=== PATIENT | male | born 1965 | race Caucasian/White ===

== ENCOUNTER 2016-05-16 15:17 | Emergency (ER) | payer MEDICARE, OTHER ==
[2016-05-16 15:44] LABS: Glucose,Whole Blood 213 mg/dL (75-99)
[2016-05-16] MEDS ORDERED: SODIUM CHLORIDE 0.9% 1,000 ML IV ONE (15:54)
--- NOTE | 2016-05-16 16:11 | ED ---
General Adult HPI - General Chief complaint: Recheck/Abnormal Lab/Rx Stated complaint: Sugar Level up Time Seen by Provider: 05/16/16 15:29 Source: patient, RN notes reviewed, old records reviewed Mode of arrival: wheelchair Limitations: no limitations - History of Present Illness Initial comments: 50-year-old male with history of hypertension and diabetes presenting for hyperglycemia. Patient states that his sugars been in the 300s for the past few days. He states he is taking his long-acting insulin, 17 units every day. States is not helping his symptoms. He has been drinking diet pop instead of regular pop as he thinks this will help his sugar levels. He states that he has had some episodes where he felt jittery and sweaty. He denies any chest pain or shortness breath. He denies any abdominal pain. Denies any nausea or vomiting or diarrhea. He denies any fevers or chills. - Related Data Home Medications Medication Instructions Recorded Confirmed Aspirin EC [Ecotrin Low Dose] 81 mg PO DAILY 03/13/14 05/16/16 Cyanocobalamin [Vitamin B-12] 1,000 mcg PO DAILY 03/13/14 05/16/16 Levothyroxine Sodium [Synthroid] 100 mcg PO DAILY 03/13/14 05/16/16 Lisinopril [Prinivil] 10 mg PO DAILY 03/13/14 05/16/16 Metoprolol Tartrate [Lopressor] 50 mg PO HS 03/13/14 05/16/16 Lovastatin [Mevacor] 10 mg PO HS 10/16/15 05/16/16 Melatonin 6 mg PO HS 10/16/15 05/16/16 Sodium Bicarbonate Tab 650 mg PO BID 10/16/15 05/16/16 metFORMIN HCL [metFORMIN HCL ER] 500 mg PO BID 12/09/15 05/16/16 Glimepiride [Amaryl] 4 mg PO AC-BRKFST 02/27/16 05/16/16 Insulin Glargine [Lantus] 17 unit SQ W/SUPPER 02/27/16 05/16/16 risperiDONE 3 mg PO BID 02/27/16 05/16/16 Previous Rx's Medication Instructions Recorded Divalproex [Depakote] 250 mg PO HS #30 tablet. 12/12/15 Divalproex [Depakote] 500 mg PO BID #60 tablet. 12/12/15 Sertraline [Zoloft] 150 mg PO HS #45 tab 12/12/15 cloNIDine HCL [Catapres] 0.1 mg PO TID #90 tab 12/12/15 Allergies Allergy/AdvReac Type Severity Reaction Status Date / Time carbamazepine [From Tegretol] Allergy Unknown Verified 05/16/16 15:35 phenytoin sodium Allergy Unknown Verified 05/16/16 15:35 [From Dilantin] phenytoin sodium extended Allergy Unknown Verified 05/16/16 15:35 [From Dilantin] primidone Allergy Unknown Verified 05/16/16 15:35 sulfamethoxazole Allergy Unknown Verified 05/16/16 15:35 [From Bactrim] trimethoprim [From Bactrim] Allergy Unknown Verified 05/16/16 15:35 Review of Systems ROS Statement: Those systems with pertinent positive or pertinent negative responses have been documented in the HPI. ROS Other: All systems not noted in ROS Statement are negative. Past Medical History Past Medical History: Diabetes Mellitus, Hyperlipidemia, Hypertension, Seizure Disorder, Sleep Apnea/CPAP/BIPAP, Thyroid Disorder Additional Past Medical History / Comment(s): IDDM type II, bilateral retinal hemorrhage, retinopathy bilaterally, grand/petite mal seizure with last seizure greater than 12 yrs ago, gender dysporia, balance issues, AYDEE with CPAP, sinus problems, hypothyroid. History of Any Multi-Drug Resistant Organisms: None Reported Past Surgical History: Cholecystectomy, Tonsillectomy Additional Past Surgical History / Comment(s): eye surgery, "tumor removed behind my throat", cystoscopy Past Anesthesia/Blood Transfusion Reactions: No Reported Reaction Past Psychological History: Anxiety, Bipolar Additional Psychological History / Comment(s): Pt resides at [email or web address]. He does not drive-he gets to [place] by bus or uses [employer] services. The nursing home staff manage his medications. He has a legal guardian, Winston Zepeda. Smoking Status: Never smoker Past Alcohol Use History: None Reported Past Drug Use History: None Reported - Past Family History Mother Family Medical History: Myocardial Infarction ([place]) Additional Family Medical History / Comment(s): Mother of a [place] at the age of 82 yrs. Father History Unknown: Yes General Exam - General Exam Comments Initial Comments: General: Awake and Alert. No acute distress. Does not appear acutely ill. Obese. Eyes: ASHKAN, EOM intact. No nystagmus. No scleral icterus. Bruising noted around eyes. HENT: Atraumatic, normocephalic. Mucous membranes moist. Trachea midline. Neck: The neck is supple, there is no tenderness or JVD. Cardiovascular: Regular rate and rhythm. No murmur, rub, or gallop is appreciated. Distal pulses intact. Respiratory: Lungs are clear to auscultation bilaterally. No wheezes, rales, rhonchi. No respiratory distress. Gastrointestinal: Soft, Nontender. No rebound or guarding. Non-distended. No masses or organomegaly noted. No CVA tenderness. Musculoskeletal: No tenderness. Normal ROM. No gross deformity. No strength deficits. Neurological: A&Ox3. CN II-XII grossly intact, There are no obvious motor or sensory deficits. Coordination appears grossly intact. Speech is normal. Skin: Skin is warm and dry and no rashes or lesions are noted. Psychiatric: Cooperative, blunt affect. Appears mildly anxious. Limitations: no limitations Course Vital Signs 05/16/16 05/16/16 15:18 15:34 Temperature 97.4 F L Pulse Rate 62 Respiratory 22 Rate Blood Pressure 207/92 209/99 O2 Sat by Pulse 98 Oximetry Medical Decision Making - Medical Decision Making 50-year-old male with history of hypertension and diabetes presenting for hyperglycemia. Initial vitals appear stable with exception of HTN. Patient with unremarkable examination other than some bruising around his eyes, states he recently had eye surgery last . Initial glucose in the 200s. Patient was given IV fluids. Also noted to have significant hypertension. States he hasn't taken any of his medications today. Patient is otherwise stable in the ED. Repeat glucose was improved. There is no evidence of DKA or other serious etiology at this time. Discussed close follow-up with PCP. Discussed need to discuss short acting insulin therapy with his PCP early next week. Discussed going home and taking his normal medications as prescribed. Discussed diabetic diet recommendations. Discussed concerning signs and symptoms are immediate return to the ED. Patient is otherwise stable for discharge this time. Is agreeable with discharge and plan. - Lab Data Result diagrams: 05/16/16 16:44 05/16/16 16:44 Lab Results 05/16/16 05/16/16 05/16/16 Range/Units 15:38 16:44 16:44 WBC 5.6 (3.8-10.6) k/uL RBC 4.64 (4.30-5.90) m/uL Hgb 13.9 (13.0-17.5) gm/dL Hct 41.3 (39.0-53.0) % MCV 89.1 (80.0-100.0) fL MCH 30.0 (25.0-35.0) pg MCHC 33.7 (31.0-37.0) g/dL RDW 12.9 (11.5-15.5) % Plt Count 182 (150-450) k/uL Neutrophils % 56 % Lymphocytes % 32 % Monocytes % 8 % Eosinophils % 2 % Basophils % 1 % Neutrophils # 3.1 (1.3-7.7) k/uL Lymphocytes # 1.8 (1.0-4.8) k/uL Monocytes # 0.4 (0-1.0) k/uL Eosinophils # 0.1 (0-0.7) k/uL Basophils # 0.0 (0-0.2) k/uL Sodium 132 L (137-145) mmol/L Potassium 3.7 (3.5-5.1) mmol/L Chloride 94 L (98-107) mmol/L Carbon Dioxide 25 (22-30) mmol/L Anion Gap 13 mmol/L BUN 9 (9-20) mg/dL Creatinine 0.62 L (0.66-1.25) mg/dL Est GFR (MDRD) Af Amer >60 (>60 ml/min/1.73 sqM) Est GFR (MDRD) Non-Af >60 (>60 ml/min/1.73 sqM) Glucose 172 H (74-99) mg/dL POC Glucose (mg/dL) 213 H (75-99) mg/dL POC Glu Psychology Department Chair ID Dominik, Elvira Calcium 8.8 (8.4-10.2) mg/dL Magnesium 1.5 L (1.6-2.3) mg/dL Urine Color Urine Appearance (Clear) Urine pH (5.0-8.0) Ur Specific [place] (1.001-1.035) Urine Protein (Negative) Urine Glucose (UA) (Negative) Urine Ketones (Negative) Urine Blood (Negative) Urine Nitrate (Negative) Urine Bilirubin (Negative) Urine Urobilinogen (<2.0) mg/dL Ur Leukocyte Esterase (Negative) 05/16/16 Range/Units 17:03 WBC (3.8-10.6) k/uL RBC (4.30-5.90) m/uL Hgb (13.0-17.5) gm/dL Hct (39.0-53.0) % MCV (80.0-100.0) fL MCH (25.0-35.0) pg MCHC (31.0-37.0) g/dL RDW (11.5-15.5) % Plt Count (150-450) k/uL Neutrophils % % Lymphocytes % % Monocytes % % Eosinophils % % Basophils % % Neutrophils # (1.3-7.7) k/uL Lymphocytes # (1.0-4.8) k/uL Monocytes # (0-1.0) k/uL Eosinophils # (0-0.7) k/uL Basophils # (0-0.2) k/uL Sodium (137-145) mmol/L Potassium (3.5-5.1) mmol/L Chloride (98-107) mmol/L Carbon Dioxide (22-30) mmol/L Anion Gap mmol/L BUN (9-20) mg/dL Creatinine (0.66-1.25) mg/dL Est GFR (MDRD) Af Amer (>60 ml/min/1.73 sqM) Est GFR (MDRD) Non-Af (>60 ml/min/1.73 sqM) Glucose (74-99) mg/dL POC Glucose (mg/dL) (75-99) mg/dL POC Glu Psychology Department Chair ID Calcium (8.4-10.2) mg/dL Magnesium (1.6-2.3) mg/dL Urine Color Colorless Urine Appearance Clear (Clear) Urine pH 6.5 (5.0-8.0) Ur Specific [place] 1.002 (1.001-1.035) Urine Protein Negative (Negative) Urine Glucose (UA) 3+ H (Negative) Urine Ketones Negative (Negative) Urine Blood Negative (Negative) Urine Nitrate Negative (Negative) Urine Bilirubin Negative (Negative) Urine Urobilinogen <2.0 (<2.0) mg/dL Ur Leukocyte Esterase Negative (Negative) Disposition Clinical Impression: Hyperglycemia, Essential hypertension Disposition: HOME SELF-CARE Condition: Stable Instructions: Diabetic Hyperglycemia (ED) Additional Instructions: Please continue taking your normal dose of long-acting insulin daily. Please follow up with your primary doctor within the next several days and discuss possible initiation of short acting insulin for further diabetic management. Please avoid sugars and pop. Referrals: Jonathon Escobedo MD [Primary Care Provider] - 1-2 days Time of Disposition: 18:20
[2016-05-16 17:04] LABS: Basophils % (A) 1 %; CH 31.1; CHCM 35.1; Eosinophils # (A) 0.1 k/uL (0-0.7); Eosinophils % (A) 2 %; HCT 41.3 % (39.0-53.0); HDW 2.65; HGB 13.9 gm/dL (13.0-17.5); Luc # (Auto) 0.09; Luc % (Auto) 2; Lymphocytes # (A) 1.8 k/uL (1.0-4.8); Lymphocytes % (A) 32 %; MCHC 33.7 g/dL (31.0-37.0); MCV 89.1 fL (80.0-100.0); Mean Platelet Volume 8.4; Monocytes # (A) 0.4 k/uL (0-1.0); Monocytes % (A) 8 %; Neutrophils # (A) 3.1 k/uL (1.3-7.7); Neutrophils % (A) 56 %; RBC 4.64 m/uL (4.30-5.90); RDW 12.9 % (11.5-15.5); WBC 5.6 k/uL (3.8-10.6); WBC (Perox) 5.78
[2016-05-16 17:12] LABS: Anion Gap 13 mmol/L; Blood Urea Nitrogen 9 mg/dL (9-20); Calcium 8.8 mg/dL (8.4-10.2); Carbon Dioxide 25 mmol/L (22-30); Chloride 94 mmol/L (98-107); Glucose 172 mg/dL (74-99); Magnesium 1.5 mg/dL (1.6-2.3); Non-African American GFR(MDRD) >60 (>60 ml/min/1.73 sqM); Potassium 3.7 mmol/L (3.5-5.1); Sodium 132 mmol/L (137-145)
[2016-05-16 17:13] LABS: Appearance,Urine Clear (Clear); Bilirubin,Urine Negative (Negative); Glucose,Urine (UA) 3+ (Negative); Ketones,Urine Negative (Negative); Leukocyte Esterase,Urine Negative (Negative); Nitrite,Urine Negative (Negative); PH, Urine 6.5 (5.0-8.0); Protein,Urine Negative (Negative); UA Billing (MACRO vs. MICRO) CHEM; Urobilinogen,Urine <2.0 mg/dL (<2.0)
[2016-05-16 17:42] LABS: Specific Gravity,Urine 1.002 (1.001-1.035)
[2016-05-16] MEDS ORDERED: MAGNESIUM OXIDE 400 MG TAB PO STA (18:15)
[2016-05-16 19:06] VITALS: BP 182/92; PULSE 87; RESP 16; TEMP 97.6
== END 2016-05-16 19:00 | disposition home or self-care (01) ==
LOC: EC 15:17
DX: E11.65 Type 2 diabetes mellitus with hyperglycemia (principal); I10 Essential (primary) hypertension; E03.9 Hypothyroidism, unspecified; G40.909 Epilepsy, unspecified, not intractable, without status epilepticus; E78.5 Hyperlipidemia, unspecified; G47.33 Obstructive sleep apnea (adult) (pediatric); F31.9 Bipolar disorder, unspecified; F41.9 Anxiety disorder, unspecified; Z79.82 Long term (current) use of aspirin; Z79.4 Long term (current) use of insulin; Z79.84 Long term (current) use of oral hypoglycemic drugs; Z79.899 Other long term (current) drug therapy; Z99.89 Dependence on other enabling machines and devices; Z88.1 Allergy status to other antibiotic agents; Z88.2 Allergy status to sulfonamides; Z88.8 Allergy status to other drugs, medicaments and biological substances
CPT/HCPCS: 36415; 80048; 81003; 83735; 85025; 96360; 96361; 99285

== ENCOUNTER 2017-01-30 12:59 | Emergency (ER) | payer MEDICARE, OTHER ==
[2017-01-30 13:15] VITALS: TEMP 98.2
--- NOTE | 2017-01-30 13:30 | ED ---
Dizziness HPI - General Chief Complaint: Dizziness Stated Complaint: Fall Time Seen by Provider: 01/30/17 13:15 Source: patient Mode of arrival: ambulatory Limitations: no limitations - History of Present Illness Initial Comments: 51-year-old male presents to the ER complaining of dizziness that occurred earlier this morning. Patient states he was shopping at [employer] by himself when he noticed that he started feeling dizzy and almost like he was going to pass out. Patient states he was possibly moving side to side and a senior software manager from the [employer] grocery store told him he should get checked out. Patient states he for some did take a bus to the emergency room to get evaluated. Patient is feeling change of his medication is that he be up his Lantus last night 15 units. Patient states his blood sugar was good according to the patient. Patient states he ate breakfast this morning a bowl of rea like cereal. Patient denies any pain. He denies any chest pain or abdominal pain. He denies any shortness of breath. He denies any visual changes. He denies any cough or fevers. He denies any dysuria. Patient does admit to increased urinary frequency. MD Complaint: dizziness, lightheadedness, near syncope - Related Data Home Medications Medication Instructions Recorded Confirmed Aspirin EC [Ecotrin Low Dose] 81 mg PO DAILY 03/13/14 01/30/17 Cyanocobalamin [Vitamin B-12] 1,000 mcg PO DAILY 03/13/14 01/30/17 Levothyroxine Sodium [Synthroid] 100 mcg PO DAILY 03/13/14 01/30/17 Lovastatin [Mevacor] 10 mg PO HS 10/16/15 01/30/17 Melatonin 9 mg PO HS 10/16/15 01/30/17 Sodium Bicarbonate Tab 650 mg PO BID 10/16/15 01/30/17 metFORMIN HCL [metFORMIN HCL ER] 2,000 mg PO W/SUPPER 12/09/15 01/30/17 Glimepiride [Amaryl] 4 mg PO AC-BRKFST 02/27/16 01/30/17 Insulin Glargine [Lantus] 15 unit SQ HS 02/27/16 01/30/17 risperiDONE 3 mg PO BID 02/27/16 01/30/17 Cholecalciferol [Vitamin D3] 1,000 unit PO DAILY 01/30/17 01/30/17 Cinnamon Bark [Cinnamon] 1,000 mg PO DAILY 01/30/17 01/30/17 Divalproex Sodium [Depakote] 1,000 mg PO HS 01/30/17 01/30/17 Divalproex [Depakote] 500 mg PO QAM 01/30/17 01/30/17 Lisinopril [Zestril] 20 mg PO DAILY 01/30/17 01/30/17 Metoprolol Succinate [Toprol XL] 50 mg PO HS 01/30/17 01/30/17 amLODIPine [Norvasc] 5 mg PO DAILY 01/30/17 01/30/17 Previous Rx's Medication Instructions Recorded Sertraline [Zoloft] 150 mg PO HS #45 tab 12/12/15 cloNIDine HCL [Catapres] 0.1 mg PO TID #90 tab 12/12/15 Allergies Allergy/AdvReac Type Severity Reaction Status Date / Time carbamazepine [From Tegretol] Allergy Unknown Verified 01/30/17 13:12 phenytoin sodium Allergy Unknown Verified 01/30/17 13:12 [From Dilantin] phenytoin sodium extended Allergy Unknown Verified 01/30/17 13:12 [From Dilantin] primidone Allergy Unknown Verified 01/30/17 13:12 sulfamethoxazole Allergy Unknown Verified 01/30/17 13:12 [From Bactrim] trimethoprim [From Bactrim] Allergy Unknown Verified 01/30/17 13:12 Review of Systems ROS Statement: Those systems with pertinent positive or pertinent negative responses have been documented in the HPI. ROS Other: All systems not noted in ROS Statement are negative. Constitutional: Denies: fever, chills ENT: Denies: ear pain, throat pain Respiratory: Denies: cough, dyspnea Cardiovascular: Denies: chest pain, palpitations Gastrointestinal: Denies: abdominal pain, nausea, vomiting Neurological: Denies: headache, weakness Past Medical History Past Medical History: Diabetes Mellitus, Hyperlipidemia, Hypertension, Seizure Disorder, Sleep Apnea/CPAP/BIPAP, Thyroid Disorder Additional Past Medical History / Comment(s): IDDM type II, bilateral retinal hemorrhage, retinopathy bilaterally, grand/petite mal seizure with last seizure greater than 12 yrs ago, gender dysporia, balance issues, AYDEE with CPAP, sinus problems, hypothyroid. History of Any Multi-Drug Resistant Organisms: None Reported Past Surgical History: Cholecystectomy, Tonsillectomy Additional Past Surgical History / Comment(s): eye surgery, "tumor removed behind my throat", cystoscopy Past Anesthesia/Blood Transfusion Reactions: No Reported Reaction Past Psychological History: Anxiety, Bipolar Smoking Status: Never smoker Past Alcohol Use History: None Reported Past Drug Use History: None Reported - Past Family History Mother Family Medical History: Myocardial Infarction ([place]) Additional Family Medical History / Comment(s): Mother of a [place] at the age of 82 yrs. Father History Unknown: Yes General Exam Limitations: no limitations General appearance: alert, in no apparent distress Eye exam: Present: normal appearance, PERRL, EOMI. Absent: scleral icterus, conjunctival injection, periorbital swelling ENT exam: Present: normal exam, mucous membranes moist Neck exam: Present: normal inspection. Absent: tenderness, meningismus, lymphadenopathy Respiratory exam: Present: normal lung sounds bilaterally. Absent: respiratory distress, wheezes, rales, rhonchi, stridor Cardiovascular Exam: Present: regular rate, normal rhythm, normal heart sounds. Absent: systolic murmur, diastolic murmur, rubs, gallop, clicks GI/Abdominal exam: Present: soft, normal bowel sounds. Absent: distended, tenderness, guarding, rebound, rigid Extremities exam: Present: normal inspection, full ROM, normal capillary refill. Absent: tenderness, pedal edema, joint swelling, calf tenderness Back exam: Present: normal inspection Neurological exam: Present: alert, oriented X3, CN II-XII intact Psychiatric exam: Present: normal affect, normal mood Skin exam: Present: warm, dry, intact, normal color. Absent: rash Course Vital Signs 01/30/17 01/30/17 01/30/17 13:12 14:11 15:05 Temperature 98.2 F Pulse Rate 59 L 55 L Pulse Rate [ 55 L Sitting] Pulse Rate [ 57 L Standing] Pulse Rate [ 57 L Supine] Respiratory 16 18 Rate Blood Pressure 198/93 146/68 Blood Pressure 155/74 [Sitting] Blood Pressure 150/78 [Standing] Blood Pressure 155/72 [Supine] O2 Sat by Pulse 100 99 Oximetry Medical Decision Making - Medical Decision Making Reviewed EKG and with Dr. Michaud. Discussed with patient that his sodium is low we will give half liter normal saline and try orthostatics. Patient comfortable we will send him home with follow-up for with family doctor next week. Patient to continue monitoring his blood pressures and sugar levels. Patient did eat a low carbohydrate diet. Patient should have repeat labs with his family doctor next week. Patient return to ER if symptoms progress or worsen. - Lab Data Result diagrams: 01/30/17 14:00 01/30/17 14:00 Lab Results 01/30/17 01/30/17 01/30/17 Range/Units 14:00 14:00 14:00 WBC 6.4 (3.8-10.6) k/uL RBC 4.62 (4.30-5.90) m/uL Hgb 14.5 (13.0-17.5) gm/dL Hct 42.4 (39.0-53.0) % MCV 91.8 (80.0-100.0) fL MCH 31.4 (25.0-35.0) pg MCHC 34.2 (31.0-37.0) g/dL RDW 13.9 (11.5-15.5) % Plt Count 245 (150-450) k/uL Neutrophils % 56 % Lymphocytes % 31 % Monocytes % 10 % Eosinophils % 1 % Basophils % 0 % Neutrophils # 3.6 (1.3-7.7) k/uL Lymphocytes # 2.0 (1.0-4.8) k/uL Monocytes # 0.6 (0-1.0) k/uL Eosinophils # 0.1 (0-0.7) k/uL Basophils # 0.0 (0-0.2) k/uL Sodium 129 L (137-145) mmol/L Potassium 4.3 (3.5-5.1) mmol/L Chloride 93 L (98-107) mmol/L Carbon Dioxide 24 (22-30) mmol/L Anion Gap 12 mmol/L BUN 9 (9-20) mg/dL Creatinine 0.61 L (0.66-1.25) mg/dL Est GFR (MDRD) Af Amer >60 (>60 ml/min/1.73 sqM) Est GFR (MDRD) Non-Af >60 (>60 ml/min/1.73 sqM) Glucose 165 H (74-99) mg/dL Calcium 9.3 (8.4-10.2) mg/dL Total Bilirubin 0.3 (0.2-1.3) mg/dL AST 17 (17-59) U/L ALT 31 (21-72) U/L Alkaline Phosphatase 59 (38-126) U/L Total Protein 7.1 (6.3-8.2) g/dL Albumin 4.4 (3.5-5.0) g/dL Urine Color Yellow Urine Appearance Clear (Clear) Urine pH 6.5 (5.0-8.0) Ur Specific [place] 1.010 (1.001-1.035) Urine Protein Negative (Negative) Urine Glucose (UA) 4+ H (Negative) Urine Ketones Negative (Negative) Urine Blood Negative (Negative) Urine Nitrite Negative (Negative) Urine Bilirubin Negative (Negative) Urine Urobilinogen <2.0 (<2.0) mg/dL Ur Leukocyte Esterase Negative (Negative) Disposition Clinical Impression: Hyponatremia, Dizziness Disposition: HOME SELF-CARE Instructions: Hyponatremia (ED) Referrals: Nonstaff,Physician [Primary Care Provider] - 1-2 days Geoff Cisneros MD [STAFF PHYSICIAN] - 1-2 days Time of Disposition: 16:05
[2017-01-30 14:12] VITALS: RESP 18
[2017-01-30 14:20] LABS: Basophils % (A) 0 %; CH 32.5; CHCM 35.5; Eosinophils # (A) 0.1 k/uL (0-0.7); Eosinophils % (A) 1 %; HCT 42.4 % (39.0-53.0); HDW 2.28; HGB 14.5 gm/dL (13.0-17.5); Luc % (Auto) 2; Lymphocytes % (A) 31 %; MCH 31.4 pg (25.0-35.0); MCHC 34.2 g/dL (31.0-37.0); MCV 91.8 fL (80.0-100.0); Mean Platelet Volume 8.1; Monocytes # (A) 0.6 k/uL (0-1.0); Monocytes % (A) 10 %; Neutrophils # (A) 3.6 k/uL (1.3-7.7); Neutrophils % (A) 56 %; RBC 4.62 m/uL (4.30-5.90); RDW 13.9 % (11.5-15.5); WBC 6.4 k/uL (3.8-10.6); WBC (Perox) 6.53
[2017-01-30 14:21] LABS: Appearance,Urine Clear (Clear); Bilirubin,Urine Negative (Negative); Glucose,Urine (UA) 4+ (Negative); Ketones,Urine Negative (Negative); PH, Urine 6.5 (5.0-8.0); Protein,Urine Negative (Negative); Urobilinogen,Urine <2.0 mg/dL (<2.0)
[2017-01-30 14:22] LABS: Leukocyte Esterase,Urine Negative (Negative); Nitrite,Urine Negative (Negative); UA Billing (MACRO vs. MICRO) CHEM
[2017-01-30 14:29] LABS: ALT 31 U/L (21-72); AST 17 U/L (17-59); Alkaline Phosphatase 59 U/L (38-126); Anion Gap 12 mmol/L; Blood Urea Nitrogen 9 mg/dL (9-20); Calcium 9.3 mg/dL (8.4-10.2); Carbon Dioxide 24 mmol/L (22-30); Chloride 93 mmol/L (98-107); Glucose 165 mg/dL (74-99); Non-African American GFR(MDRD) >60 (>60 ml/min/1.73 sqM); Potassium 4.3 mmol/L (3.5-5.1); Sodium 129 mmol/L (137-145); Total Bilirubin 0.3 mg/dL (0.2-1.3); Total Protein 7.1 g/dL (6.3-8.2)
[2017-01-30] MEDS ORDERED: SODIUM CHLORIDE 0.9% 500 ML IV ONE (14:45)
[2017-01-30 16:25] VITALS: BP 146/68; PULSE 55
== END 2017-01-30 16:26 | disposition home or self-care (01) ==
LOC: EC 12:59
DX: E87.1 Hypo-osmolality and hyponatremia (principal); R42 Dizziness and giddiness; E11.9 Type 2 diabetes mellitus without complications; E78.5 Hyperlipidemia, unspecified; I10 Essential (primary) hypertension; G47.30 Sleep apnea, unspecified; Z99.89 Dependence on other enabling machines and devices; E03.9 Hypothyroidism, unspecified; G40.909 Epilepsy, unspecified, not intractable, without status epilepticus; F31.9 Bipolar disorder, unspecified; Z79.899 Other long term (current) drug therapy; Z79.4 Long term (current) use of insulin; Z79.82 Long term (current) use of aspirin; Z88.2 Allergy status to sulfonamides; Z88.8 Allergy status to other drugs, medicaments and biological substances
CPT/HCPCS: 36415; 80053; 81003; 85025; 93005; 96365; 99284

== ENCOUNTER 2017-06-03 18:40 | Emergency (ER) | payer MEDICARE, OTHER ==
[2017-06-03 18:56] VITALS: RESP 18
[2017-06-03] MEDS ORDERED: SODIUM CHLORIDE 0.9% 2,000 ML IV ONE (19:10)
--- NOTE | 2017-06-03 19:23 | ED ---
General Adult HPI - General Chief complaint: Recheck/Abnormal Lab/Rx Stated complaint: HYPERGLYCEMIA Time Seen by Provider: 06/03/17 19:08 Source: patient Mode of arrival: ambulatory Limitations: no limitations - History of Present Illness Initial comments: Patient is a 51-year-old male who identifies as a female who presents with a chief complaint of hyperglycemia. Patient states that they are type II however they were diagnosed at the age of 6 or 7. Patient currently takes insulin once a day. Did not try taking any insulin prior to coming to the emergency department. Patient is coming from her senior living and is accompanied by one of the senior living staff. Patient does not have any symptoms currently. Blood sugar was over 450 at the senior living. - Related Data Home Medications Medication Instructions Recorded Confirmed Aspirin EC [Ecotrin Low Dose] 81 mg PO DAILY 03/13/14 06/03/17 Cyanocobalamin [Vitamin B-12] 1,000 mcg PO DAILY@1600 03/13/14 06/03/17 Levothyroxine Sodium [Synthroid] 100 mcg PO QAM 03/13/14 06/03/17 Lovastatin [Mevacor] 10 mg PO HS 10/16/15 06/03/17 Melatonin 9 mg PO HS 10/16/15 06/03/17 metFORMIN HCL [metFORMIN HCL ER] 2,000 mg PO W/SUPPER 12/09/15 06/03/17 Glimepiride [Amaryl] 4 mg PO AC-BRKFST 02/27/16 06/03/17 risperiDONE 3 mg PO BID 02/27/16 06/03/17 Cholecalciferol [Vitamin D3] 2,000 unit PO DAILY 01/30/17 06/03/17 Divalproex Sodium [Depakote] 1,000 mg PO HS 01/30/17 06/03/17 Divalproex [Depakote] 500 mg PO QAM 01/30/17 06/03/17 Lisinopril [Zestril] 20 mg PO QAM 01/30/17 06/03/17 Metoprolol Succinate [Toprol XL] 50 mg PO HS 01/30/17 06/03/17 Ascorbic Acid [Vitamin C] 500 mg PO DAILY@1600 03/18/17 06/03/17 Insulin Glargine,Hum.rec.anlog 25 unit SQ HS 06/03/17 06/03/17 [Lantus Solostar] amLODIPine [Norvasc] 10 mg PO DAILY 06/03/17 06/03/17 Previous Rx's Medication Instructions Recorded Sertraline [Zoloft] 150 mg PO HS #45 tab 12/12/15 cloNIDine HCL [Catapres] 0.1 mg PO TID #90 tab 12/12/15 Allergies Allergy/AdvReac Type Severity Reaction Status Date / Time carbamazepine [From Tegretol] Allergy Unknown Verified 06/03/17 19:23 phenytoin sodium Allergy Unknown Verified 06/03/17 19:23 [From Dilantin] phenytoin sodium extended Allergy Unknown Verified 06/03/17 19:23 [From Dilantin] primidone Allergy Unknown Verified 06/03/17 19:23 sulfamethoxazole Allergy Unknown Verified 06/03/17 19:23 [From Bactrim] trimethoprim [From Bactrim] Allergy Unknown Verified 06/03/17 19:23 Review of Systems ROS Statement: Those systems with pertinent positive or pertinent negative responses have been documented in the HPI. ROS Other: All systems not noted in ROS Statement are negative. Past Medical History Past Medical History: Diabetes Mellitus, Hyperlipidemia, Hypertension, Seizure Disorder, Sleep Apnea/CPAP/BIPAP, Thyroid Disorder Additional Past Medical History / Comment(s): IDDM type II, bilateral retinal hemorrhage, retinopathy bilaterally, grand/petite mal seizure with last seizure greater than 12 yrs ago, gender dysporia, balance issues, AYDEE with CPAP, sinus problems, hypothyroid. History of Any Multi-Drug Resistant Organisms: None Reported Past Surgical History: Cholecystectomy, Tonsillectomy Additional Past Surgical History / Comment(s): eye surgery, "tumor removed behind my throat", cystoscopy Past Anesthesia/Blood Transfusion Reactions: No Reported Reaction Past Psychological History: Anxiety, Bipolar Smoking Status: Never smoker Past Alcohol Use History: None Reported Past Drug Use History: None Reported - Past Family History Mother Family Medical History: Myocardial Infarction ([place]) Additional Family Medical History / Comment(s): Mother of a [place] at the age of 82 yrs. Father History Unknown: Yes General Exam Limitations: no limitations General appearance: alert, in no apparent distress Head exam: Present: atraumatic, normocephalic Eye exam: Present: normal appearance ENT exam: Present: mucous membranes moist Neck exam: Present: normal inspection Respiratory exam: Present: normal lung sounds bilaterally, respiratory distress Cardiovascular Exam: Present: regular rate, normal rhythm GI/Abdominal exam: Present: soft. Absent: distended, tenderness Rectal exam: Present: deferred Extremities exam: Present: normal inspection Back exam: Present: normal inspection Neurological exam: Present: alert, oriented X3 Psychiatric exam: Present: normal affect, normal mood Skin exam: Present: warm, dry, intact Course Vital Signs 06/03/17 18:53 Temperature 97.7 F Pulse Rate 16 L Respiratory 18 Rate Blood Pressure 141/65 O2 Sat by Pulse 96 Oximetry Medical Decision Making - Medical Decision Making Patient is a 51-year-old male, identifies as a female, resident of the chief complaint of hyperglycemia. Patient is not symptomatically at this time. On initial evaluation, vital signs are stable, patient is in no acute distress. We 'll check basic labs, urinalysis and give patient 2 L of IV fluid. 8:32 PM Lab evaluation of this patient is unremarkable. Anion gap is 13. Patient remained comfortable in the emergency department. Patient received a total of 1 L of fluids, blood sugar improved to 360. Patient is due for his home dose of insulin, therefore we will not give him insulin in the emergency department. The patient can take his home dose when he gets there. Patient was instructed to follow-up with primary care in 1-2 days or return to the emergency department if symptoms worsen or change for reevaluation in 12-24 hours. - Lab Data Result diagrams: 06/03/17 19:36 06/03/17 19:36 Lab Results 06/03/17 06/03/17 06/03/17 Range/Units 19:34 19:36 19:36 WBC 7.5 (3.8-10.6) k/uL RBC 4.27 L (4.30-5.90) m/uL Hgb 12.9 L (13.0-17.5) gm/dL Hct 40.6 (39.0-53.0) % MCV 95.0 (80.0-100.0) fL MCH 30.3 (25.0-35.0) pg MCHC 31.9 (31.0-37.0) g/dL RDW 12.9 (11.5-15.5) % Plt Count 232 (150-450) k/uL Neutrophils % 58 % Lymphocytes % 30 % Monocytes % 9 % Eosinophils % 1 % Basophils % 0 % Neutrophils # 4.3 (1.3-7.7) k/uL Lymphocytes # 2.3 (1.0-4.8) k/uL Monocytes # 0.7 (0-1.0) k/uL Eosinophils # 0.1 (0-0.7) k/uL Basophils # 0.0 (0-0.2) k/uL Sodium 132 L (137-145) mmol/L Potassium 4.8 (3.5-5.1) mmol/L Chloride 92 L (98-107) mmol/L Carbon Dioxide 27 (22-30) mmol/L Anion Gap 13 mmol/L BUN 14 (9-20) mg/dL Creatinine 0.65 L (0.66-1.25) mg/dL Est GFR (MDRD) Af Amer >60 (>60 ml/min/1.73 sqM) Est GFR (MDRD) Non-Af >60 (>60 ml/min/1.73 sqM) Glucose 369 H (74-99) mg/dL POC Glucose (mg/dL) 360 H (75-99) mg/dL POC Glu Recreation Superintendent ID Reji Jovel Calcium 9.7 (8.4-10.2) mg/dL Urine Color Urine Appearance (Clear) Urine pH (5.0-8.0) Ur Specific [place] (1.001-1.035) Urine Protein (Negative) Urine Glucose (UA) (Negative) Urine Ketones (Negative) Urine Blood (Negative) Urine Nitrite (Negative) Urine Bilirubin (Negative) Urine Urobilinogen (<2.0) mg/dL Ur Leukocyte Esterase (Negative) 06/03/17 Range/Units 19:45 WBC (3.8-10.6) k/uL RBC (4.30-5.90) m/uL Hgb (13.0-17.5) gm/dL Hct (39.0-53.0) % MCV (80.0-100.0) fL MCH (25.0-35.0) pg MCHC (31.0-37.0) g/dL RDW (11.5-15.5) % Plt Count (150-450) k/uL Neutrophils % % Lymphocytes % % Monocytes % % Eosinophils % % Basophils % % Neutrophils # (1.3-7.7) k/uL Lymphocytes # (1.0-4.8) k/uL Monocytes # (0-1.0) k/uL Eosinophils # (0-0.7) k/uL Basophils # (0-0.2) k/uL Sodium (137-145) mmol/L Potassium (3.5-5.1) mmol/L Chloride (98-107) mmol/L Carbon Dioxide (22-30) mmol/L Anion Gap mmol/L BUN (9-20) mg/dL Creatinine (0.66-1.25) mg/dL Est GFR (MDRD) Af Amer (>60 ml/min/1.73 sqM) Est GFR (MDRD) Non-Af (>60 ml/min/1.73 sqM) Glucose (74-99) mg/dL POC Glucose (mg/dL) (75-99) mg/dL POC Glu Recreation Superintendent ID Calcium (8.4-10.2) mg/dL Urine Color Colorless Urine Appearance Clear (Clear) Urine pH 7.0 (5.0-8.0) Ur Specific [place] 1.014 (1.001-1.035) Urine Protein Negative (Negative) Urine Glucose (UA) 4+ H (Negative) Urine Ketones Negative (Negative) Urine Blood Negative (Negative) Urine Nitrite Negative (Negative) Urine Bilirubin Negative (Negative) Urine Urobilinogen <2.0 (<2.0) mg/dL Ur Leukocyte Esterase Negative (Negative) Disposition Clinical Impression: Hyperglycemia Disposition: HOME SELF-CARE Condition: Good Instructions: Diabetic Hyperglycemia (ED) Referrals: Jonathon Escobedo MD [Primary Care Provider] - 1-2 days
[2017-06-03 19:50] LABS: Glucose,Whole Blood 360 mg/dL (75-99)
[2017-06-03 19:55] LABS: Appearance,Urine Clear (Clear); Bilirubin,Urine Negative (Negative); Blood,Urine Negative (Negative); Color,Urine Colorless; Glucose,Urine (UA) 4+ (Negative); Ketones,Urine Negative (Negative); Leukocyte Esterase,Urine Negative (Negative); Nitrite,Urine Negative (Negative); Protein,Urine Negative (Negative); Specific Gravity,Urine 1.014 (1.001-1.035); Urobilinogen,Urine <2.0 mg/dL (<2.0)
[2017-06-03 20:00] LABS: Basophils % (A) 0 %; Eosinophils # (A) 0.1 k/uL (0-0.7); Eosinophils % (A) 1 %; HCT 40.6 % (39.0-53.0); HGB 12.9 gm/dL (13.0-17.5); Lymphocytes # (A) 2.3 k/uL (1.0-4.8); Lymphocytes % (A) 30 %; MCH 30.3 pg (25.0-35.0); MCHC 31.9 g/dL (31.0-37.0); Mean Platelet Volume 7.5; Monocytes # (A) 0.7 k/uL (0-1.0); Monocytes % (A) 9 %; Neutrophils # (A) 4.3 k/uL (1.3-7.7); Neutrophils % (A) 58 %; Platelet Count 232 k/uL (150-450); RBC 4.27 m/uL (4.30-5.90); RDW 12.9 % (11.5-15.5); WBC 7.5 k/uL (3.8-10.6)
[2017-06-03 20:18] LABS: Anion Gap 13 mmol/L; Blood Urea Nitrogen 14 mg/dL (9-20); Calcium 9.7 mg/dL (8.4-10.2); Carbon Dioxide 27 mmol/L (22-30); Chloride 92 mmol/L (98-107); Glucose 369 mg/dL (74-99); Potassium 4.8 mmol/L (3.5-5.1); Sodium 132 mmol/L (137-145)
[2017-06-03 20:52] VITALS: BP 163/72; PULSE 67; TEMP 98.1
== END 2017-06-03 21:20 | disposition home or self-care (01) ==
LOC: EC 18:40
DX: E11.65 Type 2 diabetes mellitus with hyperglycemia (principal); R06.03 Acute respiratory distress; E78.5 Hyperlipidemia, unspecified; I10 Essential (primary) hypertension; E11.319 Type 2 diabetes mellitus with unspecified diabetic retinopathy without macular edema; E03.9 Hypothyroidism, unspecified; F31.9 Bipolar disorder, unspecified; G40.909 Epilepsy, unspecified, not intractable, without status epilepticus; G47.33 Obstructive sleep apnea (adult) (pediatric); Z79.4 Long term (current) use of insulin; Z79.82 Long term (current) use of aspirin; Z79.899 Other long term (current) drug therapy; Z88.1 Allergy status to other antibiotic agents; Z88.8 Allergy status to other drugs, medicaments and biological substances; Z99.89 Dependence on other enabling machines and devices
CPT/HCPCS: 36415; 80048; 81003; 85025; 96360; 96361; 99283

== ENCOUNTER 2017-08-25 01:38 | Emergency (ER) | payer MEDICARE, OTHER ==
--- NOTE | 2017-08-25 02:08 | ED ---
Psych HPI <Nikolai Adkins - Last Filed: 08/25/17 04:56> - General Source: patient, EMS, RN notes reviewed Mode of arrival: EMS <Juanita Swan - Last Filed: 08/25/17 17:04> - General Chief Complaint: Psychiatric Symptoms Stated Complaint: Mental Health Time Seen by Provider: 08/25/17 01:48 - History of Present Illness Initial Comments: This is a 52-year-old male who presents to the emergency department for mental health evaluation. Patient states that he wants his mood medications adjusted. He states that he was told by his psychiatrist that he if he ever has an increase in anxiety or stress that he is to report to the emergency department. Patient states that recently he has been frustrated and angry with a girl at the care home who has been ruining all of his outings. He states he is now becoming frustrated with the local bus and his guardian. He denies any suicidal or homicidal ideation. Denies any auditory or visual hallucinations. Denies illicit drug or alcohol use. Denies any recent illnesses. Denies fever, chills, chest pain, shortness of breath, abdominal pain, nausea or vomiting, constipation or diarrhea, dysuria or hematuria, numbness or tingling, headache or vision changes. (Juanita Swan) - Related Data Home Medications Medication Instructions Recorded Confirmed Aspirin EC [Ecotrin Low Dose] 81 mg PO DAILY 03/13/14 06/03/17 Cyanocobalamin [Vitamin B-12] 1,000 mcg PO DAILY@1600 03/13/14 06/03/17 Levothyroxine Sodium [Synthroid] 100 mcg PO QAM 03/13/14 06/03/17 Lovastatin [Mevacor] 10 mg PO HS 10/16/15 06/03/17 Melatonin 9 mg PO HS 10/16/15 06/03/17 metFORMIN HCL [metFORMIN HCL ER] 2,000 mg PO W/SUPPER 12/09/15 06/03/17 Glimepiride [Amaryl] 4 mg PO AC-BRKFST 02/27/16 06/03/17 risperiDONE 3 mg PO BID 02/27/16 06/03/17 Cholecalciferol [Vitamin D3] 2,000 unit PO DAILY 01/30/17 06/03/17 Divalproex Sodium [Depakote] 1,000 mg PO HS 01/30/17 06/03/17 Divalproex [Depakote] 500 mg PO QAM 01/30/17 06/03/17 Lisinopril [Zestril] 20 mg PO QAM 01/30/17 06/03/17 Metoprolol Succinate [Toprol XL] 50 mg PO HS 01/30/17 06/03/17 Ascorbic Acid [Vitamin C] 500 mg PO DAILY@1600 03/18/17 06/03/17 Insulin Glargine,Hum.rec.anlog 25 unit SQ HS 06/03/17 06/03/17 [Lantus Solostar] amLODIPine [Norvasc] 10 mg PO DAILY 06/03/17 06/03/17 Previous Rx's Medication Instructions Recorded Sertraline [Zoloft] 150 mg PO HS #45 tab 12/12/15 cloNIDine HCL [Catapres] 0.1 mg PO TID #90 tab 12/12/15 Allergies Allergy/AdvReac Type Severity Reaction Status Date / Time carbamazepine [From Tegretol] Allergy Unknown Verified 06/03/17 19:23 phenytoin sodium Allergy Unknown Verified 06/03/17 19:23 [From Dilantin] phenytoin sodium extended Allergy Unknown Verified 06/03/17 19:23 [From Dilantin] primidone Allergy Unknown Verified 06/03/17 19:23 sulfamethoxazole Allergy Unknown Verified 06/03/17 19:23 [From Bactrim] trimethoprim [From Bactrim] Allergy Unknown Verified 06/03/17 19:23 Review of Systems ROS Other: All systems not noted in ROS Statement are negative. <Nikolai Adkins - Last Filed: 08/25/17 04:56> ROS Other: All systems not noted in ROS Statement are negative. <Juanita Swan - Last Filed: 08/25/17 17:04> ROS Statement: Those systems with pertinent positive or pertinent negative responses have been documented in the HPI. Past Medical History Past Medical History: Diabetes Mellitus, Hyperlipidemia, Hypertension, Seizure Disorder, Sleep Apnea/CPAP/BIPAP, Thyroid Disorder Additional Past Medical History / Comment(s): IDDM type II, bilateral retinal hemorrhage, retinopathy bilaterally, grand/petite mal seizure with last seizure greater than 12 yrs ago, gender dysporia, balance issues, AYDEE with CPAP, sinus problems, hypothyroid. History of Any Multi-Drug Resistant Organisms: None Reported Past Surgical History: Cholecystectomy, Tonsillectomy Additional Past Surgical History / Comment(s): eye surgery, "tumor removed behind my throat", cystoscopy Past Anesthesia/Blood Transfusion Reactions: No Reported Reaction Past Psychological History: Anxiety, Bipolar Smoking Status: Former smoker Past Alcohol Use History: None Reported Past Drug Use History: None Reported - Past Family History Mother Family Medical History: Myocardial Infarction ([place]) Additional Family Medical History / Comment(s): Mother of a [place] at the age of 82 yrs. Father History Unknown: Yes <Juanita Swan - Last Filed: 08/25/17 17:04> General Exam <Nikolai Adkins - Last Filed: 08/25/17 04:56> Limitations: altered mental status <Juanita Swan - Last Filed: 08/25/17 17:04> - General Exam Comments Initial Comments: General: Awake and alert, well-developed; in no apparent distress. HEENT: Head atraumatic, normocephalic. Pupils are equal, round and reactive to light. Extraocular movements intact. Oropharynx moist without erythema or exudate. Neck: Supple. Normal ROM. Cardiovascular: Regular rate and rhythm. No murmurs, rubs or gallops. Chest symmetrical. Respiratory: Lungs clear to auscultation bilaterally. No wheezes, rales or rhonchi. Normal respiratory effort with no use of accessory muscles. Musculoskeletal: Normal ROM, no tenderness bilateral upper and lower extremities. Ambulating normally. Skin: [place], warm and dry without rashes or lesions. Neurological: Alert and oriented x3. CN II-XII grossly intact. Speech is fluent and answers are appropriate. No focal neuro deficits. Psychiatric: Very animated. Flight of ideas. Good insight. (Juanita Swan) Vital Signs 08/25/17 08/25/17 01:39 05:17 Temperature 99 F 98.3 F Pulse Rate 100 82 Respiratory 18 20 Rate Blood Pressure 179/89 109/57 O2 Sat by Pulse 98 96 Oximetry Medical Decision Making <Nikolai Adkins - Last Filed: 08/25/17 04:56> <Juanita Swan - Last Filed: 08/25/17 17:04> - Medical Decision Making This is a 52-year-old male who presents to the emergency department for mental health evaluation. Patient requests to have his mood medications adjusted. He states that recently he has had an increase in stress, anger and frustration in his life. Denies any suicidal or homicidal ideation at this time. Denies any plans. (Juanita Swan) - Lab Data Lab Results 08/25/17 Range/Units 02:05 Urine Opiates Screen Not Detected (NotDetected) Ur Oxycodone Screen Not Detected (NotDetected) Urine Methadone Screen Not Detected (NotDetected) Ur Propoxyphene Screen Not Detected (NotDetected) Ur Barbiturates Screen Not Detected (NotDetected) U Tricyclic Antidepress Not Detected (NotDetected) Ur Phencyclidine Scrn Not Detected (NotDetected) Ur Amphetamines Screen Not Detected (NotDetected) U Methamphetamines Scrn Not Detected (NotDetected) U Benzodiazepines Scrn Not Detected (NotDetected) Urine Cocaine Screen Not Detected (NotDetected) U Marijuana (THC) Screen Not Detected (NotDetected) Disposition Is patient prescribed a controlled substance at d/c from ED?: No <Nikolai Adkins - Last Filed: 08/25/17 04:56> Is patient prescribed a controlled substance at d/c from ED?: No <Juanita Swan - Last Filed: 08/25/17 17:04> Clinical Impression: Adjustment reaction Disposition: HOME SELF-CARE Condition: Good Instructions: Mood Disorders (ED) Referrals: Jonathon Escobedo MD [Primary Care Provider] - 1-2 days
[2017-08-25 02:54] LABS: Amphetamine Screen,Urine Not Detected (NotDetected); Barbiturate Screen,Urine Not Detected (NotDetected); Benzodiazepines Screen,Urine Not Detected (NotDetected); Cocaine Screen,Urine Not Detected (NotDetected); Methadone Screen, Urine Not Detected (NotDetected); Opiate Screen,Urine Not Detected (NotDetected); Oxycodone Screen, Urine Not Detected (NotDetected); Phencyclidine Screen,Urine Not Detected (NotDetected); Tricyclic Antidepressant,Urine Not Detected (NotDetected); Urn Cannabinoid Scrn Not Detected (NotDetected)
[2017-08-25 05:18] VITALS: BP 109/57; PULSE 82; RESP 20; TEMP 98.3
== END 2017-08-25 05:29 | disposition home or self-care (01) ==
LOC: EC 01:38
DX: F43.20 Adjustment disorder, unspecified (principal); E11.9 Type 2 diabetes mellitus without complications; E78.5 Hyperlipidemia, unspecified; I10 Essential (primary) hypertension; G40.909 Epilepsy, unspecified, not intractable, without status epilepticus; G47.33 Obstructive sleep apnea (adult) (pediatric); Z99.89 Dependence on other enabling machines and devices; E03.9 Hypothyroidism, unspecified; F31.9 Bipolar disorder, unspecified; F41.9 Anxiety disorder, unspecified; Z87.891 Personal history of nicotine dependence; Z79.82 Long term (current) use of aspirin; Z79.4 Long term (current) use of insulin; Z79.899 Other long term (current) drug therapy; Z88.2 Allergy status to sulfonamides; Z88.8 Allergy status to other drugs, medicaments and biological substances
CPT/HCPCS: 80306; 82075; 99284

== ENCOUNTER 2017-09-20 03:54 | Emergency (ER) | payer MEDICARE, OTHER ==
[2017-09-20 04:02] VITALS: RESP 18
[2017-09-20] MEDS ORDERED: ONDANSETRON 4 MG/2 ML VIAL IVP STA (04:15)
[2017-09-20] MEDS ORDERED: SODIUM CHLORIDE 0.9% 500 ML IV STA (04:15)
[2017-09-20 04:28] LABS: Basophils % (A) 0 %; Eosinophils # (A) 0.2 k/uL (0-0.7); Eosinophils % (A) 3 %; HCT 37.4 % (39.0-53.0); HGB 13.1 gm/dL (13.0-17.5); Lymphocytes % (A) 25 %; MCHC 35.1 g/dL (31.0-37.0); MCV 85.5 fL (80.0-100.0); Mean Platelet Volume 7.1; Monocytes % (A) 12 %; Neutrophils # (A) 4.7 k/uL (1.3-7.7); Neutrophils % (A) 58 %; Platelet Count 292 k/uL (150-450); RBC 4.37 m/uL (4.30-5.90); RDW 12.9 % (11.5-15.5); WBC 8.1 k/uL (3.8-10.6)
[2017-09-20 04:33] LABS: ALT 33 U/L (21-72); AST 17 U/L (17-59); Acetaminophen <10.0 ug/mL; Albumin 3.9 g/dL (3.5-5.0); Alkaline Phosphatase 51 U/L (38-126); Anion Gap 12 mmol/L; Blood Urea Nitrogen 6 mg/dL (9-20); Calcium 9.1 mg/dL (8.4-10.2); Carbon Dioxide 26 mmol/L (22-30); Chloride 93 mmol/L (98-107); Glucose 135 mg/dL (74-99); Potassium 4.1 mmol/L (3.5-5.1); Salicylate 1.3 mg/dL; Sodium 131 mmol/L (137-145); Total Bilirubin <0.1 mg/dL (0.2-1.3); Total Protein 6.3 g/dL (6.3-8.2)
[2017-09-20 05:24] LABS: Appearance,Urine Clear (Clear); Bilirubin,Urine Negative (Negative); Blood,Urine Negative (Negative); Color,Urine Light Yellow; Glucose,Urine (UA) Trace (Negative); Ketones,Urine Negative (Negative); Leukocyte Esterase,Urine Negative (Negative); Nitrite,Urine Negative (Negative); Protein,Urine Negative (Negative); Specific Gravity,Urine 1.003 (1.001-1.035); Urobilinogen,Urine <2.0 mg/dL (<2.0)
[2017-09-20 05:34] LABS: Amphetamine Screen,Urine Not Detected (NotDetected); Barbiturate Screen,Urine Not Detected (NotDetected); Benzodiazepines Screen,Urine Not Detected (NotDetected); Cocaine Screen,Urine Not Detected (NotDetected); Methadone Screen, Urine Not Detected (NotDetected); Opiate Screen,Urine Not Detected (NotDetected); Oxycodone Screen, Urine Not Detected (NotDetected); Phencyclidine Screen,Urine Not Detected (NotDetected); Tricyclic Antidepressant,Urine Not Detected (NotDetected); Urn Cannabinoid Scrn Not Detected (NotDetected)
--- NOTE | 2017-09-20 06:17 | ED ---
General Adult HPI - General Chief complaint: Seizure Stated complaint: Seizure Time Seen by Provider: 09/20/17 04:09 Source: patient, RN notes reviewed, old records reviewed Mode of arrival: ambulatory Limitations: no limitations - History of Present Illness Initial comments: This is a 52-year-old male the ER for evaluation. Patient's brought in today for evaluation regarding recurrent seizure. Patient himself currently has no complaints, no longer postictal. Patient states is been taking all medications as prescribed, denies recent trauma no recent drugs or alcohol. - Related Data Home Medications Medication Instructions Recorded Confirmed Aspirin EC [Ecotrin Low Dose] 81 mg PO DAILY 03/13/14 09/24/17 Cyanocobalamin [Vitamin B-12] 1,000 mcg PO DAILY@1600 03/13/14 09/24/17 Levothyroxine Sodium [Synthroid] 100 mcg PO QAM 03/13/14 09/24/17 Lovastatin [Mevacor] 10 mg PO HS 10/16/15 09/24/17 Melatonin 9 mg PO HS 10/16/15 09/24/17 metFORMIN HCL [metFORMIN HCL ER] 1,000 mg PO BID 12/09/15 09/24/17 Glimepiride [Amaryl] 4 mg PO AC-BRKFST 02/27/16 09/24/17 risperiDONE 4 mg PO DAILY 02/27/16 09/24/17 Cholecalciferol [Vitamin D3] 2,000 unit PO DAILY 01/30/17 09/24/17 Divalproex Sodium [Depakote] 1,000 mg PO HS 01/30/17 09/24/17 Lisinopril [Zestril] 20 mg PO QAM 01/30/17 09/24/17 Ascorbic Acid [Vitamin C] 500 mg PO DAILY@1600 03/18/17 09/24/17 Insulin Glargine,Hum.rec.anlog 45 unit SQ HS 06/03/17 06/03/17 [Lantus Solostar] amLODIPine [Norvasc] 10 mg PO DAILY 06/03/17 09/24/17 Insulin Lispro [humaLOG Kwikpen] See Protocol SQ ACHS PRN 09/24/17 09/24/17 risperiDONE 3 mg PO HS 09/24/17 09/24/17 Previous Rx's Medication Instructions Recorded Sertraline [Zoloft] 150 mg PO HS #45 tab 12/12/15 cloNIDine HCL [Catapres] 0.1 mg PO TID #90 tab 12/12/15 Allergies Allergy/AdvReac Type Severity Reaction Status Date / Time carbamazepine [From Tegretol] Allergy Unknown Verified 09/24/17 15:22 phenytoin sodium Allergy Unknown Verified 09/24/17 15:22 [From Dilantin] phenytoin sodium extended Allergy Unknown Verified 09/24/17 15:22 [From Dilantin] primidone Allergy Unknown Verified 09/24/17 15:22 sulfamethoxazole Allergy Unknown Verified 09/24/17 15:22 [From Bactrim] trimethoprim [From Bactrim] Allergy Unknown Verified 09/24/17 15:22 Review of Systems ROS Statement: Those systems with pertinent positive or pertinent negative responses have been documented in the HPI. ROS Other: All systems not noted in ROS Statement are negative. Past Medical History Past Medical History: Diabetes Mellitus, Hyperlipidemia, Hypertension, Seizure Disorder, Sleep Apnea/CPAP/BIPAP, Thyroid Disorder Additional Past Medical History / Comment(s): IDDM type II, bilateral retinal hemorrhage, retinopathy bilaterally, grand/petite mal seizure with last seizure greater than 12 yrs ago, gender dysporia, balance issues, AYDEE with CPAP, sinus problems, hypothyroid. History of Any Multi-Drug Resistant Organisms: None Reported Past Surgical History: Cholecystectomy, Tonsillectomy Additional Past Surgical History / Comment(s): eye surgery, "tumor removed behind my throat", cystoscopy Past Anesthesia/Blood Transfusion Reactions: No Reported Reaction Past Psychological History: Anxiety, Bipolar Smoking Status: Former smoker Past Alcohol Use History: None Reported Past Drug Use History: None Reported - Past Family History Mother Family Medical History: Myocardial Infarction ([place]) Additional Family Medical History / Comment(s): Mother of a [place] at the age of 82 yrs. Father History Unknown: Yes General Exam Limitations: no limitations General appearance: alert, in no apparent distress Head exam: Present: atraumatic, normocephalic, normal inspection Eye exam: Present: normal appearance, PERRL, EOMI. Absent: scleral icterus, conjunctival injection, periorbital swelling ENT exam: Present: normal exam, mucous membranes moist Neck exam: Present: normal inspection. Absent: tenderness, meningismus, lymphadenopathy Respiratory exam: Present: normal lung sounds bilaterally. Absent: respiratory distress, wheezes, rales, rhonchi, stridor Cardiovascular Exam: Present: regular rate, normal rhythm, normal heart sounds. Absent: systolic murmur, diastolic murmur, rubs, gallop, clicks GI/Abdominal exam: Present: soft, normal bowel sounds. Absent: distended, tenderness, guarding, rebound, rigid Extremities exam: Present: normal inspection, full ROM, normal capillary refill. Absent: tenderness, pedal edema, joint swelling, calf tenderness Back exam: Present: normal inspection Neurological exam: Present: alert, oriented X3, CN II-XII intact Psychiatric exam: Present: normal affect, normal mood Skin exam: Present: warm, dry, intact, normal color. Absent: rash Course Vital Signs 09/20/17 09/20/17 09/20/17 03:58 05:02 06:32 Temperature 98.6 F 98.4 F Pulse Rate 70 77 63 Respiratory 18 18 18 Rate Blood Pressure 178/104 140/77 137/63 O2 Sat by Pulse 98 97 98 Oximetry 09/20/17 06:33 Temperature 98 F Pulse Rate 83 Respiratory 18 Rate Blood Pressure 146/71 O2 Sat by Pulse 97 Oximetry EKG Findings - EKG Comments: EKG Findings:: AG shows sinus bradycardia rate of 59, [place] 140, QRS 04, QTC 423 Medical Decision Making - Medical Decision Making 52 female the ER for evaluation. Patient has history of seizure, coming in with seizure today. Patient will be discharged home - Lab Data Result diagrams: 09/20/17 04:14 09/20/17 04:14 Lab Results 09/20/17 09/20/17 09/20/17 Range/Units 04:14 04:14 05:16 WBC 8.1 (3.8-10.6) k/uL RBC 4.37 (4.30-5.90) m/uL Hgb 13.1 (13.0-17.5) gm/dL Hct 37.4 L (39.0-53.0) % MCV 85.5 (80.0-100.0) fL MCH 30.0 (25.0-35.0) pg MCHC 35.1 (31.0-37.0) g/dL RDW 12.9 (11.5-15.5) % Plt Count 292 (150-450) k/uL Neutrophils % 58 % Lymphocytes % 25 % Monocytes % 12 % Eosinophils % 3 % Basophils % 0 % Neutrophils # 4.7 (1.3-7.7) k/uL Lymphocytes # 2.0 (1.0-4.8) k/uL Monocytes # 1.0 (0-1.0) k/uL Eosinophils # 0.2 (0-0.7) k/uL Basophils # 0.0 (0-0.2) k/uL Sodium 131 L (137-145) mmol/L Potassium 4.1 (3.5-5.1) mmol/L Chloride 93 L (98-107) mmol/L Carbon Dioxide 26 (22-30) mmol/L Anion Gap 12 mmol/L BUN 6 L (9-20) mg/dL Creatinine 0.60 L (0.66-1.25) mg/dL Est GFR (CKD-EPI)AfAm >90 (>60 ml/min/1.73 sqM) Est GFR (CKD-EPI)NonAf >90 (>60 ml/min/1.73 sqM) Glucose 135 H (74-99) mg/dL Calcium 9.1 (8.4-10.2) mg/dL Total Bilirubin <0.1 L (0.2-1.3) mg/dL AST 17 (17-59) U/L ALT 33 (21-72) U/L Alkaline Phosphatase 51 (38-126) U/L Total Protein 6.3 (6.3-8.2) g/dL Albumin 3.9 (3.5-5.0) g/dL Urine Color Light Yellow Urine Appearance Clear (Clear) Urine pH 7.0 (5.0-8.0) Ur Specific [place] 1.003 (1.001-1.035) Urine Protein Negative (Negative) Urine Glucose (UA) Trace H (Negative) Urine Ketones Negative (Negative) Urine Blood Negative (Negative) Urine Nitrite Negative (Negative) Urine Bilirubin Negative (Negative) Urine Urobilinogen <2.0 (<2.0) mg/dL Ur Leukocyte Esterase Negative (Negative) Salicylates 1.3 mg/dL Urine Opiates Screen Not Detected (NotDetected) Ur Oxycodone Screen Not Detected (NotDetected) Urine Methadone Screen Not Detected (NotDetected) Ur Propoxyphene Screen Not Detected (NotDetected) Acetaminophen <10.0 ug/mL Ur Barbiturates Screen Not Detected (NotDetected) Valproic Acid 87.0 ug/mL U Tricyclic Antidepress Not Detected (NotDetected) Ur Phencyclidine Scrn Not Detected (NotDetected) Ur Amphetamines Screen Not Detected (NotDetected) U Methamphetamines Scrn Not Detected (NotDetected) U Benzodiazepines Scrn Not Detected (NotDetected) Urine Cocaine Screen Not Detected (NotDetected) U Marijuana (THC) Screen Not Detected (NotDetected) Disposition Clinical Impression: Adjustment reaction, Epileptic seizure Disposition: HOME SELF-CARE Condition: Good Instructions: Recurrent Seizures in Adults (ED) Is patient prescribed a controlled substance at d/c from ED?: No Referrals: Chapincito Archer MD [Primary Care Provider] - 1-2 days
[2017-09-20 06:52] VITALS: BP 146/71; PULSE 83; TEMP 98
== END 2017-09-20 06:33 | disposition home or self-care (01) ==
LOC: EC 03:54
DX: G40.909 Epilepsy, unspecified, not intractable, without status epilepticus (principal); F43.20 Adjustment disorder, unspecified; E11.9 Type 2 diabetes mellitus without complications; E78.5 Hyperlipidemia, unspecified; I10 Essential (primary) hypertension; G47.33 Obstructive sleep apnea (adult) (pediatric); F41.9 Anxiety disorder, unspecified; F31.9 Bipolar disorder, unspecified; E03.9 Hypothyroidism, unspecified; Z87.891 Personal history of nicotine dependence; Z99.89 Dependence on other enabling machines and devices; Z79.4 Long term (current) use of insulin; Z79.82 Long term (current) use of aspirin; Z79.899 Other long term (current) drug therapy; Z88.1 Allergy status to other antibiotic agents; Z88.2 Allergy status to sulfonamides; Z88.8 Allergy status to other drugs, medicaments and biological substances
CPT/HCPCS: 36415; 93005; 80164; 80053; 85025; 81003; 80306; 83520 ×2; 99284; 96374; 96361 ×2; J2405

== ENCOUNTER 2017-12-22 00:11 | Emergency (ER) | payer MEDICARE, OTHER ==
--- NOTE | 2017-12-22 00:54 | ED ---
Psych HPI - General Chief Complaint: Psychiatric Symptoms Stated Complaint: Mental Health Time Seen by Provider: 12/22/17 00:17 Source: patient, police Mode of arrival: ambulatory - History of Present Illness Initial Comments: This patient is a 52-year-old man who is resident of an [facility] home and brought for psychiatric evaluation. The patient states that he is having an altercation with the appointed legal guardian about whether he must stay at this [facility] home. The patient is brought here by the Physical Plant Manager department, and they report that the patient had made some threatening statements, specifically that he would bring a weapon into the home or that he would attempt to burn the home down. When I interview the patient, he does state that he is angry with his guardian and with the [facility] home staff. He threatens that there will be a big fight, but he tells me that he means legal fight. The patient has no suicidal ideation. Complaint: other -: hour(s) Improves With: none Worsens With: none Context: significant life stressor - Related Data Home Medications Medication Instructions Recorded Confirmed Aspirin EC [Ecotrin Low Dose] 81 mg PO DAILY 03/13/14 09/24/17 Cyanocobalamin [Vitamin B-12] 1,000 mcg PO DAILY@1600 03/13/14 09/24/17 Levothyroxine Sodium [Synthroid] 100 mcg PO QAM 03/13/14 09/24/17 Lovastatin [Mevacor] 10 mg PO HS 10/16/15 09/24/17 Melatonin 9 mg PO 10/16/15 09/24/17 metFORMIN HCL [metFORMIN HCL ER] 1,000 mg PO BID 12/09/15 09/24/17 Glimepiride [Amaryl] 4 mg PO [id number] 02/27/16 09/24/17 risperiDONE 4 mg PO DAILY 02/27/16 09/24/17 Cholecalciferol [Vitamin D3] 2,000 unit PO DAILY 01/30/17 09/24/17 Divalproex Sodium [Depakote] 1,000 mg PO HS 01/30/17 09/24/17 Lisinopril [Zestril] 20 mg PO QAM 01/30/17 09/24/17 Ascorbic Acid [Vitamin C] 500 mg PO DAILY@1600 03/18/17 09/24/17 Insulin Glargine,Hum.rec.anlog 45 unit SQ HS 06/03/17 06/03/17 [Lantus Solostar] amLODIPine [Norvasc] 10 mg PO DAILY 06/03/17 09/24/17 Insulin Lispro [humaLOG Kwikpen] See Protocol SQ ACHS PRN 09/24/17 09/24/17 risperiDONE 3 mg PO HS 09/24/17 09/24/17 Previous Rx's Medication Instructions Recorded Sertraline [Zoloft] 150 mg PO HS #45 tab 12/12/15 cloNIDine HCL [Catapres] 0.1 mg PO TID #90 tab 12/12/15 Allergies Allergy/AdvReac Type Severity Reaction Status Date / Time carbamazepine [From Tegretol] Allergy Unknown Verified 12/22/17 00:23 phenytoin sodium Allergy Unknown Verified 12/22/17 00:23 [From Dilantin] phenytoin sodium extended Allergy Unknown Verified 12/22/17 00:23 [From Dilantin] primidone Allergy Unknown Verified 12/22/17 00:23 sulfamethoxazole Allergy Unknown Verified 12/22/17 00:23 [From Bactrim] trimethoprim [From Bactrim] Allergy Unknown Verified 12/22/17 00:23 Review of Systems ROS Statement: Those systems with pertinent positive or pertinent negative responses have been documented in the HPI. ROS Other: All systems not noted in ROS Statement are negative. Respiratory: Denies: cough, dyspnea Cardiovascular: Denies: chest pain Gastrointestinal: Denies: abdominal pain, vomiting, diarrhea Musculoskeletal: Denies: back pain Neurological: Denies: headache Psychiatric: Denies: anxiety, depression, auditory hallucinations, homicidal thoughts, suicidal thoughts Past Medical History Past Medical History: Diabetes Mellitus, Hyperlipidemia, Hypertension, Seizure Disorder, Sleep Apnea/CPAP/BIPAP, Thyroid Disorder Additional Past Medical History / Comment(s): IDDM type II, bilateral retinal hemorrhage, retinopathy bilaterally, grand/petite mal seizure with last seizure greater than 12 yrs ago, gender dysporia, balance issues, AYDEE with CPAP, sinus problems, hypothyroid. History of Any Multi-Drug Resistant Organisms: None Reported Past Surgical History: Cholecystectomy, Tonsillectomy Additional Past Surgical History / Comment(s): eye surgery, "tumor removed behind my throat", cystoscopy Past Anesthesia/Blood Transfusion Reactions: No Reported Reaction Past Psychological History: Anxiety, Bipolar Smoking Status: Former smoker Past Alcohol Use History: None Reported Past Drug Use History: None Reported - Past Family History Mother Family Medical History: Myocardial Infarction ([place]) Additional Family Medical History / Comment(s): Mother of a [place] at the age of 82 yrs. Father History Unknown: Yes General Exam Limitations: no limitations General appearance: alert, in no apparent distress, obese Head exam: Present: atraumatic, normocephalic Respiratory exam: Present: normal lung sounds bilaterally. Absent: respiratory distress, wheezes, rales, rhonchi, stridor Cardiovascular Exam: Present: regular rate, normal rhythm, normal heart sounds. Absent: systolic murmur, diastolic murmur, rubs, gallop GI/Abdominal exam: Present: soft. Absent: distended, tenderness, guarding Neurological exam: Present: alert, normal gait Psychiatric exam: Present: agitated. Absent: depressed, manic, homicidal ideation, suicidal ideation Skin exam: Present: warm, dry, intact, normal color. Absent: rash Course Vital Signs 12/22/17 12/22/17 00:15 03:34 Temperature 98.4 F Pulse Rate 95 Respiratory 18 18 Rate Blood Pressure 159/81 O2 Sat by Pulse 98 Oximetry Medical Decision Making - Lab Data Lab Results 12/22/17 Range/Units 01:38 POC Glucose (mg/dL) 191 H (75-99) mg/dL POC Glu Security System Administrator ID Kathy Deshpande Disposition Clinical Impression: Adjustment reaction Disposition: HOME SELF-CARE Condition: Good Instructions: Mood Disorders (ED) Is patient prescribed a controlled substance at d/c from ED?: No Referrals: Chapincito Archer MD [Primary Care Provider] - 1-2 days
[2017-12-22 01:40] LABS: Glucose,Whole Blood 191 mg/dL (75-99)
[2017-12-22 04:36] VITALS: BP 154/83; PULSE 78; RESP 17; TEMP 98.8
== END 2017-12-22 04:29 | disposition home or self-care (01) ==
LOC: EC 00:11
DX: F43.20 Adjustment disorder, unspecified (principal); R45.1 Restlessness and agitation; E78.5 Hyperlipidemia, unspecified; I10 Essential (primary) hypertension; E11.319 Type 2 diabetes mellitus with unspecified diabetic retinopathy without macular edema; G47.33 Obstructive sleep apnea (adult) (pediatric); E03.9 Hypothyroidism, unspecified; F31.9 Bipolar disorder, unspecified; G40.909 Epilepsy, unspecified, not intractable, without status epilepticus; Z87.891 Personal history of nicotine dependence; Z88.2 Allergy status to sulfonamides; Z88.8 Allergy status to other drugs, medicaments and biological substances; Z79.4 Long term (current) use of insulin; Z79.82 Long term (current) use of aspirin; Z79.899 Other long term (current) drug therapy; Z99.89 Dependence on other enabling machines and devices
CPT/HCPCS: 36415; 82075; 99285

== ENCOUNTER 2018-03-24 12:07 | Emergency (ER) | payer MEDICARE, OTHER ==
--- NOTE | 2018-03-24 12:28 | ED ---
General Adult HPI - General Chief complaint: Recheck/Abnormal Lab/Rx Stated complaint: anxiety Time Seen by Provider: 03/24/18 12:07 Source: patient, EMS, RN notes reviewed Mode of arrival: EMS - History of Present Illness Initial comments: This a 52-year-old male who presents to the emergency department complaining of his sugar being high over 400 when he woke up this morning. Patient states he had alcohol last evening and they sugar drink. Patient states he woke up this morning and his sugar was over 400. Patient states he took his insulin and then 8. Patient's states she eventually went to [employer] had a pop which she believes to be diet and an iced tea. Patient states after that he started feeling a little woozy so he called the ambulance because his guardian would not come pick him up. Patient denies any chest pain difficulty breathing shortness of breath per patient denies any fever chills or cough per patient denies abdominal pain patient denies nausea vomiting or diarrhea. Patient denies headache patient denies numbness weakness. - Related Data Home Medications Medication Instructions Recorded Confirmed Aspirin EC [Ecotrin Low Dose] 81 mg PO DAILY 03/13/14 03/24/18 Cyanocobalamin [Vitamin B-12] 1,000 mcg PO DAILY 03/13/14 03/24/18 Levothyroxine Sodium [Synthroid] 100 mcg PO QAM 03/13/14 03/24/18 Lovastatin [Mevacor] 10 mg PO HS 10/16/15 03/24/18 Melatonin 3 mg PO HS 10/16/15 03/24/18 risperiDONE 4 mg PO DAILY 02/27/16 03/24/18 Cholecalciferol [Vitamin D3] 2,000 unit PO DAILY 01/30/17 03/24/18 Divalproex Sodium [Depakote] 2,000 mg PO HS 01/30/17 03/24/18 Insulin Glargine,Hum.rec.anlog 55 unit SQ HS 06/03/17 03/24/18 [Lantus Solostar] amLODIPine [Norvasc] 10 mg PO DAILY 06/03/17 03/24/18 Insulin Lispro [humaLOG Kwikpen] See Protocol SQ ACHS PRN 09/24/17 03/24/18 risperiDONE 3 mg PO HS 09/24/17 03/24/18 Acetaminophen [Tylenol] 325 - 650 mg PO Q4H PRN 03/24/18 03/24/18 Fluticasone Nasal [place] [Flonase 1 spray EA NOSTRIL DAILY 03/24/18 03/24/18 Nasal [place]] Linagliptin [Tradjenta] 5 mg PO DAILY 03/24/18 03/24/18 Lisinopril 30 mg PO DAILY 03/24/18 03/24/18 Nystatin 100,000 Unit/gm Powd 1 applic TOPICAL BID 03/24/18 03/24/18 [Mycostatin Powder] glipiZIDE/METFORMIN HCL 1 tab PO BID 03/24/18 03/24/18 [glipiZIDE/METFORMIN HCL 5-500 mg] Previous Rx's Medication Instructions Recorded Sertraline [Zoloft] 150 mg PO HS #45 tab 12/12/15 cloNIDine HCL [Catapres] 0.1 mg PO TID #90 tab 12/12/15 Allergies Allergy/AdvReac Type Severity Reaction Status Date / Time carbamazepine [From Tegretol] Allergy Unknown Verified 03/24/18 13:43 phenytoin sodium Allergy Unknown Verified 03/24/18 13:43 [From Dilantin] phenytoin sodium extended Allergy Unknown Verified 03/24/18 13:43 [From Dilantin] primidone Allergy Unknown Verified 03/24/18 13:43 sulfamethoxazole Allergy Unknown Verified 03/24/18 13:43 [From Bactrim] trimethoprim [From Bactrim] Allergy Unknown Verified 03/24/18 13:43 Review of Systems ROS Statement: Those systems with pertinent positive or pertinent negative responses have been documented in the HPI. ROS Other: All systems not noted in ROS Statement are negative. Past Medical History Past Medical History: Diabetes Mellitus, Hyperlipidemia, Hypertension, Seizure Disorder, Sleep Apnea/CPAP/BIPAP, Thyroid Disorder Additional Past Medical History / Comment(s): IDDM type II, bilateral retinal hemorrhage, retinopathy bilaterally, grand/petite mal seizure with last seizure greater than 12 yrs ago, gender dysporia, balance issues, AYDEE with CPAP, sinus problems, hypothyroid. History of Any Multi-Drug Resistant Organisms: None Reported Past Surgical History: Cholecystectomy, Tonsillectomy Additional Past Surgical History / Comment(s): eye surgery, "tumor removed behind my throat", cystoscopy Past Anesthesia/Blood Transfusion Reactions: No Reported Reaction Past Psychological History: Anxiety, Bipolar Smoking Status: Former smoker Past Alcohol Use History: Occasional Past Drug Use History: None Reported - Past Family History Mother Family Medical History: Myocardial Infarction ([place]) Additional Family Medical History / Comment(s): Mother of a [place] at the age of 82 yrs. Father History Unknown: Yes General Exam - General Exam Comments Initial Comments: GENERAL: Patient is well-developed and well-nourished. Patient is nontoxic and well- hydrated and is in no acute distress. ENT: Neck is soft and supple. No significant lymphadenopathy is noted. Oropharynx is clear. Moist mucous membranes. Neck has full range of motion without eliciting any pain. EYES: The sclera were anicteric and conjunctiva were pink and moist. Extraocular movements were intact and pupils were equal round and reactive to light. Eyelids were unremarkable. PULMONARY: Unlabored respirations. Good breath sounds bilaterally. No audible rales rhonchi or wheezing was noted. CARDIOVASCULAR: There is a regular rate and rhythm without any murmurs gallops or rubs. ABDOMEN: Soft and nontender with normal bowel sounds. No palpable organomegaly was noted. There is no palpable pulsatile mass. SKIN: Skin is clear with no lesions or rashes and otherwise unremarkable. NEUROLOGIC: Patient is alert and oriented 2. Cranial nerves II through XII are grossly intact. Motor and sensory are also intact. Normal speech, volume and content. Symmetrical smile. MUSCULOSKELETAL: Normal extremities with adequate strength and full range of motion. No lower extremity swelling or edema. No calf tenderness. LYMPHATICS: No significant lymphadenopathy is noted PSYCHIATRIC: Normal psychiatric evaluation. Course Vital Signs 03/24/18 12:20 Temperature 97.4 F L Pulse Rate 100 Respiratory 19 Rate Blood Pressure 146/83 O2 Sat by Pulse 98 Oximetry Medical Decision Making - Medical Decision Making EKG shows a normal sinus rhythm at 95 bpm ME interval is 138 QRS is 96 QT interval 358 QTC is 449. Patient's EKG shows no ST segment elevation or depression or T wave abnormalities are noted. - Lab Data Result diagrams: 03/24/18 12:47 03/24/18 12:47 Lab Results 03/24/18 03/24/18 Range/Units 12:47 12:47 WBC 7.3 (3.8-10.6) k/uL RBC 4.37 (4.30-5.90) m/uL Hgb 13.1 (13.0-17.5) gm/dL Hct 38.9 L (39.0-53.0) % MCV 89.0 (80.0-100.0) fL MCH 29.9 (25.0-35.0) pg MCHC 33.6 (31.0-37.0) g/dL RDW 13.4 (11.5-15.5) % Plt Count 216 (150-450) k/uL Neutrophils % 66 % Lymphocytes % 20 % Monocytes % 11 % Eosinophils % 2 % Basophils % 0 % Neutrophils # 4.8 (1.3-7.7) k/uL Lymphocytes # 1.4 (1.0-4.8) k/uL Monocytes # 0.8 (0-1.0) k/uL Eosinophils # 0.1 (0-0.7) k/uL Basophils # 0.0 (0-0.2) k/uL Sodium 128 L (137-145) mmol/L Potassium 4.9 (3.5-5.1) mmol/L Chloride 89 L (98-107) mmol/L Carbon Dioxide 25 (22-30) mmol/L Anion Gap 14 mmol/L BUN 10 (9-20) mg/dL Creatinine 0.62 L (0.66-1.25) mg/dL Est GFR (CKD-EPI)AfAm >90 (>60 ml/min/1.73 sqM) Est GFR (CKD-EPI)NonAf >90 (>60 ml/min/1.73 sqM) Glucose 268 H (74-99) mg/dL Calcium 9.5 (8.4-10.2) mg/dL Magnesium 1.6 (1.6-2.3) mg/dL Total Bilirubin 0.3 (0.2-1.3) mg/dL AST 29 (17-59) U/L ALT 37 (21-72) U/L Alkaline Phosphatase 64 (38-126) U/L Total Protein 7.3 (6.3-8.2) g/dL Albumin 4.4 (3.5-5.0) g/dL Acetone, Qual Negative (Negative) Disposition Clinical Impression: Hyperglycemia Disposition: HOME SELF-CARE Condition: Good Instructions: Diabetic Hyperglycemia (ED) Additional Instructions: Patient should follow his diabetic diet plan. Patient should not be drinking alcohol. Is patient prescribed a controlled substance at d/c from ED?: No Referrals: Chapincito Archer MD [Primary Care Provider] - 1-2 days Time of Disposition: 14:42
[2018-03-24 13:10] LABS: Basophils % (A) 0 %; Eosinophils # (A) 0.1 k/uL (0-0.7); Eosinophils % (A) 2 %; HCT 38.9 % (39.0-53.0); HGB 13.1 gm/dL (13.0-17.5); Lymphocytes # (A) 1.4 k/uL (1.0-4.8); Lymphocytes % (A) 20 %; MCH 29.9 pg (25.0-35.0); MCHC 33.6 g/dL (31.0-37.0); Mean Platelet Volume 7.4; Monocytes # (A) 0.8 k/uL (0-1.0); Monocytes % (A) 11 %; Neutrophils # (A) 4.8 k/uL (1.3-7.7); Neutrophils % (A) 66 %; Platelet Count 216 k/uL (150-450); RBC 4.37 m/uL (4.30-5.90); RDW 13.4 % (11.5-15.5); WBC 7.3 k/uL (3.8-10.6)
[2018-03-24 13:33] LABS: ALT 37 U/L (21-72); AST 29 U/L (17-59); Albumin 4.4 g/dL (3.5-5.0); Alkaline Phosphatase 64 U/L (38-126); Anion Gap 14 mmol/L; Blood Urea Nitrogen 10 mg/dL (9-20); Calcium 9.5 mg/dL (8.4-10.2); Carbon Dioxide 25 mmol/L (22-30); Chloride 89 mmol/L (98-107); Glucose 268 mg/dL (74-99); Magnesium 1.6 mg/dL (1.6-2.3); Potassium 4.9 mmol/L (3.5-5.1); Sodium 128 mmol/L (137-145); Total Bilirubin 0.3 mg/dL (0.2-1.3); Total Protein 7.3 g/dL (6.3-8.2)
--- NOTE | 2018-03-24 13:42 | XR ---
EXAMINATION TYPE: XR chest 2V DATE OF EXAM: 03/24/2018 COMPARISON: None INDICATION: Difficulty breathing,Patient states near syncope. TECHNIQUE: Frontal and lateral views of the chest are obtained. FINDINGS: The heart size is normal. The pulmonary vasculature is normal. The lungs are clear. IMPRESSION: 1. No acute pulmonary process.
[2018-03-24] MEDS ORDERED: SODIUM CHLORIDE 0.9% 500 ML 500 ML IV ONE (14:20)
[2018-03-24 15:16] VITALS: RESP 18; TEMP 98
[2018-03-24 15:17] VITALS: BP 138/78; PULSE 78
== END 2018-03-24 15:10 | disposition home or self-care (01) ==
LOC: EC 12:07
DX: E11.65 Type 2 diabetes mellitus with hyperglycemia (principal); E78.5 Hyperlipidemia, unspecified; I10 Essential (primary) hypertension; G40.909 Epilepsy, unspecified, not intractable, without status epilepticus; G47.33 Obstructive sleep apnea (adult) (pediatric); F41.9 Anxiety disorder, unspecified; F31.9 Bipolar disorder, unspecified; E03.9 Hypothyroidism, unspecified; Z79.82 Long term (current) use of aspirin; Z79.4 Long term (current) use of insulin; Z79.899 Other long term (current) drug therapy; Z88.2 Allergy status to sulfonamides; Z88.8 Allergy status to other drugs, medicaments and biological substances; Z87.891 Personal history of nicotine dependence
CPT/HCPCS: 36415; 71046; 80053; 81003; 82009; 83735; 85025; 93005; 96360; 99284; 99285

== ENCOUNTER 2018-03-24 21:20 | Emergency (ER) | payer MEDICARE, OTHER ==
[2018-03-24] MEDS ORDERED: SODIUM CHLORIDE 0.9% 1,000 ML BAG ONE (23:00)
[2018-03-25 03:08] LABS: Basophils % (A) 0 %; Eosinophils # (A) 0.2 k/uL (0-0.7); Eosinophils % (A) 2 %; HCT 36.6 % (39.0-53.0); HGB 12.2 gm/dL (13.0-17.5); Lymphocytes % (A) 27 %; MCH 29.6 pg (25.0-35.0); MCHC 33.5 g/dL (31.0-37.0); MCV 88.4 fL (80.0-100.0); Mean Platelet Volume 7.2; Monocytes # (A) 0.8 k/uL (0-1.0); Monocytes % (A) 10 %; Neutrophils # (A) 4.4 k/uL (1.3-7.7); Neutrophils % (A) 59 %; Platelet Count 244 k/uL (150-450); RBC 4.14 m/uL (4.30-5.90); RDW 13.4 % (11.5-15.5); WBC 7.6 k/uL (3.8-10.6)
[2018-03-25 03:09] LABS: Appearance,Urine Clear (Clear); Bilirubin,Urine Negative (Negative); Blood,Urine Negative (Negative); Color,Urine Colorless; Glucose,Urine (UA) 4+ (Negative); Hyaline Casts,Urine 3 /lpf (0-2); Ketones,Urine 1+ (Negative); Leukocyte Esterase,Urine Negative (Negative); Nitrite,Urine Negative (Negative); PH, Urine 7.5 (5.0-8.0); Protein,Urine Negative (Negative); RBC,Urine <1 /hpf (0-5); Specific Gravity,Urine 1.005 (1.001-1.035); Urobilinogen,Urine <2.0 mg/dL (<2.0)
[2018-03-25 03:11] LABS: ALT 32 U/L (21-72); AST 28 U/L (17-59); Albumin 3.8 g/dL (3.5-5.0); Alkaline Phosphatase 47 U/L (38-126); Anion Gap 12 mmol/L; Blood Urea Nitrogen 11 mg/dL (9-20); Calcium 9.1 mg/dL (8.4-10.2); Carbon Dioxide 22 mmol/L (22-30); Chloride 95 mmol/L (98-107); Glucose 200 mg/dL (74-99); Magnesium 1.7 mg/dL (1.6-2.3); Potassium 4.6 mmol/L (3.5-5.1); Sodium 129 mmol/L (137-145); Total Bilirubin 0.2 mg/dL (0.2-1.3); Total Protein 6.4 g/dL (6.3-8.2)
[2018-03-25 12:35] LABS: Glucose,Whole Blood 179 mg/dL (75-99)
[2018-03-28 08:04] LABS: Glucose,Whole Blood 215 mg/dL (75-99)
== END 2018-03-25 01:23 | disposition home or self-care (01) ==
LOC: EC 21:20
DX: E11.65 Type 2 diabetes mellitus with hyperglycemia (principal); Z87.891 Personal history of nicotine dependence; Z79.4 Long term (current) use of insulin; Z88.8 Allergy status to other drugs, medicaments and biological substances
CPT/HCPCS: 36415; 80053; 81003; 83735; 85025; 96360; 99285

== ENCOUNTER 2018-04-01 08:08 | Observation (INO) | payer MEDICARE, OTHER ==
[2018-04-01] MEDS ORDERED: NITROGLYCERIN OINT 1 INCH/GM PACKET TOPICAL STA (08:30)
[2018-04-01] MEDS ORDERED: ASPIRIN 81 MG PO STA (08:30)
--- NOTE | 2018-04-01 08:33 | ED ---
General Adult HPI - General Chief complaint: Dizziness Stated complaint: DIZZINESS Time Seen by Provider: 04/01/18 08:10 Source: patient, RN notes reviewed Mode of arrival: EMS Limitations: no limitations - History of Present Illness Initial comments: This is a 52-year-old male who presents to the emergency department with past medical history significant for high blood pressure and diabetes. Patient states he woke up this morning felt really lightheaded and thought he might pass out. Patient states he has heartburn but when he describes a heartburn he points to the middle of his chest and states that that is where he is feeling the discomfort. Patient is developmentally delayed and lives in a retirement. Patient currently states he still has chest pain. Patient denies any recent fever chills or cough. Patient denies any headache or any numbness or weakness. Patient denies abdominal pain patient denies nausea vomiting diarrhea. - Related Data Home Medications Medication Instructions Recorded Confirmed Aspirin EC [Ecotrin Low Dose] 81 mg PO DAILY 03/13/14 04/01/18 Levothyroxine Sodium [Synthroid] 100 mcg PO QAM 03/13/14 04/01/18 Lovastatin [Mevacor] 10 mg PO HS 10/16/15 04/01/18 Melatonin 3 mg PO HS 10/16/15 04/01/18 risperiDONE 4 mg PO DAILY 02/27/16 04/01/18 Divalproex Sodium [Depakote] 2,000 mg PO HS 01/30/17 04/01/18 Insulin Glargine,Hum.rec.anlog 55 unit SQ HS 06/03/17 04/01/18 [Lantus Solostar] amLODIPine [Norvasc] 10 mg PO DAILY 06/03/17 04/01/18 Insulin Lispro [humaLOG Kwikpen] See Protocol SQ ACHS PRN 09/24/17 04/01/18 risperiDONE 3 mg PO HS 09/24/17 04/01/18 Linagliptin [Tradjenta] 5 mg PO DAILY 03/24/18 04/01/18 Lisinopril 30 mg PO DAILY 03/24/18 04/01/18 glipiZIDE/METFORMIN HCL 1 tab PO BID 03/24/18 04/01/18 [glipiZIDE/METFORMIN HCL 5-500 mg] Previous Rx's Medication Instructions Recorded Sertraline [Zoloft] 150 mg PO HS #45 tab 12/12/15 cloNIDine HCL [Catapres] 0.1 mg PO TID #90 tab 12/12/15 Allergies Allergy/AdvReac Type Severity Reaction Status Date / Time carbamazepine [From Tegretol] Allergy Unknown Verified 04/01/18 09:02 phenytoin sodium Allergy Unknown Verified 04/01/18 09:02 [From Dilantin] phenytoin sodium extended Allergy Unknown Verified 04/01/18 09:02 [From Dilantin] primidone Allergy Unknown Verified 04/01/18 09:02 sulfamethoxazole Allergy Unknown Verified 04/01/18 09:02 [From Bactrim] trimethoprim [From Bactrim] Allergy Unknown Verified 04/01/18 09:02 Review of Systems ROS Statement: Those systems with pertinent positive or pertinent negative responses have been documented in the HPI. ROS Other: All systems not noted in ROS Statement are negative. Past Medical History Past Medical History: Diabetes Mellitus, Hyperlipidemia, Hypertension, Seizure Disorder, Sleep Apnea/CPAP/BIPAP, Thyroid Disorder Additional Past Medical History / Comment(s): IDDM type II, bilateral retinal hemorrhage, retinopathy bilaterally, grand/petite mal seizure with last seizure greater than 12 yrs ago, gender dysporia, balance issues, AYDEE with CPAP, sinus problems, hypothyroid. History of Any Multi-Drug Resistant Organisms: None Reported Past Surgical History: Cholecystectomy, Tonsillectomy Additional Past Surgical History / Comment(s): eye surgery, "tumor removed behind my throat", cystoscopy Past Anesthesia/Blood Transfusion Reactions: No Reported Reaction Past Psychological History: Anxiety, Bipolar Smoking Status: Former smoker Past Alcohol Use History: Occasional Past Drug Use History: None Reported - Past Family History Mother Family Medical History: Myocardial Infarction ([place]) Additional Family Medical History / Comment(s): Mother of a [place] at the age of 82 yrs. Father History Unknown: Yes General Exam - General Exam Comments Initial Comments: GENERAL: Patient is well-developed and well-nourished. Patient is nontoxic and well- hydrated and is in mild distress. ENT: Neck is soft and supple. No significant lymphadenopathy is noted. Oropharynx is clear. Moist mucous membranes. Neck has full range of motion without eliciting any pain. EYES: The sclera were anicteric and conjunctiva were pink and moist. Extraocular movements were intact and pupils were equal round and reactive to light. Eyelids were unremarkable. PULMONARY: Unlabored respirations. Good breath sounds bilaterally. No audible rales rhonchi or wheezing was noted. CARDIOVASCULAR: There is a regular rate and rhythm without any murmurs gallops or rubs. ABDOMEN: Soft and nontender with normal bowel sounds. No palpable organomegaly was noted. There is no palpable pulsatile mass. SKIN: Skin is clear with no lesions or rashes and otherwise unremarkable. NEUROLOGIC: Patient is alert and oriented x3. Cranial nerves II through XII are grossly intact. Motor and sensory are also intact. Normal speech, volume and content. Symmetrical smile. MUSCULOSKELETAL: Normal extremities with adequate strength and full range of motion. No lower extremity swelling or edema. No calf tenderness. LYMPHATICS: No significant lymphadenopathy is noted PSYCHIATRIC: Normal psychiatric evaluation. Limitations: no limitations Course Vital Signs 04/01/18 04/01/18 04/01/18 08:14 08:30 10:17 Temperature 98.3 F Pulse Rate 71 65 Pulse Rate [ 95 Sitting] Pulse Rate [ 97 Standing] Pulse Rate [ 92 Supine] Respiratory 18 18 Rate Blood Pressure 149/68 115/68 Blood Pressure 160/78 [Sitting] Blood Pressure 173/84 [Standing] Blood Pressure 163/79 [Supine] O2 Sat by Pulse 98 97 Oximetry 04/01/18 10:40 Temperature Pulse Rate 73 Pulse Rate [ Sitting] Pulse Rate [ Standing] Pulse Rate [ Supine] Respiratory 17 Rate Blood Pressure 97/55 Blood Pressure [Sitting] Blood Pressure [Standing] Blood Pressure [Supine] O2 Sat by Pulse 96 Oximetry Medical Decision Making - Medical Decision Making EKG shows normal sinus rhythm at 74 bpm CO interval is 134 QRS is 94 Q-T intervals 392 QTC is 435. Chest x-ray shows no acute abnormality. Patient was not orthostatic. Patient states his chest pain was feeling better and in bed he was not feeling at all syncopal. I spoke with each [place] hospitalist except the patient admitted the patient wrote admitting orders - Lab Data Result diagrams: 04/01/18 08:30 04/01/18 08:30 Lab Results 04/01/18 04/01/18 04/01/18 Range/Units 08:30 08:30 08:30 WBC 7.5 (3.8-10.6) k/uL RBC 4.30 (4.30-5.90) m/uL Hgb 13.0 (13.0-17.5) gm/dL Hct 38.1 L (39.0-53.0) % MCV 88.5 (80.0-100.0) fL MCH 30.3 (25.0-35.0) pg MCHC 34.2 (31.0-37.0) g/dL RDW 13.4 (11.5-15.5) % Plt Count 225 (150-450) k/uL Neutrophils % 47 % Lymphocytes % 39 % Monocytes % 8 % Eosinophils % 3 % Basophils % 0 % Neutrophils # 3.6 (1.3-7.7) k/uL Lymphocytes # 2.9 (1.0-4.8) k/uL Monocytes # 0.6 (0-1.0) k/uL Eosinophils # 0.2 (0-0.7) k/uL Basophils # 0.0 (0-0.2) k/uL PT (9.0-12.0) sec INR (<1.2) APTT (22.0-30.0) sec Sodium 129 L (137-145) mmol/L Potassium 4.8 (3.5-5.1) mmol/L Chloride 92 L (98-107) mmol/L Carbon Dioxide 24 (22-30) mmol/L Anion Gap 13 mmol/L BUN 8 L (9-20) mg/dL Creatinine 0.67 (0.66-1.25) mg/dL Est GFR (CKD-EPI)AfAm >90 (>60 ml/min/1.73 sqM) Est GFR (CKD-EPI)NonAf >90 (>60 ml/min/1.73 sqM) Glucose 211 H (74-99) mg/dL Calcium 8.9 (8.4-10.2) mg/dL Magnesium 1.5 L (1.6-2.3) mg/dL Total Bilirubin 0.3 (0.2-1.3) mg/dL AST 25 (17-59) U/L ALT 29 (21-72) U/L Alkaline Phosphatase 40 (38-126) U/L Total Creatine Kinase 270 H (55-170) U/L CK-MB (CK-2) 4.6 H (0.0-2.4) ng/mL CK-MB (CK-2) Rel Index 1.7 Troponin I 0.034 (0.000-0.034) ng/mL Total Protein 6.3 (6.3-8.2) g/dL Albumin 3.7 (3.5-5.0) g/dL Valproic Acid 83.3 ug/mL 04/01/18 Range/Units 08:30 WBC (3.8-10.6) k/uL RBC (4.30-5.90) m/uL Hgb (13.0-17.5) gm/dL Hct (39.0-53.0) % MCV (80.0-100.0) fL MCH (25.0-35.0) pg MCHC (31.0-37.0) g/dL RDW (11.5-15.5) % Plt Count (150-450) k/uL Neutrophils % % Lymphocytes % % Monocytes % % Eosinophils % % Basophils % % Neutrophils # (1.3-7.7) k/uL Lymphocytes # (1.0-4.8) k/uL Monocytes # (0-1.0) k/uL Eosinophils # (0-0.7) k/uL Basophils # (0-0.2) k/uL PT 10.4 (9.0-12.0) sec INR 1.0 (<1.2) APTT 23.9 (22.0-30.0) sec Sodium (137-145) mmol/L Potassium (3.5-5.1) mmol/L Chloride (98-107) mmol/L Carbon Dioxide (22-30) mmol/L Anion Gap mmol/L BUN (9-20) mg/dL Creatinine (0.66-1.25) mg/dL Est GFR (CKD-EPI)AfAm (>60 ml/min/1.73 sqM) Est GFR (CKD-EPI)NonAf (>60 ml/min/1.73 sqM) Glucose (74-99) mg/dL Calcium (8.4-10.2) mg/dL Magnesium (1.6-2.3) mg/dL Total Bilirubin (0.2-1.3) mg/dL AST (17-59) U/L ALT (21-72) U/L Alkaline Phosphatase (38-126) U/L Total Creatine Kinase (55-170) U/L CK-MB (CK-2) (0.0-2.4) ng/mL CK-MB (CK-2) Rel Index Troponin I (0.000-0.034) ng/mL Total Protein (6.3-8.2) g/dL Albumin (3.5-5.0) g/dL Valproic Acid ug/mL Disposition Clinical Impression: Chest pain, Near syncope, Hyponatremia Disposition: ADMITTED IP TO THIS HOSP Referrals: Chapincito Archer MD [Primary Care Provider] - 1-2 days Time of Disposition: 10:54
[2018-04-01 09:15] LABS: Basophils % (A) 0 %; Eosinophils # (A) 0.2 k/uL (0-0.7); Eosinophils % (A) 3 %; HCT 38.1 % (39.0-53.0); Lymphocytes # (A) 2.9 k/uL (1.0-4.8); Lymphocytes % (A) 39 %; MCH 30.3 pg (25.0-35.0); MCHC 34.2 g/dL (31.0-37.0); MCV 88.5 fL (80.0-100.0); Mean Platelet Volume 7.3; Monocytes # (A) 0.6 k/uL (0-1.0); Monocytes % (A) 8 %; Neutrophils # (A) 3.6 k/uL (1.3-7.7); Neutrophils % (A) 47 %; Platelet Count 225 k/uL (150-450); RDW 13.4 % (11.5-15.5); WBC 7.5 k/uL (3.8-10.6)
[2018-04-01 09:26] LABS: Partial Thromboplastin Time 23.9 sec (22.0-30.0); Prothrombin Time 10.4 sec (9.0-12.0)
[2018-04-01 09:43] LABS: ALT 29 U/L (21-72); AST 25 U/L (17-59); Albumin 3.7 g/dL (3.5-5.0); Alkaline Phosphatase 40 U/L (38-126); Anion Gap 13 mmol/L; Blood Urea Nitrogen 8 mg/dL (9-20); Calcium 8.9 mg/dL (8.4-10.2); Carbon Dioxide 24 mmol/L (22-30); Chloride 92 mmol/L (98-107); Glucose 211 mg/dL (74-99); Magnesium 1.5 mg/dL (1.6-2.3); Potassium 4.8 mmol/L (3.5-5.1); Sodium 129 mmol/L (137-145); Total Bilirubin 0.3 mg/dL (0.2-1.3); Total Protein 6.3 g/dL (6.3-8.2)
[2018-04-01 09:52] LABS: Creatine Kinase MB 4.6 ng/mL (0.0-2.4); Troponin I 0.034 ng/mL (0.000-0.034)
--- NOTE | 2018-04-01 09:55 | XR ---
EXAMINATION TYPE: XR chest 2V DATE OF EXAM: 04/01/2018 COMPARISON: 03/24/2018 HISTORY: Shortness of breath TECHNIQUE: Frontal and lateral views of the chest are obtained. FINDINGS: Scattered senescent parenchymal changes noted. No evidence for infiltrate. No evidence for atelectasis. Heart size is stable. Mediastinal structures are stable and grossly unremarkable. No evidence for hilar prominence. Degenerative changes dorsal spine. IMPRESSION: 1. No evidence for acute pulmonary disease.
[2018-04-01 10:25] LABS: Valproic Acid (Depakene) 83.3 ug/mL
[2018-04-01] MEDS ORDERED: NITROGLYCERIN SL TABS 0.4 MG TAB SUBLINGUAL PRN (10:54)
[2018-04-01] MEDS: NITROGLYCERIN OINT 1 INCH/GM PACKET TOPICAL SCH ×3 (12:06→23:51)
[2018-04-01 15:04] LABS: Creatine Kinase MB 4.6 ng/mL (0.0-2.4); Troponin I 0.034 ng/mL (0.000-0.034)
[2018-04-01 16:23] LABS: Glucose,Whole Blood 246 mg/dL (75-99)
[2018-04-01] MEDS: cloNIDine HCL 0.1 MG TAB PO SCH ×2 (17:20→20:51)
[2018-04-01] MEDS: INSULIN ASPART 100 UNIT/ML 1 ML 10 ML VIAL SQ SCH ×2 (17:20→20:51)
[2018-04-01] MEDS: glipiZIDE 5 MG TAB PO SCH (17:22)
[2018-04-01] MEDS: metFORMIN 500 MG TAB PO SCH (17:22)
[2018-04-01 19:54] LABS: Hemoglobin A1C 8.5 % (4.0-6.0)
[2018-04-01] MEDS ORDERED: ACETAMINOPHEN TAB 325 MG TAB PO PRN (20:07)
[2018-04-01 20:14] LABS: Glucose,Whole Blood 156 mg/dL (75-99)
[2018-04-01] MEDS: DIVALPROEX 500 MG TABLET.DR PO SCH (20:50)
[2018-04-01] MEDS: risperiDONE 1 MG TAB PO SCH (20:50)
[2018-04-01] MEDS: SERTRALINE 50 MG TAB PO SCH (20:51)
[2018-04-01] MEDS: ATORVASTATIN 10 MG TAB PO SCH (20:51)
[2018-04-01] MEDS: MELATONIN 3 MG TABLET PO SCH (20:51)
[2018-04-01 21:13] LABS: Creatine Kinase MB 3.7 ng/mL (0.0-2.4); Troponin I 0.029 ng/mL (0.000-0.034)
[2018-04-01] MEDS: INSULIN DETEMIR 100 UNIT/ML 10 ML VIAL SQ SCH (21:24)
--- NOTE | 2018-04-01 22:29 | HP ---
HISTORY AND PHYSICAL DATE OF ADMISSION: 04/01/2018 DATE OF SERVICE: 04/01/2018 PRESENTING COMPLAINT: Dizziness. HISTORY OF PRESENTING COMPLAINT: This is a very pleasant 52-year-old patient of Dr. Archer of [facility]. Chronic stable medical conditions include diabetes, hypertension, hyperlipidemia, seizure disorder, obstructive sleep apnea -- machine is broken --hypothyroid. Patient has a learning disability and has a legal guardian, Winston Zepeda LOTUS. Patient says that for one month he has been getting dizzy, lightheaded, especially when he tries to walk, and sometimes he feels he is going to fall or pass out; it is better if he sits down and gets still. He has also been having 3 or 4 bowel movements a day going on for some time. In the ER, he complained of some chest burning and pressure. No radiation. He did not talk to me much about the same; he was more concerned about his dizziness going on for a month. Hence he was admitted for the same. No fever. No chills. No focal symptoms. REVIEW OF SYSTEMS: CONSTITUTIONAL: None. HEENT: None. RESPIRATORY: None. CARDIOVASCULAR: As above. GASTROINTESTINAL: Some heartburn. GENITOURINARY: None. MUSCULOSKELETAL: None. DERMATOLOGICAL: None. HEMATOLOGICAL: None. LYMPHATICS: None. PSYCHIATRY: Patient feels like a female, but he says that the sex organ change is very expensive and wants to be referred to as a woman/she. NEUROLOGICAL: None. PAST MEDICAL HISTORY: 1. Learning disability. 2. Diabetes. 3. Hypertension. 4. Hyperlipidemia. 5. Seizure disorder. 6. Obstructive sleep apnea. 7. Hypothyroid. 8. Gender dysphoria. PAST SURGICAL HISTORY: 1. Cholecystectomy. 2. Tonsillectomy. 3. Bilateral eye surgery. 4. Tumor removed from behind the throat. 5. Cystoscopy due to painful urination. 6. Colonoscopy. PSYCH HISTORY: Bipolar disorder, schizoaffective disorder. SOCIAL HISTORY: Lives at [facility]. He normally goes to appointments by his bus. Legal guardian is Winston Villafuertechicoisaac. In the past he has had depression and suicide times, currently stable. He does go to [facility] and sees Sis Baez. Patient did smoke in the past. Alcohol rarely. FAMILY HISTORY: Mother of a heart attack at age 82. HOME MEDICATIONS: 1. Catapres 0.1 mg p.o. t.i.d. 2. Depakote 200 mg p.o. at bedtime. 3. Aspirin 81 mg a day. 4. Risperidone 3 mg at bedtime and 4 mg p.o. daily. 5. Zoloft 150 mg at bedtime. 6. Melatonin 3 mg at bedtime. 7. Mevacor 10 mg p.o. at bedtime. 8. Lisinopril 30 mg p.o. daily. 9. Tradjenta 5 mg p.o. daily. 10.Synthroid 100 mcg p.o. daily. 11.Insulin KwikPen before meals and at bedtime. 12.Glipizide/metformin 5/500 one tablet b.i.d. 13.Norvasc 10 mg daily. 14.Lantus 55 units subcutaneously at bedtime. ALLERGIES: 1. TEGRETOL. 2. DILANTIN. 3. PHENYTOIN. 4. PRIMIDONE. 5. BACTRIM. PHYSICAL EXAMINATION: VITAL SIGNS ON PRESENTATION: Temperature 98.3, pulse 71, respiration 18, blood pressure 149/68, pulse ox 98% on room air. Orthostatics were checked in the morning. There was no change. GENERAL APPEARANCE: Well built, BMI 34.4. Lying in bed, sipping water. EYES: Pupils equal. Conjunctivae normal. Left eye is outwardly divergent. HEENT: External appearance of nose and ears normal. Oral cavity normal. NECK: JVD unable to assess. Mass not palpable. RESPIRATORY: Effort normal. LUNGS: Fair air entry. CARDIOVASCULAR: First and second sounds normal. Minimal edema. ABDOMEN: Distended, soft. Liver and spleen not palpable. LYMPHATIC: No lymph node palpable in neck or axillae. PSYCHIATRY: Patient is able to answer simple questions. NEUROLOGICAL: Pupils equal. No facial asymmetry. Power and sensation grossly intact. INVESTIGATIONS: White count 7.5, hemoglobin 13, potassium 4.8, sodium 129, BUN 8, creatinine 0.67. Blood glucose 211, magnesium 1.5. Troponin 0.034 x2. EKG tracing, personally reviewed by me, shows normal sinus rhythm. Chest x-ray film, personally reviewed by me, shows some cardiomegaly. ASSESSMENT: 1. This patient presents with episodes of dizziness when he walks, going on for about a month, nearly falling. Orthostatics were negative, but there may be some tachycardia with standing. I did have the nurse check the patient's lying heart rate on the telemetry and check it on standing to see if there is evidence of postural orthostatic tachycardia syndrome. 2. Heartburn. Rule out underlying ischemia. Patient's cardiac risk factors include obesity, hypertension, diabetes. Patient may need at least a stress test. 3. Diabetes mellitus, type 2, chronically on insulin. 4. Essential hypertension. 5. Hyperlipidemia. 6. Chronic seizure disorder. 7. Obstructive sleep apnea. Does not use a CPAP machine. 8. Hypothyroid. 9. Hyponatremia, likely hypoosmolar. Patient does drink excessive amount of fluid. Patient's BUN is also low. 10.Obesity; body mass index of 34.4. 11.Learning disability with the patient having a legal guardian, Winston Zepeda. 12.Patient has a female identity with a male sexual pattern, including male hair distribution and a penis. PLAN: Will check patient's orthostatic heart rate. Other home medications are resumed. Cardiology has been consulted with a view to a possible stress test. Will also check patient's serum osmolality and put the patient on fluid restriction. Patient has been having some diarrhea with no other infective symptoms. Patient probably does not benefit much from Glucotrol; will discontinue the same and increase the dose of Glucophage if we have to do the same. Other home medications are renewed. MMODL / IJN: [id number] /
[2018-04-02 00:59] LABS: Cholesterol 129 mg/dL (<200); HDL Cholesterol 53 mg/dL (40-60); LDL Cholesterol,Calculated 52 mg/dL (0-99); Triglycerides 122 mg/dL (<150)
[2018-04-02] MEDS: NITROGLYCERIN OINT 1 INCH/GM PACKET TOPICAL SCH ×4 (03:29→21:31)
[2018-04-02] MEDS: LEVOTHYROXINE 100 MCG TAB PO SCH (06:10)
[2018-04-02 06:25] LABS: Glucose,Whole Blood 104 mg/dL (75-99)
[2018-04-02] MEDS: INSULIN ASPART 100 UNIT/ML 1 ML 10 ML VIAL SQ SCH ×4 (06:27→20:10)
[2018-04-02] MEDS: glipiZIDE 5 MG TAB PO SCH ×2 (07:58→15:56)
[2018-04-02] MEDS: metFORMIN 500 MG TAB PO SCH ×2 (07:58→15:56)
[2018-04-02] MEDS ORDERED: ASPIRIN 325 MG TAB PO SCH (09:00)
--- NOTE | 2018-04-02 10:05 | P.CRDCN ---
History of Present Illness Consult date: 04/02/18 Requesting physician: Geoff Cisneros Reason for Consult (text): Dizziness Chief complaint: Dizziness, chest pain, diarrhea History of present illness: This is a 52-year-old gentleman who has a history of hypertension, diabetes, hyperlipidemia, prior seizure disorder, obstructive sleep apnea, hypothyroidism, patient also has history of bipolar disorder and some learning disability, and has a legal guardian who takes care of his issues. He apparently presented to the hospital with symptoms of dizziness and feeling like he's going to pass out. He has been having significant diarrhea stools as well. According to the patient, he is also intermittently been experiencing some chest discomfort which is sharp in nature and comes and goes. Chest x-ray did not reveal any evidence for acute pulmonary disease. EKG shows normal sinus rhythm with left anterior fascicular block. Nonspecific ST-T wave changes. Blood pressure on arrival 148/60 with a heart rate in the 70s, 98% on room air. Orthostatics were obtained, blood pressure 163/70 lying, 160/70 sitting, 173/80 standing. White blood cell count 7.5, hemoglobin 13, platelet count 225. Sodium 129, potassium 4.8, BUN 8, creatinine 0.6. Hemoglobin A1c 8.5, magnesium 1.5, troponins 0.034, 0.034, 0.029. At the time of my examination this morning, patient denies any chest pain, no dizziness, no palpitations. Past Medical History Past Medical History: Diabetes Mellitus, Hyperlipidemia, Hypertension, Seizure Disorder, Sleep Apnea/CPAP/BIPAP, Thyroid Disorder Additional Past Medical History / Comment(s): IDDM type II, bilateral retinal hemorrhage, retinopathy bilaterally, grand/petite mal seizure with last seizure greater than 12 yrs ago, gender dysporia, balance issues, AYDEE normally with CPAP but pt states it is broken, sinus problems, hypothyroid, developmentally delayed. History of Any Multi-Drug Resistant Organisms: None Reported Past Surgical History: Cholecystectomy, Tonsillectomy Additional Past Surgical History / Comment(s): Bilateral eye surgery, "tumor removed behind my throat", cystoscopy d/t painful urination, colonoscopy Past Anesthesia/Blood Transfusion Reactions: No Reported Reaction Smoking Status: Former smoker - Past Family History Mother Family Medical History: Myocardial Infarction (UT) Additional Family Medical History / Comment(s): Mother of a [place] at the age of 82 yrs. Father History Unknown: Yes Medications and Allergies Home Medications Medication Instructions Recorded Confirmed Type Aspirin EC [Ecotrin Low Dose] 81 mg PO DAILY 03/13/14 04/01/18 History Levothyroxine Sodium [Synthroid] 100 mcg PO QAM 03/13/14 04/01/18 History Lovastatin [Mevacor] 10 mg PO HS 10/16/15 04/01/18 History Melatonin 3 mg PO HS 10/16/15 04/01/18 History Sertraline [Zoloft] 150 mg PO HS #45 tab 12/12/15 04/01/18 Rx cloNIDine HCL [Catapres] 0.1 mg PO TID #90 tab 12/12/15 04/01/18 Rx risperiDONE 4 mg PO DAILY 02/27/16 04/01/18 History Divalproex Sodium [Depakote] 2,000 mg PO HS 01/30/17 04/01/18 History Insulin Glargine,Hum.rec.anlog 55 unit SQ HS 06/03/17 04/01/18 History [Lantus Solostar] amLODIPine [Norvasc] 10 mg PO DAILY 06/03/17 04/01/18 History Insulin Lispro [humaLOG Kwikpen] See Protocol SQ ACHS PRN 09/24/17 04/01/18 History risperiDONE 3 mg PO HS 09/24/17 04/01/18 History Linagliptin [Tradjenta] 5 mg PO DAILY 03/24/18 04/01/18 History Lisinopril 30 mg PO DAILY 03/24/18 04/01/18 History glipiZIDE/METFORMIN HCL 1 tab PO BID 03/24/18 04/01/18 History [glipiZIDE/METFORMIN HCL 5-500 mg] Allergies Allergy/AdvReac Type Severity Reaction Status Date / Time carbamazepine [From Tegretol] Allergy Unknown Verified 04/01/18 09:02 phenytoin sodium Allergy Unknown Verified 04/01/18 09:02 [From Dilantin] phenytoin sodium extended Allergy Unknown Verified 04/01/18 09:02 [From Dilantin] primidone Allergy Unknown Verified 04/01/18 09:02 sulfamethoxazole Allergy Unknown Verified 04/01/18 09:02 [From Bactrim] trimethoprim [From Bactrim] Allergy Unknown Verified 04/01/18 09:02 Physical Exam Vitals: Vital Signs Temp Pulse Pulse Pulse Pulse Pulse Resp 04/02/18 07:55 97.7 F 62 18 04/02/18 04:00 98.0 F 57 L 15 04/02/18 03:25 16 04/01/18 23:34 16 04/01/18 23:31 98.0 F 66 15 04/01/18 20:00 16 04/01/18 18:50 98.2 F 76 16 04/01/18 16:00 17 04/01/18 15:06 95 97 92 18 04/01/18 12:39 98.2 F 65 18 04/01/18 12:00 96.9 F L 70 17 04/01/18 11:30 65 22 04/01/18 10:40 73 17 04/01/18 10:17 65 18 BP BP Pulse Ox 04/02/18 07:55 111/56 98 04/02/18 04:00 126/67 96 04/02/18 03:25 04/01/18 23:34 04/01/18 23:31 104/62 96 04/01/18 20:00 04/01/18 18:50 142/65 98 04/01/18 16:00 144/70 98 04/01/18 15:06 04/01/18 12:39 135/76 98 04/01/18 12:00 117/62 149/77 100 04/01/18 11:30 144/67 97 04/01/18 10:40 97/55 96 04/01/18 10:17 115/68 97 Intake and Output 04/01/18 04/02/18 04/02/18 22:59 06:59 14:59 Intake Total 358 Output Total 875 Balance -517 Intake: Oral 358 Output: Urine 875 Other: # Voids 1 PHYSICAL EXAMINATION: GENERAL: 52-year-old gentleman in no acute distress at the time of my examination HEENT: Head is atraumatic, normocephalic. Pupils equal, round. Sclera anicteric. Conjunctiva are clear. Mucous membranes of the mouth are moist. Neck is supple. There is no elevated jugular venous pressure. No carotid bruit is heard. HEART EXAMINATION: Heart S1, S2 normal. No murmur or gallop heard. CHEST EXAMINATION: Lungs are clear to auscultation and precussion. No chest wall tenderness is noted on palpation or with deep breathing. ABDOMEN: Soft, nontender. Bowel sounds are heard. No organomegaly noted. EXTREMITIES: 2+ peripheral pulses with no evidence of peripheral edema and no calf tenderness noted. NEUROLOGIC patient is awake, alert and oriented 3 . . Results 04/01/18 08:30 04/01/18 08:30 Cardiac Enzymes 04/01/18 04/01/18 04/01/18 Range/Units 08:30 14:15 20:26 CK-MB (CK-2) 4.6 H 4.6 H 3.7 H (0.0-2.4) ng/mL Troponin I 0.034 0.034 0.029 (0.000-0.034) ng/mL Lipids 04/01/18 Range/Units 08:30 Triglycerides 122 (<150) mg/dL Cholesterol 129 (<200) mg/dL HDL Cholesterol 53 (40-60) mg/dL Current Medications Generic Name Dose Route Start Last Admin Trade Name Freq PRN Reason Stop Dose Admin Acetaminophen 650 mg 04/01/18 20:07 Tylenol Tab PO Q4HR PRN Fever and/ or Pain Amlodipine Besylate 10 mg 04/02/18 09:00 Norvasc PO DAILY LORI Aspirin 81 mg 04/02/18 09:00 Aspirin PO DAILY LORI Atorvastatin Calcium 10 mg 04/01/18 21:00 04/01/18 20:51 Lipitor PO 10 mg HS LORI Administration Clonidine 0.1 mg 04/01/18 16:00 04/01/18 20:51 Catapres PO 0.1 mg TID LORI Administration Divalproex Sodium 2,000 mg 04/01/18 21:00 04/01/18 20:50 Depakote PO 2,000 mg HS LORI Administration Glipizide 5 mg 04/01/18 17:30 04/02/18 07:58 Glucotrol PO 5 mg BID-W/MEALS LORI Administration Insulin Aspart 0 unit 04/02/18 07:30 04/02/18 06:27 Novolog SQ Not Given ACHS LORI Protocol Insulin Detemir 55 unit 04/01/18 21:00 04/01/18 21:24 Levemir SQ 55 unit HS LORI Administration Levothyroxine Sodium 100 mcg 04/02/18 06:30 04/02/18 06:10 Synthroid PO 100 mcg QAM@0630 LORI Administration Linagliptin 5 mg 04/02/18 09:00 Tradjenta PO DAILY LORI Lisinopril 30 mg 04/02/18 09:00 Zestril PO DAILY LORI Melatonin 3 mg 04/01/18 21:00 04/01/18 20:51 Melatonin PO 3 mg HS LORI Administration Metformin HCl 500 mg 04/01/18 17:30 04/02/18 07:58 Glucophage PO 500 mg BID-W/MEALS LORI Administration Nitroglycerin 1 inch 04/01/18 12:00 04/02/18 03:29 Nitro-Bid Oint TOPICAL Not Given Q6HR LORI Nitroglycerin 0.4 mg 04/01/18 10:54 Nitrostat SUBLINGUAL Q5M PRN Chest Pain Risperidone 3 mg 04/01/18 21:00 04/01/18 20:50 Risperdal PO 3 mg HS LORI Administration Risperidone 4 mg 04/02/18 09:00 Risperdal PO DAILY LORI Sertraline HCl 150 mg 04/01/18 21:00 04/01/18 20:51 Zoloft PO 150 mg HS LORI Administration Intake and Output 04/01/18 04/02/18 04/02/18 22:59 06:59 14:59 Intake Total 358 Output Total 875 Balance -517 Intake: Oral 358 Output: Urine 875 Other: # Voids 1 04/01/18 08:30 04/01/18 08:30 EKG Interpretations (text) EKG shows normal sinus rhythm with nonspecific ST-T wave changes Assessment and Plan Plan: Assessment and plan #1 symptoms of dizziness and near syncope. Orthostatics negative so far. We will continue to monitor orthostatic heart rate and blood pressure every shift, continued to monitor for any tachycardia or bradycardia arrhythmias..034, .034, 0.029. #2 chest pain, atypical features for acute coronary syndrome. Troponins 0.034, 0.034, 0.029. EKG shows normal sinus rhythm with nonspecific ST-T wave changes #3 hypertension #4 hyperlipidemia #5 diabetes #6 bipolar disorder #7 hypomagnesemia #8 hyponatremia #9 hypothyroidism #10 obstructive sleep apnea Plan We will obtain an echo cardiac gram with Doppler study. He tachycardia or bradycardia arrhythmias status have been negative so far. Pain is very atypical for acute coronary syndrome. Abnormality in troponin, we will review echocardiogram with Doppler study. If this is negative, we would recommend that the patient return next week for stress echocardiographic study as an outpatient. DNP note has been reviewed, I agree with a documented findings and plan of care. Patient was seen and examined.
[2018-04-02] MEDS: risperiDONE 1 MG TAB PO SCH ×2 (10:16→20:03)
[2018-04-02] MEDS: LISINOPRIL 10 MG TAB PO SCH (10:16)
[2018-04-02] MEDS: amLODIPine 10 MG TAB PO SCH (10:16)
[2018-04-02] MEDS: LINAGLIPTIN 5 MG TABLET PO SCH (10:17)
[2018-04-02] MEDS: cloNIDine HCL 0.1 MG TAB PO SCH ×3 (10:17→20:04)
[2018-04-02] MEDS: ASPIRIN 81 MG PO SCH (10:17)
[2018-04-02 11:46] LABS: Glucose,Whole Blood 178 mg/dL (75-99)
[2018-04-02 17:18] LABS: Glucose,Whole Blood 151 mg/dL (75-99)
--- NOTE | 2018-04-02 17:21 | ECHOF ---
Referral Reason:dizziness MEASUREMENTS -------- HEIGHT: 165.1 cm WEIGHT: 96.6 kg BP: RVIDd: 2.8 cm (< 3.3) IVSd: 1.2 cm (0.6 - 1.1) LVIDd: 5.4 cm (3.9 - 5.3) LVPWd: 1.2 cm (0.6 - 1.1) IVSs: 1.1 cm LVIDs: 4.2 cm LVPWs: 1.3 cm Ao Diam: 3.1 cm (2.0 - 3.7) AV Cusp: 2.2 cm (1.5 - 2.6) LA Diam: 3.5 cm (2.7 - 3.8) MV EXCURSION: 21.866 mm (> 18.000) MV EF SLOPE: 97 mm/s (70 - 150) EPSS: 0.3 cm MV E Osiel: 0.99 m/s MV DecT: 223 ms MV A Osiel: 0.74 m/s MV E/A Ratio: 1.34 RAP: 5.00 mmHg RVSP: 25.62 mmHg FINDINGS -------- Sinus rhythm. This was a technically adequate study. The left ventricular size is normal. There is mild concentric left ventricular hypertrophy. Overa ll left ventricular systolic function is normal with, an EF between 55 - 60 %. The right ventricle is normal in size. The left atrial size is normal. The right atrial size is normal. The aortic valve is trileaflet, and appears structurally normal. No aortic stenosis or regurgitation. Mild mitral annular calcification present. Mild mitral regurgitation is present. Mild tricuspid regurgitation present. There is no evidence of pulmonary hypertension. The right v entricular systolic pressure, as measured by Doppler, is 25.62mmHg. There is no pulmonic regurgitation present. The aortic root size is normal. There is no pericardial effusion. CONCLUSIONS -------- 1. The left ventricular size is normal. 2. There is mild concentric left ventricular hypertrophy. 3. Overall left ventricular systolic function is normal with, an EF between 55 - 60 %. 4. The right ventricle is normal in size. 5. The left atrial size is normal. 6. The right atrial size is normal. 7. The aortic valve is trileaflet, and appears structurally normal. No aortic stenosis or regurgitati on. 8. Mild mitral annular calcification present. 9. Mild mitral regurgitation is present. 10. Mild tricuspid regurgitation present. 11. There is no evidence of pulmonary hypertension. 12. The right ventricular systolic pressure, as measured by Doppler, is 25.62mmHg. 13. There is no pulmonic regurgitation present. 14. The aortic root size is normal. 15. There is no pericardial effusion. PLANT CONTROL OPERATOR: Tami Ramos RDCS
[2018-04-02] MEDS: ATORVASTATIN 10 MG TAB PO SCH (20:03)
[2018-04-02] MEDS: SERTRALINE 50 MG TAB PO SCH (20:04)
[2018-04-02] MEDS: MELATONIN 3 MG TABLET PO SCH (20:04)
[2018-04-02] MEDS: DIVALPROEX 500 MG TABLET.DR PO SCH (20:04)
[2018-04-02 20:05] LABS: Glucose,Whole Blood 173 mg/dL (75-99)
[2018-04-02] MEDS: INSULIN DETEMIR 100 UNIT/ML 10 ML VIAL SQ SCH (20:35)
[2018-04-02 21:30] VITALS: RESP 18
--- NOTE | 2018-04-02 22:51 | CT ---
EXAMINATION TYPE: CT angio chest DATE OF EXAM: 04/02/2018 10:42 PM COMPARISON: None HISTORY: Rule out Pulmonary embolus. Chest pain CT DLP: 470.6 mGycm Automated exposure control for dose reduction was used. CONTRAST: CTA scan of the thorax is performed with IV Contrast, patient injected with 100 mL of Isovue 370, pul monary embolism protocol. There are 3-D post processed images.. FINDINGS: The lungs are clear of infiltrate. There is no evidence of a pulmonary mass. Heart size is fairly nor mal. There is no pericardial effusion. There is a very small left pleural effusion.. There is minimal linear density at the left lung base consistent with subsegmental atelectasis. There are no hilar masses. Thoracic aorta is intact without evidence of aneurysm or dissection. There is no mediastinal adenopathy. There is normal contrast opacification of the pulmonary arteries. I see no filling defect. There is spurring in the thoracic spine. I see no bony destructive process. IMPRESSION: NO EVIDENCE OF PULMONARY EMBOLISM. MINIMAL PLEURAL FLUID AND SUBSEGMENTAL ATELECTASIS AT THE LEFT LUNG BASE.
--- NOTE | 2018-04-03 00:48 | PN ---
PROGRESS NOTE DATE OF SERVICE: 04/02/2018. INTERVAL HISTORY: This patient presented with dizziness and hypoosmolar hyponatremia. Patient drinks a lot of water. Fluid restriction was was done. Per Cardiology, they will do an outpatient stress test. REVIEW OF SYSTEMS: Done for constitutional, cardiovascular, GI, pulmonary; relevant findings as above. CURRENT MEDICATIONS: Reviewed. PHYSICAL EXAMINATION: Temperature 97.5, pulse 88, respirations 16, blood pressure 140/67, pulse 100 percent room air. GENERAL APPEARANCE: Lying in bed, awake. EYES: Pupils equal. Conjunctivae normal. NECK: JVD not raised. Mass not palpable. Respiratory effort normal. LUNGS: Decreased breath sounds. CARDIOVASCULAR: 1st and 2nd sounds. No edema. ABDOMEN: Soft nontender. Liver and spleen not palpable. PSYCHIATRY: Patient able answer simple questions. INVESTIGATIONS: Accu-Cheks are noted. ASSESSMENT: 1. Chest pain, stress test as an outpatient. 2. Diabetes mellitus type 2, chronically on insulin. 3. Essential hypertension. 4. Hyperlipidemia. 5. Chronic seizure disorder. 6. Obstructive sleep apnea, does not use CPAP machine. 7. Hypothyroid. 8. Hypoosmolar hyponatremia from excessive water intake. 9. Obesity; BMI 34.4. 10.Learning disability. Patient does have a legal guardian, Winston Zepeda. 11.Patient has a female identity with male with male sexual pattern. 12.Rule out pulmonary embolism. PLAN: We will order a CT chest PE protocol to rule out PE. Fluid restriction was reinforced. We will check labs in the morning. If that is negative, hopefully that he can be discharged, that being the case. . MMODL / IJN: [id number] /
[2018-04-03] MEDS: NITROGLYCERIN OINT 1 INCH/GM PACKET TOPICAL SCH ×2 (05:16→11:20)
[2018-04-03 06:14] LABS: Anion Gap 8 mmol/L; Blood Urea Nitrogen 9 mg/dL (9-20); Carbon Dioxide 25 mmol/L (22-30); Chloride 98 mmol/L (98-107); Glucose 126 mg/dL (74-99); Potassium 4.6 mmol/L (3.5-5.1); Sodium 131 mmol/L (137-145)
[2018-04-03] MEDS: LEVOTHYROXINE 100 MCG TAB PO SCH (06:39)
[2018-04-03 06:51] LABS: Glucose,Whole Blood 127 mg/dL (75-99)
[2018-04-03] MEDS: INSULIN ASPART 100 UNIT/ML 1 ML 10 ML VIAL SQ SCH ×2 (07:32→11:26)
[2018-04-03] MEDS: LISINOPRIL 10 MG TAB PO SCH (07:50)
[2018-04-03] MEDS: amLODIPine 10 MG TAB PO SCH (07:51)
[2018-04-03] MEDS: metFORMIN 500 MG TAB PO SCH (07:51)
[2018-04-03] MEDS: cloNIDine HCL 0.1 MG TAB PO SCH (07:51)
[2018-04-03] MEDS: ASPIRIN 81 MG PO SCH (07:51)
[2018-04-03] MEDS: glipiZIDE 5 MG TAB PO SCH (07:59)
[2018-04-03] MEDS: risperiDONE 1 MG TAB PO SCH (07:59)
[2018-04-03] MEDS: LINAGLIPTIN 5 MG TABLET PO SCH (07:59)
--- NOTE | 2018-04-03 09:29 | P.PN ---
Subjective Progress Note Date: 04/03/18 This is a 52-year-old gentleman who has a history of hypertension, diabetes, hyperlipidemia, prior seizure disorder, obstructive sleep apnea, hypothyroidism, patient also has history of bipolar disorder and some learning disability, and has a legal guardian who takes care of his issues. He apparently presented to the hospital with symptoms of dizziness and feeling like he's going to pass out. He has been having significant diarrhea stools as well. According to the patient, he is also intermittently been experiencing some chest discomfort which is sharp in nature and comes and goes. Chest x-ray did not reveal any evidence for acute pulmonary disease. EKG shows normal sinus rhythm with left anterior fascicular block. Nonspecific ST-T wave changes. Blood pressure on arrival 148/60 with a heart rate in the 70s, 98% on room air. Orthostatics were obtained, blood pressure 163/70 lying, 160/70 sitting, 173/80 standing. White blood cell count 7.5, hemoglobin 13, platelet count 225. Sodium 129, potassium 4.8, BUN 8, creatinine 0.6. Hemoglobin A1c 8.5, magnesium 1.5, troponins 0.034, 0.034, 0.029. At the time of my examination this morning, patient denies any chest pain, no dizziness, no palpitations. 04/03: CTA of the chest showed no evidence of pulmonary embolism. Minimal pleural fluid and subsegmental atelectasis at the left lung base. Echocardiogram reveals EF of 55-60% with mild concentric left hypertrophy, mild mitral regurgitation, mild tricuspid regurgitation, no pulmonary hypertension. Patient has been chest pain-free. He has been able to ambulate without lightheadedness or dizziness. Blood pressure 114/69, heart rate running in the 50s and 60s, patient is been afebrile. Pulse ox 97% on room air. Repeat lab work shows a sodium of 131, blood sugars are running between 126 and 173. The patient is cleared for discharge from cardiology. Objective - Vital Signs Vital signs: Vital Signs Temp 97.7 F 04/03/18 07:16 Pulse 54 L 04/03/18 08:00 Resp 18 04/03/18 08:00 BP 114/69 04/03/18 07:16 Pulse Ox 97 04/03/18 07:16 Intake & Output 04/02/18 04/03/18 04/03/18 18:59 06:59 18:59 Output Total 600 Balance -600 Output: Urine 600 - Exam GENERAL: 52-year-old gentleman in no acute distress at the time of my examination HEENT: Head is atraumatic, normocephalic. Pupils equal, round. Sclera anicteric. Conjunctiva are clear. Mucous membranes of the mouth are moist. Neck is supple. There is no elevated jugular venous pressure. No carotid bruit is heard. HEART EXAMINATION: Heart S1, S2 normal. No murmur or gallop heard. CHEST EXAMINATION: Lungs are clear to auscultation and precussion. No chest wall tenderness is noted on palpation or with deep breathing. ABDOMEN: Soft, nontender. Bowel sounds are heard. No organomegaly noted. EXTREMITIES: 2+ peripheral pulses with no evidence of peripheral edema and no calf tenderness noted. NEUROLOGIC patient is awake, alert and oriented 3 . - Labs CBC & Chem 7: 04/01/18 08:30 04/03/18 05:46 Labs: Abnormal Lab Results - Last 24 Hours (Table) 04/02/18 04/02/18 04/02/18 Range/Units 11:42 17:16 20:02 Sodium (137-145) mmol/L Glucose (74-99) mg/dL POC Glucose (mg/dL) 178 H 151 H 173 H (75-99) mg/dL 04/03/18 04/03/18 Range/Units 05:46 06:47 Sodium 131 L (137-145) mmol/L Glucose 126 H (74-99) mg/dL POC Glucose (mg/dL) 127 H (75-99) mg/dL Assessment and Plan Plan: #1 symptoms of dizziness and near syncope. Orthostatics negative so far. #2 chest pain, atypical features for acute coronary syndrome. Troponins 0.034, 0.034, 0.029. EKG shows normal sinus rhythm with nonspecific ST-T wave changes #3 hypertension #4 hyperlipidemia #5 diabetes #6 bipolar disorder #7 hypomagnesemia #8 hyponatremia #9 hypothyroidism #10 obstructive sleep apnea Plan Orthostatics have been negative, acute coronary syndrome ruled out. No documented arrhythmias. Patient may continue Norvasc 10 mg daily, aspirin 81 mg daily, lovastatin 10 mg at bedtime, lisinopril 30 mg daily. The patient is cleared from cardiology for discharge home Nurse Practitioner note has been reviewed, I agree with a documented findings and plan of care. Patient was seen and examined.
[2018-04-03 11:33] VITALS: BP 110/62; PULSE 63; TEMP 97.5
[2018-04-03 11:39] LABS: Glucose,Whole Blood 165 mg/dL (75-99)
--- NOTE | 2018-04-04 07:31 | DS ---
DISCHARGE SUMMARY DATE OF ADMISSION: 04/01/2018 DATE OF DISCHARGE: 04/03/2018 FINAL DIAGNOSES: 1. Chest pain could be musculoskeletal. Outpatient stress test as an outpatient. 2. Diabetes mellitus type 2, chronically on insulin. 3. Essential hypertension. 4. Hyperlipidemia. 5. Chronic seizure disorder. 6. Obstructive sleep apnea does not use CPAP machine. 7. Hypothyroid. 8. Hypoosmolar hyponatremia from excessive water intake. 9. Obesity; BMI 34.4. 10.Learning disability. Patient has a legal guardian, Winston Red. 11.Transgender with the gender incongruence. 12.Pulmonary embolism ruled out. HOSPITAL COURSE: This patient was a transgender/with gender in congruence with a male body and feels like a female. Presented with shortness of breath with exertion and some chest pain. Seen by Cardiology. They will do a stress test as an outpatient. PE was ruled out. The patient drinks does excessive water. He was told to cut back on the same restricted. Sodium has started to come up. The patient did have a 2-D echocardiogram that showed good LV function. Care was discussed with the patient. PHYSICAL EXAMINATION: Temperature 97.5, pulse 63, respiration 18, blood pressure 110/62, pulse ox 98% on room air. Lungs fair entry. Cardiovascular 1st and 2nd sounds normal. The patient is able to carry out a simple conversation. INVESTIGATIONS: BUN and creatinine is normal. Sodium 131. CONSULTATION: Dr. Joseph from Cardiology. HOME GO MEDICATIONS: 1. Aspirin 81 mg a day. 2. Synthroid 100 mcg a day. 3. Mevacor 10 mg at bedtime. 4. Melatonin 3 mg q.h.s. 5. Zoloft 150 mg p.o. q.h.s. 6. Catapres 0.1 mg p.o. t.i.d. 7. Risperidone 4 mg p.o. daily. 8. Depakote 2000 mg p.o. at bedtime. 9. Lantus 55 units subcu at bedtime. 10.Norvasc 10 mg p.o. daily. 11.Humalog a.c. q.h.s. p.r.n. 12.Risperidone 3 mg p.o. q.h.s. 13.Tradjenta 5 mg p.o. daily. 14.Lisinopril 20 mg p.o. daily. 15.Glipizide/metformin 5/500 one tablet p.o. b.i.d. FOLLOWUP: Follow up with Dr. Archer in 1-2 days. Follow up with Dr. Joseph in 1 week. Cardiology will be arranging for an outpatient stress test. DISPOSITION: To [facility]. Copy to visiting physician Dr. Archer. MMGILMER / CHANTELLN: [id number] /
== END 2018-04-03 15:19 | disposition home or self-care (01) ==
LOC: EC 08:08 → 3SCARD 10:55 → 1SOBS 04-02 21:20
PROVIDERS: ADMIT Hospitalist; ATTEND Hospitalist
DX: R07.89 Other chest pain (principal); R55 Syncope and collapse; E87.1 Hypo-osmolality and hyponatremia; E83.42 Hypomagnesemia; R19.7 Diarrhea, unspecified; R42 Dizziness and giddiness; E11.319 Type 2 diabetes mellitus with unspecified diabetic retinopathy without macular edema; R06.02 Shortness of breath; I10 Essential (primary) hypertension; E78.5 Hyperlipidemia, unspecified; G47.33 Obstructive sleep apnea (adult) (pediatric); Z99.89 Dependence on other enabling machines and devices; G40.909 Epilepsy, unspecified, not intractable, without status epilepticus; E03.9 Hypothyroidism, unspecified; F81.9 Developmental disorder of scholastic skills, unspecified; F64.9 Gender identity disorder, unspecified; F31.9 Bipolar disorder, unspecified; I08.1 Rheumatic disorders of both mitral and tricuspid valves; F25.9 Schizoaffective disorder, unspecified; F41.9 Anxiety disorder, unspecified; R12 Heartburn; R62.50 Unspecified lack of expected normal physiological development in childhood; I44.4 Left anterior fascicular block; E66.9 Obesity, unspecified; Z68.34 Body mass index [BMI] 34.0-34.9, adult; Z79.890 Hormone replacement therapy; Z79.4 Long term (current) use of insulin; Z79.82 Long term (current) use of aspirin; Z79.899 Other long term (current) drug therapy; Z88.1 Allergy status to other antibiotic agents; Z88.2 Allergy status to sulfonamides; Z88.8 Allergy status to other drugs, medicaments and biological substances; Z87.891 Personal history of nicotine dependence; Z90.49 Acquired absence of other specified parts of digestive tract; Z82.49 Family history of ischemic heart disease and other diseases of the circulatory system
CPT/HCPCS: 99285; 36415; 93005; 93306; 80164; 83930; 80061; 80053; 80048; 82550; 82553; 83735; 84484; 85025; 85610; 85730; 83036; 71046; 71275; G0378 ×3; Q9967

== ENCOUNTER 2018-04-23 09:11 | Emergency (ER) | payer MEDICARE, OTHER ==
[2018-04-23 09:18] VITALS: RESP 18
--- NOTE | 2018-04-23 09:32 | ED ---
General Adult HPI - General Chief complaint: Recheck/Abnormal Lab/Rx Stated complaint: LETHARGY Time Seen by Provider: 04/23/18 09:11 Source: patient, RN notes reviewed Mode of arrival: EMS Limitations: no limitations - History of Present Illness Initial comments: This is a 52-year-old male who presents emergency Department because last night he actually took another residence medication and his own. Please look at the nursing notes for the exact medications. Patient states he found it difficult to walk this morning after having taken those medications. Patient denies any nausea vomiting. Patient denies any shortness of breath chest pain or palpitations. Patient denies lightheadedness or dizziness. Patient states she just feels as though his legs are weaker than it should be. Patient denies being sick in any way recently. Patient states she got confused last night and accidentally took the other residents meds. There was no intentional taking of the meds. - Related Data Home Medications Medication Instructions Recorded Confirmed Aspirin EC [Ecotrin Low Dose] 81 mg PO DAILY 03/13/14 04/23/18 Levothyroxine Sodium [Synthroid] 100 mcg PO DAILY 03/13/14 04/23/18 Lovastatin [Mevacor] 10 mg PO HS 10/16/15 04/23/18 Melatonin 3 mg PO HS 10/16/15 04/23/18 risperiDONE 4 mg PO DAILY 02/27/16 04/23/18 Divalproex Sodium [Depakote] 2,000 mg PO HS 01/30/17 04/23/18 Insulin Glargine,Hum.rec.anlog 55 unit SQ HS 06/03/17 04/23/18 [Lantus Solostar] amLODIPine [Norvasc] 10 mg PO DAILY 06/03/17 04/23/18 Insulin Lispro [humaLOG Kwikpen] See Protocol SQ ACHS PRN 09/24/17 04/23/18 risperiDONE 3 mg PO HS 09/24/17 04/23/18 Linagliptin [Tradjenta] 5 mg PO DAILY 03/24/18 04/23/18 Lisinopril 30 mg PO DAILY 03/24/18 04/23/18 glipiZIDE/METFORMIN HCL 1 tab PO BID 03/24/18 04/23/18 [glipiZIDE/METFORMIN HCL 5-500 mg] Previous Rx's Medication Instructions Recorded Sertraline [Zoloft] 150 mg PO HS #45 tab 12/12/15 cloNIDine HCL [Catapres] 0.1 mg PO TID #90 tab 12/12/15 Allergies Allergy/AdvReac Type Severity Reaction Status Date / Time carbamazepine [From Tegretol] Allergy Unknown Verified 04/23/18 09:46 phenytoin sodium Allergy Unknown Verified 04/23/18 09:46 [From Dilantin] phenytoin sodium extended Allergy Unknown Verified 04/23/18 09:46 [From Dilantin] primidone Allergy Unknown Verified 04/23/18 09:46 sulfamethoxazole Allergy Unknown Verified 04/23/18 09:46 [From Bactrim] trimethoprim [From Bactrim] Allergy Unknown Verified 04/23/18 09:46 Review of Systems ROS Statement: Those systems with pertinent positive or pertinent negative responses have been documented in the HPI. ROS Other: All systems not noted in ROS Statement are negative. Past Medical History Past Medical History: Diabetes Mellitus, Hyperlipidemia, Hypertension, Seizure Disorder, Sleep Apnea/CPAP/BIPAP, Thyroid Disorder Additional Past Medical History / Comment(s): IDDM type II, bilateral retinal hemorrhage, retinopathy bilaterally, grand/petite mal seizure with last seizure greater than 12 yrs ago, gender dysporia, balance issues, AYDEE normally with CPAP but pt states it is broken, sinus problems, hypothyroid, developmentally delayed. History of Any Multi-Drug Resistant Organisms: None Reported Past Surgical History: Cholecystectomy, Tonsillectomy Additional Past Surgical History / Comment(s): Bilateral eye surgery, "tumor removed behind my throat", cystoscopy d/t painful urination, colonoscopy Past Anesthesia/Blood Transfusion Reactions: No Reported Reaction Past Psychological History: Anxiety, Bipolar, Schizoaffective Disorder Smoking Status: Former smoker - Past Family History Mother Family Medical History: Myocardial Infarction ([place]) Additional Family Medical History / Comment(s): Mother of a [place] at the age of 82 yrs. Father History Unknown: Yes General Exam - General Exam Comments Initial Comments: GENERAL: Patient is well-developed and well-nourished. Patient is nontoxic and well- hydrated and is in no acute distress. ENT: Neck is soft and supple. No significant lymphadenopathy is noted. Oropharynx is clear. Moist mucous membranes. Neck has full range of motion without eliciting any pain. EYES: The sclera were anicteric and conjunctiva were pink and moist. Extraocular movements were intact and pupils were equal round and reactive to light. Eyelids were unremarkable. PULMONARY: Unlabored respirations. Good breath sounds bilaterally. No audible rales rhonchi or wheezing was noted. CARDIOVASCULAR: There is a regular rate and rhythm without any murmurs gallops or rubs. ABDOMEN: Soft and nontender with normal bowel sounds. No palpable organomegaly was noted. There is no palpable pulsatile mass. SKIN: Skin is clear with no lesions or rashes and otherwise unremarkable. NEUROLOGIC: Patient is alert and oriented x3. Cranial nerves II through XII are grossly intact. Motor and sensory are also intact. Normal speech, volume and content. Symmetrical smile. MUSCULOSKELETAL: Normal extremities with adequate strength and full range of motion. LYMPHATICS: No significant lymphadenopathy is noted PSYCHIATRIC: Normal psychiatric evaluation. Limitations: no limitations Course Vital Signs 04/23/18 04/23/18 04/23/18 09:15 10:18 11:43 Temperature 97.1 F L Pulse Rate 96 90 95 Respiratory 18 18 18 Rate Blood Pressure 133/72 154/90 128/63 O2 Sat by Pulse 100 99 98 Oximetry Medical Decision Making - Medical Decision Making EKG shows normal sinus rhythm at 92 bpm [place] interval is 140 QRS is 106 QT interval 376 QTC is 464. Patient's EKG shows no ST segment elevation or depression or T wave abnormalities are noted patient was able to get out of bed without a problem and ambulate without problem. - Lab Data Result diagrams: 04/23/18 09:23 04/23/18 09:23 Lab Results 04/23/18 04/23/18 Range/Units 09:23 09:23 WBC 11.6 H (3.8-10.6) k/uL RBC 4.08 L (4.30-5.90) m/uL Hgb 12.4 L (13.0-17.5) gm/dL Hct 36.4 L (39.0-53.0) % MCV 89.2 (80.0-100.0) fL MCH 30.4 (25.0-35.0) pg MCHC 34.1 (31.0-37.0) g/dL RDW 13.4 (11.5-15.5) % Plt Count 229 (150-450) k/uL Neutrophils % 84 % Lymphocytes % 8 % Monocytes % 7 % Eosinophils % 1 % Basophils % 0 % Neutrophils # 9.8 H (1.3-7.7) k/uL Lymphocytes # 0.9 L (1.0-4.8) k/uL Monocytes # 0.8 (0-1.0) k/uL Eosinophils # 0.1 (0-0.7) k/uL Basophils # 0.0 (0-0.2) k/uL Sodium 128 L (137-145) mmol/L Potassium 5.5 H (3.5-5.1) mmol/L Chloride 94 L (98-107) mmol/L Carbon Dioxide 18 L (22-30) mmol/L Anion Gap 16 mmol/L BUN 16 (9-20) mg/dL Creatinine 0.84 (0.66-1.25) mg/dL Est GFR (CKD-EPI)AfAm >90 (>60 ml/min/1.73 sqM) Est GFR (CKD-EPI)NonAf >90 (>60 ml/min/1.73 sqM) Glucose 280 H (74-99) mg/dL Calcium 9.2 (8.4-10.2) mg/dL Total Bilirubin 0.3 (0.2-1.3) mg/dL AST 30 (17-59) U/L ALT 25 (21-72) U/L Alkaline Phosphatase 41 (38-126) U/L Total Protein 6.3 (6.3-8.2) g/dL Albumin 3.8 (3.5-5.0) g/dL Valproic Acid 77.3 ug/mL [place] 0.3 mmol/L Disposition Clinical Impression: Accidental drug ingestion Disposition: HOME SELF-CARE Is patient prescribed a controlled substance at d/c from ED?: No Referrals: Chapincito Archer MD [Primary Care Provider] - 1-2 days Time of Disposition: 12:23
[2018-04-23 09:49] LABS: Basophils % (A) 0 %; Eosinophils # (A) 0.1 k/uL (0-0.7); Eosinophils % (A) 1 %; HCT 36.4 % (39.0-53.0); HGB 12.4 gm/dL (13.0-17.5); Lymphocytes # (A) 0.9 k/uL (1.0-4.8); Lymphocytes % (A) 8 %; MCH 30.4 pg (25.0-35.0); MCHC 34.1 g/dL (31.0-37.0); MCV 89.2 fL (80.0-100.0); Mean Platelet Volume 7.4; Monocytes # (A) 0.8 k/uL (0-1.0); Monocytes % (A) 7 %; Neutrophils # (A) 9.8 k/uL (1.3-7.7); Neutrophils % (A) 84 %; Platelet Count 229 k/uL (150-450); RBC 4.08 m/uL (4.30-5.90); RDW 13.4 % (11.5-15.5); WBC 11.6 k/uL (3.8-10.6)
[2018-04-23 10:10] LABS: ALT 25 U/L (21-72); AST 30 U/L (17-59); Albumin 3.8 g/dL (3.5-5.0); Alkaline Phosphatase 41 U/L (38-126); Anion Gap 16 mmol/L; Blood Urea Nitrogen 16 mg/dL (9-20); Calcium 9.2 mg/dL (8.4-10.2); Carbon Dioxide 18 mmol/L (22-30); Chloride 94 mmol/L (98-107); Glucose 280 mg/dL (74-99); Potassium 5.5 mmol/L (3.5-5.1); Sodium 128 mmol/L (137-145); Total Bilirubin 0.3 mg/dL (0.2-1.3); Total Protein 6.3 g/dL (6.3-8.2)
[2018-04-23 10:21] LABS: Lithium 0.3 mmol/L
[2018-04-23 10:29] LABS: Valproic Acid (Depakene) 77.3 ug/mL
[2018-04-23] MEDS ORDERED: SODIUM CHLORIDE 0.9% 500 ML 500 ML IV ONE (11:16)
[2018-04-23 13:17] VITALS: BP 151/91; PULSE 84; TEMP 98
== END 2018-04-23 13:43 | disposition home or self-care (01) ==
LOC: EC 09:11
DX: R26.2 Difficulty in walking, not elsewhere classified (principal); T42.4X5A Adverse effect of benzodiazepines, initial encounter; T42.6X5A Adverse effect of other antiepileptic and sedative-hypnotic drugs, initial encounter; T43.595A Adverse effect of other antipsychotics and neuroleptics, initial encounter; E78.5 Hyperlipidemia, unspecified; I10 Essential (primary) hypertension; E11.319 Type 2 diabetes mellitus with unspecified diabetic retinopathy without macular edema; G40.909 Epilepsy, unspecified, not intractable, without status epilepticus; E03.9 Hypothyroidism, unspecified; G47.33 Obstructive sleep apnea (adult) (pediatric); F31.9 Bipolar disorder, unspecified; Z87.891 Personal history of nicotine dependence; Z88.2 Allergy status to sulfonamides; Z88.8 Allergy status to other drugs, medicaments and biological substances; Z79.4 Long term (current) use of insulin; Z79.82 Long term (current) use of aspirin; Z79.899 Other long term (current) drug therapy; Z99.89 Dependence on other enabling machines and devices
CPT/HCPCS: 36415; 80053; 80164; 80178; 85025; 93005; 96360; 99284

== ENCOUNTER 2018-05-01 19:06 | Emergency (ER) | payer MEDICARE, OTHER ==
--- NOTE | 2018-05-01 19:56 | ED ---
Psych HPI - General Chief Complaint: Psychiatric Symptoms Stated Complaint: Mental Health Time Seen by Provider: 05/01/18 19:14 Source: patient, police, EMS, RN notes reviewed, old records reviewed Mode of arrival: EMS - History of Present Illness Initial Comments: Patient is a 52-year-old male who presents the emergency department today with complaints of depression and "shock". Patient states that he was upset and is putting himself because he was using his social security card to apply for credit cards and Depakote. Patient reports that he was told not to do this by his legal guardian. Patient states that he could not apply for a visa card without giving out his social security information. Patient reports that he started to have a lot of male come to his adult foster fdc and is concerned that his legal guardian is going to be upset at him. The adult foster fdc did call mobile crisis unit for the Patient he has a Patient of [facility]. At that time Patient insisted to go to the hospital to talk to psychiatrist. Patient denies any suicidal thoughts. He is concerned that he will be upset at him due to his recent actions. He does state that he did not realize that he was doing and states that he does not feel confident and managing his finances with his history of learning disability. - Related Data Home Medications Medication Instructions Recorded Confirmed Aspirin EC [Ecotrin Low Dose] 81 mg PO DAILY 03/13/14 05/01/18 Levothyroxine Sodium [Synthroid] 100 mcg PO DAILY 03/13/14 05/01/18 Lovastatin [Mevacor] 10 mg PO HS 10/16/15 05/01/18 Melatonin 3 mg PO HS 10/16/15 05/01/18 Divalproex Sodium [Depakote] 2,000 mg PO HS 01/30/17 05/01/18 Insulin Glargine,Hum.rec.anlog 55 unit SQ HS 06/03/17 05/01/18 [Lantus Solostar] amLODIPine [Norvasc] 10 mg PO DAILY 06/03/17 05/01/18 Insulin Lispro [humaLOG Kwikpen] See Protocol SQ ACHS PRN 09/24/17 05/01/18 risperiDONE 3 mg PO HS 09/24/17 05/01/18 Linagliptin [Tradjenta] 5 mg PO DAILY 03/24/18 05/01/18 Lisinopril 30 mg PO DAILY 03/24/18 05/01/18 glipiZIDE/METFORMIN HCL 2 tab PO BID 03/24/18 05/01/18 [glipiZIDE/METFORMIN HCL 5-500 mg] Cholecalciferol (Vitamin D3) 2,000 unit PO DAILY 05/01/18 05/01/18 [Vitamin D3] Cyanocobalamin (Vitamin B-12) 1,000 mcg PO DAILY 05/01/18 05/01/18 [Vitamin B-12] risperiDONE 4 mg PO DAILY 05/01/18 05/01/18 Previous Rx's Medication Instructions Recorded Sertraline [Zoloft] 150 mg PO HS #45 tab 12/12/15 cloNIDine HCL [Catapres] 0.1 mg PO TID #90 tab 12/12/15 Allergies Allergy/AdvReac Type Severity Reaction Status Date / Time carbamazepine [From Tegretol] Allergy Unknown Verified 05/01/18 20:02 phenytoin sodium Allergy Unknown Verified 05/01/18 20:02 [From Dilantin] phenytoin sodium extended Allergy Unknown Verified 05/01/18 20:02 [From Dilantin] primidone Allergy Unknown Verified 05/01/18 20:02 sulfamethoxazole Allergy Unknown Verified 05/01/18 20:02 [From Bactrim] trimethoprim [From Bactrim] Allergy Unknown Verified 05/01/18 20:02 Review of Systems ROS Statement: Those systems with pertinent positive or pertinent negative responses have been documented in the HPI. ROS Other: All systems not noted in ROS Statement are negative. Past Medical History Past Medical History: Diabetes Mellitus, Hyperlipidemia, Hypertension, Seizure Disorder, Sleep Apnea/CPAP/BIPAP, Thyroid Disorder Additional Past Medical History / Comment(s): IDDM type II, bilateral retinal hemorrhage, retinopathy bilaterally, grand/petite mal seizure with last seizure greater than 12 yrs ago, gender dysporia, balance issues, AYDEE normally with CPAP but pt states it is broken, sinus problems, hypothyroid, developmentally delayed. History of Any Multi-Drug Resistant Organisms: None Reported Past Surgical History: Cholecystectomy, Tonsillectomy Additional Past Surgical History / Comment(s): Bilateral eye surgery, "tumor removed behind my throat", cystoscopy d/t painful urination, colonoscopy Past Anesthesia/Blood Transfusion Reactions: No Reported Reaction Past Psychological History: Anxiety, Bipolar, Schizoaffective Disorder Smoking Status: Former smoker - Past Family History Mother Family Medical History: Myocardial Infarction ([place]) Additional Family Medical History / Comment(s): Mother of a [place] at the age of 82 yrs. Father History Unknown: Yes General Exam - General Exam Comments Initial Comments: 52 year old male. Limitations: no limitations General appearance: alert, in no apparent distress Head exam: Present: atraumatic, normocephalic, normal inspection Eye exam: Present: normal appearance, PERRL, EOMI. Absent: scleral icterus, conjunctival injection, periorbital swelling ENT exam: Present: normal exam, mucous membranes moist Neck exam: Present: normal inspection. Absent: tenderness, meningismus, lymphadenopathy Respiratory exam: Present: normal lung sounds bilaterally. Absent: respiratory distress, wheezes, rales, rhonchi, stridor Cardiovascular Exam: Present: regular rate, normal rhythm, normal heart sounds. Absent: systolic murmur, diastolic murmur, rubs, gallop, clicks GI/Abdominal exam: Present: soft, normal bowel sounds. Absent: distended, tenderness, guarding, rebound, rigid Back exam: Present: normal inspection Neurological exam: Present: alert, oriented X3, CN II-XII intact Psychiatric exam: Present: normal affect, normal mood, other (Patient states that he is sad. He denies any suicidal or homicidal ideation.) Skin exam: Present: warm, dry, intact, normal color. Absent: rash Course Vital Signs 05/01/18 19:15 Temperature 98.3 F Pulse Rate 85 Respiratory 19 Rate Blood Pressure 163/79 O2 Sat by Pulse 97 Oximetry Medical Decision Making - Medical Decision Making 32-year-old male to the mental disability presents emergency department today feeling depressed. He is concerned that he will be in trouble because he opened multiple credit cards with resulting security number. After he was told not to do this by legal guardian. Patient states that he was concerned today. His is a dull foster fdc he was offered evaluation the mobile crisis unit Patient refused. He stated he had a comes emergency Department. Patient was arrives with EMS and police escort. Patient is uncooperative in the ER. We did recheck the patient's legal guardian. Stated that he is on some past and previously lost privileges. However Patient does not require psych eval, as he has no significant suicidal thoughts. Patient at this time will be discharged back to his [facility] home. Discussed the case with his legal guardian and the legal guardian is aware of the situation. He states that the Patient is not trouble that he will have a close eye on the Patient regards to further interactions regards to his monetary affairs. Disposition Clinical Impression: Adjustment reaction Disposition: HOME SELF-CARE Condition: Good Instructions: Stress (ED), Mood Disorders (ED) Additional Instructions: Patient advised to follow-up with primary care physician and [facility]. Return to the emergency department if any alarming signs or symptoms occur. Legal guardian will be in contact with you and is aware of the situation. Is patient prescribed a controlled substance at d/c from ED?: No Referrals: None,Stated [Primary Care Provider] - 1-2 days Time of Disposition: 20:25
[2018-05-01 20:34] LABS: Amphetamine Screen,Urine Not Detected (NotDetected); Barbiturate Screen,Urine Not Detected (NotDetected); Benzodiazepines Screen,Urine Not Detected (NotDetected); Cocaine Screen,Urine Not Detected (NotDetected); Methadone Screen, Urine Not Detected (NotDetected); Opiate Screen,Urine Not Detected (NotDetected); Oxycodone Screen, Urine Not Detected (NotDetected); Phencyclidine Screen,Urine Not Detected (NotDetected); Tricyclic Antidepressant,Urine Not Detected (NotDetected); Urn Cannabinoid Scrn Not Detected (NotDetected)
[2018-05-01 21:25] VITALS: BP 159/84; PULSE 72; RESP 18; TEMP 97.8
== END 2018-05-01 21:02 | disposition home or self-care (01) ==
LOC: EC 19:06
DX: F43.20 Adjustment disorder, unspecified (principal); F31.9 Bipolar disorder, unspecified; F41.9 Anxiety disorder, unspecified; F25.9 Schizoaffective disorder, unspecified; I10 Essential (primary) hypertension; E78.5 Hyperlipidemia, unspecified; G47.33 Obstructive sleep apnea (adult) (pediatric); G40.909 Epilepsy, unspecified, not intractable, without status epilepticus; E11.319 Type 2 diabetes mellitus with unspecified diabetic retinopathy without macular edema; E03.9 Hypothyroidism, unspecified; Z99.89 Dependence on other enabling machines and devices; Z79.82 Long term (current) use of aspirin; Z79.4 Long term (current) use of insulin; Z79.899 Other long term (current) drug therapy; Z88.8 Allergy status to other drugs, medicaments and biological substances; Z88.2 Allergy status to sulfonamides; Z87.891 Personal history of nicotine dependence
CPT/HCPCS: 80306; 82075; 99284

== ENCOUNTER 2018-05-02 17:23 | Emergency (ER) | payer MEDICARE, OTHER ==
--- NOTE | 2018-05-02 18:32 | ED ---
Psych HPI - General Chief Complaint: Psychiatric Symptoms Stated Complaint: Mental Health Time Seen by Provider: 05/02/18 17:58 Source: patient Mode of arrival: ambulatory - History of Present Illness Initial Comments: 52-year-old male patient presents to the emergency department today for complaints of increasing depression. The patient states that he did have suicidal ideation earlier in the day but this positive result. Patient states that he feels that no one listens to him all respects his opinion. Patient states he is unable to be in adults and feels like a child. Patient states that his guardian will not allow him to go shopping or buy toys that he wanted so this makes him very upset and angry. Patient states today at his skilled nursing he was yelling and becoming very disturbing so he presented here for evaluation. She denies any homicidal ideation. Denies any street drug use. Denies any hallucinations. He denies any current physical symptoms or concerns. Patient denies any recent rash, fever, chills, shortness breath, chest pain, abdominal pain, nausea, vomiting, diarrhea, constipation, back pain , numbness, tingling, dizziness, weakness, hematuria, dysuria, urinary urgency, urinary frequency, headache, visual changes, or any other complaints. - Related Data Home Medications Medication Instructions Recorded Confirmed Aspirin EC [Ecotrin Low Dose] 81 mg PO DAILY 03/13/14 05/02/18 Levothyroxine Sodium [Synthroid] 100 mcg PO DAILY 03/13/14 05/02/18 Lovastatin [Mevacor] 10 mg PO HS 10/16/15 05/02/18 Melatonin 3 mg PO HS 10/16/15 05/02/18 Divalproex Sodium [Depakote] 2,000 mg PO HS 01/30/17 05/02/18 Insulin Glargine,Hum.rec.anlog 55 unit SQ HS 06/03/17 05/02/18 [Lantus Solostar] amLODIPine [Norvasc] 10 mg PO DAILY 06/03/17 05/02/18 Insulin Lispro [humaLOG Kwikpen] See Protocol SQ ACHS PRN 09/24/17 05/02/18 risperiDONE 3 mg PO HS 09/24/17 05/02/18 Linagliptin [Tradjenta] 5 mg PO DAILY 03/24/18 05/02/18 Lisinopril 30 mg PO DAILY 03/24/18 05/02/18 glipiZIDE/METFORMIN HCL 2 tab PO BID 03/24/18 05/02/18 [glipiZIDE/METFORMIN HCL 5-500 mg] Cholecalciferol (Vitamin D3) 2,000 unit PO DAILY 05/01/18 05/02/18 [Vitamin D3] Cyanocobalamin (Vitamin B-12) 1,000 mcg PO DAILY 05/01/18 05/02/18 [Vitamin B-12] risperiDONE 4 mg PO DAILY 05/01/18 05/02/18 Previous Rx's Medication Instructions Recorded Sertraline [Zoloft] 150 mg PO HS #45 tab 12/12/15 cloNIDine HCL [Catapres] 0.1 mg PO TID #90 tab 12/12/15 Allergies Allergy/AdvReac Type Severity Reaction Status Date / Time carbamazepine [From Tegretol] Allergy Unknown Verified 05/02/18 18:52 phenytoin sodium Allergy Unknown Verified 05/02/18 18:52 [From Dilantin] phenytoin sodium extended Allergy Unknown Verified 05/02/18 18:52 [From Dilantin] primidone Allergy Unknown Verified 05/02/18 18:52 sulfamethoxazole Allergy Unknown Verified 05/02/18 18:52 [From Bactrim] trimethoprim [From Bactrim] Allergy Unknown Verified 05/02/18 18:52 Review of Systems ROS Statement: Those systems with pertinent positive or pertinent negative responses have been documented in the HPI. ROS Other: All systems not noted in ROS Statement are negative. Past Medical History Past Medical History: Diabetes Mellitus, Hyperlipidemia, Hypertension, Seizure Disorder, Sleep Apnea/CPAP/BIPAP, Thyroid Disorder Additional Past Medical History / Comment(s): IDDM type II, bilateral retinal hemorrhage, retinopathy bilaterally, grand/petite mal seizure with last seizure greater than 12 yrs ago, gender dysporia, balance issues, AYDEE normally with CPAP but pt states it is broken, sinus problems, hypothyroid, developmentally delayed. History of Any Multi-Drug Resistant Organisms: None Reported Past Surgical History: Cholecystectomy, Tonsillectomy Additional Past Surgical History / Comment(s): Bilateral eye surgery, "tumor removed behind my throat", cystoscopy d/t painful urination, colonoscopy Past Anesthesia/Blood Transfusion Reactions: No Reported Reaction Past Psychological History: Anxiety, Bipolar, Schizoaffective Disorder Smoking Status: Former smoker - Past Family History Mother Family Medical History: Myocardial Infarction ([place]) Additional Family Medical History / Comment(s): Mother of a [place] at the age of 82 yrs. Father History Unknown: Yes General Exam Limitations: no limitations General appearance: alert, in no apparent distress, other (This is a well- developed, well-nourished adult male patient in no acute distress. Vital signs upon presentation are temperature 98.6F, pulse 77, respirations 16, blood pressure 165/90, pulse ox 99% on room air.) Eye exam: Present: normal appearance, PERRL, EOMI. Absent: scleral icterus, conjunctival injection, periorbital swelling ENT exam: Present: normal exam, normal oropharynx, mucous membranes moist Respiratory exam: Present: normal lung sounds bilaterally. Absent: respiratory distress, wheezes, rales, rhonchi, stridor Cardiovascular Exam: Present: regular rate, normal rhythm, normal heart sounds. Absent: systolic murmur, diastolic murmur, rubs, gallop, clicks Neurological exam: Present: alert, oriented X3, CN II-XII intact Psychiatric exam: Present: normal affect, normal mood, depressed Skin exam: Present: warm, dry, intact, normal color. Absent: rash Course Vital Signs 05/02/18 05/02/18 17:26 20:52 Temperature 98.6 F 98 F Pulse Rate 77 79 Respiratory 16 18 Rate Blood Pressure 165/90 149/85 O2 Sat by Pulse 99 97 Oximetry Medical Decision Making - Medical Decision Making 52-year-old male patient percents to the emergency department today with complaints of increased depression. Patient reported that he is upset because he is unable to shop is much as he wants, he is limited by his legal guardian. Patient states he was having suicidal ideation earlier but states that those thoughts have resolved. Physical examination is unremarkable. Patient was seen and evaluated by emergency psychiatric services. He is felt that he is safe for discharge at this time, he is instructed to follow-up outpatient for counseling. He will be picked up by staff at his adult foster skilled nursing. Return parameters were discussed in detail. He verbalizes understanding and agrees with this plan. - Lab Data Lab Results 05/02/18 Range/Units 18:41 Urine Opiates Screen Not Detected (NotDetected) Ur Oxycodone Screen Not Detected (NotDetected) Urine Methadone Screen Not Detected (NotDetected) Ur Propoxyphene Screen Not Detected (NotDetected) Ur Barbiturates Screen Not Detected (NotDetected) U Tricyclic Antidepress Not Detected (NotDetected) Ur Phencyclidine Scrn Not Detected (NotDetected) Ur Amphetamines Screen Not Detected (NotDetected) U Methamphetamines Scrn Not Detected (NotDetected) U Benzodiazepines Scrn Not Detected (NotDetected) Urine Cocaine Screen Not Detected (NotDetected) U Marijuana (THC) Screen Not Detected (NotDetected) Disposition Clinical Impression: Depression Disposition: HOME SELF-CARE Condition: Good Instructions (If sedation given, give patient instructions): Depression (ED) Additional Instructions: Follow-up outpatient with mental health services. Return immediately for any new, worsening, or concerning symptoms. Is patient prescribed a controlled substance at d/c from ED?: No Referrals: Chapincito Archer MD [Primary Care Provider] - 1-2 days Time of Disposition: 20:40
[2018-05-02 19:14] LABS: Amphetamine Screen,Urine Not Detected (NotDetected); Barbiturate Screen,Urine Not Detected (NotDetected); Benzodiazepines Screen,Urine Not Detected (NotDetected); Cocaine Screen,Urine Not Detected (NotDetected); Methadone Screen, Urine Not Detected (NotDetected); Opiate Screen,Urine Not Detected (NotDetected); Oxycodone Screen, Urine Not Detected (NotDetected); Phencyclidine Screen,Urine Not Detected (NotDetected); Tricyclic Antidepressant,Urine Not Detected (NotDetected); Urn Cannabinoid Scrn Not Detected (NotDetected)
[2018-05-02 20:53] VITALS: BP 149/85; PULSE 79; RESP 18; TEMP 98
== END 2018-05-02 20:53 | disposition home or self-care (01) ==
LOC: EC 17:23
DX: F31.9 Bipolar disorder, unspecified (principal); R45.851 Suicidal ideations; E11.319 Type 2 diabetes mellitus with unspecified diabetic retinopathy without macular edema; E78.5 Hyperlipidemia, unspecified; I10 Essential (primary) hypertension; G40.909 Epilepsy, unspecified, not intractable, without status epilepticus; E03.9 Hypothyroidism, unspecified; G47.33 Obstructive sleep apnea (adult) (pediatric); Z99.89 Dependence on other enabling machines and devices; F41.9 Anxiety disorder, unspecified; F25.9 Schizoaffective disorder, unspecified; Z87.891 Personal history of nicotine dependence; Z79.82 Long term (current) use of aspirin; Z79.890 Hormone replacement therapy; Z79.4 Long term (current) use of insulin; Z79.899 Other long term (current) drug therapy; Z88.2 Allergy status to sulfonamides; Z88.8 Allergy status to other drugs, medicaments and biological substances
CPT/HCPCS: 80306; 82075; 99285

== ENCOUNTER → 2018-05-04 | Outpatient (CLI) | payer MEDICARE, OTHER ==
[2018-05-04 09:54] LABS: Basophils % (A) 1 %; Eosinophils # (A) 0.3 k/uL (0-0.7); Eosinophils % (A) 4 %; HCT 39.1 % (39.0-53.0); HGB 12.9 gm/dL (13.0-17.5); Lymphocytes # (A) 2.8 k/uL (1.0-4.8); Lymphocytes % (A) 37 %; MCH 29.6 pg (25.0-35.0); MCHC 32.9 g/dL (31.0-37.0); MCV 89.9 fL (80.0-100.0); Mean Platelet Volume 6.7; Monocytes # (A) 0.5 k/uL (0-1.0); Monocytes % (A) 6 %; Neutrophils % (A) 51 %; Platelet Count 260 k/uL (150-450); RBC 4.35 m/uL (4.30-5.90); RDW 13.5 % (11.5-15.5); WBC 7.8 k/uL (3.8-10.6)
[2018-05-04 17:18] LABS: Valproic Acid (Depakene) 65.9 ug/mL (50.0-100.0)
[2018-05-04 17:32] LABS: Hemoglobin A1C 8.5 % (4.0-6.0)
== END ==
LOC: LABWHC1 09:03
PROVIDERS: ATTEND Nurse Practitioner Family
DX: Z51.81 Encounter for therapeutic drug level monitoring (principal); Z79.899 Other long term (current) drug therapy
CPT/HCPCS: 36415; 80061; 80164; 82947; 83036; 85025

== ENCOUNTER 2018-05-22 14:17 | Emergency (ER) | payer MEDICARE, OTHER ==
[2018-05-22 14:25] VITALS: BP 131/81; PULSE 69; RESP 16; TEMP 97.9
--- NOTE | 2018-05-22 15:13 | ED ---
Psych HPI - General Chief Complaint: Psychiatric Symptoms Stated Complaint: Mental Health Time Seen by Provider: 05/22/18 14:34 Source: patient, RN notes reviewed, old records reviewed Mode of arrival: ambulatory - History of Present Illness Initial Comments: Patient is a 52-year-old male who presents return today with complaints of depression. Patient reports that he is upset that he has no one to talk to and has difficulty bili relationship the people at his half-way. Patient states that he thinks that he needs his depression medications adjusted. Patient states he was recently thinking about his previous suicide attempt when he was in high school and that was making him more depressed. He denies any active suicidal thoughts. Patient states that he does see a psychiatrist at [facility]. - Related Data Home Medications Medication Instructions Recorded Confirmed Aspirin EC [Ecotrin Low Dose] 81 mg PO DAILY 03/13/14 05/22/18 Levothyroxine Sodium [Synthroid] 100 mcg PO DAILY 03/13/14 05/22/18 Lovastatin [Mevacor] 10 mg PO HS 10/16/15 05/22/18 Melatonin 9 mg PO HS 10/16/15 05/22/18 Insulin Glargine,Hum.rec.anlog 55 unit SQ HS 06/03/17 05/22/18 [Lantus Solostar] amLODIPine [Norvasc] 10 mg PO DAILY 06/03/17 05/22/18 Insulin Lispro [humaLOG Kwikpen] See Protocol SQ ACHS PRN 09/24/17 05/22/18 risperiDONE 3 mg PO HS 09/24/17 05/22/18 Linagliptin [Tradjenta] 5 mg PO DAILY 03/24/18 05/22/18 Lisinopril 30 mg PO DAILY 03/24/18 05/22/18 glipiZIDE/METFORMIN HCL 2 tab PO BID 03/24/18 05/22/18 [glipiZIDE/METFORMIN HCL 5-500 mg] risperiDONE 4 mg PO DAILY 05/01/18 05/22/18 Divalproex ER [Depakote ER] 2,000 mg PO HS 05/22/18 05/22/18 Previous Rx's Medication Instructions Recorded Sertraline [Zoloft] 150 mg PO HS #45 tab 12/12/15 cloNIDine HCL [Catapres] 0.1 mg PO TID #90 tab 12/12/15 Allergies Allergy/AdvReac Type Severity Reaction Status Date / Time carbamazepine [From Tegretol] Allergy Unknown Verified 05/22/18 15:03 phenytoin sodium Allergy Unknown Verified 05/22/18 15:03 [From Dilantin] phenytoin sodium extended Allergy Unknown Verified 05/22/18 15:03 [From Dilantin] primidone Allergy Unknown Verified 05/22/18 15:03 sulfamethoxazole Allergy Unknown Verified 05/22/18 15:03 [From Bactrim] trimethoprim [From Bactrim] Allergy Unknown Verified 05/22/18 15:03 Review of Systems ROS Statement: Those systems with pertinent positive or pertinent negative responses have been documented in the HPI. ROS Other: All systems not noted in ROS Statement are negative. Past Medical History Past Medical History: Diabetes Mellitus, Hyperlipidemia, Hypertension, Seizure Disorder, Sleep Apnea/CPAP/BIPAP, Thyroid Disorder Additional Past Medical History / Comment(s): IDDM type II, bilateral retinal hemorrhage, retinopathy bilaterally, grand/petite mal seizure with last seizure greater than 12 yrs ago, gender dysporia, balance issues, AYDEE normally with CPAP but pt states it is broken, sinus problems, hypothyroid, developmentally delayed. History of Any Multi-Drug Resistant Organisms: None Reported Past Surgical History: Cholecystectomy, Tonsillectomy Additional Past Surgical History / Comment(s): Bilateral eye surgery, "tumor removed behind my throat", cystoscopy d/t painful urination, colonoscopy Past Anesthesia/Blood Transfusion Reactions: No Reported Reaction Past Psychological History: Anxiety, Bipolar, Schizoaffective Disorder Smoking Status: Former smoker - Past Family History Mother Family Medical History: Myocardial Infarction ([place]) Additional Family Medical History / Comment(s): Mother of a [place] at the age of 82 yrs. Father History Unknown: Yes General Exam - General Exam Comments Initial Comments: 52-year-old male. Alert and oriented 3. Patient appears in no significant distress. Evidence of developmental delay. Limitations: no limitations General appearance: alert, in no apparent distress Head exam: Present: atraumatic, normocephalic, normal inspection Eye exam: Present: normal appearance, PERRL, EOMI. Absent: scleral icterus, conjunctival injection, periorbital swelling ENT exam: Present: normal exam, mucous membranes moist Neck exam: Present: normal inspection. Absent: tenderness, meningismus, lymphadenopathy Respiratory exam: Present: normal lung sounds bilaterally. Absent: respiratory distress, wheezes, rales, rhonchi, stridor Cardiovascular Exam: Present: regular rate, normal rhythm, normal heart sounds. Absent: systolic murmur, diastolic murmur, rubs, gallop, clicks GI/Abdominal exam: Present: soft, normal bowel sounds. Absent: distended, tenderness, guarding, rebound, rigid Extremities exam: Present: normal inspection, full ROM, normal capillary refill. Absent: tenderness, pedal edema, joint swelling, calf tenderness Back exam: Present: normal inspection Neurological exam: Present: alert, oriented X3, CN II-XII intact Psychiatric exam: Present: normal affect, normal mood Skin exam: Present: warm, dry, intact, normal color. Absent: rash Course Vital Signs 05/22/18 14:22 Temperature 97.9 F Pulse Rate 69 Respiratory 16 Rate Blood Pressure 131/81 O2 Sat by Pulse 98 Oximetry Medical Decision Making - Medical Decision Making This patient's a 52-year-old male present to return today for psychiatric evaluation. He reports he's been increasingly depressed. He does not like his half-way. He states he has been thinking of his previous suicide attempts and becoming more depressed. Patient also states he has trouble with his guardian managing his care and his money. Patient was medically clear for EPS evaluation. Patient was evaluated by EPS N Patient is safe for discharge back to half-way. Patient was discharged at this time. - Lab Data Lab Results 05/22/18 Range/Units 14:35 Urine Opiates Screen Not Detected (NotDetected) Ur Oxycodone Screen Not Detected (NotDetected) Urine Methadone Screen Not Detected (NotDetected) Ur Propoxyphene Screen Not Detected (NotDetected) Ur Barbiturates Screen Not Detected (NotDetected) U Tricyclic Antidepress Not Detected (NotDetected) Ur Phencyclidine Scrn Not Detected (NotDetected) Ur Amphetamines Screen Not Detected (NotDetected) U Methamphetamines Scrn Not Detected (NotDetected) U Benzodiazepines Scrn Not Detected (NotDetected) Urine Cocaine Screen Not Detected (NotDetected) U Marijuana (THC) Screen Not Detected (NotDetected) Disposition Clinical Impression: Depression Disposition: HOME SELF-CARE Condition: Good Instructions (If sedation given, give patient instructions): Depression (ED) Additional Instructions: Follow-up with outpatient psychiatrist and counselors. Return to the emergency department if any alarming signs or symptoms occur. Is patient prescribed a controlled substance at d/c from ED?: No Referrals: Chapincito Archer MD [Primary Care Provider] - 1-2 days Time of Disposition: 18:04
[2018-05-22 16:11] LABS: Amphetamine Screen,Urine Not Detected (NotDetected); Barbiturate Screen,Urine Not Detected (NotDetected); Benzodiazepines Screen,Urine Not Detected (NotDetected); Cocaine Screen,Urine Not Detected (NotDetected); Methadone Screen, Urine Not Detected (NotDetected); Opiate Screen,Urine Not Detected (NotDetected); Oxycodone Screen, Urine Not Detected (NotDetected); Phencyclidine Screen,Urine Not Detected (NotDetected); Tricyclic Antidepressant,Urine Not Detected (NotDetected); Urn Cannabinoid Scrn Not Detected (NotDetected)
== END 2018-05-22 18:14 | disposition home or self-care (01) ==
LOC: EC 14:17
DX: F31.9 Bipolar disorder, unspecified (principal); E11.9 Type 2 diabetes mellitus without complications; E78.5 Hyperlipidemia, unspecified; I10 Essential (primary) hypertension; G47.33 Obstructive sleep apnea (adult) (pediatric); E03.9 Hypothyroidism, unspecified; G40.909 Epilepsy, unspecified, not intractable, without status epilepticus; F41.9 Anxiety disorder, unspecified; F25.9 Schizoaffective disorder, unspecified; Z79.82 Long term (current) use of aspirin; Z79.4 Long term (current) use of insulin; Z79.890 Hormone replacement therapy; Z79.899 Other long term (current) drug therapy; Z88.8 Allergy status to other drugs, medicaments and biological substances; Z88.2 Allergy status to sulfonamides; Z88.1 Allergy status to other antibiotic agents; Z87.891 Personal history of nicotine dependence; Z99.89 Dependence on other enabling machines and devices
CPT/HCPCS: 80306; 82075; 99284

== ENCOUNTER → 2018-05-26 | Outpatient (CLI) | payer MEDICARE, OTHER | END | disposition home or self-care (01) | LOC: LABWHC1 10:09 | PROVIDERS: ATTEND Nurse Practitioner Family | DX: Z51.81 Encounter for therapeutic drug level monitoring (principal); Z79.899 Other long term (current) drug therapy | CPT/HCPCS: 36415 ==

== ENCOUNTER 2018-06-24 22:15 | Emergency (ER) | payer MEDICARE, OTHER ==
[2018-06-24 22:28] VITALS: TEMP 99
[2018-06-24 23:14] LABS: Amphetamine Screen,Urine Not Detected (NotDetected); Barbiturate Screen,Urine Not Detected (NotDetected); Benzodiazepines Screen,Urine Not Detected (NotDetected); Cocaine Screen,Urine Not Detected (NotDetected); Methadone Screen, Urine Not Detected (NotDetected); Opiate Screen,Urine Not Detected (NotDetected); Oxycodone Screen, Urine Not Detected (NotDetected); Phencyclidine Screen,Urine Not Detected (NotDetected); Tricyclic Antidepressant,Urine Not Detected (NotDetected); Urn Cannabinoid Scrn Not Detected (NotDetected)
--- NOTE | 2018-06-24 23:36 | ED ---
General Adult HPI - General Source: patient, police, EMS, RN notes reviewed, old records reviewed Mode of arrival: EMS Limitations: no limitations <Marvel Barr - Last Filed: 06/25/18 00:55> <Nikolai Adkins - Last Filed: 06/25/18 01:40> - General Chief complaint: Psychiatric Symptoms Stated complaint: Mental Health Time Seen by Provider: 06/24/18 22:18 - History of Present Illness Initial comments: Chief complaint and history of present illness this is a 52-year-old male here with a complaint of depression. He was brought emergency room because he threatened to burn the house down that he shares with other residents. Police brought him to the emergency room He states he does not want to continue living at the particular facility. he is not getting along with the people. He's depressed but denies suicidal thoughts. Patient does have a past history of schizophrenia. He states everyone is harassing him. His public guardian has helped him move twice in the last year. He states no one is listening to him and wants to move into an assisted living facility where he'll have more to do more. He is bored. He states he would like to get by, for his birthday a large race car racing set. So he will not be so bored. (Marvel Barr) - Related Data Home Medications Medication Instructions Recorded Confirmed Aspirin EC [Ecotrin Low Dose] 81 mg PO DAILY 03/13/14 06/24/18 Levothyroxine Sodium [Synthroid] 100 mcg PO DAILY 03/13/14 06/24/18 Lovastatin [Mevacor] 10 mg PO HS 10/16/15 06/24/18 Melatonin 9 mg PO HS 10/16/15 06/24/18 Insulin Glargine,Hum.rec.anlog 55 unit SQ HS 06/03/17 06/24/18 [Lantus Solostar] amLODIPine [Norvasc] 10 mg PO DAILY 06/03/17 06/24/18 Insulin Lispro [humaLOG Kwikpen] See Protocol SQ ACHS PRN 09/24/17 06/24/18 risperiDONE 3 mg PO HS 09/24/17 06/24/18 Linagliptin [Tradjenta] 5 mg PO DAILY 03/24/18 06/24/18 Lisinopril 30 mg PO DAILY 03/24/18 06/24/18 glipiZIDE/METFORMIN HCL 2 tab PO BID 03/24/18 06/24/18 [glipiZIDE/METFORMIN HCL 5-500 mg] risperiDONE 4 mg PO DAILY 05/01/18 06/24/18 Divalproex ER [Depakote ER] 2,000 mg PO HS 05/22/18 06/24/18 Previous Rx's Medication Instructions Recorded Sertraline [Zoloft] 150 mg PO HS #45 tab 12/12/15 cloNIDine HCL [Catapres] 0.1 mg PO TID #90 tab 12/12/15 Allergies Allergy/AdvReac Type Severity Reaction Status Date / Time carbamazepine [From Tegretol] Allergy Unknown Verified 06/24/18 22:28 phenytoin sodium Allergy Unknown Verified 06/24/18 22:28 [From Dilantin] phenytoin sodium extended Allergy Unknown Verified 06/24/18 22:28 [From Dilantin] primidone Allergy Unknown Verified 06/24/18 22:28 sulfamethoxazole Allergy Unknown Verified 06/24/18 22:28 [From Bactrim] trimethoprim [From Bactrim] Allergy Unknown Verified 06/24/18 22:28 Review of Systems ROS Other: All systems not noted in ROS Statement are negative. <Marvel Barr - Last Filed: 06/25/18 00:55> ROS Other: All systems not noted in ROS Statement are negative. <Nikolai Adkins - Last Filed: 06/25/18 01:40> ROS Statement: Those systems with pertinent positive or pertinent negative responses have been documented in the HPI. Review of systems. The patient denies headache chest pain shortness breath GI/ problems. Psychologically the patient reports as being harassed by people he lives with. Patient does have past history depression and schizophrenia. He also feels as though his medications have been altered and he is not doing as well as he has had in the past. He does report that past places where he slipped he has difficulty with the other residents and he often has to move because he feels as though they're harassing him. The patient's past medical problems significant for type 2 diabetes, hyperlipidemia, hypertension, seizure disorder, sleep apnea with CPAP, hypothyroidism, and past history of bilateral retinal hemorrhages. Surgeries include cholecystectomy, tonsillectomy, bilateral eye surgery. Family history noncontributory. Patient has ALLERGIES to carbamazepine, phenytoin, primidone, sulfa drugs. Nonsmoker nondrinker (Marvel Barr) Past Medical History Past Medical History: Diabetes Mellitus, Hyperlipidemia, Hypertension, Seizure Disorder, Sleep Apnea/CPAP/BIPAP, Thyroid Disorder Additional Past Medical History / Comment(s): IDDM type II, bilateral retinal hemorrhage, retinopathy bilaterally, grand/petite mal seizure with last seizure greater than 12 yrs ago, gender dysporia, balance issues, AYDEE normally with CPAP but pt states it is broken, sinus problems, hypothyroid, developmentally delayed. History of Any Multi-Drug Resistant Organisms: None Reported Past Surgical History: Cholecystectomy, Tonsillectomy Additional Past Surgical History / Comment(s): Bilateral eye surgery, "tumor removed behind my throat", cystoscopy d/t painful urination, colonoscopy Past Anesthesia/Blood Transfusion Reactions: No Reported Reaction Past Psychological History: Anxiety, Bipolar, Schizoaffective Disorder Smoking Status: Former smoker Past Alcohol Use History: None Reported Past Drug Use History: None Reported - Past Family History Mother Family Medical History: Myocardial Infarction ([place]) Additional Family Medical History / Comment(s): Mother of a [place] at the age of 82 yrs. Father History Unknown: Yes <Marvel Barr - Last Filed: 06/25/18 00:55> General Exam Limitations: no limitations <Marvel Barr - Last Filed: 06/25/18 00:55> - General Exam Comments Initial Comments: General: The patient is awake and alert, patient's upset because of his living situation. He threatened to burn the home down in which she is living with other residents. Police were called and brought him to the emergency room for psychological evaluation. Feels though people he lives with her resting him as well as the staff at the foster type facility home she is living at. He wants to be sent to an assisted living facility where he'll have more things to do. Eye: Pupils are equal, round and reactive to light, extra-ocular movements are intact; there is normal conjunctiva bilaterally. No signs of icterus. Ears, nose, mouth and throat: There are moist mucous membranes and no oral lesions. Neck: The neck is supple, there is no tenderness. Cardiovascular: No chest pain or palpitations Respiratory: No complaint of shortness of breath. Abdomen nontender no complaints of nausea vomiting or diarrhea. Back: No back pain Musculoskeletal: Normal ROM, no tenderness, There is no pedal edema. There is no calf tenderness or swelling. Neurological: CN II-XII intact, There are no obvious motor or sensory deficits. Coordination appears grossly intact. Speech is normal. No focal or lateralizing findings appreciated. Skin: Denies rashes Psychiatric: Patient states he is depressed, feels everyone is harassing him where he lives. Reportedly threatened to burn the home down. Police brought the patient to the emergency room for psychological evaluation. Past history of schizophrenia. Denies suicidal thoughts. Has complaints that people are harassing him, don't listen to him, not active enough, to board with his living situation. Wants to be placed in an assisted living facility where they take the residents out to do things. (Marvel Barr) Course Vital Signs 06/24/18 22:22 Temperature 99 F Pulse Rate 82 Respiratory 18 Rate Blood Pressure 162/80 O2 Sat by Pulse 98 Oximetry Medical Decision Making <Marvel Barr - Last Filed: 06/25/18 00:55> - Medical Decision Making Medical decision making; the 52-year-old male who lives in a long term. He does not like living there. He feels anybody's harassing him. He is unhappy with how his public guardian is managing his life. The patient has a past history of schizophrenia and depression. Denies suicidal thoughts. The patient's drug triage was negative. The patient is being interviewed by the psychiatric nurse will discuss this case with the psychiatrist on-call. Dr. Barr (Marvel Barr) - Lab Data Lab Results 06/24/18 Range/Units 22:50 Urine Opiates Screen Not Detected (NotDetected) Ur Oxycodone Screen Not Detected (NotDetected) Urine Methadone Screen Not Detected (NotDetected) Ur Propoxyphene Screen Not Detected (NotDetected) Ur Barbiturates Screen Not Detected (NotDetected) U Tricyclic Antidepress Not Detected (NotDetected) Ur Phencyclidine Scrn Not Detected (NotDetected) Ur Amphetamines Screen Not Detected (NotDetected) U Methamphetamines Scrn Not Detected (NotDetected) U Benzodiazepines Scrn Not Detected (NotDetected) Urine Cocaine Screen Not Detected (NotDetected) U Marijuana (THC) Screen Not Detected (NotDetected) Disposition <Marvel Barr - Last Filed: 06/25/18 00:55> Is patient prescribed a controlled substance at d/c from ED?: No <Nikolai Adkins - Last Filed: 06/25/18 01:40> Clinical Impression: Mood disorder Disposition: HOME SELF-CARE Condition: Fair Instructions (If sedation given, give patient instructions): Mood Disorders (ED) Referrals: Chapincito Archer MD [Primary Care Provider] - 1-2 days
[2018-06-25 01:59] VITALS: BP 133/78; PULSE 86; RESP 16
== END 2018-06-25 02:34 | disposition home or self-care (01) ==
LOC: EC 22:15
DX: F39 Unspecified mood [affective] disorder (principal); E11.319 Type 2 diabetes mellitus with unspecified diabetic retinopathy without macular edema; E78.5 Hyperlipidemia, unspecified; I10 Essential (primary) hypertension; G40.909 Epilepsy, unspecified, not intractable, without status epilepticus; E03.9 Hypothyroidism, unspecified; G47.33 Obstructive sleep apnea (adult) (pediatric); F31.9 Bipolar disorder, unspecified; F41.9 Anxiety disorder, unspecified; F25.9 Schizoaffective disorder, unspecified; Z79.82 Long term (current) use of aspirin; Z79.890 Hormone replacement therapy; Z79.4 Long term (current) use of insulin; Z79.899 Other long term (current) drug therapy; Z88.8 Allergy status to other drugs, medicaments and biological substances; Z88.1 Allergy status to other antibiotic agents; Z88.2 Allergy status to sulfonamides; Z87.891 Personal history of nicotine dependence
CPT/HCPCS: 80306; 99285

== ENCOUNTER → 2018-08-04 | Outpatient (CLI) | payer MEDICARE, OTHER ==
--- NOTE | 2018-08-04 12:47 | CONS ---
CONSULTATION DATE OF SERVICE: 08/04/2018 This 52-year-old gentleman has been evaluated in sleep center for obstructive sleep apnea-hypopnea syndrome. HISTORY OF PRESENT ILLNESS/SLEEP-WAKE EVALUATION: The patient was diagnosed with obstructive sleep apnea several years ago, but then had problem with the CPAP and did not use equipment for 2 years. Presently his sleep schedule from around 10 to 12 midnight until 6:30 a.m. Sometimes he has problem with falling asleep. He usually sleeps on the stomach position and wakes up from sleep multiple times, according to patient, about 9 times with nocturia and sweating and dry mouth. During the day, he may take several naps. [place] Sleepiness Scale although 5. No history of hypnagogic hallucinations, sleep paralysis or cataplexy. Positive history of snoring, according to the staff without CPAP, episodes of sweating. PAST MEDICAL HISTORY: Positive for bipolar depression, anxiety, hypothyroidism, hypertension, and diabetes mellitus, history of epilepsy. PAST SURGICAL HISTORY: Cholecystectomy. SOCIAL HISTORY: Negative for smoking or using alcohol. REVIEW OF SYSTEMS: Multiple awakenings from sleep. Sometimes tiredness and sleepiness during the day. PHYSICAL EXAMINATION: During physical exam, gentleman without distress. VITAL SIGNS: BP 117/61, HR 64, RR 16, height 5 feet 6-1/2 inches, weight 233 pounds, body mass index 37.0, temperature 97.7, oxygen saturation in room air 100%. HEENT: PERRLA, EOMI. Oropharynx extremely low position of soft palate. Mallampati 3-4. NECK: Wide, 18 inches in circumference. LUNGS: Clear to percussion and to auscultation. Good air exchange. No wheezing or rhonchi. HEART: S1, S2 regular. No murmurs, gallops, or rubs. ABDOMEN: Obese. EXTREMITIES: No clubbing or cyanosis. NANOTECHNOLOGY ENGINEERING TECHNOLOGIST: Awake, alert, and oriented X3. Cranial nerves 2 to 7 intact. There is no fasciculation or atrophy. noted. No focal deficits observed. IMPRESSION: 1. Snoring, multiple awakenings from sleep with nocturia, extremely low position of soft palate, Mallampati 3-4, wide neck. Patient takes naps during the day, sleepiness, obstructive sleep apnea-hypopnea syndrome. 2. Obesity. 3. Hypertension. 4. Hypothyroidism. 5. History of bipolar disorder. 6. History of depression. 7. History of anxiety. 8. Diabetes mellitus. 9. History of epilepsy. 10.Status post cholecystectomy. PLAN: 1. Polysomnography for evaluation of patient's breathing during sleep. 2. CPAP/BiPAP titration if sleep study confirms obstructive sleep apnea-hypopnea syndrome. 3. Preferable position during sleep on the side. 4. No driving if patient feels any sleepiness. 5. I will see patient for follow up visit to explain results of testing and following plan. Thank you very much for referring this patient for consultation. Sincerely, Kevin Cummins MD, PhD, FAASM Diplomat of [place] [employer] [place] [employer] [facility] [place] MMODL / CHANTELLN: [id number] /
== END | disposition home or self-care (01) ==
LOC: SLEEP 11:30
PROVIDERS: ATTEND Internal Medicine
DX: G47.33 Obstructive sleep apnea (adult) (pediatric) (principal); E66.9 Obesity, unspecified; I10 Essential (primary) hypertension; E03.9 Hypothyroidism, unspecified; E11.9 Type 2 diabetes mellitus without complications; Z68.37 Body mass index [BMI] 37.0-37.9, adult; Z86.59 Personal history of other mental and behavioral disorders; Z86.69 Personal history of other diseases of the nervous system and sense organs; Z90.49 Acquired absence of other specified parts of digestive tract
CPT/HCPCS: 99211

== ENCOUNTER → 2018-08-16 | Outpatient (CLI) | payer MEDICARE, OTHER ==
[2018-08-16 19:09] LABS: Hemoglobin A1C 7.8 % (4.0-6.0)
== END | disposition home or self-care (01) ==
LOC: LABWHC1 11:26
PROVIDERS: ATTEND Internal Medicine
DX: E11.65 Type 2 diabetes mellitus with hyperglycemia (principal)
CPT/HCPCS: 36415; 83036

== ENCOUNTER 2018-09-09 21:31 | Inpatient (IN) | payer MEDICARE, OTHER ==
[2018-09-09] MEDS ORDERED: SODIUM CHLORIDE 0.9% 1,000 ML IV STA ×3 (21:57→23:19)
--- NOTE | 2018-09-09 21:58 | ED ---
Weakness HPI - General Chief complaint: Weakness Stated complaint: weakness Time Seen by Provider: 09/09/18 21:57 Source: patient, EMS, RN notes reviewed, old records reviewed Mode of arrival: EMS - History of Present Illness Initial comments: This is a 53-year-old male to ER for evaluation of weakness. Patient's poor historian history obtained from prior chart, patient presents here today for evaluation of weakness. Patient brought in by EMS and senior living. No other significant complaints. She is presenting for weakness and decreased mental status. MD Complaint: generalized weakness -: unknown Location: generalized Severity: moderate Severity scale (1-10): 4 Consistency: constant Improves with: none Worsens with: none Context: history of similar Associated Symptoms: loss of appetite, nausea/vomiting - Related Data Home Medications Medication Instructions Recorded Confirmed Aspirin EC [Ecotrin Low Dose] 81 mg PO DAILY 03/13/14 09/09/18 Levothyroxine Sodium [Synthroid] 100 mcg PO DAILY 03/13/14 09/09/18 Lovastatin [Mevacor] 10 mg PO HS 10/16/15 09/09/18 Melatonin 9 mg PO HS 10/16/15 09/09/18 risperiDONE 3 mg PO HS 09/24/17 09/09/18 Linagliptin [Tradjenta] 5 mg PO DAILY 03/24/18 09/09/18 risperiDONE 4 mg PO DAILY 05/01/18 09/09/18 Divalproex ER [Depakote ER] 2,000 mg PO HS 05/22/18 09/09/18 Empagliflozin [Jardiance] 25 mg PO DAILY 09/09/18 09/09/18 Insulin Glargine,Hum.rec.anlog 35 units SQ HS 09/09/18 09/09/18 [Lantus Solostar] Lisinopril [Zestril] 20 mg PO DAILY 09/09/18 09/09/18 Pioglitazone [Actos] 30 mg PO DAILY 09/09/18 09/09/18 Repaglinide [Prandin] 1 mg PO HS 09/09/18 09/09/18 Ziprasidone [Geodon] 20 mg PO BID 09/09/18 09/09/18 amLODIPine [Norvasc] 5 mg PO DAILY 09/09/18 09/09/18 metFORMIN HCL 1,000 mg PO BID 09/09/18 09/09/18 Previous Rx's Medication Instructions Recorded Sertraline [Zoloft] 150 mg PO HS #45 tab 12/12/15 cloNIDine HCL [Catapres] 0.1 mg PO TID #90 tab 12/12/15 Allergies Allergy/AdvReac Type Severity Reaction Status Date / Time carbamazepine [From Tegretol] Allergy Unknown Verified 09/09/18 22:05 phenytoin sodium Allergy Unknown Verified 09/09/18 22:05 [From Dilantin] phenytoin sodium extended Allergy Unknown Verified 09/09/18 22:05 [From Dilantin] primidone Allergy Unknown Verified 09/09/18 22:05 sulfamethoxazole Allergy Unknown Verified 09/09/18 22:05 [From Bactrim] trimethoprim [From Bactrim] Allergy Unknown Verified 09/09/18 22:05 Review of Systems ROS Statement: Those systems with pertinent positive or pertinent negative responses have been documented in the HPI. ROS Other: All systems not noted in ROS Statement are negative. Past Medical History Past Medical History: Diabetes Mellitus, Hyperlipidemia, Hypertension, Seizure Disorder, Sleep Apnea/CPAP/BIPAP, Thyroid Disorder Additional Past Medical History / Comment(s): IDDM type II, bilateral retinal hemorrhage, retinopathy bilaterally, grand/petite mal seizure with last seizure greater than 12 yrs ago, gender dysporia, balance issues, AYDEE normally with CPAP but pt states it is broken, sinus problems, hypothyroid, developmentally delayed. History of Any Multi-Drug Resistant Organisms: None Reported Past Surgical History: Cholecystectomy, Tonsillectomy Additional Past Surgical History / Comment(s): Bilateral eye surgery, "tumor removed behind my throat", cystoscopy d/t painful urination, colonoscopy Past Anesthesia/Blood Transfusion Reactions: No Reported Reaction Past Psychological History: Anxiety, Bipolar, Schizoaffective Disorder Smoking Status: Former smoker Past Alcohol Use History: None Reported Past Drug Use History: None Reported - Past Family History Mother Family Medical History: Myocardial Infarction ([place]) Additional Family Medical History / Comment(s): Mother of a [place] at the age of 82 yrs. Father History Unknown: Yes General Exam General appearance: alert, in no apparent distress Head exam: Present: atraumatic, normocephalic, normal inspection Eye exam: Present: normal appearance, PERRL, EOMI. Absent: scleral icterus, conjunctival injection, periorbital swelling ENT exam: Present: normal exam, mucous membranes moist Neck exam: Present: normal inspection. Absent: tenderness, meningismus, lympha denopathy Respiratory exam: Present: normal lung sounds bilaterally. Absent: respiratory distress, wheezes, rales, rhonchi, stridor Cardiovascular Exam: Present: regular rate, normal rhythm, normal heart sounds. Absent: systolic murmur, diastolic murmur, rubs, gallop, clicks GI/Abdominal exam: Present: soft, normal bowel sounds. Absent: distended, tenderness, guarding, rebound, rigid Extremities exam: Present: normal inspection, full ROM, normal capillary refill. Absent: tenderness, pedal edema, joint swelling, calf tenderness Back exam: Present: normal inspection Neurological exam: Present: alert, oriented X3, CN II-XII intact Psychiatric exam: Present: normal affect, normal mood Skin exam: Present: warm, dry, intact, normal color. Absent: rash Course Vital Signs 09/09/18 09/09/18 09/09/18 21:36 21:51 23:00 Temperature 98.5 F Pulse Rate 67 63 59 L Respiratory 18 16 17 Rate Blood Pressure 136/73 136/73 137/71 O2 Sat by Pulse 98 98 96 Oximetry 09/09/18 09/10/18 23:30 01:00 Temperature Pulse Rate 59 L 61 Respiratory 16 14 Rate Blood Pressure 142/76 158/76 O2 Sat by Pulse 97 96 Oximetry - Reevaluation(s) Reevaluation #1: Medical record is reviewed Patient showing no significant clinical improvement here in the Medical Decision Making - Medical Decision Making 53-year-old male the ER for evaluation of weakness. Patient found to be hyponatremic and dehydrated. We'll admit for sodium replacement, hydration. Further evaluation. - Lab Data Result diagrams: 09/09/18 21:48 09/09/18 21:48 Lab Results 09/09/18 09/09/18 09/09/18 Range/Units 21:48 21:48 21:48 WBC 7.6 (3.8-10.6) k/uL RBC 4.30 (4.30-5.90) m/uL Hgb 12.7 L (13.0-17.5) gm/dL Hct 37.7 L (39.0-53.0) % MCV 87.8 (80.0-100.0) fL MCH 29.6 (25.0-35.0) pg MCHC 33.7 (31.0-37.0) g/dL RDW 13.6 (11.5-15.5) % Plt Count 208 (150-450) k/uL Neutrophils % 60 % Lymphocytes % 27 % Monocytes % 10 % Eosinophils % 2 % Basophils % 0 % Neutrophils # 4.6 (1.3-7.7) k/uL Lymphocytes # 2.1 (1.0-4.8) k/uL Monocytes # 0.7 (0-1.0) k/uL Eosinophils # 0.1 (0-0.7) k/uL Basophils # 0.0 (0-0.2) k/uL PT (9.0-12.0) sec INR (<1.2) APTT (22.0-30.0) sec Sodium 124 L (137-145) mmol/L Potassium 4.7 (3.5-5.1) mmol/L Chloride 91 L (98-107) mmol/L Carbon Dioxide 23 (22-30) mmol/L Anion Gap 10 mmol/L BUN 13 (9-20) mg/dL Creatinine 0.64 L (0.66-1.25) mg/dL Est GFR (CKD-EPI)AfAm >90 (>60 ml/min/1.73 sqM) Est GFR (CKD-EPI)NonAf >90 (>60 ml/min/1.73 sqM) Glucose 169 H (74-99) mg/dL Plasma Lactic Acid [place] 1.5 (0.7-2.0) mmol/L Calcium 8.8 (8.4-10.2) mg/dL Phosphorus 3.5 (2.5-4.5) mg/dL Magnesium 1.7 (1.6-2.3) mg/dL Total Bilirubin 0.5 (0.2-1.3) mg/dL AST 33 (17-59) U/L ALT 18 L (21-72) U/L Alkaline Phosphatase 43 (38-126) U/L Troponin I (0.000-0.034) ng/mL Total Protein 6.2 L (6.3-8.2) g/dL Albumin 3.7 (3.5-5.0) g/dL Urine Color Urine Appearance (Clear) Urine pH (5.0-8.0) Ur Specific [place] (1.001-1.035) Urine Protein (Negative) Urine Glucose (UA) (Negative) Urine Ketones (Negative) Urine Blood (Negative) Urine Nitrite (Negative) Urine Bilirubin (Negative) Urine Urobilinogen (<2.0) mg/dL Ur Leukocyte Esterase (Negative) 09/09/18 09/09/18 09/09/18 Range/Units 21:48 21:48 21:48 WBC (3.8-10.6) k/uL RBC (4.30-5.90) m/uL Hgb (13.0-17.5) gm/dL Hct (39.0-53.0) % MCV (80.0-100.0) fL MCH (25.0-35.0) pg MCHC (31.0-37.0) g/dL RDW (11.5-15.5) % Plt Count (150-450) k/uL Neutrophils % % Lymphocytes % % Monocytes % % Eosinophils % % Basophils % % Neutrophils # (1.3-7.7) k/uL Lymphocytes # (1.0-4.8) k/uL Monocytes # (0-1.0) k/uL Eosinophils # (0-0.7) k/uL Basophils # (0-0.2) k/uL PT 9.9 (9.0-12.0) sec INR 0.9 (<1.2) APTT 24.0 (22.0-30.0) sec Sodium (137-145) mmol/L Potassium (3.5-5.1) mmol/L Chloride (98-107) mmol/L Carbon Dioxide (22-30) mmol/L Anion Gap mmol/L BUN (9-20) mg/dL Creatinine (0.66-1.25) mg/dL Est GFR (CKD-EPI)AfAm (>60 ml/min/1.73 sqM) Est GFR (CKD-EPI)NonAf (>60 ml/min/1.73 sqM) Glucose (74-99) mg/dL Plasma Lactic Acid [place] (0.7-2.0) mmol/L Calcium (8.4-10.2) mg/dL Phosphorus (2.5-4.5) mg/dL Magnesium (1.6-2.3) mg/dL Total Bilirubin (0.2-1.3) mg/dL AST (17-59) U/L ALT (21-72) U/L Alkaline Phosphatase (38-126) U/L Troponin I 0.021 (0.000-0.034) ng/mL Total Protein (6.3-8.2) g/dL Albumin (3.5-5.0) g/dL Urine Color Colorless Urine Appearance Clear (Clear) Urine pH 6.5 (5.0-8.0) Ur Specific [place] 1.016 (1.001-1.035) Urine Protein Negative (Negative) Urine Glucose (UA) 4+ H (Negative) Urine Ketones Trace H (Negative) Urine Blood Negative (Negative) Urine Nitrite Negative (Negative) Urine Bilirubin Negative (Negative) Urine Urobilinogen <2.0 (<2.0) mg/dL Ur Leukocyte Esterase Negative (Negative) - Radiology Data Radiology results: report reviewed (Chest x-rays negative for acute disease), image reviewed Disposition Clinical Impression: Hyponatremia, Weakness Disposition: ADMITTED IP TO THIS HOSP Condition: Fair Is patient prescribed a controlled substance at d/c from ED?: No
[2018-09-09 22:19] LABS: Basophils % (A) 0 %; Eosinophils # (A) 0.1 k/uL (0-0.7); Eosinophils % (A) 2 %; HCT 37.7 % (39.0-53.0); HGB 12.7 gm/dL (13.0-17.5); Lymphocytes # (A) 2.1 k/uL (1.0-4.8); Lymphocytes % (A) 27 %; MCH 29.6 pg (25.0-35.0); MCHC 33.7 g/dL (31.0-37.0); MCV 87.8 fL (80.0-100.0); Mean Platelet Volume 7.9; Monocytes # (A) 0.7 k/uL (0-1.0); Monocytes % (A) 10 %; Neutrophils # (A) 4.6 k/uL (1.3-7.7); Neutrophils % (A) 60 %; Platelet Count 208 k/uL (150-450); RDW 13.6 % (11.5-15.5); WBC 7.6 k/uL (3.8-10.6)
[2018-09-09 22:24] LABS: Appearance,Urine Clear (Clear); Bilirubin,Urine Negative (Negative); Blood,Urine Negative (Negative); Color,Urine Colorless; Glucose,Urine (UA) 4+ (Negative); Ketones,Urine Trace (Negative); Leukocyte Esterase,Urine Negative (Negative); Nitrite,Urine Negative (Negative); PH, Urine 6.5 (5.0-8.0); Protein,Urine Negative (Negative); Specific Gravity,Urine 1.016 (1.001-1.035); Urobilinogen,Urine <2.0 mg/dL (<2.0)
[2018-09-09 22:29] LABS: ALT 18 U/L (21-72); AST 33 U/L (17-59); Albumin 3.7 g/dL (3.5-5.0); Alkaline Phosphatase 43 U/L (38-126); Anion Gap 10 mmol/L; Blood Urea Nitrogen 13 mg/dL (9-20); Calcium 8.8 mg/dL (8.4-10.2); Carbon Dioxide 23 mmol/L (22-30); Chloride 91 mmol/L (98-107); Glucose 169 mg/dL (74-99); Phosphorus 3.5 mg/dL (2.5-4.5); Sodium 124 mmol/L (137-145); Total Bilirubin 0.5 mg/dL (0.2-1.3); Total Protein 6.2 g/dL (6.3-8.2)
[2018-09-09 22:31] LABS: Magnesium 1.7 mg/dL (1.6-2.3); Potassium 4.7 mmol/L (3.5-5.1)
[2018-09-09 22:35] LABS: INR 0.9 (<1.2); Prothrombin Time 9.9 sec (9.0-12.0)
--- NOTE | 2018-09-09 23:06 | XR ---
EXAM: XR Chest, 2 Views CLINICAL HISTORY: ITS.REASON XR Reason: Weakness TECHNIQUE: Frontal and lateral views of the chest. COMPARISON: Chest x-ray 04/01/2018 FINDINGS: Lungs: Lungs are clear of focal infiltrates or consolidations. Pleural space: No evidence of pleural effusion or pneumothorax. Heart: Heart size is within normal limits. Mediastinum: Mediastinal structures are unremarkable. Bones/joints: Mild degenerative changes involve thoracic spine. IMPRESSION: No evidence of acute cardiopulmonary disease.
[2018-09-10 07:03] LABS: Glucose,Whole Blood 82 mg/dL (75-99)
[2018-09-10] MEDS ORDERED: NON-FORMULARY DRUG (Empagliflozin [Jardiance] 25 MG) PO SCH (09:30)
[2018-09-10] MEDS: LEVOTHYROXINE 100 MCG TAB PO SCH (11:17)
[2018-09-10] MEDS: LINAGLIPTIN 5 MG TABLET PO SCH (11:18)
[2018-09-10] MEDS: PIOGLITAZONE 30 MG TAB PO SCH (11:18)
[2018-09-10] MEDS: ASPIRIN 81 MG PO SCH (11:18)
[2018-09-10] MEDS: risperiDONE 2 MG TAB PO SCH (11:18)
[2018-09-10] MEDS: LISINOPRIL 20 MG TAB PO SCH (11:22)
[2018-09-10] MEDS: cloNIDine HCL 0.1 MG TAB PO SCH ×3 (11:22→22:03)
[2018-09-10] MEDS: amLODIPine 5 MG TAB PO SCH (11:23)
[2018-09-10 11:25] LABS: Glucose,Whole Blood 144 mg/dL (75-99)
[2018-09-10 16:51] LABS: Glucose,Whole Blood 185 mg/dL (75-99)
[2018-09-10] MEDS: metFORMIN 500 MG TAB PO SCH (16:53)
[2018-09-10] MEDS: SODIUM CHLORIDE TAB 1 GM TAB PO SCH ×2 (16:54→22:02)
--- NOTE | 2018-09-10 17:25 | HP ---
HISTORY AND PHYSICAL DATE OF ADMISSION: 09/09/2018 DATE OF SERVICE: 09/10/2018. PRESENTING COMPLAINT: Weak. HISTORY OF PRESENTING COMPLAINT: This is a 53-year-old patient follows with Dr. Noe Ragsdale from [facility]. Chronic stable medical conditions include diabetes, hypertension, hyperlipidemia, seizure disorder, sleep apnea, grand petit mal seizures, obstructive sleep apnea, whose CPAP is broken, hypothyroid from the developmental delay. The patient has a legal guardian, Winston Red. The patient's present nonspecific symptoms including feeling weak and tired. Still tired and run down. Appetite is fair. No fever. No chills. The patient decided to call 911. The patient is found to have a sodium of 124. It may be noted that the patient drinks a lot of water. Admitted for the same. REVIEW OF SYSTEMS: CONSTITUTIONAL: Tired. HEENT: None. RESPIRATORY: None. CARDIOVASCULAR: None. MUSCULOSKELETAL none. DERMATOLOGICAL, HEMATOLOGIC, LYMPHATIC: None. PSYCHIATRY: The patient is a bit slow. NEUROLOGICAL none. PAST MEDICAL HISTORY: Diabetes mellitus type 2, hyperlipidemia, hypertension, seizure disorder, obstructive sleep apnea, CPAP is broken; hypothyroid, bilateral retinal hemorrhages, retinopathy, bilateral, grand petit mal seizure, last known seizure about 12 years ago, gender dysphoria, balance issues, sinus problems, developmental delay. PAST SURGICAL HISTORY: Cholecystectomy, tonsillectomy, bilateral eye surgery. PSYCH HISTORY: Of schizoaffective disorder. SOCIAL HISTORY: Lives at [facility]. Does not drive. Legal guardian is Winston Red. He does follow at [facility] with Sis Hicks. The patient did smoke in the past. No alcohol. FAMILY HISTORY: Of myocardial infarction, mother. HOME MEDICATIONS: 1. Risperidone 4 mg p.o. daily, 3 mg q.h.s. 2. Metformin 1000 mg b.i.d. 3. Catapres 0.1 mg t.i.d. 4. Norvasc 5 mg p.o. daily. 5. Geodon 20 mg b.i.d. 6. Zoloft 750 mg q.h.s. 7. Prandin 1 mg p.o. q.h.s. 8. Actos 30 mg p.o. daily. 9. Melatonin 9 mg q.h.s. 10.Mevacor 10 mg q.h.s. 11.Zestril 20 mg p.o. daily. 12.Tradjenta 5 mg p.o. daily. 13.Synthroid 100 mcg p.o. daily. 14.Lantus 35 units subcu q.h.s. 15.Jardiance 25 mg p.o. daily. 16.Depakote ER 2000 mg p.o. q.h.s. 17.Aspirin 81 mg p.o. daily. ALLERGIES: TO TEGRETOL, DILANTIN, PRIMIDONE, BACTRIM. PHYSICAL EXAMINATION: VITAL SIGNS: Temperature 98.5, pulse 67, respiration 18, blood pressure 136/73, pulse 98% on room air. GENERAL APPEARANCE: Well built, BMI 35.5, temperature 98.5, pulse, respiratory 18, blood pressure 136/73, pulse ox 98% on room air. Lying in bed, awake, a bit tired-appearing. EYES: Pupils equal. Conjunctivae normal. HEENT: External appearance of nose and ears normal. Oral cavity normal. NECK: JVD not raised. Mass not palpable. RESPIRATORY: Effort normal. LUNGS are clear. CARDIOVASCULAR: First and second sounds normal. No edema. ABDOMEN: Soft, nontender. Liver and spleen not palpable. LYMPHATIC: No lymph nodes palpable in the neck and axilla. PSYCHIATRY: Awake, answers simple questions. NEUROLOGICAL: Pupils equal. Cranial nerves grossly intact. Power and sensation grossly intact. INVESTIGATIONS: White count 7.6, hemoglobin 12.7, potassium 4.7, sodium 124, BUN 13, creatinine 0.64. EKG tracing personally reviewed by me shows normal sinus rhythm. Chest x-ray film, personally reviewed by me showed no obvious infiltrate. ASSESSMENT: 1. Symptomatic hyponatremia likely hypoosmolar from excessive water intake. 2. Diabetes mellitus type 2, chronically on insulin. 3. Hyperlipidemia. 4. Essential hypertension. 5. Chronic seizure disorder. 6. Obstructive sleep apnea does not use a CPAP. 7. Hyperthyroid. 8. Obesity with BMI 35.5. 9. Developmentally delayed. 10.Gender dysphoria. 11.The patient has a legal guardian Winston Teofilo. PLAN: Patient is educated about not drinking excessive water. We will put the patient on restricted fluid intake of 1500 mL a day. Also add salt tablets. Serum osmolality is being checked. Follow closely. Will give Lovenox for DVT prophylaxis. Check sodium again tomorrow. Copy to visiting physician Dr. Noe Ragsdale. MMROXANNL / IJN: [id number] /
[2018-09-10 17:39] LABS: Anion Gap 5 mmol/L; Blood Urea Nitrogen 10 mg/dL (9-20); Carbon Dioxide 26 mmol/L (22-30); Chloride 103 mmol/L (98-107); Glucose 172 mg/dL (74-99); Potassium 4.7 mmol/L (3.5-5.1); Sodium 134 mmol/L (137-145)
[2018-09-10 20:06] LABS: Glucose,Whole Blood 145 mg/dL (75-99)
[2018-09-10] MEDS ORDERED: REPAGLINIDE 1 MG TAB PO SCH (21:00)
[2018-09-10] MEDS ORDERED: DIVALPROEX ER 500 MG TAB.ER.24H PO SCH (21:00)
[2018-09-10] MEDS ORDERED: risperiDONE 1 MG TAB PO SCH (21:00)
[2018-09-10] MEDS ORDERED: MELATONIN 3 MG TABLET PO SCH (21:00)
[2018-09-10] MEDS ORDERED: INSULIN DETEMIR (LEVEMIR) 100 UNIT/ML SYR SQ SCH (21:00)
[2018-09-10] MEDS ORDERED: ATORVASTATIN 10 MG TAB PO SCH (21:00)
[2018-09-10] MEDS ORDERED: SERTRALINE 50 MG TAB PO SCH (21:00)
[2018-09-11 03:37] LABS: Glucose,Whole Blood 88 mg/dL (75-99)
[2018-09-11] MEDS: LEVOTHYROXINE 100 MCG TAB PO SCH (05:30)
[2018-09-11 07:11] LABS: Glucose,Whole Blood 74 mg/dL (75-99)
[2018-09-11] MEDS: risperiDONE 2 MG TAB PO SCH (09:34)
[2018-09-11] MEDS: PIOGLITAZONE 30 MG TAB PO SCH (09:35)
[2018-09-11] MEDS: LISINOPRIL 20 MG TAB PO SCH (09:35)
[2018-09-11] MEDS: SODIUM CHLORIDE TAB 1 GM TAB PO SCH ×2 (09:35→13:35)
[2018-09-11] MEDS: LINAGLIPTIN 5 MG TABLET PO SCH (09:35)
[2018-09-11] MEDS: amLODIPine 5 MG TAB PO SCH (09:35)
[2018-09-11] MEDS: cloNIDine HCL 0.1 MG TAB PO SCH (09:35)
[2018-09-11] MEDS: metFORMIN 500 MG TAB PO SCH (09:35)
[2018-09-11] MEDS: ASPIRIN 81 MG PO SCH (09:35)
[2018-09-11 11:14] LABS: Glucose,Whole Blood 88 mg/dL (75-99)
[2018-09-11 11:59] LABS: Anion Gap 4 mmol/L; Blood Urea Nitrogen 10 mg/dL (9-20); Calcium 8.7 mg/dL (8.4-10.2); Carbon Dioxide 26 mmol/L (22-30); Chloride 105 mmol/L (98-107); Glucose 92 mg/dL (74-99); Potassium 4.7 mmol/L (3.5-5.1); Sodium 135 mmol/L (137-145)
[2018-09-11 12:26] VITALS: BP 102/62; PULSE 50; RESP 16; TEMP 98.9
--- NOTE | 2018-09-12 00:18 | DS ---
DISCHARGE SUMMARY DATE OF ADMISSION: 09/09/2018 DATE OF DISCHARGE: 09/11/2018 FINAL DIAGNOSES: 1. Symptomatic hyponatremia, suspected to be hypoosmolar presentation from excessive fluid intake. 2. Diabetes mellitus type 2, chronically on insulin. 3. Hyperlipidemia. 4. Essential hypertension. 5. Chronic seizure disorder. 6. Obstructive sleep apnea does not use CPAP. 7. Hypothyroid. 8. Obesity; BMI 35.5. 9. Developmentally delayed. 10.Gender dysphoria. 11.The patient has a legal guardian Winston Red. Patient presented weak, tired, and a bit dizzy. Sodium was found to be 124. Patient does not drink excessive water. The patient is counseled repeatedly about the same. Nurses advised to send him home with cups with what he can take. Sodium did come up nicely to 134 with fluid restriction, salt tablets, salt. The patient's symptoms had resolved. PHYSICAL EXAMINATION: Temperature 98.9, pulse 50, respirations 16, blood pressure 102/62. LUNGS: Clear. HOME GO MEDICATIONS: 1. Aspirin 81 mg a day. 2. Synthroid 100 mcg a day. 3. Mevacor 10 mg q.h.s. 4. Melatonin 3 mg q.h.s. 5. Zoloft 150 mg q.h.s. 6. Catapres 0.1 mg t.i.d. 7. Risperidone 3 mg q.h.s. 8. Tradjenta 5 mg p.o. daily. 9. Risperdal 4 mg p.o. daily. 10.Depakote ER 2000 mg q.h.s. 11.Jardiance 25 mg p.o. daily. 12.Zestril 20 mg p.o. daily. 13.Actos 30 mg p.o. daily. 14.Geodon 20 mg b.i.d. 15.Norvasc 5 mg p.o. daily. 16.Metformin 1000 mg b.i.d. 17.Lantus 30 units subcu q.h.s. FOLLOW UP: Follow up with Dr. Noe Ragsdale in 3 days, fluid restriction to 1000 mL a day. Repeat BMP in 1 week. Copy to visiting physician Dr. Noe Ragsdale. MMODL / CHANTELLN: [id number] /
[2018-09-12 09:12] LABS: Glucose,Whole Blood 178 mg/dL (75-99)
== END 2018-09-11 13:52 | disposition home or self-care (01) | DRG 641 ==
LOC: EC 21:31 → 3NMEDONC 23:19
PROVIDERS: ADMIT Hospitalist; ATTEND Hospitalist
DX: E87.1 Hypo-osmolality and hyponatremia (principal); E78.5 Hyperlipidemia, unspecified; E86.0 Dehydration; F25.9 Schizoaffective disorder, unspecified; F31.9 Bipolar disorder, unspecified; G47.33 Obstructive sleep apnea (adult) (pediatric); I10 Essential (primary) hypertension; E66.9 Obesity, unspecified; G40.409 Other generalized epilepsy and epileptic syndromes, not intractable, without status epilepticus; E11.319 Type 2 diabetes mellitus with unspecified diabetic retinopathy without macular edema; E03.9 Hypothyroidism, unspecified; E05.90 Thyrotoxicosis, unspecified without thyrotoxic crisis or storm; Z68.35 Body mass index [BMI] 35.0-35.9, adult; Z79.4 Long term (current) use of insulin; Z79.82 Long term (current) use of aspirin; Z79.890 Hormone replacement therapy; Z79.899 Other long term (current) drug therapy; Z82.49 Family history of ischemic heart disease and other diseases of the circulatory system; Z87.891 Personal history of nicotine dependence; F64.9 Gender identity disorder, unspecified; Z90.49 Acquired absence of other specified parts of digestive tract
CPT/HCPCS: 36415; 71046; 80048; 80053; 81003; 83605; 83735; 83930; 84100; 84484; 85025; 85610; 85730; 87086; 93005; 96360; 96361; 99285

== ENCOUNTER 2018-09-17 19:25 | Emergency (ER) | payer MEDICARE, OTHER ==
[2018-09-17 20:25] VITALS: PULSE 62; RESP 16; TEMP 97.7
--- NOTE | 2018-09-17 21:08 | ED ---
Nausea/Vomiting/Diarrhea HPI - General Source: EMS Mode of arrival: EMS Limitations: no limitations <Rahel Gorman - Last Filed: 09/17/18 23:32> <Charmaine Ordonez - Last Filed: 09/19/18 02:01> - General Chief complaint: Nausea/Vomiting/Diarrhea Stated complaint: Dehydration Time Seen by Provider: 09/17/18 20:48 - History of Present Illness Initial comments: Patient is a 53-year-old male presenting to the emergency room via EMS after he was found to having diarrhea all over the bathroom at a [employer]. Patient states he has had diarrhea on and off for a few months now. Past medical history of diabetes, hypertension, hyperlipidemia, seizure disorder, sleep apnea, grand petit mall seizures, obstructive sleep apnea, hypothyroid from the developmental delay. Patient is currently living in an assisted living facility. Patient was recently hospitalized for a sodium level 124. Patient was discharged from the hospital on 09/11/2018 and was put on fluid restriction to 1000 mL a day and also given salt tablets. Patient admitted to drinking an excessive amount of water. Patient denies chest pain, shortness of breath, abdominal pain, nausea, vomiting. Patient admits to being very thirsty and is a sking for water. (Rahel Gorman) - Related Data Home Medications Medication Instructions Recorded Confirmed Aspirin EC [Ecotrin Low Dose] 81 mg PO DAILY 03/13/14 09/18/18 Levothyroxine Sodium [Synthroid] 100 mcg PO DAILY 03/13/14 09/18/18 Lovastatin [Mevacor] 10 mg PO HS 10/16/15 09/18/18 Melatonin 9 mg PO HS 10/16/15 09/18/18 risperiDONE 3 mg PO HS 09/24/17 09/18/18 Linagliptin [Tradjenta] 5 mg PO DAILY 03/24/18 09/18/18 risperiDONE 4 mg PO DAILY 05/01/18 09/18/18 Divalproex ER [Depakote ER] 2,000 mg PO HS 05/22/18 09/18/18 Lisinopril [Zestril] 20 mg PO DAILY 09/09/18 09/18/18 Pioglitazone [Actos] 30 mg PO DAILY 09/09/18 09/18/18 Ziprasidone [Geodon] 20 mg PO BID 09/09/18 09/18/18 amLODIPine [Norvasc] 5 mg PO DAILY 09/09/18 09/18/18 metFORMIN HCL 1,000 mg PO BID 09/09/18 09/18/18 Empagliflozin [Jardiance] 25 mg PO DAILY 09/18/18 09/18/18 Insulin Glargine,Hum.rec.anlog 35 mg PO HS 09/18/18 09/18/18 [Lantus Solostar] Previous Rx's Medication Instructions Recorded Sertraline [Zoloft] 150 mg PO HS #45 tab 12/12/15 cloNIDine HCL [Catapres] 0.1 mg PO TID #90 tab 12/12/15 Allergies Allergy/AdvReac Type Severity Reaction Status Date / Time carbamazepine [From Tegretol] Allergy Unknown Verified 09/18/18 09:52 phenytoin sodium Allergy Unknown Verified 09/18/18 09:52 [From Dilantin] phenytoin sodium extended Allergy Unknown Verified 09/18/18 09:52 [From Dilantin] primidone Allergy Unknown Verified 09/18/18 09:52 sulfamethoxazole Allergy Unknown Verified 09/18/18 09:52 [From Bactrim] trimethoprim [From Bactrim] Allergy Unknown Verified 09/18/18 09:52 Review of Systems ROS Other: All systems not noted in ROS Statement are negative. <Rahel Gorman - Last Filed: 09/17/18 23:32> ROS Other: All systems not noted in ROS Statement are negative. <Charmaine Ordonez - Last Filed: 09/19/18 02:01> ROS Statement: Those systems with pertinent positive or pertinent negative responses have been documented in the HPI. Past Medical History Past Medical History: Diabetes Mellitus, Hyperlipidemia, Hypertension, Seizure Disorder, Sleep Apnea/CPAP/BIPAP, Thyroid Disorder Additional Past Medical History / Comment(s): IDDM type II, bilateral retinal hemorrhage, retinopathy bilaterally, grand/petite mal seizure with last seizure greater than 12 yrs ago, gender dysporia, balance issues, AYDEE normally with CPAP but pt states it is broken, sinus problems, hypothyroid, developmentally delayed. History of Any Multi-Drug Resistant Organisms: None Reported Past Surgical History: Cholecystectomy, Tonsillectomy Additional Past Surgical History / Comment(s): Bilateral eye surgery, "tumor removed behind my throat", cystoscopy d/t painful urination, colonoscopy Past Anesthesia/Blood Transfusion Reactions: No Reported Reaction Past Psychological History: Anxiety, Bipolar, Schizoaffective Disorder Smoking Status: Former smoker Past Alcohol Use History: None Reported Past Drug Use History: None Reported - Past Family History Mother Family Medical History: Myocardial Infarction ([place]) Additional Family Medical History / Comment(s): Mother of a [place] at the age of 82 yrs. Father History Unknown: Yes Family Medical History: No Reported History <Rahel Gorman - Last Filed: 09/17/18 23:32> General Exam Limitations: no limitations <Rahel Gorman - Last Filed: 09/17/18 23:32> - General Exam Comments Initial Comments: GENERAL: Well-appearing, well-nourished and in no acute distress. HEAD: Atraumatic, normocephalic. EYES: Pupils equal round and reactive to light, extraocular movements intact, sclera anicteric, conjunctiva are normal. ENT: TMs normal, nares patent, oropharynx clear without exudates. Moist mucous membranes. NECK: Normal range of motion, supple without lymphadenopathy or JVD. LUNGS: Breath sounds clear to auscultation bilaterally and equal. No wheezes rales or rhonchi. HEART: Regular rate and rhythm without murmurs, rubs or gallops. ABDOMEN: Soft, nontender, normoactive bowel sounds. No guarding, no rebound. No masses appreciated. : Deferred EXTREMITIES: Normal range of motion, no pitting or edema. No clubbing or cyanosis. NEUROLOGICAL: Cranial nerves II through XII grossly intact. Normal speech, normal gait. PSYCH: Normal mood, normal affect. SKIN: Warm, Dry, normal turgor, no rashes or lesions noted. (Rahel Gorman) Course Vital Signs 09/17/18 09/17/18 20:16 23:12 Temperature 97.7 F Pulse Rate 62 62 Respiratory 16 16 Rate Blood Pressure 150/82 156/81 O2 Sat by Pulse 98 100 Oximetry Medical Decision Making - Lab Data Result diagrams: 09/17/18 20:30 09/17/18 20:30 <Rahel Gorman - Last Filed: 09/17/18 23:32> - Lab Data Result diagrams: 09/17/18 20:30 09/17/18 20:30 <Charmaine Ordonez - Last Filed: 09/19/18 02:01> - Medical Decision Making Patient is a 53-year-old male here via EMS for having episodes of diarrhea and a [employer] restaurant. Patient was recently hospitalized for having sodium of 124. Patient has no other complaints at this time and denies abdominal pain, nausea, vomiting, chest pain. CBC and CMP were within normal limits. Patient will be discharged home. Case discussed with Dr. Ordonez. (Rahel Gorman) I was available for consultation in the emergency department. The history and physical exam were done by the midlevel provider. I was consulted for this patient's care. I reviewed the case with the midlevel provider and based on their presentation of the patient, I agree with the assessment, medical decision making and plan of care as documented. Chart was dictated using [employer] dictation software. Attempts were made to correct any dictation errors however some typographical errors may persist. (Charmaine Ordonez) - Lab Data Lab Results 09/17/18 09/17/18 Range/Units 20:30 20:30 WBC 6.2 (3.8-10.6) k/uL RBC 4.66 (4.30-5.90) m/uL Hgb 13.7 (13.0-17.5) gm/dL Hct 42.0 (39.0-53.0) % MCV 90.1 (80.0-100.0) fL MCH 29.3 (25.0-35.0) pg MCHC 32.5 (31.0-37.0) g/dL RDW 13.8 (11.5-15.5) % Plt Count 210 (150-450) k/uL Neutrophils % 55 % Lymphocytes % 30 % Monocytes % 10 % Eosinophils % 2 % Basophils % 1 % Neutrophils # 3.4 (1.3-7.7) k/uL Lymphocytes # 1.9 (1.0-4.8) k/uL Monocytes # 0.6 (0-1.0) k/uL Eosinophils # 0.1 (0-0.7) k/uL Basophils # 0.0 (0-0.2) k/uL Sodium 140 (137-145) mmol/L Potassium 3.4 L (3.5-5.1) mmol/L Chloride 112 H (98-107) mmol/L Carbon Dioxide 20 L (22-30) mmol/L Anion Gap 8 mmol/L BUN 10 (9-20) mg/dL Creatinine 0.60 L (0.66-1.25) mg/dL Est GFR (CKD-EPI)AfAm >90 (>60 ml/min/1.73 sqM) Est GFR (CKD-EPI)NonAf >90 (>60 ml/min/1.73 sqM) Glucose 161 H (74-99) mg/dL Calcium 7.0 L (8.4-10.2) mg/dL Total Bilirubin <0.1 L (0.2-1.3) mg/dL AST 20 (17-59) U/L ALT 18 L (21-72) U/L Alkaline Phosphatase 48 (38-126) U/L Total Protein 5.1 L (6.3-8.2) g/dL Albumin 2.9 L (3.5-5.0) g/dL Disposition Is patient prescribed a controlled substance at d/c from ED?: No <Rahel Gorman L - Last Filed: 09/17/18 23:32> <Charmaine Ordonez P - Last Filed: 09/19/18 02:01> Clinical Impression: Diarrhea Disposition: HOME SELF-CARE Condition: Stable Instructions (If sedation given, give patient instructions): Acute Diarrhea (ED) Additional Instructions: Please return to the Emergency Department if symptoms worsen or any other concerns. Referrals: Noe Ragsdale MD [Primary Care Provider] - 1-2 days
[2018-09-17 21:31] LABS: Basophils % (A) 1 %; Eosinophils # (A) 0.1 k/uL (0-0.7); Eosinophils % (A) 2 %; HGB 13.7 gm/dL (13.0-17.5); Lymphocytes # (A) 1.9 k/uL (1.0-4.8); Lymphocytes % (A) 30 %; MCH 29.3 pg (25.0-35.0); MCHC 32.5 g/dL (31.0-37.0); MCV 90.1 fL (80.0-100.0); Mean Platelet Volume 7.8; Monocytes # (A) 0.6 k/uL (0-1.0); Monocytes % (A) 10 %; Neutrophils # (A) 3.4 k/uL (1.3-7.7); Neutrophils % (A) 55 %; Platelet Count 210 k/uL (150-450); RBC 4.66 m/uL (4.30-5.90); RDW 13.8 % (11.5-15.5); WBC 6.2 k/uL (3.8-10.6)
[2018-09-17 21:51] LABS: ALT 18 U/L (21-72); AST 20 U/L (17-59); African American GFR (CKD) >90 (>60 ml/min/1.73 sqM); Albumin 2.9 g/dL (3.5-5.0); Alkaline Phosphatase 48 U/L (38-126); Anion Gap 8 mmol/L; Blood Urea Nitrogen 10 mg/dL (9-20); Carbon Dioxide 20 mmol/L (22-30); Chloride 112 mmol/L (98-107); Glucose 161 mg/dL (74-99); Potassium 3.4 mmol/L (3.5-5.1); Sodium 140 mmol/L (137-145); Total Bilirubin <0.1 mg/dL (0.2-1.3); Total Protein 5.1 g/dL (6.3-8.2)
[2018-09-17 23:14] VITALS: BP 156/81
== END 2018-09-17 23:14 | disposition home or self-care (01) ==
LOC: EC 19:25
DX: R19.7 Diarrhea, unspecified (principal); E86.0 Dehydration; E11.9 Type 2 diabetes mellitus without complications; E78.5 Hyperlipidemia, unspecified; I10 Essential (primary) hypertension; G40.909 Epilepsy, unspecified, not intractable, without status epilepticus; E03.9 Hypothyroidism, unspecified; F25.0 Schizoaffective disorder, bipolar type; G47.33 Obstructive sleep apnea (adult) (pediatric); Z99.89 Dependence on other enabling machines and devices; Z87.891 Personal history of nicotine dependence; Z79.82 Long term (current) use of aspirin; Z79.890 Hormone replacement therapy; Z79.4 Long term (current) use of insulin; Z79.899 Other long term (current) drug therapy; Z88.8 Allergy status to other drugs, medicaments and biological substances; Z88.2 Allergy status to sulfonamides
CPT/HCPCS: 36415; 80053; 85025; 99284

== ENCOUNTER 2018-09-18 07:44 | Emergency (ER) | payer MEDICARE, OTHER ==
--- NOTE | 2018-09-18 08:00 | ED ---
General Adult HPI - General Stated complaint: Depression Time Seen by Provider: 09/18/18 07:44 Source: RN notes reviewed - History of Present Illness Initial comments: This is a 53-year-old male with past medical history significant for bipolar. Patient was seen last evening because he was angry at that time he is discharged home to follow-up at [facility]. Patient states she got home he was upset because he does not believe his guardian is listening to him and was unable to get a hold him and so he decided come back in here because he was angry and he wanted to talk to somebody. Patient states she does not want hurt himself does not want hurt anybody else. Patient denies any drug use or alcohol use. Patient states she had breakfast and he was just getting more and more upset because his guardian would not return his phone calls and the guardian keeps taking his money. Patient is no physical complaints - Related Data Home Medications Medication Instructions Recorded Confirmed Aspirin EC [Ecotrin Low Dose] 81 mg PO DAILY 03/13/14 09/18/18 Levothyroxine Sodium [Synthroid] 100 mcg PO DAILY 03/13/14 09/18/18 Lovastatin [Mevacor] 10 mg PO HS 10/16/15 09/18/18 Melatonin 9 mg PO HS 10/16/15 09/18/18 risperiDONE 3 mg PO HS 09/24/17 09/18/18 Linagliptin [Tradjenta] 5 mg PO DAILY 03/24/18 09/18/18 risperiDONE 4 mg PO DAILY 05/01/18 09/18/18 Divalproex ER [Depakote ER] 2,000 mg PO HS 05/22/18 09/18/18 Lisinopril [Zestril] 20 mg PO DAILY 09/09/18 09/18/18 Pioglitazone [Actos] 30 mg PO DAILY 09/09/18 09/18/18 Ziprasidone [Geodon] 20 mg PO BID 09/09/18 09/18/18 amLODIPine [Norvasc] 5 mg PO DAILY 09/09/18 09/18/18 metFORMIN HCL 1,000 mg PO BID 09/09/18 09/18/18 Empagliflozin [Jardiance] 25 mg PO DAILY 09/18/18 09/18/18 Insulin Glargine,Hum.rec.anlog 35 mg PO HS 09/18/18 09/18/18 [Lantus Solostar] Previous Rx's Medication Instructions Recorded Sertraline [Zoloft] 150 mg PO HS #45 tab 12/12/15 cloNIDine HCL [Catapres] 0.1 mg PO TID #90 tab 12/12/15 Allergies Allergy/AdvReac Type Severity Reaction Status Date / Time carbamazepine [From Tegretol] Allergy Unknown Verified 09/18/18 09:52 phenytoin sodium Allergy Unknown Verified 09/18/18 09:52 [From Dilantin] phenytoin sodium extended Allergy Unknown Verified 09/18/18 09:52 [From Dilantin] primidone Allergy Unknown Verified 09/18/18 09:52 sulfamethoxazole Allergy Unknown Verified 09/18/18 09:52 [From Bactrim] trimethoprim [From Bactrim] Allergy Unknown Verified 09/18/18 09:52 Review of Systems ROS Statement: Those systems with pertinent positive or pertinent negative responses have been documented in the HPI. ROS Other: All systems not noted in ROS Statement are negative. Past Medical History Past Medical History: Diabetes Mellitus, Hyperlipidemia, Hypertension, Seizure Disorder, Sleep Apnea/CPAP/BIPAP, Thyroid Disorder Additional Past Medical History / Comment(s): IDDM type II, bilateral retinal hemorrhage, retinopathy bilaterally, grand/petite mal seizure with last seizure greater than 12 yrs ago, gender dysporia, balance issues, AYDEE normally with CPAP but pt states it is broken, sinus problems, hypothyroid, developmentally delayed. History of Any Multi-Drug Resistant Organisms: None Reported Past Surgical History: Cholecystectomy, Tonsillectomy Additional Past Surgical History / Comment(s): Bilateral eye surgery, "tumor removed behind my throat", cystoscopy d/t painful urination, colonoscopy Past Anesthesia/Blood Transfusion Reactions: No Reported Reaction Past Psychological History: Anxiety, Bipolar, Schizoaffective Disorder Smoking Status: Former smoker Past Alcohol Use History: None Reported Past Drug Use History: None Reported - Past Family History Mother Family Medical History: Myocardial Infarction ([place]) Additional Family Medical History / Comment(s): Mother of a [place] at the age of 82 yrs. Father History Unknown: Yes Family Medical History: No Reported History General Exam - General Exam Comments Initial Comments: GENERAL: Patient is well-developed and well-nourished. Patient is nontoxic and well- hydrated and is in no acute distress. ENT: Neck is soft and supple. There is no thyroid enlargement and no masses were felt. EYES: The sclera were anicteric and conjunctiva were pink and moist. Extraocular movements were intact and pupils were equal round and reactive to light. Eyelids were unremarkable. PULMONARY: Unlabored respirations. Good breath sounds bilaterally. No audible rales rhonchi or wheezing was noted. CARDIOVASCULAR: There is a regular rate and rhythm without any murmurs gallops or rubs. ABDOMEN: Soft and nontender with normal bowel sounds. No palpable organomegaly was noted. There is no palpable pulsatile mass. SKIN: Skin is clear with no lesions or rashes and otherwise unremarkable. NEUROLOGIC: Patient is alert and oriented x3. Cranial nerves II through XII are grossly intact. Motor and sensory are also intact. Normal speech, volume and content. Symmetrical smile. MUSCULOSKELETAL: Normal extremities with adequate strength and full range of motion. LYMPHATICS: No significant lymphadenopathy is noted PSYCHIATRIC: Patient seems upset with his guardian but is not suicidal or homicidal. Course Vital Signs 09/18/18 09/18/18 07:54 09:30 Temperature 98.1 F 98.0 F Pulse Rate 86 80 Respiratory 16 16 Rate Blood Pressure 134/59 138/69 O2 Sat by Pulse 95 99 Oximetry Medical Decision Making - Medical Decision Making EPS evaluated the patient and set him up for follow-up at [facility]. Patient is agreeable with this. - Lab Data Lab Results 09/18/18 Range/Units 08:15 Urine Opiates Screen Not Detected (NotDetected) Ur Oxycodone Screen Not Detected (NotDetected) Urine Methadone Screen Not Detected (NotDetected) Ur Propoxyphene Screen Not Detected (NotDetected) Ur Barbiturates Screen Not Detected (NotDetected) U Tricyclic Antidepress Not Detected (NotDetected) Ur Phencyclidine Scrn Not Detected (NotDetected) Ur Amphetamines Screen Not Detected (NotDetected) U Methamphetamines Scrn Not Detected (NotDetected) U Benzodiazepines Scrn Not Detected (NotDetected) Urine Cocaine Screen Not Detected (NotDetected) U Marijuana (THC) Screen Not Detected (NotDetected) Disposition Clinical Impression: Bipolar disorder Disposition: HOME SELF-CARE Condition: Good Additional Instructions: Patient is to follow-up at [facility] as previously directed. Is patient prescribed a controlled substance at d/c from ED?: No Referrals: Noe Ragsdale MD [Primary Care Provider] - 1-2 days Time of Disposition: 11:42
[2018-09-18 08:09] VITALS: RESP 16
[2018-09-18 08:47] LABS: Amphetamine Screen,Urine Not Detected (NotDetected); Cocaine Screen,Urine Not Detected (NotDetected); Opiate Screen,Urine Not Detected (NotDetected); Phencyclidine Screen,Urine Not Detected (NotDetected); Urn Cannabinoid Scrn Not Detected (NotDetected)
[2018-09-18 08:48] LABS: Barbiturate Screen,Urine Not Detected (NotDetected); Benzodiazepines Screen,Urine Not Detected (NotDetected); Methadone Screen, Urine Not Detected (NotDetected); Oxycodone Screen, Urine Not Detected (NotDetected); Tricyclic Antidepressant,Urine Not Detected (NotDetected)
[2018-09-18 12:02] VITALS: BP 117/64; PULSE 72; TEMP 97.8
== END 2018-09-18 12:02 | disposition home or self-care (01) ==
LOC: EC 07:44
DX: F31.9 Bipolar disorder, unspecified (principal); E11.319 Type 2 diabetes mellitus with unspecified diabetic retinopathy without macular edema; E78.5 Hyperlipidemia, unspecified; I10 Essential (primary) hypertension; G40.909 Epilepsy, unspecified, not intractable, without status epilepticus; G47.33 Obstructive sleep apnea (adult) (pediatric); E03.9 Hypothyroidism, unspecified; F41.9 Anxiety disorder, unspecified; Z87.891 Personal history of nicotine dependence; Z88.2 Allergy status to sulfonamides; Z88.8 Allergy status to other drugs, medicaments and biological substances; Z79.4 Long term (current) use of insulin; Z79.82 Long term (current) use of aspirin; Z79.890 Hormone replacement therapy; Z79.899 Other long term (current) drug therapy; Z99.89 Dependence on other enabling machines and devices
CPT/HCPCS: 80306; 82075; 99284

== ENCOUNTER 2018-09-20 20:13 | Emergency (ER) | payer MEDICARE, OTHER ==
--- NOTE | 2018-09-20 20:26 | ED ---
Psych HPI - General Stated Complaint: Mental Health Time Seen by Provider: 09/20/18 20:23 Source: RN notes reviewed, old records reviewed - History of Present Illness Initial Comments: This is a 3-year-old male the ER for evaluation presented for psychiatric evaluation. Patient's brought in by EMS for evaluation of psychiatry. Patient here yesterday for the same, angry about activities and [facility] activities. MD Complaint: altered mental status -: unknown Associated Psychiatric Symptoms: homicidal ideation, auditory hallucinations History of same: Yes Quality: constant Improves With: none Worsens With: none Context: not taking psychiatric medications Associated Symptoms: denies other symptoms Treatments Prior to Arrival: placed on mental health hold - Related Data Home Medications Medication Instructions Recorded Confirmed Aspirin EC [Ecotrin Low Dose] 81 mg PO DAILY 03/13/14 09/20/18 Levothyroxine Sodium [Synthroid] 100 mcg PO DAILY 03/13/14 09/20/18 Lovastatin [Mevacor] 10 mg PO HS 10/16/15 09/20/18 Melatonin 9 mg PO HS 10/16/15 09/20/18 risperiDONE 3 mg PO HS 09/24/17 09/20/18 Linagliptin [Tradjenta] 5 mg PO DAILY 03/24/18 09/20/18 risperiDONE 4 mg PO DAILY 05/01/18 09/20/18 Divalproex ER [Depakote ER] 2,000 mg PO HS 05/22/18 09/20/18 Lisinopril [Zestril] 20 mg PO DAILY 09/09/18 09/20/18 Pioglitazone [Actos] 30 mg PO DAILY 09/09/18 09/20/18 Ziprasidone [Geodon] 20 mg PO BID 09/09/18 09/20/18 amLODIPine [Norvasc] 5 mg PO DAILY 09/09/18 09/20/18 metFORMIN HCL 1,000 mg PO BID 09/09/18 09/20/18 Empagliflozin [Jardiance] 25 mg PO DAILY 09/18/18 09/20/18 Insulin Glargine,Hum.rec.anlog 35 mg PO HS 09/18/18 09/20/18 [Lantus Solostar] Previous Rx's Medication Instructions Recorded Sertraline [Zoloft] 150 mg PO HS #45 tab 12/12/15 cloNIDine HCL [Catapres] 0.1 mg PO TID #90 tab 12/12/15 Allergies Allergy/AdvReac Type Severity Reaction Status Date / Time carbamazepine [From Tegretol] Allergy Unknown Verified 09/20/18 20:23 phenytoin sodium Allergy Unknown Verified 09/20/18 20:23 [From Dilantin] phenytoin sodium extended Allergy Unknown Verified 09/20/18 20:23 [From Dilantin] primidone Allergy Unknown Verified 09/20/18 20:23 sulfamethoxazole Allergy Unknown Verified 09/20/18 20:23 [From Bactrim] trimethoprim [From Bactrim] Allergy Unknown Verified 09/20/18 20:23 Review of Systems ROS Statement: Those systems with pertinent positive or pertinent negative responses have been documented in the HPI. ROS Other: All systems not noted in ROS Statement are negative. Past Medical History Past Medical History: Diabetes Mellitus, Hyperlipidemia, Hypertension, Seizure Disorder, Sleep Apnea/CPAP/BIPAP, Thyroid Disorder Additional Past Medical History / Comment(s): IDDM type II, bilateral retinal hemorrhage, retinopathy bilaterally, grand/petite mal seizure with last seizure greater than 12 yrs ago, gender dysporia, balance issues, AYDEE normally with CPAP but pt states it is broken, sinus problems, hypothyroid, developmentally delayed. History of Any Multi-Drug Resistant Organisms: None Reported Past Surgical History: Cholecystectomy, Tonsillectomy Additional Past Surgical History / Comment(s): Bilateral eye surgery, "tumor removed behind my throat", cystoscopy d/t painful urination, colonoscopy Past Anesthesia/Blood Transfusion Reactions: No Reported Reaction Past Psychological History: Anxiety, Bipolar, Schizoaffective Disorder Smoking Status: Former smoker Past Alcohol Use History: None Reported Past Drug Use History: None Reported - Past Family History Mother Family Medical History: Myocardial Infarction ([place]) Additional Family Medical History / Comment(s): Mother of a [place] at the age of 82 yrs. Father History Unknown: Yes Family Medical History: No Reported History General Exam General appearance: alert, in no apparent distress Head exam: Present: atraumatic, normocephalic, normal inspection Eye exam: Present: normal appearance, PERRL, EOMI. Absent: scleral icterus, conjunctival injection, periorbital swelling ENT exam: Present: normal exam, mucous membranes moist Neck exam: Present: normal inspection. Absent: tenderness, meningismus, lymphadenopathy Respiratory exam: Present: normal lung sounds bilaterally. Absent: respiratory distress, wheezes, rales, rhonchi, stridor Cardiovascular Exam: Present: regular rate, normal rhythm, normal heart sounds. Absent: systolic murmur, diastolic murmur, rubs, gallop, clicks GI/Abdominal exam: Present: soft, normal bowel sounds. Absent: distended, tenderness, guarding, rebound, rigid Extremities exam: Present: normal inspection, full ROM, normal capillary refill. Absent: tenderness, pedal edema, joint swelling, calf tenderness Back exam: Present: normal inspection Neurological exam: Present: alert, oriented X3, CN II-XII intact Psychiatric exam: Present: normal affect, normal mood Skin exam: Present: warm, dry, intact, normal color. Absent: rash Course Vital Signs 09/20/18 20:22 Temperature 98.5 F Pulse Rate 72 Respiratory 19 Rate Blood Pressure 140/72 O2 Sat by Pulse 99 Oximetry - Reevaluation(s) Reevaluation #1: 09/20/18 22:27 Medical clear for psychiatric evaluation Medical Decision Making - Medical Decision Making 53 male seen evaluated with psychiatry, patient can be discharged back to facility, [facility] - Lab Data Lab Results 09/20/18 Range/Units 20:19 Urine Opiates Screen Not Detected (NotDetected) Ur Oxycodone Screen Not Detected (NotDetected) Urine Methadone Screen Not Detected (NotDetected) Ur Propoxyphene Screen Not Detected (NotDetected) Ur Barbiturates Screen Not Detected (NotDetected) U Tricyclic Antidepress Not Detected (NotDetected) Ur Phencyclidine Scrn Not Detected (NotDetected) Ur Amphetamines Screen Not Detected (NotDetected) U Methamphetamines Scrn Not Detected (NotDetected) U Benzodiazepines Scrn Not Detected (NotDetected) Urine Cocaine Screen Not Detected (NotDetected) U Marijuana (THC) Screen Not Detected (NotDetected) Disposition Clinical Impression: Bipolar disorder Disposition: HOME SELF-CARE Condition: Good Instructions (If sedation given, give patient instructions): Bipolar Disorder (ED) Is patient prescribed a controlled substance at d/c from ED?: No Referrals: Noe Ragsdale MD [Primary Care Provider] - 1-2 days
[2018-09-20 20:29] VITALS: PULSE 72
[2018-09-20 21:08] LABS: Amphetamine Screen,Urine Not Detected (NotDetected); Barbiturate Screen,Urine Not Detected (NotDetected); Benzodiazepines Screen,Urine Not Detected (NotDetected); Cocaine Screen,Urine Not Detected (NotDetected); Methadone Screen, Urine Not Detected (NotDetected); Opiate Screen,Urine Not Detected (NotDetected); Phencyclidine Screen,Urine Not Detected (NotDetected); Tricyclic Antidepressant,Urine Not Detected (NotDetected)
[2018-09-20 21:09] LABS: Oxycodone Screen, Urine Not Detected (NotDetected); Urn Cannabinoid Scrn Not Detected (NotDetected)
[2018-09-20 23:15] VITALS: BP 165/85; RESP 16; TEMP 98.1
== END 2018-09-21 00:12 | disposition home or self-care (01) ==
LOC: EC 20:13
DX: F31.9 Bipolar disorder, unspecified (principal); E78.5 Hyperlipidemia, unspecified; I10 Essential (primary) hypertension; G47.33 Obstructive sleep apnea (adult) (pediatric); E03.9 Hypothyroidism, unspecified; G40.409 Other generalized epilepsy and epileptic syndromes, not intractable, without status epilepticus; E11.319 Type 2 diabetes mellitus with unspecified diabetic retinopathy without macular edema; F41.9 Anxiety disorder, unspecified; F25.0 Schizoaffective disorder, bipolar type; Z79.82 Long term (current) use of aspirin; Z79.890 Hormone replacement therapy; Z79.4 Long term (current) use of insulin; Z79.899 Other long term (current) drug therapy; Z88.1 Allergy status to other antibiotic agents; Z88.2 Allergy status to sulfonamides; Z88.8 Allergy status to other drugs, medicaments and biological substances; Z87.891 Personal history of nicotine dependence
CPT/HCPCS: 80306; 82075; 99285

== ENCOUNTER 2018-09-21 08:22 | Emergency (ER) | payer MEDICARE, OTHER ==
[2018-09-21 08:46] VITALS: RESP 18; TEMP 98.4
--- NOTE | 2018-09-21 09:09 | ED ---
General Adult HPI - General Chief complaint: Psychiatric Symptoms Stated complaint: Psy eval Source: patient, police, RN notes reviewed Mode of arrival: ambulatory Limitations: no limitations - History of Present Illness Initial comments: Patient is a 53-year-old person presenting to the emergency Department with history of bipolar. Patient admits to making suicidal statements. Patient states he is frustrated with his living arrangement and medications and [facility] care as well as his guardian. Patient states he is not really suicidal. Patient states he does have racing thoughts and difficulty concentrating. Patient is upset that they are not treating his bipolar appropriately and are only treatment for depression. Patient denies homicidal thoughts. No hallucinations. No alcohol or street drug use. No new physical complaints. Patient states he has been taking his medication. - Related Data Home Medications Medication Instructions Recorded Confirmed Aspirin EC [Ecotrin Low Dose] 81 mg PO DAILY 03/13/14 09/21/18 Levothyroxine Sodium [Synthroid] 100 mcg PO DAILY 03/13/14 09/21/18 Lovastatin [Mevacor] 10 mg PO HS 10/16/15 09/21/18 Melatonin 9 mg PO HS 10/16/15 09/21/18 risperiDONE 3 mg PO HS 09/24/17 09/21/18 Linagliptin [Tradjenta] 5 mg PO DAILY 03/24/18 09/21/18 risperiDONE 4 mg PO DAILY 05/01/18 09/21/18 Divalproex ER [Depakote ER] 2,000 mg PO HS 05/22/18 09/21/18 Lisinopril [Zestril] 20 mg PO DAILY 09/09/18 09/21/18 Pioglitazone [Actos] 30 mg PO DAILY 09/09/18 09/21/18 Ziprasidone [Geodon] 20 mg PO BID 09/09/18 09/21/18 amLODIPine [Norvasc] 5 mg PO DAILY 09/09/18 09/21/18 metFORMIN HCL 1,000 mg PO BID 09/09/18 09/21/18 Empagliflozin [Jardiance] 25 mg PO DAILY 09/18/18 09/21/18 Insulin Glargine,Hum.rec.anlog 35 mg PO HS 09/18/18 09/21/18 [Lantus Solostar] cloNIDine HCL [Catapres] 0.1 mg PO TID@0800,1200,1600 09/21/18 09/21/18 Previous Rx's Medication Instructions Recorded Sertraline [Zoloft] 150 mg PO HS #45 tab 12/12/15 Allergies Allergy/AdvReac Type Severity Reaction Status Date / Time carbamazepine [From Tegretol] Allergy Unknown Verified 09/21/18 12:38 phenytoin sodium Allergy Unknown Verified 09/21/18 12:38 [From Dilantin] phenytoin sodium extended Allergy Unknown Verified 09/21/18 12:38 [From Dilantin] primidone Allergy Unknown Verified 09/21/18 12:38 sulfamethoxazole Allergy Unknown Verified 09/21/18 12:38 [From Bactrim] trimethoprim [From Bactrim] Allergy Unknown Verified 09/21/18 12:38 Review of Systems ROS Statement: Those systems with pertinent positive or pertinent negative responses have been documented in the HPI. ROS Other: All systems not noted in ROS Statement are negative. Constitutional: Denies: fever Eyes: Denies: eye pain ENT: Denies: ear pain Respiratory: Denies: cough Cardiovascular: Denies: chest pain Endocrine: Denies: fatigue Gastrointestinal: Denies: abdominal pain Genitourinary: Denies: dysuria Musculoskeletal: Denies: back pain Skin: Denies: rash Neurological: Denies: weakness Past Medical History Past Medical History: Diabetes Mellitus, Hyperlipidemia, Hypertension, Seizure Disorder, Sleep Apnea/CPAP/BIPAP, Thyroid Disorder Additional Past Medical History / Comment(s): IDDM type II, bilateral retinal hemorrhage, retinopathy bilaterally, grand/petite mal seizure with last seizure greater than 12 yrs ago, gender dysporia, balance issues, AYDEE normally with CPAP but pt states it is broken, sinus problems, hypothyroid, developmentally delayed. History of Any Multi-Drug Resistant Organisms: None Reported Past Surgical History: Cholecystectomy, Tonsillectomy Additional Past Surgical History / Comment(s): Bilateral eye surgery, "tumor removed behind my throat", cystoscopy d/t painful urination, colonoscopy Past Anesthesia/Blood Transfusion Reactions: No Reported Reaction Past Psychological History: Anxiety, Bipolar, Schizoaffective Disorder Smoking Status: Former smoker Past Alcohol Use History: None Reported Past Drug Use History: None Reported - Past Family History Mother Family Medical History: Myocardial Infarction ([place]) Additional Family Medical History / Comment(s): Mother of a [place] at the age of 82 yrs. Father History Unknown: Yes Family Medical History: No Reported History General Exam Limitations: no limitations General appearance: alert, in no apparent distress Head exam: Present: atraumatic Eye exam: Present: normal appearance, PERRL ENT exam: Present: normal oropharynx Neck exam: Present: normal inspection Respiratory exam: Present: normal lung sounds bilaterally Cardiovascular Exam: Present: regular rate, normal rhythm GI/Abdominal exam: Present: soft. Absent: tenderness Extremities exam: Present: normal inspection. Absent: pedal edema, calf tenderness Neurological exam: Present: alert Psychiatric exam: Present: normal affect, normal mood Skin exam: Present: normal color Course Vital Signs 09/21/18 08:45 Temperature 98.4 F Pulse Rate 99 Respiratory 18 Rate Blood Pressure 164/84 O2 Sat by Pulse 988 H Oximetry Medical Decision Making - Medical Decision Making Patient was seen by mental health services with recommend discharge. Patient denies suicidal ideation. - Lab Data Lab Results 09/21/18 Range/Units 09:40 Urine Opiates Screen Not Detected (NotDetected) Ur Oxycodone Screen Not Detected (NotDetected) Urine Methadone Screen Not Detected (NotDetected) Ur Propoxyphene Screen Not Detected (NotDetected) Ur Barbiturates Screen Not Detected (NotDetected) U Tricyclic Antidepress Not Detected (NotDetected) Ur Phencyclidine Scrn Not Detected (NotDetected) Ur Amphetamines Screen Not Detected (NotDetected) U Methamphetamines Scrn Not Detected (NotDetected) U Benzodiazepines Scrn Not Detected (NotDetected) Urine Cocaine Screen Not Detected (NotDetected) U Marijuana (THC) Screen Not Detected (NotDetected) Disposition Clinical Impression: Bipolar disorder Disposition: HOME SELF-CARE Condition: Stable Instructions (If sedation given, give patient instructions): Bipolar Disorder (ED) Additional Instructions: Please follow-up with [facility] today as planned. Please also follow-up with primary care physician. Return for thoughts of self-harm, worsening symptoms, or other concerns. Is patient prescribed a controlled substance at d/c from ED?: No Referrals: Noe Ragsdale MD [Primary Care Provider] - 1-2 days Time of Disposition: 13:22
[2018-09-21] MEDS ORDERED: LISINOPRIL 20 MG TAB PO STA (09:33)
[2018-09-21] MEDS ORDERED: cloNIDine HCL 0.1 MG TAB PO STA (09:35)
[2018-09-21] MEDS ORDERED: metFORMIN 500 MG TAB PO STA (09:35)
[2018-09-21] MEDS ORDERED: amLODIPine 5 MG TAB PO STA (09:36)
[2018-09-21] MEDS ORDERED: ZIPRASIDONE 20 MG CAP PO STA (09:36)
[2018-09-21] MEDS ORDERED: risperiDONE 2 MG TAB PO STA (09:37)
[2018-09-21 10:06] LABS: Amphetamine Screen,Urine Not Detected (NotDetected); Barbiturate Screen,Urine Not Detected (NotDetected); Benzodiazepines Screen,Urine Not Detected (NotDetected); Cocaine Screen,Urine Not Detected (NotDetected); Methadone Screen, Urine Not Detected (NotDetected); Opiate Screen,Urine Not Detected (NotDetected); Oxycodone Screen, Urine Not Detected (NotDetected); Phencyclidine Screen,Urine Not Detected (NotDetected); Tricyclic Antidepressant,Urine Not Detected (NotDetected); Urn Cannabinoid Scrn Not Detected (NotDetected)
[2018-09-21 16:05] VITALS: BP 158/84; PULSE 97
[2018-09-22] MEDS ORDERED: LEVOTHYROXINE 100 MCG TAB PO SCH (06:30)
== END 2018-09-21 16:02 | disposition home or self-care (01) ==
LOC: EC 08:22
DX: F31.9 Bipolar disorder, unspecified (principal); I10 Essential (primary) hypertension; G47.33 Obstructive sleep apnea (adult) (pediatric); E11.319 Type 2 diabetes mellitus with unspecified diabetic retinopathy without macular edema; E78.5 Hyperlipidemia, unspecified; G40.409 Other generalized epilepsy and epileptic syndromes, not intractable, without status epilepticus; E03.9 Hypothyroidism, unspecified; F41.9 Anxiety disorder, unspecified; F25.0 Schizoaffective disorder, bipolar type; Z79.4 Long term (current) use of insulin; Z79.82 Long term (current) use of aspirin; Z79.890 Hormone replacement therapy; Z79.899 Other long term (current) drug therapy; Z88.1 Allergy status to other antibiotic agents; Z88.2 Allergy status to sulfonamides; Z88.8 Allergy status to other drugs, medicaments and biological substances; Z87.891 Personal history of nicotine dependence
CPT/HCPCS: 80306; 82075; 99284

== ENCOUNTER 2018-12-19 17:47 | Emergency (ER) | payer MEDICARE, OTHER ==
--- NOTE | 2018-12-19 17:57 | ED ---
Psych HPI - General Stated Complaint: Depression Time Seen by Provider: 12/19/18 17:50 Source: EMS, RN notes reviewed, old records reviewed Mode of arrival: EMS - History of Present Illness Initial Comments: This is a 53-year-old male with a history of diabetes depression mood disorder who states he recently changes into [facility] who presents with complaints of feeling depressed. 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 He states his been feeling this for about 4 hours though per paramedics the patient indicated for several days. No reports of fevers chills nausea vomiting sweats or other symptoms MD Complaint: feels depressed - Related Data Home Medications Medication Instructions Recorded Confirmed Aspirin EC [Ecotrin Low Dose] 81 mg PO DAILY 03/13/14 12/19/18 Levothyroxine Sodium [Synthroid] 100 mcg PO DAILY 03/13/14 12/19/18 Lovastatin [Mevacor] 10 mg PO HS 10/16/15 12/19/18 Melatonin 9 mg PO HS 10/16/15 12/19/18 Linagliptin [Tradjenta] 5 mg PO DAILY 03/24/18 12/19/18 risperiDONE 4 mg PO DAILY 05/01/18 12/19/18 Divalproex ER [Depakote ER] 2,000 mg PO HS 05/22/18 12/19/18 Lisinopril [Zestril] 20 mg PO DAILY 09/09/18 12/19/18 Pioglitazone [Actos] 30 mg PO DAILY 09/09/18 12/19/18 amLODIPine [Norvasc] 5 mg PO DAILY 09/09/18 12/19/18 metFORMIN HCL 1,000 mg PO BID 09/09/18 12/19/18 Empagliflozin [Jardiance] 25 mg PO DAILY 09/18/18 12/19/18 Insulin Glargine,Hum.rec.anlog 35 mg PO HS 09/18/18 12/19/18 [Lantus Solostar] cloNIDine HCL [Catapres] 0.1 mg PO TID@0800,1200,1600 09/21/18 12/19/18 Previous Rx's Medication Instructions Recorded Sertraline [Zoloft] 150 mg PO HS #45 tab 12/12/15 Allergies Allergy/AdvReac Type Severity Reaction Status Date / Time carbamazepine [From Tegretol] Allergy Unknown Verified 12/19/18 18:10 phenytoin sodium Allergy Unknown Verified 12/19/18 18:10 [From Dilantin] phenytoin sodium extended Allergy Unknown Verified 12/19/18 18:10 [From Dilantin] primidone Allergy Unknown Verified 12/19/18 18:10 sulfamethoxazole Allergy Unknown Verified 12/19/18 18:10 [From Bactrim] trimethoprim [From Bactrim] Allergy Unknown Verified 12/19/18 18:10 Review of Systems ROS Statement: Those systems with pertinent positive or pertinent negative responses have been documented in the HPI. ROS Other: All systems not noted in ROS Statement are negative. Past Medical History Past Medical History: Diabetes Mellitus, Hyperlipidemia, Hypertension, Seizure Disorder, Sleep Apnea/CPAP/BIPAP, Thyroid Disorder Additional Past Medical History / Comment(s): IDDM type II, bilateral retinal hemorrhage, retinopathy bilaterally, grand/petite mal seizure with last seizure greater than 12 yrs ago, gender dysporia, balance issues, AYDEE normally with CPAP but pt states it is broken, sinus problems, hypothyroid, developmentally delayed. History of Any Multi-Drug Resistant Organisms: None Reported Past Surgical History: Cholecystectomy, Tonsillectomy Additional Past Surgical History / Comment(s): throat surgery Past Anesthesia/Blood Transfusion Reactions: No Reported Reaction Past Psychological History: Anxiety, Bipolar, Depression, Schizoaffective Disorder Smoking Status: Never smoker - Past Family History Mother Family Medical History: Myocardial Infarction ([place]) Additional Family Medical History / Comment(s): Mother of a [place] at the age of 82 yrs. Father History Unknown: Yes Family Medical History: No Reported History General Exam - General Exam Comments Initial Comments: This is a well-developed well-nourished awake alert oriented times female General appearance: alert, in no apparent distress Head exam: Present: atraumatic, normocephalic, normal inspection Eye exam: Present: normal appearance, PERRL, EOMI. Absent: scleral icterus, conjunctival injection, periorbital swelling ENT exam: Present: mucous membranes dry Neck exam: Present: normal inspection. Absent: tenderness, meningismus, lymphadenopathy Respiratory exam: Present: normal lung sounds bilaterally. Absent: respiratory distress, wheezes, rales, rhonchi, stridor Cardiovascular Exam: Present: regular rate, normal rhythm, normal heart sounds. Absent: systolic murmur, diastolic murmur, rubs, gallop, clicks GI/Abdominal exam: Present: soft, normal bowel sounds. Absent: distended, tenderness, guarding, rebound, rigid Extremities exam: Present: normal inspection, full ROM, normal capillary refill. Absent: tenderness, pedal edema, joint swelling, calf tenderness Back exam: Present: normal inspection Neurological exam: Present: alert, oriented X3, CN II-XII intact Psychiatric exam: Present: depressed, flat affect. Absent: suicidal ideation Skin exam: Present: warm, dry, intact, normal color. Absent: rash Course Vital Signs 12/19/18 12/19/18 17:56 19:57 Temperature 98.0 F 98.7 F Pulse Rate 74 73 Respiratory 16 18 Rate Blood Pressure 140/72 151/81 O2 Sat by Pulse 99 99 Oximetry Medical Decision Making - Medical Decision Making The patient was evaluated by psychiatric service on not there is some Zofran well so will be discharged with outpatient follow-up - Lab Data Lab Results 12/19/18 Range/Units 18:03 Urine Opiates Screen Not Detected (NotDetected) Ur Oxycodone Screen Not Detected (NotDetected) Urine Methadone Screen Not Detected (NotDetected) Ur Propoxyphene Screen Not Detected (NotDetected) Ur Barbiturates Screen Not Detected (NotDetected) U Tricyclic Antidepress Not Detected (NotDetected) Ur Phencyclidine Scrn Not Detected (NotDetected) Ur Amphetamines Screen Not Detected (NotDetected) U Methamphetamines Scrn Not Detected (NotDetected) U Benzodiazepines Scrn Not Detected (NotDetected) Urine Cocaine Screen Not Detected (NotDetected) U Marijuana (THC) Screen Not Detected (NotDetected) Disposition Clinical Impression: Adjustment disorder Disposition: HOME SELF-CARE Condition: Good Instructions (If sedation given, give patient instructions): Mood Disorders (ED) Is patient prescribed a controlled substance at d/c from ED?: No Referrals: Noe Ragsdale MD [Primary Care Provider] - 1-2 days
[2018-12-19 18:27] LABS: Amphetamine Screen,Urine Not Detected (NotDetected); Barbiturate Screen,Urine Not Detected (NotDetected); Benzodiazepines Screen,Urine Not Detected (NotDetected); Cocaine Screen,Urine Not Detected (NotDetected); Methadone Screen, Urine Not Detected (NotDetected); Opiate Screen,Urine Not Detected (NotDetected); Oxycodone Screen, Urine Not Detected (NotDetected); Phencyclidine Screen,Urine Not Detected (NotDetected); Tricyclic Antidepressant,Urine Not Detected (NotDetected); Urn Cannabinoid Scrn Not Detected (NotDetected)
[2018-12-19 19:58] VITALS: RESP 18; TEMP 98.7
[2018-12-19 23:08] VITALS: BP 165/72; PULSE 66
== END 2018-12-19 23:09 | disposition home or self-care (01) ==
LOC: EC 17:47
DX: F43.21 Adjustment disorder with depressed mood (principal); E11.319 Type 2 diabetes mellitus with unspecified diabetic retinopathy without macular edema; E78.5 Hyperlipidemia, unspecified; I10 Essential (primary) hypertension; G40.909 Epilepsy, unspecified, not intractable, without status epilepticus; G47.33 Obstructive sleep apnea (adult) (pediatric); E03.9 Hypothyroidism, unspecified; Z88.2 Allergy status to sulfonamides; Z88.8 Allergy status to other drugs, medicaments and biological substances; Z79.4 Long term (current) use of insulin; Z79.82 Long term (current) use of aspirin; Z79.890 Hormone replacement therapy; Z79.899 Other long term (current) drug therapy; Z99.89 Dependence on other enabling machines and devices
CPT/HCPCS: 80306; 82075; 99285

== ENCOUNTER 2019-01-02 18:28 | Emergency (ER) | payer MEDICARE, OTHER ==
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
--- NOTE | 2019-01-02 19:33 | CT ---
EXAMINATION TYPE: CT brain sravani wo con DATE OF EXAM: 01/02/2019 COMPARISON: 12/17/2015 HISTORY: Syncope Headache. Neck pain. CT DLP: 1506.2 mGycm Automated exposure control for dose reduction was used. TECHNIQUE: CT scan of the head and cervical spine are performed without contrast. FINDINGS: Ventricles of normal size. There is no mass effect nor midline shift. There is no sign of intracranial hemorrhage. The calvarium appears intact. Cervical vertebra have normal alignment. There is degenerative spur formation from C4 to C7. There is minimal facet arthropathy. Skull base is intact. There is no evidence of cervical spine fracture. IMPRESSION: Negative CT scan of the brain. Minor degenerative disc changes in the cervical spine. No fracture.
[2019-01-02 19:34] VITALS: BP 134/68; PULSE 71; RESP 18; TEMP 97.9
== END 2019-01-02 19:41 | disposition home or self-care (01) ==
LOC: EC 18:28
DX: S09.90XA Unspecified injury of head, initial encounter (principal); S80.812A Abrasion, left lower leg, initial encounter; R55 Syncope and collapse; E78.5 Hyperlipidemia, unspecified; I10 Essential (primary) hypertension; E11.319 Type 2 diabetes mellitus with unspecified diabetic retinopathy without macular edema; G40.909 Epilepsy, unspecified, not intractable, without status epilepticus; G47.33 Obstructive sleep apnea (adult) (pediatric); E03.9 Hypothyroidism, unspecified; F31.9 Bipolar disorder, unspecified; Z90.49 Acquired absence of other specified parts of digestive tract; Z99.89 Dependence on other enabling machines and devices; Z79.4 Long term (current) use of insulin; Z79.82 Long term (current) use of aspirin; Z79.890 Hormone replacement therapy; Z79.899 Other long term (current) drug therapy; Z88.1 Allergy status to other antibiotic agents; Z88.2 Allergy status to sulfonamides; Z88.8 Allergy status to other drugs, medicaments and biological substances; V18.4XXA Pedal cycle driver injured in noncollision transport accident in traffic accident, initial encounter; Y92.410 Unspecified street and highway as the place of occurrence of the external cause; Y93.55 Activity, bike riding
CPT/HCPCS: 70450; 72125; 99284

== ENCOUNTER 2019-03-11 22:50 | Emergency (ER) | payer MEDICARE, OTHER ==
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
[2019-03-12 03:46] VITALS: BP 185/86; PULSE 81; RESP 19; TEMP 98.1
== END 2019-03-12 03:03 | disposition home or self-care (01) ==
LOC: EC 22:50
DX: F43.21 Adjustment disorder with depressed mood (principal); E11.319 Type 2 diabetes mellitus with unspecified diabetic retinopathy without macular edema; E78.5 Hyperlipidemia, unspecified; I10 Essential (primary) hypertension; G40.909 Epilepsy, unspecified, not intractable, without status epilepticus; E03.9 Hypothyroidism, unspecified; G47.33 Obstructive sleep apnea (adult) (pediatric); F31.9 Bipolar disorder, unspecified; F25.9 Schizoaffective disorder, unspecified; F41.9 Anxiety disorder, unspecified; Z88.2 Allergy status to sulfonamides; Z88.8 Allergy status to other drugs, medicaments and biological substances; Z79.4 Long term (current) use of insulin; Z79.82 Long term (current) use of aspirin; Z79.890 Hormone replacement therapy; Z79.899 Other long term (current) drug therapy; Z63.79 Other stressful life events affecting family and household; Z99.89 Dependence on other enabling machines and devices
CPT/HCPCS: 99284

== ENCOUNTER 2019-04-20 21:24 | Emergency (ER) | payer MEDICARE, OTHER ==
--- NOTE | 2019-04-20 22:13 | ED ---
Psych HPI - General Chief Complaint: Psychiatric Symptoms Stated Complaint: Mental health Time Seen by Provider: 04/20/19 21:34 Source: patient Mode of arrival: ambulatory - History of Present Illness Initial Comments: 53-year-old male patient presents to the emergency department today for evaluation of angry outbursts and anxiety. Patient states this is related to have a history to his fdc. Patient states the other residents of his fdc often make fun of him in her asked him regarding his chosen name of [place]. States that he is constantly being made fun of and it is unsettling. States this makes him angry and causes him to yell. States that he does have suicidal thoughts. His plan is to stop taking his medications. He denies any hallucinations. Denies alcohol or drug use. Denies any current physical symptoms or concerns. Patient denies any recent rash, fever, chills, shortness breath, chest pain, abdominal pain, nausea, vomiting, diarrhea, constipation, back pain, numbness, tingling, dizziness, weakness, hematuria, dysuria, urinary urgency, urinary frequency, headache, visual changes, or any other complaints. - Related Data Home Medications Medication Instructions Recorded Confirmed Aspirin EC [Ecotrin Low Dose] 81 mg PO DAILY 03/13/14 01/02/19 Levothyroxine Sodium [Synthroid] 100 mcg PO DAILY 03/13/14 01/02/19 Lovastatin [Mevacor] 10 mg PO HS 10/16/15 01/02/19 Melatonin 9 mg PO HS 10/16/15 01/02/19 Linagliptin [Tradjenta] 5 mg PO DAILY 03/24/18 01/02/19 risperiDONE 4 mg PO DAILY 05/01/18 01/02/19 Divalproex ER [Depakote ER] 2,000 mg PO HS 05/22/18 01/02/19 Lisinopril [Zestril] 20 mg PO DAILY 09/09/18 01/02/19 Pioglitazone [Actos] 30 mg PO DAILY 09/09/18 01/02/19 amLODIPine [Norvasc] 5 mg PO DAILY 09/09/18 01/02/19 metFORMIN HCL 1,000 mg PO BID 09/09/18 01/02/19 Empagliflozin [Jardiance] 25 mg PO DAILY 09/18/18 01/02/19 Insulin Glargine,Hum.rec.anlog 35 unit PO HS 09/18/18 01/02/19 [Lantus Solostar] cloNIDine HCL [Catapres] 0.1 mg PO TID@0800,1200,1600 09/21/18 01/02/19 Previous Rx's Medication Instructions Recorded Sertraline [Zoloft] 150 mg PO HS #45 tab 12/12/15 Allergies Allergy/AdvReac Type Severity Reaction Status Date / Time carbamazepine [From Tegretol] Allergy Unknown Verified 04/20/19 21:31 phenytoin sodium Allergy Unknown Verified 04/20/19 21:31 [From Dilantin] phenytoin sodium extended Allergy Unknown Verified 04/20/19 21:31 [From Dilantin] primidone Allergy Unknown Verified 04/20/19 21:31 sulfamethoxazole Allergy Unknown Verified 04/20/19 21:31 [From Bactrim] trimethoprim [From Bactrim] Allergy Unknown Verified 04/20/19 21:31 Review of Systems ROS Statement: Those systems with pertinent positive or pertinent negative responses have been documented in the HPI. ROS Other: All systems not noted in ROS Statement are negative. Past Medical History Past Medical History: Diabetes Mellitus, Hyperlipidemia, Hypertension, Seizure Disorder, Sleep Apnea/CPAP/BIPAP, Thyroid Disorder Additional Past Medical History / Comment(s): IDDM type II, bilateral retinal hemorrhage, retinopathy bilaterally, grand/petite mal seizure with last seizure greater than 12 yrs ago, gender dysporia, balance issues, AYDEE normally with CPAP but pt states it is broken, sinus problems, hypothyroid, developmentally harpal yed. History of Any Multi-Drug Resistant Organisms: None Reported Past Surgical History: Cholecystectomy, Tonsillectomy Additional Past Surgical History / Comment(s): throat surgery Past Anesthesia/Blood Transfusion Reactions: No Reported Reaction Past Psychological History: Anxiety, Bipolar, Depression, Schizoaffective Disorder Smoking Status: Never smoker Past Alcohol Use History: None Reported Past Drug Use History: None Reported - Past Family History Mother Family Medical History: Myocardial Infarction ([place]) Additional Family Medical History / Comment(s): Mother of a [place] at the age of 82 yrs. Father History Unknown: Yes Family Medical History: No Reported History General Exam Limitations: no limitations General appearance: alert, in no apparent distress, other (Physical well-devel oped, well-nourished adult male patient in no acute distress.) Respiratory exam: Present: normal lung sounds bilaterally. Absent: respiratory distress, wheezes, rales, rhonchi, stridor Cardiovascular Exam: Present: regular rate, normal rhythm, normal heart sounds. Absent: systolic murmur, diastolic murmur, rubs, gallop, clicks GI/Abdominal exam: Present: soft, normal bowel sounds. Absent: distended, tenderness, guarding, rebound, rigid Neurological exam: Present: alert, oriented X3, CN II-XII intact Psychiatric exam: Present: normal affect, normal mood Skin exam: Present: warm, dry, intact, normal color. Absent: rash Course Vital Signs 04/20/19 04/21/19 21:28 02:55 Temperature 97.8 F 97.4 F L Pulse Rate 92 74 Respiratory 20 18 Rate Blood Pressure 169/92 162/87 O2 Sat by Pulse 100 97 Oximetry Medical Decision Making - Medical Decision Making 53-year-old male patient presents to the emergency department today for evaluation of angry outbursts and suicidal ideation. Physical examination is unremarkable. He was seen and evaluated by emergency psychiatric services. It is felt that he would be safe for discharge home. A safety plan was developed. He'll be discharged to follow up with outpatient mental health services. Return parameters were discussed in detail. He verbalizes understanding and agrees wit h this plan. - Lab Data Lab Results 04/20/19 Range/Units 21:48 Urine Opiates Screen Not Detected (NotDetected) Ur Oxycodone Screen Not Detected (NotDetected) Urine Methadone Screen Not Detected (NotDetected) Ur Propoxyphene Screen Not Detected (NotDetected) Ur Barbiturates Screen Not Detected (NotDetected) U Tricyclic Antidepress Not Detected (NotDetected) Ur Phencyclidine Scrn Not Detected (NotDetected) Ur Amphetamines Screen Not Detected (NotDetected) U Methamphetamines Scrn Not Detected (NotDetected) U Benzodiazepines Scrn Not Detected (NotDetected) Urine Cocaine Screen Not Detected (NotDetected) U Marijuana (THC) Screen Not Detected (NotDetected) Disposition Clinical Impression: Outbursts of anger Disposition: HOME SELF-CARE Condition: Good Instructions (If sedation given, give patient instructions): Mood Disorders (ED) Additional Instructions: Follow-up outpatient mental services instructed. Follow-up with your primary care physician for recheck in 1-2 days. Return to the emergency department immediately for any new, worsening, or concerning symptoms. Is patient prescribed a controlled substance at d/c from ED?: No Referrals: None,Stated [Primary Care Provider] - 1-2 days Time of Disposition: 02:53
[2019-04-20 23:07] LABS: Amphetamine Screen,Urine Not Detected (NotDetected); Barbiturate Screen,Urine Not Detected (NotDetected); Benzodiazepines Screen,Urine Not Detected (NotDetected); Cocaine Screen,Urine Not Detected (NotDetected); Methadone Screen, Urine Not Detected (NotDetected); Opiate Screen,Urine Not Detected (NotDetected); Oxycodone Screen, Urine Not Detected (NotDetected); Phencyclidine Screen,Urine Not Detected (NotDetected); Tricyclic Antidepressant,Urine Not Detected (NotDetected); Urn Cannabinoid Scrn Not Detected (NotDetected)
[2019-04-21 02:56] VITALS: BP 162/87; PULSE 74; RESP 18; TEMP 97.4
== END 2019-04-21 03:25 | disposition home or self-care (01) ==
LOC: EC 21:24
DX: R45.4 Irritability and anger (principal); R45.851 Suicidal ideations; F41.9 Anxiety disorder, unspecified; E11.319 Type 2 diabetes mellitus with unspecified diabetic retinopathy without macular edema; E78.5 Hyperlipidemia, unspecified; I10 Essential (primary) hypertension; G40.909 Epilepsy, unspecified, not intractable, without status epilepticus; G47.33 Obstructive sleep apnea (adult) (pediatric); E03.9 Hypothyroidism, unspecified; F31.9 Bipolar disorder, unspecified; F25.9 Schizoaffective disorder, unspecified; Z88.2 Allergy status to sulfonamides; Z88.8 Allergy status to other drugs, medicaments and biological substances; Z79.4 Long term (current) use of insulin; Z79.82 Long term (current) use of aspirin; Z79.890 Hormone replacement therapy; Z79.899 Other long term (current) drug therapy; Z99.89 Dependence on other enabling machines and devices
CPT/HCPCS: 80306; 82075; 99285

== ENCOUNTER 2019-04-24 17:24 | Emergency (ER) | payer MEDICARE, OTHER ==
[2019-04-24] MEDS ORDERED: SODIUM CHLORIDE 0.9% 1,000 ML IV STA (17:58)
--- NOTE | 2019-04-24 18:02 | ED ---
Anxiety HPI - General Chief Complaint: Anxiety Stated Complaint: Anxiety Time Seen by Provider: 04/24/19 17:34 Source: patient, EMS, RN notes reviewed, old records reviewed Mode of arrival: EMS - History of Present Illness Initial Comments: This is a 53-year-old male here for evaluation patient is safe for evaluation regards to not happy with living situation versus think his medications may be messing with his brain. Patient caregiver loss patient ER patient comes here for evaluation by EMS. He is denying any chest pain shortness of breath no change in medications denying drug or alcohol abuse. Denying homicidal or suicidal thoughts MD Complaint: anxiety -: year(s) Symptoms: sense of impending doom Place: home Previous History of Same: Yes Severity: mild Quality: intermittent Provoking factors: emotional stress, medication change Improves With: nothing, rest Worsens With: medication Associated symptoms: denies other symptoms - Related Data Home Medications: Home Medications Medication Instructions Recorded Confirmed Aspirin EC [Ecotrin Low Dose] 81 mg PO DAILY 03/13/14 04/24/19 Levothyroxine Sodium [Synthroid] 100 mcg PO DAILY 03/13/14 04/24/19 Lovastatin [Mevacor] 10 mg PO HS 10/16/15 04/24/19 Melatonin 9 mg PO HS 10/16/15 04/24/19 Linagliptin [Tradjenta] 5 mg PO DAILY 03/24/18 04/24/19 risperiDONE 4 mg PO DAILY 05/01/18 04/24/19 Divalproex ER [Depakote ER] 2,000 mg PO HS 05/22/18 04/24/19 Lisinopril [Zestril] 20 mg PO DAILY 09/09/18 04/24/19 Pioglitazone [Actos] 30 mg PO DAILY 09/09/18 04/24/19 Empagliflozin [Jardiance] 25 mg PO DAILY 09/18/18 04/24/19 Insulin Glargine,Hum.rec.anlog 35 unit PO HS 09/18/18 04/24/19 [Lantus Solostar] cloNIDine HCL [Catapres] 0.1 mg PO TID@0800,1200,1600 09/21/18 04/24/19 Dicyclomine [Bentyl] 10 mg PO TID PRN 04/24/19 04/24/19 Repaglinide 0.5 mg PO AC-BID 04/24/19 04/24/19 Vortioxetine Hydrobromide 10 mg PO DAILY 04/24/19 04/24/19 [Trintellix] risperiDONE 3 mg PO HS 04/24/19 04/24/19 Allergies/Adverse Reactions: Allergies Allergy/AdvReac Type Severity Reaction Status Date / Time carbamazepine [From Tegretol] Allergy Unknown Verified 04/24/19 19:37 phenytoin sodium Allergy Unknown Verified 04/24/19 19:37 [From Dilantin] phenytoin sodium extended Allergy Unknown Verified 04/24/19 19:37 [From Dilantin] primidone Allergy Unknown Verified 04/24/19 19:37 sulfamethoxazole Allergy Unknown Verified 04/24/19 19:37 [From Bactrim] trimethoprim [From Bactrim] Allergy Unknown Verified 04/24/19 19:37 Review of Systems ROS Statement: Those systems with pertinent positive or pertinent negative responses have been documented in the HPI. ROS Other: All systems not noted in ROS Statement are negative. Past Medical History Past Medical History: Diabetes Mellitus, Hyperlipidemia, Hypertension, Seizure Disorder, Sleep Apnea/CPAP/BIPAP, Thyroid Disorder Additional Past Medical History / Comment(s): IDDM type II, bilateral retinal hemorrhage, retinopathy bilaterally, grand/petite mal seizure with last seizure greater than 12 yrs ago, gender dysporia, balance issues, AYDEE normally with CPAP but pt states it is broken, sinus problems, hypothyroid, developmentally delayed.Epilipsy seizures History of Any Multi-Drug Resistant Organisms: None Reported Past Surgical History: Cholecystectomy, Tonsillectomy Additional Past Surgical History / Comment(s): throat surgery Past Anesthesia/Blood Transfusion Reactions: No Reported Reaction Past Psychological History: Anxiety, Bipolar, Depression, Schizoaffective Disorder Smoking Status: Never smoker Past Alcohol Use History: None Reported Past Drug Use History: None Reported - Past Family History Mother Family Medical History: Myocardial Infarction ([place]) Additional Family Medical History / Comment(s): Mother of a [place] at the age of 82 yrs. Father History Unknown: Yes Family Medical History: No Reported History General Exam Limitations: no limitations General appearance: alert, in no apparent distress Head exam: Present: atraumatic, normocephalic, normal inspection Eye exam: Present: normal appearance, PERRL, EOMI. Absent: scleral icterus, conjunctival injection, periorbital swelling ENT exam: Present: normal exam, mucous membranes moist Neck exam: Present: normal inspection. Absent: tenderness, meningismus, lymphadenopathy Respiratory exam: Present: normal lung sounds bilaterally. Absent: respiratory distress, wheezes, rales, rhonchi, stridor Cardiovascular Exam: Present: regular rate, normal rhythm, normal heart sounds. Absent: systolic murmur, diastolic murmur, rubs, gallop, clicks GI/Abdominal exam: Present: soft, normal bowel sounds. Absent: distended, tenderness, guarding, rebound, rigid Extremities exam: Present: normal inspection, full ROM, normal capillary refill. Absent: tenderness, pedal edema, joint swelling, calf tenderness Back exam: Present: normal inspection Neurological exam: Present: alert, oriented X3, CN II-XII intact Psychiatric exam: Present: normal affect, normal mood Skin exam: Present: warm, dry, intact, normal color. Absent: rash Course Vital Signs 04/24/19 04/24/19 17:33 19:32 Temperature 98.6 F 97.4 F L Pulse Rate 88 67 Respiratory 20 16 Rate Blood Pressure 179/98 178/92 O2 Sat by Pulse 99 98 Oximetry - Reevaluation(s) Reevaluation #1: 04/24/19 20:32 Records reviewed Reevaluation #2: 04/24/19 20:32 Patient is not Homicidal or suicidal, denying need for psychiatric evaluation Medical Decision Making - Medical Decision Making 51 female here for evaluation patient comes in with multiple nonspecific complaints no significant findings here in the ER patient remains without significant complaint of patient can be discharged home - Lab Data Result diagrams: 04/24/19 19:05 04/24/19 19:05 Lab Results 04/24/19 04/24/19 04/24/19 Range/Units 19:05 19:05 19:33 WBC 5.8 (3.8-10.6) k/uL RBC 4.46 (4.30-5.90) m/uL Hgb 13.9 (13.0-17.5) gm/dL Hct 40.9 (39.0-53.0) % MCV 91.8 (80.0-100.0) fL MCH 31.2 (25.0-35.0) pg MCHC 34.0 (31.0-37.0) g/dL RDW 13.6 (11.5-15.5) % Plt Count 174 (150-450) k/uL Neutrophils % 53 % Lymphocytes % 32 % Monocytes % 10 % Eosinophils % 2 % Basophils % 1 % Neutrophils # 3.1 (1.3-7.7) k/uL Lymphocytes # 1.9 (1.0-4.8) k/uL Monocytes # 0.6 (0-1.0) k/uL Eosinophils # 0.1 (0-0.7) k/uL Basophils # 0.0 (0-0.2) k/uL Sodium 138 (137-145) mmol/L Potassium 4.3 (3.5-5.1) mmol/L Chloride 103 (98-107) mmol/L Carbon Dioxide 27 (22-30) mmol/L Anion Gap 8 mmol/L BUN 16 (9-20) mg/dL Creatinine 0.78 (0.66-1.25) mg/dL Est GFR (CKD-EPI)AfAm >90 (>60 ml/min/1.73 sqM) Est GFR (CKD-EPI)NonAf >90 (>60 ml/min/1.73 sqM) Glucose 209 H (74-99) mg/dL Calcium 9.1 (8.4-10.2) mg/dL Total Bilirubin 0.4 (0.2-1.3) mg/dL AST 26 (17-59) U/L ALT 18 (4-49) U/L Alkaline Phosphatase 56 (38-126) U/L Creatine Kinase 261 H (55-170) U/L Total Protein 6.6 (6.3-8.2) g/dL Albumin 3.9 (3.5-5.0) g/dL Salicylates <1.0 mg/dL Urine Opiates Screen Not Detected (NotDetected) Ur Oxycodone Screen Not Detected (NotDetected) Urine Methadone Screen Not Detected (NotDetected) Ur Propoxyphene Screen Not Detected (NotDetected) Acetaminophen <10.0 ug/mL Ur Barbiturates Screen Not Detected (NotDetected) Phenytoin <3.0 ug/mL Valproic Acid 46.8 ug/mL Carbamazepine <3.0 ug/mL U Tricyclic Antidepress Not Detected (NotDetected) Ur Phencyclidine Scrn Not Detected (NotDetected) Ur Amphetamines Screen Not Detected (NotDetected) U Methamphetamines Scrn Not Detected (NotDetected) U Benzodiazepines Scrn Not Detected (NotDetected) [place] <0.2 mmol/L Urine Cocaine Screen Not Detected (NotDetected) U Marijuana (THC) Screen Not Detected (NotDetected) Serum Alcohol <10 mg/dL Disposition Clinical Impression: Acute anxiety, Panic attack Disposition: HOME SELF-CARE Condition: Fair Instructions (If sedation given, give patient instructions): Generalized Anxiety Disorder (ED) Is patient prescribed a controlled substance at d/c from ED?: No Referrals: None,Stated [Primary Care Provider] - 1-2 days
[2019-04-24 19:16] LABS: Basophils % (A) 1 %; Eosinophils # (A) 0.1 k/uL (0-0.7); Eosinophils % (A) 2 %; HCT 40.9 % (39.0-53.0); HGB 13.9 gm/dL (13.0-17.5); Lymphocytes # (A) 1.9 k/uL (1.0-4.8); Lymphocytes % (A) 32 %; MCH 31.2 pg (25.0-35.0); MCV 91.8 fL (80.0-100.0); Mean Platelet Volume 8.7; Monocytes # (A) 0.6 k/uL (0-1.0); Monocytes % (A) 10 %; Neutrophils # (A) 3.1 k/uL (1.3-7.7); Neutrophils % (A) 53 %; Platelet Count 174 k/uL (150-450); RBC 4.46 m/uL (4.30-5.90); RDW 13.6 % (11.5-15.5); WBC 5.8 k/uL (3.8-10.6)
[2019-04-24 19:27] LABS: ALT 18 U/L (4-49); AST 26 U/L (17-59); Acetaminophen <10.0 ug/mL; African American GFR (CKD) >90 (>60 ml/min/1.73 sqM); Albumin 3.9 g/dL (3.5-5.0); Alcohol <10 mg/dL; Alkaline Phosphatase 56 U/L (38-126); Anion Gap 8 mmol/L; Blood Urea Nitrogen 16 mg/dL (9-20); Calcium 9.1 mg/dL (8.4-10.2); Carbamazepine (Tegretol) <3.0 ug/mL; Carbon Dioxide 27 mmol/L (22-30); Chloride 103 mmol/L (98-107); Creatine Kinase 261 U/L (55-170); Glucose 209 mg/dL (74-99); Lithium <0.2 mmol/L; Non-African American GFR(CKD) >90 (>60 ml/min/1.73 sqM); Phenytoin (Dilantin) <3.0 ug/mL; Potassium 4.3 mmol/L (3.5-5.1); Salicylate <1.0 mg/dL; Sodium 138 mmol/L (137-145); Total Bilirubin 0.4 mg/dL (0.2-1.3); Total Protein 6.6 g/dL (6.3-8.2)
[2019-04-24 19:29] LABS: Valproic Acid (Depakene) 46.8 ug/mL
[2019-04-24 20:04] LABS: Amphetamine Screen,Urine Not Detected (NotDetected); Barbiturate Screen,Urine Not Detected (NotDetected); Benzodiazepines Screen,Urine Not Detected (NotDetected); Cocaine Screen,Urine Not Detected (NotDetected); Methadone Screen, Urine Not Detected (NotDetected); Opiate Screen,Urine Not Detected (NotDetected); Oxycodone Screen, Urine Not Detected (NotDetected); Phencyclidine Screen,Urine Not Detected (NotDetected); Tricyclic Antidepressant,Urine Not Detected (NotDetected); Urn Cannabinoid Scrn Not Detected (NotDetected)
[2019-04-24 21:28] VITALS: BP 176/80; PULSE 71; RESP 18; TEMP 98.3
== END 2019-04-24 21:26 | disposition home or self-care (01) ==
LOC: EC 17:24
DX: F41.0 Panic disorder [episodic paroxysmal anxiety] (principal); E11.9 Type 2 diabetes mellitus without complications; E78.5 Hyperlipidemia, unspecified; I10 Essential (primary) hypertension; G47.33 Obstructive sleep apnea (adult) (pediatric); E03.9 Hypothyroidism, unspecified; G40.909 Epilepsy, unspecified, not intractable, without status epilepticus; F31.9 Bipolar disorder, unspecified; Z79.82 Long term (current) use of aspirin; Z79.890 Hormone replacement therapy; Z79.4 Long term (current) use of insulin; Z79.899 Other long term (current) drug therapy; Z88.8 Allergy status to other drugs, medicaments and biological substances; Z88.1 Allergy status to other antibiotic agents; Z88.2 Allergy status to sulfonamides; Z99.89 Dependence on other enabling machines and devices
CPT/HCPCS: 36415; 80156; 80164; 80053; 82550; 80185; 80178; 85025; 80306; 83520; 99284; 96360; G0480 ×2; 80320; 80329

== ENCOUNTER 2019-04-25 16:44 | Emergency (ER) | payer MEDICARE, OTHER ==
[2019-04-25 16:50] VITALS: BP 212/89; PULSE 112; RESP 18; TEMP 98.5
--- NOTE | 2019-04-25 17:00 | ED ---
Psych HPI - General Chief Complaint: Psychiatric Symptoms Stated Complaint: Mental health Time Seen by Provider: 04/25/19 16:47 Source: patient, EMS, RN notes reviewed, old records reviewed Mode of arrival: ambulatory - History of Present Illness Initial Comments: This is a 33-year-old male here for evaluation. 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 He was also kill Jory lives with MD Complaint: other (Anger, homicidal thoughts) -: hour(s) Associated Psychiatric Symptoms: none History of same: Yes Quality: constant Improves With: none Worsens With: none Context: not taking psychiatric medications Associated Symptoms: denies other symptoms Treatments Prior to Arrival: placed on mental health hold If Self Harm: admits thoughts of self harm (Admits thoughts of homicidal ideation) - Related Data Home Medications Medication Instructions Recorded Confirmed Aspirin EC [Ecotrin Low Dose] 81 mg PO DAILY 03/13/14 04/25/19 Levothyroxine Sodium [Synthroid] 100 mcg PO DAILY 03/13/14 04/25/19 Lovastatin [Mevacor] 10 mg PO HS 10/16/15 04/25/19 Melatonin 9 mg PO HS 10/16/15 04/25/19 Linagliptin [Tradjenta] 5 mg PO DAILY 03/24/18 04/25/19 risperiDONE 4 mg PO DAILY 05/01/18 04/25/19 Divalproex ER [Depakote ER] 2,000 mg PO HS 05/22/18 04/25/19 Lisinopril [Zestril] 20 mg PO DAILY 09/09/18 04/25/19 Pioglitazone [Actos] 30 mg PO DAILY 09/09/18 04/25/19 Empagliflozin [Jardiance] 25 mg PO DAILY 09/18/18 04/25/19 Insulin Glargine,Hum.rec.anlog 40 unit PO DAILY 09/18/18 04/25/19 [Lantus Solostar] cloNIDine HCL [Catapres] 0.1 mg PO TID@0800,1200,1600 09/21/18 04/25/19 Dicyclomine [Bentyl] 10 mg PO TID PRN 04/24/19 04/25/19 Repaglinide 0.5 mg PO AC-BID 04/24/19 04/25/19 Vortioxetine Hydrobromide 10 mg PO DAILY 04/24/19 04/25/19 [Trintellix] risperiDONE 3 mg PO HS 04/24/19 04/25/19 Allergies Allergy/AdvReac Type Severity Reaction Status Date / Time primidone Allergy Unknown Verified 04/25/19 19:12 Childhood sulfamethoxazole Allergy Itching Verified 04/25/19 19:12 [From Bactrim] trimethoprim [From Bactrim] Allergy Itching Verified 04/25/19 19:12 carbamazepine [From Tegretol] AdvReac Confusion Verified 04/25/19 19:12 phenytoin sodium AdvReac Confusion Verified 04/25/19 19:12 [From Dilantin] phenytoin sodium extended AdvReac Confusion Verified 04/25/19 19:12 [From Dilantin] Review of Systems ROS Statement: Those systems with pertinent positive or pertinent negative responses have been documented in the HPI. ROS Other: All systems not noted in ROS Statement are negative. Past Medical History Past Medical History: Diabetes Mellitus, Hyperlipidemia, Hypertension, Seizure Disorder, Sleep Apnea/CPAP/BIPAP, Thyroid Disorder Additional Past Medical History / Comment(s): IDDM type II, bilateral retinal hemorrhage, retinopathy bilaterally, grand/petite mal seizure with last seizure greater than 12 yrs ago, gender dysporia, balance issues, AYDEE normally with CPAP but pt states it is broken, sinus problems, hypothyroid, developmentally delayed.Epilipsy seizures History of Any Multi-Drug Resistant Organisms: None Reported Past Surgical History: Cholecystectomy, Tonsillectomy Additional Past Surgical History / Comment(s): throat surgery Past Anesthesia/Blood Transfusion Reactions: No Reported Reaction Past Psychological History: Anxiety, Bipolar, Depression, Schizoaffective Disorder Smoking Status: Never smoker Past Alcohol Use History: None Reported Past Drug Use History: None Reported - Past Family History Mother Family Medical History: Myocardial Infarction ([place]) Additional Family Medical History / Comment(s): Mother of a [place] at the age of 82 yrs. Father History Unknown: Yes Family Medical History: No Reported History General Exam Limitations: no limitations General appearance: alert, in no apparent distress, anxious Head exam: Present: atraumatic, normocephalic, normal inspection Eye exam: Present: normal appearance, PERRL, EOMI. Absent: scleral icterus, conjunctival injection, periorbital swelling ENT exam: Present: normal exam, mucous membranes moist Neck exam: Present: normal inspection. Absent: tenderness, meningismus, lymphadenopathy Respiratory exam: Present: normal lung sounds bilaterally. Absent: respiratory distress, wheezes, rales, rhonchi, stridor Cardiovascular Exam: Present: regular rate, normal rhythm, normal heart sounds. Absent: systolic murmur, diastolic murmur, rubs, gallop, clicks GI/Abdominal exam: Present: soft, normal bowel sounds. Absent: distended, tenderness, guarding, rebound, rigid Extremities exam: Present: normal inspection, full ROM, normal capillary refill. Absent: tenderness, pedal edema, joint swelling, calf tenderness Back exam: Present: normal inspection Neurological exam: Present: alert, oriented X3, CN II-XII intact Psychiatric exam: Present: normal affect, normal mood Skin exam: Present: warm, dry, intact, normal color. Absent: rash Course Vital Signs 04/25/19 16:46 Temperature 98.5 F Pulse Rate 112 H Respiratory 18 Rate Blood Pressure 212/89 O2 Sat by Pulse 98 Oximetry - Reevaluation(s) Reevaluation #1: 04/25/19 18:58 Medical record is reviewed and patient is medically clear for psychiatric evaluation Medical Decision Making - Medical Decision Making 53 male who was seen and evaluated here in the emergency department, patient seen and evaluated by psychiatry here, not deemed necessary for psychiatric admit. Patient will be discharged Disposition Clinical Impression: Outbursts of anger, Depression Disposition: HOME SELF-CARE Condition: Fair Instructions (If sedation given, give patient instructions): Depression (ED) Is patient prescribed a controlled substance at d/c from ED?: No Referrals: None,Stated [Primary Care Provider] - 1-2 days
== END 2019-04-25 21:33 | disposition home or self-care (01) ==
LOC: EC 16:44
DX: F31.30 Bipolar disorder, current episode depressed, mild or moderate severity, unspecified (principal); R45.4 Irritability and anger; R45.850 Homicidal ideations; R45.851 Suicidal ideations; E11.319 Type 2 diabetes mellitus with unspecified diabetic retinopathy without macular edema; E78.5 Hyperlipidemia, unspecified; I10 Essential (primary) hypertension; G40.909 Epilepsy, unspecified, not intractable, without status epilepticus; E03.9 Hypothyroidism, unspecified; F41.9 Anxiety disorder, unspecified; F25.9 Schizoaffective disorder, unspecified; Z88.2 Allergy status to sulfonamides; Z88.8 Allergy status to other drugs, medicaments and biological substances; Z79.4 Long term (current) use of insulin; Z79.82 Long term (current) use of aspirin; Z79.890 Hormone replacement therapy; Z79.899 Other long term (current) drug therapy
CPT/HCPCS: 82075; 99285

== ENCOUNTER 2019-11-03 23:52 | Emergency (ER) | payer MEDICARE, OTHER ==
[2019-11-04 00:08] VITALS: TEMP 97.6
[2019-11-04] MEDS ORDERED: LORazepam 1 MG TAB PO STA (00:34)
[2019-11-04 01:41] LABS: Glucose,Whole Blood 268 mg/dL (75-99)
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
[2019-11-04 03:00] VITALS: BP 134/99; PULSE 83; RESP 17
== END 2019-11-04 02:59 | disposition home or self-care (01) ==
LOC: EC 23:52
DX: F41.9 Anxiety disorder, unspecified (principal); E11.319 Type 2 diabetes mellitus with unspecified diabetic retinopathy without macular edema; I10 Essential (primary) hypertension; G47.33 Obstructive sleep apnea (adult) (pediatric); E03.9 Hypothyroidism, unspecified; E78.5 Hyperlipidemia, unspecified; F31.9 Bipolar disorder, unspecified; F25.9 Schizoaffective disorder, unspecified; G40.909 Epilepsy, unspecified, not intractable, without status epilepticus; Z79.4 Long term (current) use of insulin; Z79.84 Long term (current) use of oral hypoglycemic drugs; Z79.82 Long term (current) use of aspirin; Z79.890 Hormone replacement therapy; Z79.899 Other long term (current) drug therapy; Z88.2 Allergy status to sulfonamides; Z88.8 Allergy status to other drugs, medicaments and biological substances; Z88.1 Allergy status to other antibiotic agents; Z99.89 Dependence on other enabling machines and devices; Z87.891 Personal history of nicotine dependence
CPT/HCPCS: 36415; 99283

== ENCOUNTER 2019-12-16 22:22 | Emergency (ER) | payer MEDICARE, OTHER ==
[2019-12-16 22:31] VITALS: BP 151/84; PULSE 102; RESP 18; TEMP 98.2
[2019-12-16] MEDS ORDERED: LORazepam 1 MG TAB PO STA (23:03)
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
== END 2019-12-17 00:22 | disposition home or self-care (01) ==
LOC: EC 22:22
DX: F43.20 Adjustment disorder, unspecified (principal); F41.9 Anxiety disorder, unspecified; I10 Essential (primary) hypertension; E11.319 Type 2 diabetes mellitus with unspecified diabetic retinopathy without macular edema; G47.33 Obstructive sleep apnea (adult) (pediatric); G40.909 Epilepsy, unspecified, not intractable, without status epilepticus; E03.9 Hypothyroidism, unspecified; E78.5 Hyperlipidemia, unspecified; F31.9 Bipolar disorder, unspecified; F25.9 Schizoaffective disorder, unspecified; Z79.4 Long term (current) use of insulin; Z79.82 Long term (current) use of aspirin; Z79.890 Hormone replacement therapy; Z79.84 Long term (current) use of oral hypoglycemic drugs; Z79.899 Other long term (current) drug therapy; Z88.2 Allergy status to sulfonamides; Z88.1 Allergy status to other antibiotic agents; Z88.8 Allergy status to other drugs, medicaments and biological substances; Z99.89 Dependence on other enabling machines and devices; Z87.891 Personal history of nicotine dependence
CPT/HCPCS: 99283

== ENCOUNTER 2021-10-01 08:44 | Day surgery (SDC) | payer MEDICARE, OTHER ==
[2021-09-29 11:56] VITALS: BMI 35.2
[~2021-10-01 08:44] MED LIST: LACTATED RINGERS 1,000 ML IV SCH; LIDOCAINE 1% (10MG/ML) FOR IV START INTRADERMA PRN
[2021-10-01 09:43] LABS: Glucose,Whole Blood 82 mg/dL (70-110)
[2021-10-01 09:43] LABS: Glucose,Whole Blood 76 mg/dL (70-110)
[2021-10-01] MEDS ORDERED: DEXTROSE 50% SYRINGE 50 ML IVP ONE (09:50)
[2021-10-01 09:54] VITALS: RESP 16; TEMP 96.9
[2021-10-01] MEDS ORDERED: PROPOFOL 10 MG/ML 20 ML VIAL IV ONE (10:12)
--- NOTE | 2021-10-01 10:31 | P.PCN ---
Date of Procedure: 10/01/21 Procedure(s) Performed: BRIEF HISTORY: Patient is a 56-year-old pleasant white male scheduled for an elective colonoscopy as a part of evaluation of Hemoccult-positive stool. PROCEDURE PERFORMED: Colonoscopy with biopsy. PREOPERATIVE DIAGNOSIS: Hemoccult-positive stool. IV sedation per Anesthesia. PROCEDURE: After informed consent was obtained, the patient, was brought into the endoscopy unit. IV sedation was administered by Anesthesia under continuous monitoring. Digital rectal examination was normal. Initially the Olympus CF-160 flexible video colonoscope was then inserted in the rectum, gradually advanced into the cecum without any difficulty. Careful examination was performed as the scope was gradually being withdrawn. Ileocecal valve and the appendiceal orifice were visualized and appeared normal. Prep was excellent. Mucosa of the cecum, ascending colon, transverse colon, descending colon, sigmoid colon, and rectum appeared normal. There was a 3 mm rectal polyp that was removed by cold biopsy Retroflexion was performed in the rectum and no lesions were seen. The patient tolerated the procedure well. IMPRESSION: 3 mm rectal polyp status post cold biopsy Rest of the colon appeared RECOMMENDATIONS: Findings of this examination were discussed with the patient as well as his family. He was advised to follow with the biopsy results. If the biopsy reveals adenoma she can have a repeat colonoscopy in 5.
[2021-10-01 10:51] VITALS: PULSE 78
[2021-10-01 10:54] VITALS: BP 137/64
== END 2021-10-01 10:58 | disposition home or self-care (01) ==
LOC: ORWHC2ENDO 08:44
PROVIDERS: ATTEND Internal Medicine Gastroenterology
DX: K62.1 Rectal polyp (principal); I10 Essential (primary) hypertension; E78.5 Hyperlipidemia, unspecified; G47.33 Obstructive sleep apnea (adult) (pediatric); E11.9 Type 2 diabetes mellitus without complications; R56.9 Unspecified convulsions; R62.50 Unspecified lack of expected normal physiological development in childhood; Z79.899 Other long term (current) drug therapy; Z79.84 Long term (current) use of oral hypoglycemic drugs; Z79.82 Long term (current) use of aspirin; Z79.890 Hormone replacement therapy
CPT/HCPCS: 88305; 45380; J2704

== ENCOUNTER → 2021-12-24 | Outpatient (CLI) | payer MEDICARE, OTHER ==
[2021-12-24 16:45] LABS: ALT 19 U/L (10-49); AST 22 U/L (14-35); African American GFR (CKD) 97.8 (60.0-200.0); Albumin 4.2 g/dL (3.8-4.9); Albumin/Globulin Ratio 1.56 (1.60-3.17); Alkaline Phosphatase 60 U/L (41-126); Blood Urea Nitrogen 14.8 mg/dL (9.0-27.0); Calcium 9.5 mg/dL (8.7-10.3); Carbon Dioxide 24.5 mmol/L (20.0-27.5); Chloride 102 mmol/L (96-109); Chol/HDL Ratio 4.08 Ratio; Globulin 2.7 g/dL (1.6-3.3); Glucose 146 mg/dL (70-110); LDL Cholesterol,Calculated 119.9 mg/dL (0.0-131.0); Non-African American GFR(CKD) 84.4 (60.0-200.0); Potassium 4.1 mmol/L (3.5-5.5); Sodium 140 mmol/L (135-145); Total Protein 6.9 g/dL (6.2-8.2)
[2021-12-24 20:41] LABS: Microalbumin Creatinine Ratio <30 mg/g Creat (0-30); Urine Creatinine 66.6 mg/dL (39.0-259.0)
== END | disposition home or self-care (01) ==
LOC: LABWHC1 07:50
PROVIDERS: ATTEND Internal Medicine Endocrinology, Diabetes & Metabolism
DX: E11.65 Type 2 diabetes mellitus with hyperglycemia (principal)
CPT/HCPCS: 36415; 80053; 80061; 82043; 82570; 83036; 84443

== ENCOUNTER 2023-04-09 03:18 | Inpatient (IN) | payer MEDICARE, OTHER ==
--- NOTE | 2023-04-09 03:47 | ED ---
Chest Pain HPI - General Chief Complaint: Chest Pain Stated Complaint: Chest Pain Time Seen by Provider: 04/09/23 03:43 Source: patient, EMS Mode of arrival: EMS - History of Present Illness Initial Comments: 57yo patient presented to the ER today for evaluation of chest pain. Patient reports that today they walked a couple of blocks to by soda at the store he reports that he drinks one soda about 2 more to take home to his long-term share. Patient reports that they then walked home he was feeling fine during the wall. Ate dinner he went to bed when was laying in bed and suddenly had severe stabbing pain in left chest. Pain occurred without provocation was severe sharp in the left chest. Pain was associated with some shortness of breath but no diaphoresis lightheadedness. Patient states that they visited the cardiology office earlier today and were advised that it may need to undergo further outpatient testing though not clear on what testing that was. - Related Data Home Medications Medication Instructions Recorded Confirmed Aspirin EC [Ecotrin Low Dose] 81 mg PO DAILY 03/13/14 04/09/23 Levothyroxine Sodium [Synthroid] 100 mcg PO QAM 03/13/14 04/09/23 Lovastatin [Mevacor] 10 mg PO HS 10/16/15 04/09/23 risperiDONE 4 mg PO QAM 05/01/18 04/09/23 Divalproex ER [Depakote ER] 2,000 mg PO HS 05/22/18 04/09/23 Empagliflozin [Jardiance] 25 mg PO DAILY 09/18/18 04/09/23 cloNIDine HCL [Catapres] 0.1 mg PO BID@0800,1600 09/21/18 04/09/23 risperiDONE 3 mg PO HS 04/24/19 04/09/23 Cholecalciferol [Vitamin D3 (25 50 mcg PO DAILY 09/29/21 04/09/23 Mcg = 1000 Iu)] Dulaglutide [Trulicity] 3 mg SQ Q7D 09/29/21 04/09/23 Fexofenadine HCl 180 mg PO DAILY 09/29/21 04/09/23 Fluticasone Nasal [place] [Flonase 1 spray EA NOSTRIL DAILY PRN 09/29/21 04/09/23 Nasal [place]] Glimepiride [Amaryl] 4 mg PO DAILY 09/29/21 04/09/23 Pioglitazone [Actos] 45 mg PO DAILY 09/29/21 04/09/23 Insulin Glargine [Lantus Vial] 15 unit SQ HS 04/09/23 04/09/23 Insulin Lispro [humaLOG Kwikpen] See Protocol SQ ACHS 04/09/23 04/09/23 Melatonin 3 mg PO DAILY@1800 PRN 04/09/23 04/09/23 Omeprazole [PriLOSEC] 20 mg PO DAILY 04/09/23 04/09/23 Vortioxetine Hydrobromide 20 mg PO DAILY 04/09/23 04/09/23 [Trintellix] lisinopriL 40 mg PO DAILY 04/09/23 04/09/23 Allergies Allergy/AdvReac Type Severity Reaction Status Date / Time primidone Allergy Unknown Verified 04/09/23 08:20 Childhood sulfamethoxazole Allergy Itching Verified 04/09/23 08:20 [From Bactrim] trimethoprim [From Bactrim] Allergy Itching Verified 04/09/23 08:20 carbamazepine [From Tegretol] AdvReac Confusion Verified 04/09/23 08:20 phenytoin sodium AdvReac Confusion Verified 04/09/23 08:20 [From Dilantin] phenytoin sodium extended AdvReac Confusion Verified 04/09/23 08:20 [From Dilantin] Review of Systems ROS Statement: Those systems with pertinent positive or pertinent negative responses have been documented in the HPI. ROS Other: All systems not noted in ROS Statement are negative. EKG Findings - EKG Comments: EKG Findings:: Age interpreted by me EKG obtained at 20 9 AM rate is 74 rhythm is sinus with significant artifact. No obvious ST elevations or depressions no obvious evidence of ischemia or infarction. Past Medical History Past Medical History: Diabetes Mellitus, Hyperlipidemia, Hypertension, Seizure Disorder, Sleep Apnea/CPAP/BIPAP, Thyroid Disorder Additional Past Medical History / Comment(s): Hx bilateral retinal hemorrhage and retinopathy - currently stable. Hx epilepsy/grand/petite mal seizures with last seizure >12 yrs ago. Gender Dysphoria. Balance issues. No current CPAP use, was recalled and has no replacement yet. Sinus problems. Hypothyroid. Developmentally delayed. History of Any Multi-Drug Resistant Organisms: None Reported Past Surgical History: Cholecystectomy, Tonsillectomy Additional Past Surgical History / Comment(s): Throat surgery, laser eye surgery, colonocopy. Past Anesthesia/Blood Transfusion Reactions: No Reported Reaction Past Psychological History: Anxiety, Bipolar, Depression, Schizoaffective Disorder Smoking Status: Former smoker Past Alcohol Use History: None Reported Past Drug Use History: None Reported - Past Family History Mother Family Medical History: Myocardial Infarction ([place]) Additional Family Medical History / Comment(s): Mother of a [place] at the age of 82 yrs. Father History Unknown: Yes Family Medical History: No Reported History General Exam - General Exam Comments Initial Comments: Physical Exam GENERAL: Patient is well-developed and well-nourished. Patient is nontoxic and well- hydrated and is in no distress. HENT: Normocephalic, Atraumatic. EYES: PERRL, EOMI PULMONARY: Unlabored respirations. No audible rales rhonchi or wheezing was noted. CARDIOVASCULAR: There is a regular rate and rhythm without any murmurs gallops or rubs. ABDOMEN: Soft and nontender with normal bowel sounds. SKIN: Skin is clear with no lesions or rashes and otherwise unremarkable. : Deferred NEUROLOGIC: Patient is alert and oriented x3. Moving all extremities spontaneously MUSCULOSKELETAL: Normal extremities with adequate strength and full range of motion. No lower extremity swelling or edema. No calf tenderness. PSYCHIATRIC: Normal psychiatric evaluation. Course Vital Signs 04/09/23 04/09/23 04/09/23 03:20 05:21 07:30 Temperature 98.3 F 97.5 F L Pulse Rate 78 60 63 Respiratory 19 18 18 Rate Blood Pressure 192/92 156/81 165/92 O2 Sat by Pulse 98 98 98 Oximetry Chest Pain MDM - MDM Was pt. sent in by a medical professional or institution (, PA, DEMOLITION ENGINEER, urgent care, hospital, or halfway...) When possible be specific @ -No Did you speak to anyone other than the patient for history (EMS, parent, family, police, friend...)? What history was obtained from this source @ -No Did you review nursing and triage notes (agree or disagree)? Why? @ -I reviewed and agree with nursing and triage notes Were old charts reviewed (outside hosp., previous admission, EMS record, old EKG, old radiological studies, urgent care reports/EKG's, halfway records)? Report findings @ -No old charts were reviewed Differential Diagnosis (chest pain, altered mental status, abdominal pain women, abdominal pain men, vaginal bleeding, weakness, fever, dyspnea, syncope, headache, dizziness, GI bleed, back pain, seizure, CVA, palpatations, mental health)? @ Differential Chest Pain: Stable Angina, Unstable Angina, STEMI, NSTEMI Aortic Dissection, Pneumothorax, Musculoskeletal, Esophageal Spasm GERD, Cholecystitis, Pancreatitis, Zoster, this is not meant to be an all-inclusive list. EKG interpreted by me (3pts min.). @ -As above X-rays interpreted by me (1pt min.). @ -None done CT interpreted by me (1pt min.). @ -None done U/S interpreted by me (1pt. min.). @ -None done What testing was considered but not performed or refused? (CT, X-rays, U/S, labs)? Why? @ -None What meds were considered but not given or refused? Why? @ -None Did you discuss the management of the patient with other professionals (professionals i.e. , PA, DEMOLITION ENGINEER, lab, RT, psych nurse, director social, records specialist, teacher, medical laboratory technical officer, case checker)? Give summary @ -No Was smoking cessation discussed for >3mins.? @ -No Was critical care preformed (if so, how long)? @ -No Were there social determinants of health that impacted care today? How? (Homelessness, low income, unemployed, alcoholism, drug addiction, transportation, low edu. Level, literacy, decrease access to med. care, detention, rehab)? @ -No Was there de-escalation of care discussed even if they declined (Discuss DNR or withdrawal of care, Hospice)? DNR status @ -No What co-morbidities impacted this encounter? (DM, HTN, Smoking, COPD, CAD, Cancer, CVA, ARF, Chemo, Hep., AIDS, mental health diagnosis, sleep apnea, morbid obesity)? @ -None Was patient admitted / discharged? Hospital course, mention meds given and route, prescriptions, significant lab abnormalities, going to OR and other pertinent info. @ Admit 57-year-old male poor historian presented with a stabbing episodes of chest pain resolved prior to arrival. Labs are obtained troponin is mildly elevated. Heparin was initiated patient will be admitted with consult to cardiology. Undiagnosed new problem with uncertain prognosis? @ -No Drug Therapy requiring intensive monitoring for toxicity (Heparin, Nitro, Insulin, Cardizem)? @ -Yes, heparin Were any procedures done? @ -No Diagnosis/symptom? @ -NSTEMI Acute, or Chronic, or Acute on Chronic? @ -default Uncomplicated (without systemic symptoms) or Complicated (systemic symptoms)? @ -default Side effects of treatment? @ -No Exacerbation, Progression, or Severe Exacerbation? @ -No Poses a threat to life or bodily function? How? (Chest pain, [place], [place], pneumonia, PE, COPD, DKA, ARF, appy, cholecystitis, CVA, Diverticulitis, Homicidal, Suicidal, threat to staff... and all critical care pts) @ -[Yes Disposition Clinical Impression: Acute non-ST elevation myocardial infarction (NSTEMI) Disposition: ADMITTED IP TO THIS HOSP Condition: Stable Is patient prescribed a controlled substance at d/c from ED?: No
[2023-04-09 05:13] LABS: ALT 22 U/L (4-49); AST 25 U/L (17-59); African American GFR (CKD) >90 (>60 ml/min/1.73 sqM); Albumin 3.5 g/dL (3.5-5.0); Alkaline Phosphatase 63 U/L (38-126); Anion Gap 8 mmol/L; Blood Urea Nitrogen 14 mg/dL (9-20); Calcium 8.5 mg/dL (8.4-10.2); Carbon Dioxide 25 mmol/L (22-30); Chloride 99 mmol/L (98-107); Glucose 152 mg/dL (74-99); Lipase 528 U/L (23-300); Non-African American GFR(CKD) >90 (>60 ml/min/1.73 sqM); Potassium 3.8 mmol/L (3.5-5.1); Sodium 132 mmol/L (137-145); Total Bilirubin 0.4 mg/dL (0.2-1.3)
[2023-04-09 05:30] LABS: Basophils % (A) 1 %; Eosinophils # (A) 0.1 k/uL (0-0.7); Eosinophils % (A) 1 %; HCT 40.2 % (39.0-53.0); HGB 13.5 gm/dL (13.0-17.5); Lymphocytes # (A) 2.5 k/uL (1.0-4.8); Lymphocytes % (A) 45 %; MCH 32.6 pg (25.0-35.0); MCHC 33.6 g/dL (31.0-37.0); MCV 97.1 fL (80.0-100.0); Monocytes # (A) 0.4 k/uL (0-1.0); Monocytes % (A) 8 %; Neutrophils # (A) 2.4 k/uL (1.3-7.7); Neutrophils % (A) 43 %; Platelet Count 141 k/uL (150-450); RBC 4.14 m/uL (4.30-5.90); RDW 13.1 % (11.5-15.5); WBC 5.6 k/uL (3.8-10.6)
[2023-04-09] MEDS ORDERED: HEPARIN SODIUM 1,000 UN/ML (10ML VL) IV ONE (05:50)
[2023-04-09] MEDS ORDERED: HEPARIN SODIUM 1,000 UN/ML (10ML VL) IV PRN (05:50)
[2023-04-09 05:51] LABS: INR 0.9 (<1.2); Partial Thromboplastin Time 24.3 sec (22.0-30.0); Prothrombin Time 10.4 sec (10.0-12.5)
[2023-04-09] MEDS: HEPARIN SOD,PORK IN 0.45% NACL 25,000 UNIT in 0.45% NACL 1 250ML.BAG IV SCH (06:10)
[2023-04-09] MEDS ORDERED: NITROGLYCERIN SL TABS 0.4 MG TAB SUBLINGUAL PRN (07:11)
--- NOTE | 2023-04-09 07:37 | XR ---
EXAMINATION TYPE: XR chest 2V DATE OF EXAM: 04/09/2023 COMPARISON: 09/09/2018 HISTORY: 57-year-old male with chest pain TECHNIQUE: PA and lateral views FINDINGS: The cardiomediastinal silhouette, aorta, and pulmonary vasculature are within normal limits. Lungs an d pleural spaces are clear. IMPRESSION: No acute cardiopulmonary process.
[2023-04-09 10:16] LABS: Glucose,Whole Blood 182 mg/dL (70-110)
[2023-04-09] MEDS ORDERED: DEXTROSE 50% SYRINGE 50 ML IVP PRN ×2 (10:35)
[2023-04-09] MEDS ORDERED: DULAGLUTIDE 3 MG/0.5 ML SQ SCH (10:45)
--- NOTE | 2023-04-09 11:14 | CONS ---
CONSULTATION CHIEF COMPLAINT: Chest pain. HISTORY OF PRESENT ILLNESS: This is a 57-year-old gentleman with history of seizure disorder, hypertension, diabetes, dyslipidemia, obstructive sleep apnea, hypothyroidism, bipolar mood disorder, who is currently living in an assisted living care facility and has a history of CVA and bilateral retinopathy with visual impairment, who presents to hospital complaining of chest discomfort. He states that the chest pain had come on suddenly, sharp, precordial, and mild intensity without definite radiation to the neck, arm, or back. EKG showed nonspecific ST-T wave changes. The first set of troponin is elevated at 0.049. At the time of my evaluation, the patient appears comfortable at rest and is free of symptoms. The patient is currently on intravenous heparin for the same. The plan at this stage is to obtain further troponins, a 2D echo to assess LV function and wall motion and decide on further course of action. At the time of my evaluation, he is hemodynamically stable and free of symptoms. PAST MEDICAL HISTORY: Significant for hypertension, hypothyroidism, diabetes, questionable history of CVA. MEDICATIONS: Medications at home included: 1. Actos. 2. Trulicity. 3. Prilosec. 4. Mevacor. 5. Synthroid. 6. Insulin. 7. Jardiance. 8. Amaryl. 9. Depakote. 10.Catapres. ALLERGIES: Multiple drug allergies including primidone, Bactrim, Tegretol, Dilantin. FAMILY HISTORY: Negative for premature coronary artery disease. SOCIAL HISTORY: He denies smoking, EtOH abuse, or drug abuse. REVIEW OF SYSTEMS: HEENT: Unremarkable. CARDIAC: As described above. RESPIRATORY: Negative. GI: Negative. GENITOURINARY: Negative. ALLERGY/IMMUNOLOGY: Negative. SKIN: Negative. MUSCULOSKELETAL: Significant for arthritis. PSYCHOSOCIAL: Negative. DERM: Negative. CONSTITUTIONAL: Negative. ONCOLOGICAL: Negative. EXERCISE PLANNER: Negative. Rest of the system review is not relevant. PHYSICAL EXAMINATION: GENERAL: The patient is comfortable at rest. VITAL SIGNS: Afebrile. Heart rate is 63 beats per minute. Blood pressure is 160/92. Respiratory rate is 18. O2 saturation is 98% on room air. NECK: There is no jugular venous distention. CHEST: Reveals good air entry bilaterally. HEART: Reveals first and second heart sounds. Systolic murmur at the apex. ABDOMEN: Soft. EXTREMITIES: Reveal mild edema. Peripheral pulses are felt. ASSESSMENT: 1. Gez-EI-[id number] elevation myocardial infarction. 2. Insulin-requiring diabetes. 3. Uncontrolled hypertension. PLAN: I will resume lisinopril, aspirin, clonidine to better control his blood pressure. Add a beta danay, nitrates. Continue the heparin. Obtain a 2D echo, further sets of troponins, and will decide on further course of action. MMGILMER / CHANTELLN: [id number] /
[2023-04-09] MEDS: cloNIDine HCL 0.1 MG TAB PO SCH ×2 (11:40→15:53)
[2023-04-09] MEDS: VORTIOXETINE HYDROBROMIDE 20 MG TABLET PO SCH (11:41)
[2023-04-09] MEDS: lisinopriL 20 MG TAB PO SCH (11:41)
[2023-04-09] MEDS: risperiDONE 2 MG TAB PO SCH (11:41)
[2023-04-09] MEDS: ASPIRIN 81 MG PO SCH (11:41)
[2023-04-09] MEDS: LEVOTHYROXINE 100 MCG TAB PO SCH (11:41)
[2023-04-09] MEDS: PIOGLITAZONE 45 MG TAB PO SCH (11:41)
[2023-04-09] MEDS: PANTOPRAZOLE 40 MG TABLET PO SCH (11:41)
[2023-04-09 13:28] LABS: Glucose,Whole Blood 177 mg/dL (70-110)
[2023-04-09] MEDS: INSULIN ASPART (NovoLOG) 100 UNIT/ML VIAL SQ SCH ×2 (13:36→18:57)
[2023-04-09] MEDS: DAPAGLIFLOZIN PROPANEDIOL 10 MG TABLET PO SCH (13:36)
[2023-04-09 16:26] LABS: Glucose,Whole Blood 195 mg/dL (70-110)
--- NOTE | 2023-04-09 17:49 | P.HPIM ---
History of Present Illness H&P Date: 04/09/23 Chief Complaint: Chest pain This is a 57-year-old patient this is a 57-year-old patient follows with visiting physicians Dr. Ragsdale. Tonic stable medical conditions includes diabetes, hypertension, hyperlipidemia, seizure disorder, sleep apnea-currently not using CPAP, hypothyroid has retinopathy, gender dysphoria. Developmental delay. Yesterday when it was raining the patient apparently had gone to the [employer] [place]. And walk back. Upon coming back patient developed chest pain. He is not able to quantify the same. Denies any office radiation or shortness of breath. Sent in for the same. Prior cardiac history. Today denies any chest pain. Review of systems: GEN.: Tired EYES: None HEENT: None NECK: None RESPIRATORY: None CARDIOVASCULAR: As above GASTROINTESTINAL: None GENITOURINARY: None MUSCULOSKELETAL: None LYMPHATICS: None HEMATOLOGICAL: None PSYCHIATRY: Slow to answer questions NEUROLOGICAL: None Social history: Patient stopped smoking 20-30 years ago. No alcohol. Lives at the assisted living [facility]. Physical examination: VITAL SIGNS: At 7.5, 63, 18, 165/92, 98% room air GENERAL: BMI 40.4, declining bit of a comfortable. EYES: Pupils equal. Conjunctiva normal. HEENT: External appearance of nose and ears normal, oral cavity grossly normal. NECK: JVD not raised; masses not palpable. HEART: First and second heart sounds are normal; no edema. LUNGS: Respiratory rate normal; clear to auscultation. ABDOMEN: Soft, nontender, liver spleen not palpable, no masses palpable. PSYCH: Able to answer questions. Slightly anxiousl. MUSCULOSKELETAL:No Clubbing/cyanosis;muscles-grossly intact NEUROLOGICAL: Cranial nerves grossly intact; no facial asymmetry, power and sensation grossly intact. LYMPHATICS: No lymph nodes palpable in the axilla and neck INVESTIGATIONS, reviewed in the clinical context: 04/09/2023: White count 5.6 hemoglobin 13.5 platelets 141 sodium 132 potassium 3.8 creatinine 0.77 Troponin I 0.049, 0.053, 0.048 EKG tracing personally reviewed by me-normal sinus rhythm nonspecific T-wave changes Chest x-ray film personally reviewed by me-some elevation of the right diaphragm Assessment and plan: -Acute non-Q-wave [place] Started IV heparin the ER. Aspirin. Cardiology consulted. -IV heparin monitoring -Essential hypertension Catapres 0.1 mg twice a day lisinopril -Diabetes mellitus type 2, chronically on insulin Actos. Trulicity. Lantus. Lispro. jardiance. Amaryl. -Bipolar disorder. Schizoaffective disorder. Risperidone. Depakote ER. -Developmental delay -Gender dysphoria -Full code Past Medical History Past Medical History: Diabetes Mellitus, Hyperlipidemia, Hypertension, Seizure Disorder, Sleep Apnea/CPAP/BIPAP, Thyroid Disorder Additional Past Medical History / Comment(s): Hx bilateral retinal hemorrhage and retinopathy - currently stable. Hx epilepsy/grand/petite mal seizures with last seizure >12 yrs ago. Gender Dysphoria. Balance issues. No current CPAP use, was recalled and has no replacement yet. Sinus problems. Hypothyroid. Developmentally delayed. History of Any Multi-Drug Resistant Organisms: None Reported Past Surgical History: Cholecystectomy, Tonsillectomy Additional Past Surgical History / Comment(s): Throat surgery, laser eye surgery, colonocopy. Past Anesthesia/Blood Transfusion Reactions: No Reported Reaction Past Psychological History: Anxiety, Bipolar, Depression, Schizoaffective Disorder Smoking Status: Former smoker Past Alcohol Use History: None Reported Past Drug Use History: None Reported - Past Family History Mother Family Medical History: Myocardial Infarction (MS) Additional Family Medical History / Comment(s): Mother of a MS at the age of 82 yrs. Father History Unknown: Yes Family Medical History: No Reported History Medications and Allergies Home Medications Medication Instructions Recorded Confirmed Type Aspirin EC [Ecotrin Low Dose] 81 mg PO DAILY 03/13/14 04/09/23 History Levothyroxine Sodium [Synthroid] 100 mcg PO QAM 03/13/14 04/09/23 History Lovastatin [Mevacor] 10 mg PO HS 10/16/15 04/09/23 History risperiDONE 4 mg PO QAM 05/01/18 04/09/23 History Divalproex ER [Depakote ER] 2,000 mg PO HS 05/22/18 04/09/23 History Empagliflozin [Jardiance] 25 mg PO DAILY 09/18/18 04/09/23 History cloNIDine HCL [Catapres] 0.1 mg PO BID@0800,1600 09/21/18 04/09/23 History risperiDONE 3 mg PO HS 04/24/19 04/09/23 History Cholecalciferol [Vitamin D3 (25 50 mcg PO DAILY 09/29/21 04/09/23 History Mcg = 1000 Iu)] Dulaglutide [Trulicity] 3 mg SQ Q7D 09/29/21 04/09/23 History Fexofenadine HCl 180 mg PO DAILY 09/29/21 04/09/23 History Fluticasone Nasal [place] [Flonase 1 spray EA NOSTRIL DAILY PRN 09/29/21 04/09/23 History Nasal [place]] Glimepiride [Amaryl] 4 mg PO DAILY 09/29/21 04/09/23 History Pioglitazone [Actos] 45 mg PO DAILY 09/29/21 04/09/23 History Insulin Glargine [Lantus Vial] 15 unit SQ HS 04/09/23 04/09/23 History Insulin Lispro [humaLOG Kwikpen] See Protocol SQ ACHS 04/09/23 04/09/23 History Melatonin 3 mg PO DAILY@1800 PRN 04/09/23 04/09/23 History Omeprazole [PriLOSEC] 20 mg PO DAILY 04/09/23 04/09/23 History Vortioxetine Hydrobromide 20 mg PO DAILY 04/09/23 04/09/23 History [Trintellix] lisinopriL 40 mg PO DAILY 04/09/23 04/09/23 History Allergies Allergy/AdvReac Type Severity Reaction Status Date / Time primidone Allergy Unknown Verified 04/09/23 08:20 Childhood sulfamethoxazole Allergy Itching Verified 04/09/23 08:20 [From Bactrim] trimethoprim [From Bactrim] Allergy Itching Verified 04/09/23 08:20 carbamazepine [From Tegretol] AdvReac Confusion Verified 04/09/23 08:20 phenytoin sodium AdvReac Confusion Verified 04/09/23 08:20 [From Dilantin] phenytoin sodium extended AdvReac Confusion Verified 04/09/23 08:20 [From Dilantin] Physical Exam Vitals: Vital Signs Temp Pulse Resp BP Pulse Ox 04/09/23 07:30 97.5 F L 63 18 165/92 98 04/09/23 05:21 60 18 156/81 98 04/09/23 03:20 98.3 F 78 19 192/92 98 Intake and Output 04/08/23 04/09/23 04/09/23 22:59 06:59 14:59 Other: Weight 113.398 kg Results CBC & Chem 7: 04/09/23 04:09 04/09/23 04:09 Labs: Abnormal Lab Results - Last 24 Hours (Table) 04/09/23 04/09/23 04/09/23 Range/Units 04:09 04:09 04:09 RBC 4.14 L (4.30-5.90) m/uL Plt Count 141 L (150-450) k/uL Sodium 132 L (137-145) mmol/L Glucose 152 H (74-99) mg/dL POC Glucose (mg/dL) (70-110) mg/dL Troponin I 0.049 H* (0.000-0.034) ng/mL Total Protein 6.0 L (6.3-8.2) g/dL Lipase 528 H (23-300) U/L 04/09/23 Range/Units 10:12 RBC (4.30-5.90) m/uL Plt Count (150-450) k/uL Sodium (137-145) mmol/L Glucose (74-99) mg/dL POC Glucose (mg/dL) 182 H (70-110) mg/dL Troponin I (0.000-0.034) ng/mL Total Protein (6.3-8.2) g/dL Lipase (23-300) U/L
[2023-04-09] MEDS ORDERED: MELATONIN 3 MG TABLET PO PRN (18:00)
[2023-04-09 19:52] LABS: Glucose,Whole Blood 322 mg/dL (70-110)
[2023-04-09] MEDS: ATORVASTATIN 10 MG TAB PO SCH (20:23)
[2023-04-09] MEDS: INSULIN DETEMIR (LEVEMIR) 100 UNIT/ML SYR SQ SCH (20:23)
[2023-04-09] MEDS: risperiDONE 1 MG TAB PO SCH (20:23)
[2023-04-09] MEDS: DIVALPROEX ER 500 MG TAB.ER.24H PO SCH (20:24)
[2023-04-10 06:01] LABS: Glucose,Whole Blood 134 mg/dL (70-110)
[2023-04-10] MEDS: HEPARIN SOD,PORK IN 0.45% NACL 25,000 UNIT in 0.45% NACL 1 250ML.BAG IV SCH (06:05)
[2023-04-10] MEDS: INSULIN ASPART (NovoLOG) 100 UNIT/ML VIAL SQ SCH ×3 (06:05→16:29)
[2023-04-10] MEDS: PANTOPRAZOLE 40 MG TABLET PO SCH (06:06)
[2023-04-10 08:03] LABS: Basophils % (A) 1 %; Eosinophils # (A) 0.1 k/uL (0-0.7); Eosinophils % (A) 2 %; HCT 41.6 % (39.0-53.0); HGB 13.7 gm/dL (13.0-17.5); Lymphocytes # (A) 2.8 k/uL (1.0-4.8); Lymphocytes % (A) 48 %; MCH 32.1 pg (25.0-35.0); MCV 97.2 fL (80.0-100.0); Mean Platelet Volume 9.8; Monocytes # (A) 0.4 k/uL (0-1.0); Monocytes % (A) 8 %; Neutrophils # (A) 2.3 k/uL (1.3-7.7); Neutrophils % (A) 40 %; Platelet Count 141 k/uL (150-450); RBC 4.28 m/uL (4.30-5.90); WBC 5.7 k/uL (3.8-10.6)
[2023-04-10 08:36] LABS: Prothrombin Time 10.8 sec (10.0-12.5)
[2023-04-10] MEDS ORDERED: ASPIRIN 325 MG TAB PO SCH (09:00)
[2023-04-10] MEDS: DAPAGLIFLOZIN PROPANEDIOL 10 MG TABLET PO SCH (10:14)
[2023-04-10] MEDS: lisinopriL 20 MG TAB PO SCH (10:14)
[2023-04-10] MEDS: cloNIDine HCL 0.1 MG TAB PO SCH ×2 (10:14→17:16)
[2023-04-10] MEDS: LEVOTHYROXINE 100 MCG TAB PO SCH (10:14)
[2023-04-10] MEDS: ASPIRIN 81 MG PO SCH (10:14)
[2023-04-10] MEDS: PIOGLITAZONE 45 MG TAB PO SCH (10:17)
[2023-04-10] MEDS: risperiDONE 2 MG TAB PO SCH (10:17)
[2023-04-10] MEDS: CHOLECALCIFEROL 25 MCG (1000 IU) TABLET PO SCH (10:17)
[2023-04-10] MEDS: VORTIOXETINE HYDROBROMIDE 20 MG TABLET PO SCH (10:18)
[2023-04-10 11:26] LABS: Glucose,Whole Blood 160 mg/dL (70-110)
--- NOTE | 2023-04-10 11:47 | CA ---
Transthoracic Echo Report Name: Sugar De La Cruz Age: 57 Gender: M : 1965 Exam Date: 04/09/2023 12:56 Exam Location: [facility] Ht (in): 66 Wt (lb): 250 Ordering Physician: Gabriel Slaughter MD ([id number]) Attending/Referring Phys: Sukhjinder TUCKER Liver Trimmer Jacinda Caldera [facility] Procedure CPT: Indications: elevated troponin Cardiac Hx: Technical Quality: Technically difficult study Contrast 1: Definity Total Dose (mL): 4 Contrast 2: Total Dose (mL): MEASUREMENTS (Male / Female) Normal Values 2D ECHO LV Diastolic Diameter PLAX 5.5 cm 4.2 - 5.9 / 3.9 - 5.3 cm LV Systolic Diameter PLAX 3.9 cm IVS Diastolic Thickness 1.1 cm 0.6 - 1.0 / 0.6 - 0.9 cm LVPW Diastolic Thickness 1.1 cm 0.6 - 1.0 / 0.6 - 0.9 cm LV Relative Wall Thickness 0.4 LVOT Diameter 2.0 cm Ascending Aorta Diameter 3.3 cm M-MODE Aortic Root Diameter MM 2.8 cm LA Systolic Diameter MM 3.7 cm LA Ao Ratio MM 1.3 AV Cusp Separation MM 2.1 cm DOPPLER AV Peak Velocity 107.7 cm/s AV Peak Gradient 4.6 mmHg AV Mean Velocity 78.5 cm/s AV Mean Gradient 2.7 mmHg AV Velocity Time Integral 26.4 cm LVOT Peak Velocity 101.5 cm/s LVOT Peak Gradient 4.1 mmHg LVOT Velocity Time Integral 21.6 cm LVOT Stroke Volume 65.4 cm??? LVOT Stroke Volume Index 29.8 ml/m??? LVOT Cardiac Index 1751.4 cm???/min???m??? AV Area Cont Eq vti 2.5 cm??? AV Area Cont Eq pk 2.9 cm??? Mitral E Point Velocity 93.6 cm/s Mitral A Point Velocity 63.7 cm/s Mitral E to A Ratio 1.5 MV Deceleration Time 219.2 ms LV E' Lateral Velocity 10.8 cm/s Mitral E to LV E' Lateral Ratio 8.6 LV E' Septal Velocity 6.2 cm/s Mitral E to LV E' Septal Ratio 15.1 Right Atrial Pressure 8.0 mmHg FINDINGS Left Ventricle Mildly increased left ventricular wall thickness. Left ventricular cavity size at the upper limits of normal. Left ventricular ejection fraction is estimated at 40-45%. Mildly reduced global left ventricular systolic function. Right Ventricle Mild right ventricular dilatation. Right Atrium Mild right atrial dilatation. Left Atrium Left atrial size at the upper limits of normal. Mitral Valve Structurally normal mitral valve. Trace mitral regurgitation. Aortic Valve Trileaflet aortic valve. No aortic valve stenosis or regurgitation. Tricuspid Valve Structurally normal tricuspid valve. No tricuspid regurgitation. Pulmonic Valve Pulmonic valve not well visualized. Pericardium Minimal pericardial effusion (normal variant). Aorta Normal size aortic root and proximal ascending aorta. CONCLUSIONS Left ventricular ejection fraction 40-45% Mildly increased left ventricular wall thickness Trace mitral regurgitation Previewed by: Dr. Roberto Carlos Castillo DO (Electronically Signed) Final Date: 10 April 2023 11:45
[2023-04-10 13:45] LABS: Chol/HDL Ratio 3.71 Ratio; LDL Cholesterol,Calculated 85.1 mg/dL (0.0-131.0)
[2023-04-10 16:07] LABS: Glucose,Whole Blood 96 mg/dL (70-110)
--- NOTE | 2023-04-10 19:44 | P.PN ---
Subjective Progress Note Date: 04/10/23 SUBJECTIVE: 57-year-old with history of seizure disorder, hypertension, diabetes, dyslipidemia, AYDEE, hypertension, bipolar disorder, is a resident of a correction. He has history of CVA He presented to the hospital because of symptoms of substernal chest pain. On admission his EKG showed nonspecific ST changes. Labs showed a troponin of flat pattern at 0.04, 0.05, 0.04 Echo cardiac exam showed an EF of 45%, mild LVH, no significant PHYSICAL EXAMINATION Vital signs reviewed. Head: Normocephalic. Eyes: Sclerae nonicteric. Neck: Brisk carotid upstroke, no jugular venous distention. Lungs: Clear to auscultation. Heart: Regular rate and rhythm, S1-S2, no S3, no murmur or rub. Abdomen: Soft nontender, positive bowel sounds no organomegaly. Extremities: No significant swelling. ASSESSMENT Chest pain, likely noncardiac Rule out of ACS. Mild elevation of troponin with a flat pattern is 19 noncardiac Cardiomyopathy with mildly reduced EF. EF 40-45% Essential hypertension Type II Diabetes Obesity Bipolar disorder and mental disability correction resident History of CVA Hypothyroidism Elevated lipase PLAN Recommend outpatient Lexiscan nuclear stress test for cardiomyopathy evaluation Continue aspirin, atorvastatin Continue Farxiga and lisinopril 40 mg Discontinue IV heparin drip Continue clonidine 0.1 mg twice a day. This is patient's chronic medication. I will not change his medication at this time. Obtain TSH level Primary team to evaluate the significance of elevated lipase. If TSH is normal, patient is stable to be discharged from cardiac vessel standpoint. Recommend outpatient follow-up with Dr. Espino. Outpatient nuclear stress test. Objective - Vital Signs Vital signs: Vital Signs Temp 98.4 F 04/10/23 16:00 Pulse 73 04/10/23 16:00 Resp 17 04/10/23 16:00 BP 139/78 04/10/23 16:00 Pulse Ox 96 04/10/23 16:38 FiO2 Intake & Output 04/10/23 04/10/23 04/11/23 06:59 18:59 06:59 Intake Total 779.167 598 Output Total 1750 700 Balance -970.833 -102 Intake: Intake, IV Titration 239.167 Amount Heparin Sod,Pork in 0.45% 239.167 NaCl 25,000 unit In 0.45 % NaCl 1 250ml.bag @ 8. 8185 UNITS/KG/HR 10 mls/ hr IV .Q24H [facility] Rx#: [id number] Oral 540 598 Output: Urine 1750 700 Other: Voiding Method Urinal Urinal Diaper Diaper - Labs CBC & Chem 7: 04/10/23 07:30 04/09/23 04:09 Labs: Abnormal Lab Results - Last 24 Hours (Table) 04/09/23 04/10/23 04/10/23 Range/Units 19:45 05:59 07:30 RBC (4.30-5.90) m/uL Plt Count (150-450) k/uL POC Glucose (mg/dL) 322 H 134 H (70-110) mg/dL Triglycerides 177.00 H (0.00-149.00) mg/dL 04/10/23 04/10/23 Range/Units 07:30 11:24 RBC 4.28 L (4.30-5.90) m/uL Plt Count 141 L (150-450) k/uL POC Glucose (mg/dL) 160 H (70-110) mg/dL Triglycerides (0.00-149.00) mg/dL
[2023-04-10] MEDS: DIVALPROEX ER 500 MG TAB.ER.24H PO SCH (19:52)
[2023-04-10] MEDS: ATORVASTATIN 10 MG TAB PO SCH (19:52)
[2023-04-10] MEDS: risperiDONE 1 MG TAB PO SCH (19:53)
[2023-04-10 19:58] LABS: Glucose,Whole Blood 163 mg/dL (70-110)
[2023-04-10] MEDS: INSULIN DETEMIR (LEVEMIR) 100 UNIT/ML SYR SQ SCH (20:33)
--- NOTE | 2023-04-10 21:52 | P.PN ---
Progress Note - Text Progress Note Date: 04/10/23 Chief Complaint: Chest pain This is a 57-year-old patient this is a 57-year-old patient follows with visiting physicians Dr. Ragsdale. Tonic stable medical conditions includes diabetes, hypertension, hyperlipidemia, seizure disorder, sleep apnea-currently not using CPAP, hypothyroid has retinopathy, gender dysphoria. Developmental delay. Yesterday when it was raining the patient apparently had gone to the [employer] [place]. And walk back. Upon coming back patient developed chest pain. He is not able to quantify the same. Denies any office radiation or shortness of breath. Sent in for the same. Prior cardiac history. Today denies any chest pain. April 10: No further chest pain. Laying comfortably. 2-D echo shows EF of 40-45%. Increase Lipitor to 40 mg. Also add Aldactone 12.5 mg. lisinopril also added. Active Medications Aspirin (Aspirin 81 Mg) 81 mg PO DAILY [facility] Last Admin: 04/10/23 10:14 Dose: 81 mg Atorvastatin Calcium (Atorvastatin 40 Mg Tab) 40 mg PO [facility] Cholecalciferol (Cholecalciferol 25 Mcg (1000 Iu) Tablet) 50 mcg PO DAILY [facility] Last Admin: 04/10/23 10:17 Dose: 50 mcg Clonidine (Clonidine Hcl 0.1 Mg Tab) 0.1 mg PO BID@0800,1600 [facility] Last Admin: 04/10/23 17:16 Dose: Not Given Dapagliflozin (Dapagliflozin Propanediol 10 Mg Tablet) 10 mg PO DAILY [facility] Last Admin: 04/10/23 10:14 Dose: 10 mg Dextrose/Water (Dextrose 50% Syringe 50 Ml) 25 ml IVP PER PROTOCOL PRN; Protocol PRN Reason: Hypoglycemia Dextrose/Water (Dextrose 50% Syringe 50 Ml) 50 ml IVP PER PROTOCOL PRN; Protocol PRN Reason: Hypoglycemia Divalproex Sodium (Divalproex Er 500 Mg Tab.Er.24h) 2,000 mg PO HS [facility] Last Admin: 04/10/23 19:52 Dose: 2,000 mg Insulin Aspart (Insulin Aspart (Novolog) 100 Unit/Ml Vial) 0 unit SQ AC-TID [facility]; Protocol Last Admin: 04/10/23 16:29 Dose: Not Given Insulin Detemir (Insulin Detemir (Levemir) 100 Unit/Ml Syr) 15 unit SQ [facility] Last Admin: 04/10/23 20:33 Dose: 15 unit Levothyroxine Sodium (Levothyroxine 100 Mcg Tab) 100 mcg PO QAM [facility] Last Admin: 04/10/23 10:14 Dose: 100 mcg Lisinopril (Lisinopril 20 Mg Tab) 40 mg PO DAILY [facility] Last Admin: 04/10/23 10:14 Dose: 40 mg Melatonin (Melatonin 3 Mg Tablet) 3 mg PO DAILY@1800 PRN PRN Reason: sleep Nitroglycerin (Nitroglycerin Sl Tabs 0.4 Mg Tab) 0.4 mg SUBLINGUAL Q5M PRN PRN Reason: Chest Pain Patients Own Med ( Dulaglutide [ Trulicity] 3 Mg/0.5 Ml Each) 3 mg SQ Q7D [facility] Last Admin: 04/09/23 11:35 Dose: Not Given Pantoprazole Sodium (Pantoprazole 40 Mg Tablet) 40 mg PO 0730 [facility] Last Admin: 04/10/23 06:06 Dose: 40 mg Pioglitazone HCl (Pioglitazone 45 Mg Tab) 45 mg PO DAILY [facility] Last Admin: 04/10/23 10:17 Dose: 45 mg Risperidone (Risperidone 2 Mg Tab) 4 mg PO QAM [facility] Last Admin: 04/10/23 10:17 Dose: 4 mg Risperidone (Risperidone 1 Mg Tab) 3 mg PO HS [facility] Last Admin: 04/10/23 19:53 Dose: 3 mg Spironolactone (Spironolactone 25 Mg Tab) 12.5 mg PO DAILY [facility] Vortioxetine (Vortioxetine Hydrobromide 20 Mg Tablet) 20 mg PO DAILY [facility] Last Admin: 04/10/23 10:18 Dose: 20 mg Social history: Patient stopped smoking 20-30 years ago. No alcohol. Lives at the [facility] living [facility]. Physical examination: VITAL SIGNS: 98.4, 83, 17, 140/87, 96% room air GENERAL: Laying in bed, comfortable EYES: Pupils equal. Conjunctiva normal. HEENT: External appearance of nose and ears normal, oral cavity grossly normal. NECK: JVD not raised; masses not palpable. HEART: First and second heart sounds are normal; no edema. LUNGS: Respiratory rate normal; clear to auscultation. ABDOMEN: Soft, nontender, liver spleen not palpable, no masses palpable. PSYCH: Able to answer questions. Slightly anxiousl. MUSCULOSKELETAL:No Clubbing/cyanosis;muscles-grossly intact NEUROLOGICAL: Cranial nerves grossly intact; no facial asymmetry, power and sensation grossly intact. LYMPHATICS: No lymph nodes palpable in the axilla and neck INVESTIGATIONS, reviewed in the clinical context: 04/10/2023: White count 5.70 globin 13.7 LDL 85 04/09/2023: White count 5.6 hemoglobin 13.5 platelets 141 sodium 132 potassium 3.8 creatinine 0.77 Troponin I 0.049, 0.053, 0.048 EKG tracing personally reviewed by me-normal sinus rhythm nonspecific T-wave changes Chest x-ray film personally reviewed by me-some elevation of the right diaphragm Assessment and plan: -Acute non-Q-wave [place] Started IV heparin the ER. -discontinued Aspirin. Cardiology allowing -Cardiomyopathy, likely ischemic EF 40-45%. Lisinopril. Aldactone 12.5 mg. Farxiga. Added -IV heparin stopped -Essential hypertension Catapres 0.1 mg twice a day lisinopril -Diabetes mellitus type 2, chronically on insulin Actos. Trulicity. Lantus. Lispro. jardiance. Amaryl. -Bipolar disorder. Schizoaffective disorder. Risperidone. Depakote ER. -Developmental delay -Gender dysphoria -Full code Past Medical History Past Medical History: Diabetes Mellitus, Hyperlipidemia, Hypertension, Seizure Disorder, Sleep Apnea/CPAP/BIPAP, Thyroid Disorder Additional Past Medical History / Comment(s): Hx bilateral retinal hemorrhage and retinopathy - currently stable. Hx epilepsy/grand/petite mal seizures with last seizure >12 yrs ago. Gender Dysphoria. Balance issues. No current CPAP use, was recalled and has no replacement yet. Sinus problems. Hypothyroid. Developmentally delayed. History of Any Multi-Drug Resistant Organisms: None Reported Past Surgical History: Cholecystectomy, Tonsillectomy Additional Past Surgical History / Comment(s): Throat surgery, laser eye surgery, colonocopy. Past Anesthesia/Blood Transfusion Reactions: No Reported Reaction Past Psychological History: Anxiety, Bipolar, Depression, Schizoaffective Disorder Smoking Status: Former smoker Past Alcohol Use History: None Reported Past Drug Use History: None Reported
[2023-04-11 03:36] VITALS: RESP 16
[2023-04-11 05:47] LABS: Glucose,Whole Blood 129 mg/dL (70-110)
[2023-04-11] MEDS: INSULIN ASPART (NovoLOG) 100 UNIT/ML VIAL SQ SCH ×2 (05:48→12:18)
[2023-04-11] MEDS: PANTOPRAZOLE 40 MG TABLET PO SCH (06:26)
[2023-04-11] MEDS ORDERED: SPIRONOLACTONE 25 MG TAB PO SCH (09:00)
[2023-04-11] MEDS: CHOLECALCIFEROL 25 MCG (1000 IU) TABLET PO SCH (09:39)
[2023-04-11] MEDS: ASPIRIN 81 MG PO SCH (09:39)
[2023-04-11] MEDS: PIOGLITAZONE 45 MG TAB PO SCH (09:39)
[2023-04-11] MEDS: DAPAGLIFLOZIN PROPANEDIOL 10 MG TABLET PO SCH (09:39)
[2023-04-11] MEDS: cloNIDine HCL 0.1 MG TAB PO SCH ×2 (09:39→15:40)
[2023-04-11] MEDS: LEVOTHYROXINE 100 MCG TAB PO SCH (09:39)
[2023-04-11] MEDS: risperiDONE 2 MG TAB PO SCH (09:40)
[2023-04-11] MEDS: lisinopriL 20 MG TAB PO SCH (09:40)
[2023-04-11] MEDS: VORTIOXETINE HYDROBROMIDE 20 MG TABLET PO SCH (09:40)
[2023-04-11 10:11] LABS: African American GFR (CKD) >90 (>60 ml/min/1.73 sqM); Anion Gap 10 mmol/L; Blood Urea Nitrogen 17 mg/dL (9-20); Calcium 8.4 mg/dL (8.4-10.2); Carbon Dioxide 25 mmol/L (22-30); Chloride 101 mmol/L (98-107); Glucose 153 mg/dL (74-99); Non-African American GFR(CKD) >90 (>60 ml/min/1.73 sqM); Potassium 3.7 mmol/L (3.5-5.1); Sodium 136 mmol/L (137-145)
[2023-04-11 11:25] LABS: Glucose,Whole Blood 140 mg/dL (70-110)
[2023-04-11 14:23] VITALS: BP 138/75; PULSE 68; TEMP 98.5
--- NOTE | 2023-04-11 15:56 | P.PN ---
Progress Note - Text Progress Note Date: 04/11/23 Chief Complaint: Chest pain This is a 57-year-old patient this is a 57-year-old patient follows with visiting physicians Dr. Ragsdale. Tonic stable medical conditions includes diabetes, hypertension, hyperlipidemia, seizure disorder, sleep apnea-currently not using CPAP, hypothyroid has retinopathy, gender dysphoria. Developmental delay. Yesterday when it was raining the patient apparently had gone to the [employer] [place]. And walk back. Upon coming back patient developed chest pain. He is not able to quantify the same. Denies any office radiation or shortness of breath. Sent in for the same. Prior cardiac history. Today denies any chest pain. April 10: No further chest pain. Laying comfortably. 2-D echo shows EF of 40-45%. Increase Lipitor to 40 mg. Also add Aldactone 12.5 mg. lisinopril also added. 04/11/2023: No chest pain. Seen by currently Dr. De La Torre For discharge. For outpatient stress test Social history: Patient stopped smoking 20-30 years ago. No alcohol. Lives at the [facility]. Physical examination: VITAL SIGNS: 98.5, 68, 16, 1 38 x 75, 98% room air GENERAL: Laying in bed, comfortable EYES: Pupils equal. Conjunctiva normal. HEENT: External appearance of nose and ears normal, oral cavity grossly normal. NECK: JVD not raised; masses not palpable. HEART: First and second heart sounds are normal; no edema. LUNGS: Respiratory rate normal; clear to auscultation. ABDOMEN: Soft, nontender, liver spleen not palpable, no masses palpable. PSYCH: Able to answer questions. Slightly anxiousl. MUSCULOSKELETAL:No Clubbing/cyanosis;muscles-grossly intact INVESTIGATIONS, reviewed in the clinical context: 04/11/2023: Potassium 3.7 creatinine 0.69 04/10/2023: White count 5.70 globin 13.7 LDL 85 04/09/2023: White count 5.6 hemoglobin 13.5 platelets 141 sodium 132 potassium 3.8 creatinine 0.77 Troponin I 0.049, 0.053, 0.048 EKG tracing personally reviewed by me-normal sinus rhythm nonspecific T-wave changes Chest x-ray film personally reviewed by me-some elevation of the right diaphragm Assessment and plan: -Acute non-Q-wave [place] IV heparin the ER. -discontinued Aspirin. Cardiology cleared for discharge. Outpatient stress test -Cardiomyopathy, likely ischemic EF 40-45%. Lisinopril. Aldactone 12.5 mg. Farxiga. -IV heparin stopped -Essential hypertension Catapres 0.1 mg twice a day lisinopril -Diabetes mellitus type 2, chronically on insulin Actos. Trulicity. Lantus. Lispro. jardiance. Amaryl. -Bipolar disorder. Schizoaffective disorder. Risperidone. Depakote ER. -Developmental delay -Gender dysphoria. Patient identifies himself is a female. -Full code Disposition: Assisted-living Past Medical History Past Medical History: Diabetes Mellitus, Hyperlipidemia, Hypertension, Seizure Disorder, Sleep Apnea/CPAP/BIPAP, Thyroid Disorder Additional Past Medical History / Comment(s): Hx bilateral retinal hemorrhage and retinopathy - currently stable. Hx epilepsy/grand/petite mal seizures with last seizure >12 yrs ago. Gender Dysphoria. Balance issues. No current CPAP use, was recalled and has no replacement yet. Sinus problems. Hypothyroid. Developmentally delayed. History of Any Multi-Drug Resistant Organisms: None Reported Past Surgical History: Cholecystectomy, Tonsillectomy Additional Past Surgical History / Comment(s): Throat surgery, laser eye surgery, colonocopy. Past Anesthesia/Blood Transfusion Reactions: No Reported Reaction Past Psychological History: Anxiety, Bipolar, Depression, Schizoaffective Disorder Smoking Status: Former smoker Past Alcohol Use History: None Reported Past Drug Use History: None Reported
--- NOTE | 2023-04-11 15:57 | P.DS ---
Providers Date of admission: 04/09/23 07:11 Expected date of discharge: 04/11/23 Attending physician: Geoff Cisneros Consults: 04/09/23 07:11 Consult Physician Urgent Consulting Provider: Marleni Chu Consult Reason/Comments: nstemi Do you want consulting provider notified?: Yes Primary care physician: Noe Ragsdale MD Hospital Course: Chief Complaint: Chest pain This is a 57-year-old patient this is a 57-year-old patient follows with visiting physicians Dr. Ragsdale. Tonic stable medical conditions includes diabetes, hypertension, hyperlipidemia, seizure disorder, sleep apnea-currently not using CPAP, hypothyroid has retinopathy, gender dysphoria. Developmental delay. Yesterday when it was raining the patient apparently had gone to the [employer] [place]. And walk back. Upon coming back patient developed chest pain. He is not able to quantify the same. Denies any office radiation or shortness of breath. Sent in for the same. Prior cardiac history. Today denies any chest pain. April 10: No further chest pain. Laying comfortably. 2-D echo shows EF of 40-45%. Increase Lipitor to 40 mg. Also add Aldactone 12.5 mg. lisinopril also added. 04/11/2023: No chest pain. Seen by currently Dr. De La Torre For discharge. For outpatient stress test Social history: Patient stopped smoking 20-30 years ago. No alcohol. Lives at the assisted living [facility]. Physical examination: VITAL SIGNS: 98.5, 68, 16, 1 38 x 75, 98% room air GENERAL: Laying in bed, comfortable EYES: Pupils equal. Conjunctiva normal. HEENT: External appearance of nose and ears normal, oral cavity grossly normal. NECK: JVD not raised; masses not palpable. HEART: First and second heart sounds are normal; no edema. LUNGS: Respiratory rate normal; clear to auscultation. ABDOMEN: Soft, nontender, liver spleen not palpable, no masses palpable. PSYCH: Able to answer questions. Slightly anxiousl. MUSCULOSKELETAL:No Clubbing/cyanosis;muscles-grossly intact INVESTIGATIONS, reviewed in the clinical context: 04/11/2023: Potassium 3.7 creatinine 0.69 04/10/2023: White count 5.70 globin 13.7 LDL 85 04/09/2023: White count 5.6 hemoglobin 13.5 platelets 141 sodium 132 potassium 3.8 creatinine 0.77 Troponin I 0.049, 0.053, 0.048 EKG tracing personally reviewed by me-normal sinus rhythm nonspecific T-wave changes Chest x-ray film personally reviewed by me-some elevation of the right diaphragm Assessment and plan: -Acute non-Q-wave [place] IV heparin the ER. -discontinued Aspirin. Cardiology cleared for discharge. Outpatient stress test -Cardiomyopathy, likely ischemic EF 40-45%. Lisinopril. Aldactone 12.5 mg. Farxiga. -IV heparin stopped -Essential hypertension Catapres 0.1 mg twice a day lisinopril -Diabetes mellitus type 2, chronically on insulin Actos. Trulicity. Lantus. Lispro. jardiance. Amaryl. -Bipolar disorder. Schizoaffective disorder. Risperidone. Depakote ER. -Developmental delay -Gender dysphoria. Patient identifies himself is a female. -Full code Disposition: Assisted-living Plan - Discharge Summary Discharge Rx Participant: No New Discharge Prescriptions: New Atorvastatin [Lipitor] 40 mg PO HS #30 tab Nitroglycerin Sl Tabs [Nitrostat] 0.4 mg SUBLINGUAL Q5M PRN #30 tab PRN Reason: Chest Pain Spironolactone [Aldactone] 12.5 mg PO DAILY #30 tab Continue Levothyroxine Sodium [Synthroid] 100 mcg PO QAM Aspirin EC [Ecotrin Low Dose] 81 mg PO DAILY risperiDONE 4 mg PO QAM Divalproex ER [Depakote ER] 2,000 mg PO HS Empagliflozin [Jardiance] 25 mg PO DAILY cloNIDine HCL [Catapres] 0.1 mg PO BID@0800,1600 risperiDONE 3 mg PO HS Pioglitazone [Actos] 45 mg PO DAILY Glimepiride [Amaryl] 4 mg PO DAILY Insulin Glargine [Lantus Vial] 15 unit SQ HS Insulin Lispro [humaLOG Kwikpen] See Protocol SQ ACHS lisinopriL 40 mg PO DAILY Cholecalciferol [Vitamin D3 (25 Mcg = 1000 Iu)] 50 mcg PO DAILY Fluticasone Nasal [place] [Flonase Nasal [place]] 1 spray EA NOSTRIL DAILY PRN PRN Reason: Nasal Symptoms Dulaglutide [Trulicity] 3 mg SQ Q7D Melatonin 3 mg PO DAILY@1800 PRN PRN Reason: sleep Omeprazole [PriLOSEC] 20 mg PO DAILY Vortioxetine Hydrobromide [Trintellix] 20 mg PO DAILY Discontinued Lovastatin [Mevacor] 10 mg PO HS Fexofenadine HCl 180 mg PO DAILY Discharge Medication List Aspirin EC [Ecotrin Low Dose] 81 mg PO DAILY 03/13/14 [History] Levothyroxine Sodium [Synthroid] 100 mcg PO QAM 03/13/14 [History] risperiDONE 4 mg PO QAM 05/01/18 [History] Divalproex ER [Depakote ER] 2,000 mg PO HS 05/22/18 [History] Empagliflozin [Jardiance] 25 mg PO DAILY 09/18/18 [History] cloNIDine HCL [Catapres] 0.1 mg PO BID@0800,1600 09/21/18 [History] risperiDONE 3 mg PO HS 04/24/19 [History] Cholecalciferol [Vitamin D3 (25 Mcg = 1000 Iu)] 50 mcg PO DAILY 09/29/21 [History] Dulaglutide [Trulicity] 3 mg SQ Q7D 09/29/21 [History] Fluticasone Nasal [place] [Flonase Nasal [place]] 1 spray EA NOSTRIL DAILY PRN 09/29/21 [History] Glimepiride [Amaryl] 4 mg PO DAILY 09/29/21 [History] Pioglitazone [Actos] 45 mg PO DAILY 09/29/21 [History] Insulin Glargine [Lantus Vial] 15 unit SQ HS 04/09/23 [History] Insulin Lispro [humaLOG Kwikpen] See Protocol SQ ACHS 04/09/23 [History] Melatonin 3 mg PO DAILY@1800 PRN 04/09/23 [History] Omeprazole [PriLOSEC] 20 mg PO DAILY 04/09/23 [History] Vortioxetine Hydrobromide [Trintellix] 20 mg PO DAILY 04/09/23 [History] lisinopriL 40 mg PO DAILY 04/09/23 [History] Atorvastatin [Lipitor] 40 mg PO HS #30 tab 04/11/23 [Rx] Nitroglycerin Sl Tabs [Nitrostat] 0.4 mg SUBLINGUAL Q5M PRN #30 tab 04/11/23 [Rx] Spironolactone [Aldactone] 12.5 mg PO DAILY #30 tab 04/11/23 [Rx] Follow up Appointment(s)/Referral(s): Federico Espino MD [Medical Doctor] - 3 Days Noe Ragsdale MD [Primary Care Provider] - 1-2 days Patient Instructions/Handouts: Chest Pain (DC) Activity/Diet/Wound Care/Special Instructions: heart healthy diet activity limited until follow up
[2023-04-11] MEDS ORDERED: ATORVASTATIN 40 MG TAB PO SCH (21:00)
== END 2023-04-11 16:00 | disposition home or self-care (01) | DRG 281 ==
LOC: EC 03:18 → 3SCARD 07:11
PROVIDERS: ADMIT Hospitalist; ATTEND Hospitalist
DX: I21.4 Non-ST elevation (NSTEMI) myocardial infarction (principal); Z68.41 Body mass index [BMI] 40.0-44.9, adult; E66.9 Obesity, unspecified; E78.5 Hyperlipidemia, unspecified; F25.9 Schizoaffective disorder, unspecified; F31.9 Bipolar disorder, unspecified; F41.9 Anxiety disorder, unspecified; F64.0 Transsexualism; G40.909 Epilepsy, unspecified, not intractable, without status epilepticus; G47.30 Sleep apnea, unspecified; E11.319 Type 2 diabetes mellitus with unspecified diabetic retinopathy without macular edema; I10 Essential (primary) hypertension; E03.9 Hypothyroidism, unspecified; I25.110 Atherosclerotic heart disease of native coronary artery with unstable angina pectoris; I25.5 Ischemic cardiomyopathy; R62.50 Unspecified lack of expected normal physiological development in childhood; Z79.4 Long term (current) use of insulin; Z79.82 Long term (current) use of aspirin; Z79.84 Long term (current) use of oral hypoglycemic drugs; Z79.890 Hormone replacement therapy; Z79.899 Other long term (current) drug therapy; Z86.73 Personal history of transient ischemic attack (TIA), and cerebral infarction without residual deficits; Z87.891 Personal history of nicotine dependence; Z82.49 Family history of ischemic heart disease and other diseases of the circulatory system
CPT/HCPCS: 36415; 71046; 80048; 80053; 80061; 83690; 83735; 84484; 85025; 85610; 85730; 93005; 93306; 94760; 96365; 99285

== ENCOUNTER 2023-05-14 18:56 | Emergency (ER) | payer MEDICARE, OTHER ==
[2023-05-14 19:11] VITALS: RESP 18
[2023-05-14 19:23] LABS: Basophils % (A) 1 %; Eosinophils # (A) 0.1 k/uL (0-0.7); Eosinophils % (A) 2 %; HCT 40.7 % (39.0-53.0); HGB 13.7 gm/dL (13.0-17.5); Lymphocytes # (A) 2.3 k/uL (1.0-4.8); Lymphocytes % (A) 39 %; MCH 32.3 pg (25.0-35.0); MCHC 33.6 g/dL (31.0-37.0); MCV 96.1 fL (80.0-100.0); Mean Platelet Volume 9.8; Monocytes # (A) 0.5 k/uL (0-1.0); Monocytes % (A) 8 %; Neutrophils # (A) 2.8 k/uL (1.3-7.7); Neutrophils % (A) 48 %; Platelet Count 124 k/uL (150-450); RBC 4.24 m/uL (4.30-5.90); RDW 13.3 % (11.5-15.5); WBC 5.9 k/uL (3.8-10.6)
[2023-05-14 19:37] LABS: Partial Thromboplastin Time 24.6 sec (22.0-30.0); Prothrombin Time 10.9 sec (10.0-12.5)
[2023-05-14 19:39] LABS: ALT 18 U/L (4-49); AST 23 U/L (17-59); African American GFR (CKD) >90 (>60 ml/min/1.73 sqM); Albumin 3.3 g/dL (3.5-5.0); Alkaline Phosphatase 50 U/L (38-126); Anion Gap 6 mmol/L; Blood Urea Nitrogen 20 mg/dL (9-20); Calcium 8.3 mg/dL (8.4-10.2); Carbon Dioxide 24 mmol/L (22-30); Chloride 101 mmol/L (98-107); Glucose 154 mg/dL (74-99); Magnesium 1.6 mg/dL (1.6-2.3); Non-African American GFR(CKD) >90 (>60 ml/min/1.73 sqM); Potassium 4.1 mmol/L (3.5-5.1); Sodium 131 mmol/L (137-145); Total Bilirubin 0.5 mg/dL (0.2-1.3); Total Protein 5.7 g/dL (6.3-8.2)
--- NOTE | 2023-05-14 20:40 | XR ---
EXAMINATION TYPE: XR chest 2V DATE OF EXAM: 05/14/2023 7:46 PM CLINICAL INDICATION:Male, 57 years old with history of Chest Pain; MERGED WITH [facility] COMPARISON: 04.09.23 TECHNIQUE: XR chest 2V. Frontal and lateral views of the chest.. FINDINGS: Lines/Tubes/Devices: No indwelling lines are seen. Heart/mediastinum: Heart size is normal. Mediastinum appears normal. Pulmonary vascularity: Not increased, Lungs/Pleura: Lung volumes are diminished, with crowding of lung markings. No definite confluent cons olidative process, sizable effusion, or pneumothorax demonstrated. Musculoskeletal: No acute osseous abnormality demonstrated in the limits of the exam. Degenerative c hanges of the spine and shoulders. Other findings: None. IMPRESSION: No acute cardiopulmonary abnormality.
--- NOTE | 2023-05-15 00:30 | ED ---
Chest Pain HPI - General Chief Complaint: Chest Pain Stated Complaint: Chest pain Time Seen by Provider: 05/15/23 00:16 Source: EMS Mode of arrival: EMS Limitations: no limitations - History of Present Illness Initial Comments: This patient is a 57-year-old man who presents with complaint that he is having epigastric and substernal chest pain. The patient notes he was drinking diet Coke when it felt like he had a gas bubble. He states he felt like he had to belch but he could not. Patient brought here for evaluation and states that the pain is subsequently resolved. There were no associated symptoms, no dyspnea, diaphoresis, nausea vomiting, palpitations or lightheadedness. MD Complaint: chest pain -: minutes(s) Onset: after eating Pain Location: substernal, epigastric Pain Radiation: none Severity: moderate Quality: tightness Consistency: now resolved Improves With: nothing Worsens With: nothing Treatments Prior to Arrival: none - Related Data Home Medications Medication Instructions Recorded Confirmed Aspirin EC [Ecotrin Low Dose] 81 mg PO DAILY 03/13/14 04/09/23 Levothyroxine Sodium [Synthroid] 100 mcg PO QAM 03/13/14 04/09/23 risperiDONE 4 mg PO QAM 05/01/18 04/09/23 Divalproex ER [Depakote ER] 2,000 mg PO HS 05/22/18 04/09/23 Empagliflozin [Jardiance] 25 mg PO DAILY 09/18/18 04/09/23 cloNIDine HCL [Catapres] 0.1 mg PO BID@0800,1600 09/21/18 04/09/23 risperiDONE 3 mg PO HS 04/24/19 04/09/23 Cholecalciferol [Vitamin D3 (25 50 mcg PO DAILY 09/29/21 04/09/23 Mcg = 1000 Iu)] Dulaglutide [Trulicity] 3 mg SQ Q7D 09/29/21 04/09/23 Fluticasone Nasal [place] [Flonase 1 spray EA NOSTRIL DAILY PRN 09/29/21 04/09/23 Nasal [place]] Glimepiride [Amaryl] 4 mg PO DAILY 09/29/21 04/09/23 Pioglitazone [Actos] 45 mg PO DAILY 09/29/21 04/09/23 Insulin Glargine [Lantus Vial] 15 unit SQ HS 04/09/23 04/09/23 Insulin Lispro [humaLOG Kwikpen] See Protocol SQ ACHS 04/09/23 04/09/23 Melatonin 3 mg PO DAILY@1800 PRN 04/09/23 04/09/23 Omeprazole [PriLOSEC] 20 mg PO DAILY 04/09/23 04/09/23 Vortioxetine Hydrobromide 20 mg PO DAILY 04/09/23 04/09/23 [Trintellix] lisinopriL 40 mg PO DAILY 04/09/23 04/09/23 Previous Rx's Medication Instructions Recorded Atorvastatin [Lipitor] 40 mg PO HS #30 tab 04/11/23 Nitroglycerin Sl Tabs [Nitrostat] 0.4 mg SUBLINGUAL Q5M PRN #30 tab 04/11/23 Spironolactone [Aldactone] 12.5 mg PO DAILY #30 tab 04/11/23 Allergies Allergy/AdvReac Type Severity Reaction Status Date / Time primidone Allergy Unknown Verified 05/14/23 19:06 Childhood sulfamethoxazole Allergy Itching Verified 05/14/23 19:06 [From Bactrim] trimethoprim [From Bactrim] Allergy Itching Verified 05/14/23 19:06 carbamazepine [From Tegretol] AdvReac Confusion Verified 05/14/23 19:06 phenytoin sodium AdvReac Confusion Verified 05/14/23 19:06 [From Dilantin] phenytoin sodium extended AdvReac Confusion Verified 05/14/23 19:06 [From Dilantin] Review of Systems ROS Statement: Those systems with pertinent positive or pertinent negative responses have been documented in the HPI. ROS Other: All systems not noted in ROS Statement are negative. Constitutional: Denies: fever, chills Respiratory: Denies: cough, dyspnea Cardiovascular: Reports: chest pain. Denies: palpitations, edema, syncope Gastrointestinal: Reports: abdominal pain. Denies: nausea, vomiting, diarrhea, constipation, melena Genitourinary: Denies: dysuria, hematuria Musculoskeletal: Denies: back pain Skin: Denies: rash Neurological: Denies: headache, weakness EKG Findings - EKG Results: EKG: interpreted by ERMD, sinus rhythm EKG shows: bradycardia (Rate 58 bpm) - Blocks, [place], Hypertrophy, ST Abn: AV and intraventricular conduction: left anterior fascicular block Past Medical History Past Medical History: Diabetes Mellitus, Hyperlipidemia, Hypertension, Seizure Disorder, Sleep Apnea/CPAP/BIPAP, Thyroid Disorder Additional Past Medical History / Comment(s): Hx bilateral retinal hemorrhage and retinopathy - currently stable. Hx epilepsy/grand/petite mal seizures with last seizure >12 yrs ago. Gender Dysphoria. Balance issues. No current CPAP use, was recalled and has no replacement yet. Sinus problems. Hypothyroid. Developmentally delayed. History of Any Multi-Drug Resistant Organisms: None Reported Past Surgical History: Cholecystectomy, Tonsillectomy Additional Past Surgical History / Comment(s): Throat surgery, laser eye surgery, colonocopy. Past Anesthesia/Blood Transfusion Reactions: No Reported Reaction Past Psychological History: Anxiety, Bipolar, Depression, Schizoaffective Disorder Smoking Status: Former smoker Past Alcohol Use History: None Reported Past Drug Use History: None Reported - Past Family History Mother Family Medical History: Myocardial Infarction ([place]) Additional Family Medical History / Comment(s): Mother of a [place] at the age of 82 yrs. Father History Unknown: Yes Family Medical History: No Reported History General Exam Limitations: no limitations General appearance: alert, in no apparent distress Head exam: Present: atraumatic, normocephalic Eye exam: Present: normal appearance. Absent: scleral icterus, conjunctival injection ENT exam: Present: normal exam Neck exam: Present: normal inspection Respiratory exam: Present: normal lung sounds bilaterally. Absent: respiratory distress, wheezes, rales, rhonchi, stridor Cardiovascular Exam: Present: regular rate, normal rhythm, normal heart sounds. Absent: systolic murmur, diastolic murmur, rubs, gallop GI/Abdominal exam: Present: soft. Absent: distended, tenderness, guarding, rebound, rigid, mass Extremities exam: Present: normal inspection, normal capillary refill. Absent: pedal edema, calf tenderness Back exam: Present: normal inspection. Absent: CVA tenderness (R), CVA tenderness (L) Neurological exam: Present: alert Skin exam: Present: warm, dry, intact, normal color. Absent: rash Course Vital Signs 05/14/23 05/15/23 18:58 01:28 Temperature 97.5 F L 97.8 F Pulse Rate 55 L 60 Respiratory 18 18 Rate Blood Pressure 137/82 153/82 O2 Sat by Pulse 99 99 Oximetry Chest Pain MDM - MDM The patient had chest x-ray that I interpreted as negative for acute infiltrate, pneumothorax, congestive heart failure. Was pt. sent in by a medical professional or institution (TAYLOR Ortiz, DISTRIBUTION LEAD, urgent care, hospital, or intermediate...) When possible be specific @ -[No] Did you speak to anyone other than the patient for history (EMS, parent, family, police, friend...)? What history was obtained from this source @ -[No] Did you review nursing and triage notes (agree or disagree)? Why? @ -[I reviewed and agree with nursing and triage notes] Were old charts reviewed (outside hosp., previous admission, EMS record, old EKG, old radiological studies, urgent care reports/EKG's, intermediate records)? Report findings @ -[No old charts were reviewed] Differential Diagnosis (chest pain, altered mental status, abdominal pain women, abdominal pain men, vaginal bleeding, weakness, fever, dyspnea, syncope, headache, dizziness, GI bleed, back pain, seizure, CVA, palpatations, mental health, musculoskeletal)? @ -[Differential Chest Pain: Stable Angina, Unstable Angina, STEMI, NSTEMI Aortic Dissection, Pneumothorax, Musculoskeletal, Esophageal Spasm GERD, Cholecystitis, Pancreatitis, Zoster, this is not meant to be an all-inclusive list. EKG interpreted by me (3pts min.). @ -[I interpreted as above] X-rays interpreted by me (1pt min.). @ -[I interpreted as above CT interpreted by me (1pt min.). @ -[None done] U/S interpreted by me (1pt. min.). @ -[None done] What testing was considered but not performed or refused? (CT, X-rays, U/S, labs)? Why? @ -[None] What meds were considered but not given or refused? Why? @ -[None] Did you discuss the management of the patient with other professionals (professionals i.e. TAYLOR Ortiz, DISTRIBUTION LEAD, lab, RT, psych nurse, high school social science teacher, deli bakery clerk, teacher, surveillance sensor officer, ed case manager)? Give summary @ -[No] Was smoking cessation discussed for >3mins.? @ -[No] Was critical care preformed (if so, how long)? @ -[No] Were there social determinants of health that impacted care today? How? (Homelessness, low income, unemployed, alcoholism, drug addiction, transportation, low edu. Level, literacy, decrease access to med. care, group home, rehab)? @ -[No] Was there de-escalation of care discussed even if they declined (Discuss DNR or withdrawal of care, Hospice)? DNR status @ -[No] What co-morbidities impacted this encounter? (DM, HTN, Smoking, COPD, CAD, Cancer, CVA, ARF, Chemo, Hep., AIDS, mental health diagnosis, sleep apnea, morbid obesity)? @ -[None] Was patient admitted / discharged? Hospital course, mention meds given and route, prescriptions, significant lab abnormalities, going to OR and other pertinent info. @ -[Patient is a 57-year-old man presenting with chest pain that is atypical in nature. His pain had resolved. It does seem directly related to the carbo nated beverage she was consuming at onset. The patient's workup is unremarkable. Undiagnosed new problem with uncertain prognosis? @ -[No] Drug Therapy requiring intensive monitoring for toxicity (Heparin, Nitro, Insulin, Cardizem)? @ -[No] Were any procedures done? @ -[No] Diagnosis/symptom? @ -[Acute chest pain Acute, or Chronic, or Acute on Chronic? @ -Acute Uncomplicated (without systemic symptoms) or Complicated (systemic symptoms)? @ -[Uncomplicated Side effects of treatment? @ -[No] Exacerbation, Progression, or Severe Exacerbation? @ -[No] Poses a threat to life or bodily function? How? (Chest pain, [place], [place], pneumonia, PE, COPD, DKA, ARF, appy, cholecystitis, CVA, Diverticulitis, Homicidal, Suicidal, threat to staff... and all critical care pts) @ -[No] Disposition Clinical Impression: Chest pain Disposition: HOME SELF-CARE Condition: Good Instructions (If sedation given, give patient instructions): Chest Pain (ED) Is patient prescribed a controlled substance at d/c from ED?: No Referrals: Noe Ragsdale MD [Primary Care Provider] - 1-2 days
[2023-05-15 01:51] VITALS: BP 153/82; PULSE 60; TEMP 97.8
== END 2023-05-15 01:48 | disposition home or self-care (01) ==
LOC: EC 18:56
DX: R07.89 Other chest pain (principal); I44.4 Left anterior fascicular block; R00.1 Bradycardia, unspecified; E11.319 Type 2 diabetes mellitus with unspecified diabetic retinopathy without macular edema; I10 Essential (primary) hypertension; E03.9 Hypothyroidism, unspecified; G40.909 Epilepsy, unspecified, not intractable, without status epilepticus; F31.9 Bipolar disorder, unspecified; F25.9 Schizoaffective disorder, unspecified; F41.9 Anxiety disorder, unspecified; Z79.4 Long term (current) use of insulin; Z79.85 Long-term (current) use of injectable non-insulin antidiabetic drugs; Z79.84 Long term (current) use of oral hypoglycemic drugs; Z79.890 Hormone replacement therapy; Z79.82 Long term (current) use of aspirin; Z79.899 Other long term (current) drug therapy; Z88.1 Allergy status to other antibiotic agents; Z88.8 Allergy status to other drugs, medicaments and biological substances; Z88.2 Allergy status to sulfonamides; Z87.891 Personal history of nicotine dependence; Z90.49 Acquired absence of other specified parts of digestive tract
CPT/HCPCS: 36415; 71046; 80053; 83735; 84484; 85025; 85610; 85730; 93005; 99285

== ENCOUNTER 2023-08-10 21:10 | Emergency (ER) | payer MEDICARE, OTHER ==
[2023-08-10 21:52] LABS: Basophils % (A) 0 %; Eosinophils # (A) 0.1 k/uL (0-0.7); Eosinophils % (A) 1 %; HCT 43.3 % (39.0-53.0); HGB 14.5 gm/dL (13.0-17.5); Lymphocytes # (A) 1.8 k/uL (1.0-4.8); Lymphocytes % (A) 29 %; MCH 31.7 pg (25.0-35.0); MCHC 33.5 g/dL (31.0-37.0); MCV 94.7 fL (80.0-100.0); Mean Platelet Volume 9.5; Monocytes # (A) 0.5 k/uL (0-1.0); Monocytes % (A) 8 %; Neutrophils # (A) 3.6 k/uL (1.3-7.7); Neutrophils % (A) 59 %; Platelet Count 155 k/uL (150-450); RBC 4.57 m/uL (4.30-5.90); RDW 13.2 % (11.5-15.5); WBC 6.2 k/uL (3.8-10.6)
[2023-08-10 21:57] VITALS: TEMP 97.9
[2023-08-10 21:58] LABS: Glucose,Whole Blood 187 mg/dL (70-110)
[2023-08-10 22:00] LABS: African American GFR (CKD) >90 (>60 ml/min/1.73 sqM); Anion Gap 10 mmol/L; Blood Urea Nitrogen 22 mg/dL (9-20); Calcium 9.2 mg/dL (8.4-10.2); Carbon Dioxide 21 mmol/L (22-30); Chloride 99 mmol/L (98-107); Glucose 195 mg/dL (74-99); Non-African American GFR(CKD) >90 (>60 ml/min/1.73 sqM); Potassium 4.7 mmol/L (3.5-5.1); Sodium 130 mmol/L (137-145)
--- NOTE | 2023-08-10 22:09 | ED ---
General Adult HPI - General Chief complaint: Psychiatric Symptoms Stated complaint: Mental health Time Seen by Provider: 08/10/23 21:20 Source: patient, EMS, RN notes reviewed, old records reviewed Mode of arrival: EMS - History of Present Illness Initial comments: Patient is a 57-year-old male who presents emergency department after being [facility] for not taking any of his home medications. Denies hallucinations. Denies suicidal or homicidal ideations. He has been noncompliant. Patient is mostly angry because he was told to walk to go get s nacks from a gas station and states he should not have to do that as he injured his back recently from bumping into something and he has radiating pain around his ribs and his back. Denies any other acute complaints at this time. Was petitioned by workers from his penitentiary. Presents for further evaluation.Patient states patient was also making threats that he was going to commit suicide. Patient denies this. Patient prefers to go by the name Sugar. - Related Data Home Medications Medication Instructions Recorded Confirmed Aspirin EC [Ecotrin Low Dose] 81 mg PO DAILY 03/13/14 04/09/23 Levothyroxine Sodium [Synthroid] 100 mcg PO QAM 03/13/14 04/09/23 risperiDONE 4 mg PO QAM 05/01/18 04/09/23 Divalproex ER [Depakote ER] 2,000 mg PO HS 05/22/18 04/09/23 Empagliflozin [Jardiance] 25 mg PO DAILY 09/18/18 04/09/23 cloNIDine HCL [Catapres] 0.1 mg PO BID@0800,1600 09/21/18 04/09/23 risperiDONE 3 mg PO HS 04/24/19 04/09/23 Cholecalciferol [Vitamin D3 (25 50 mcg PO DAILY 09/29/21 04/09/23 Mcg = 1000 Iu)] Dulaglutide [Trulicity] 3 mg SQ Q7D 09/29/21 04/09/23 Fluticasone Nasal [place] [Flonase 1 spray EA NOSTRIL DAILY PRN 09/29/21 04/09/23 Nasal Clio] Glimepiride [Amaryl] 4 mg PO DAILY 09/29/21 04/09/23 Pioglitazone [Actos] 45 mg PO DAILY 09/29/21 04/09/23 Insulin Glargine [Lantus Vial] 15 unit SQ HS 04/09/23 04/09/23 Insulin Lispro [humaLOG Kwikpen] See Protocol SQ ACHS 04/09/23 04/09/23 Melatonin 3 mg PO DAILY@1800 PRN 04/09/23 04/09/23 Omeprazole [PriLOSEC] 20 mg PO DAILY 04/09/23 04/09/23 Vortioxetine Hydrobromide 20 mg PO DAILY 04/09/23 04/09/23 [Trintellix] lisinopriL 40 mg PO DAILY 04/09/23 04/09/23 Previous Rx's Medication Instructions Recorded Atorvastatin [Lipitor] 40 mg PO HS #30 tab 04/11/23 Nitroglycerin Sl Tabs [Nitrostat] 0.4 mg SUBLINGUAL Q5M PRN #30 tab 04/11/23 Spironolactone [Aldactone] 12.5 mg PO DAILY #30 tab 04/11/23 Allergies Allergy/AdvReac Type Severity Reaction Status Date / Time primidone Allergy Unknown Verified 08/10/23 21:32 Childhood sulfamethoxazole Allergy Itching Verified 08/10/23 21:32 [From Bactrim] trimethoprim [From Bactrim] Allergy Itching Verified 08/10/23 21:32 carbamazepine [From Tegretol] AdvReac Confusion Verified 08/10/23 21:32 phenytoin sodium AdvReac Confusion Verified 08/10/23 21:32 [From Dilantin] phenytoin sodium extended AdvReac Confusion Verified 08/10/23 21:32 [From Dilantin] Review of Systems ROS Statement: Those systems with pertinent positive or pertinent negative responses have been documented in the HPI. Review of Systems: CONST: Denies fever EYES: Denies blurry vision ENT: Denies nasal congestion C/V: Denies Chest pain RESP: Denies shortness of breath GI: Denies abdominal pain : Denies dysuria SKIN: Denies rash. MSK: Endorses rib pain NEURO: Denies headache ROS Other: All systems not noted in ROS Statement are negative. Past Medical History Past Medical History: Diabetes Mellitus, Hyperlipidemia, Hypertension, Seizure Disorder, Sleep Apnea/CPAP/BIPAP, Thyroid Disorder Additional Past Medical History / Comment(s): Hx bilateral retinal hemorrhage and retinopathy - currently stable. Hx epilepsy/grand/petite mal seizures with last seizure >12 yrs ago. Gender Dysphoria. Balance issues. No current CPAP use, was recalled and has no replacement yet. Sinus problems. Hypothyroid. Developmentally delayed. History of Any Multi-Drug Resistant Organisms: None Reported Past Surgical History: Cholecystectomy, Tonsillectomy Additional Past Surgical History / Comment(s): Throat surgery, laser eye surgery, colonocopy. Past Anesthesia/Blood Transfusion Reactions: No Reported Reaction Past Psychological History: Anxiety, Bipolar, Depression, Schizoaffective Disorder Smoking Status: Former smoker Past Alcohol Use History: None Reported Past Drug Use History: None Reported - Past Family History Mother Family Medical History: Myocardial Infarction ([place]) Additional Family Medical History / Comment(s): Mother of a [place] at the age of 82 yrs. Father History Unknown: Yes Family Medical History: No Reported History General Exam - General Exam Comments Initial Comments: General: Appears in no acute distress. HEAD: Normal with no signs of head trauma. EYES: PERRLA, EOMI, conjunctiva normal, no discharge. ENT: Hearing grossly intact, normal oropharynx. RESPIRATORY: Clear breath sounds bilaterally. No wheezes, rales, or rhonchi. C/V: Regular rate and rhythm. S1 and S2 auscultated, no edema, peripheral pulses 2+ and intact throughout ABD: Abd is soft, nontender, nondistended EXT: Normal range of motion, no obvious deformity. No obvious tenderness along the ribs. No spinal tenderness. SKIN: No rashes or lesions observed on exposed skin. NEURO: Alert and oriented x 4. No focal deficits. Course Vital Signs 08/10/23 08/11/23 21:17 02:00 Temperature 97.9 F Pulse Rate 65 60 Respiratory 20 18 Rate Blood Pressure 120/102 161/90 O2 Sat by Pulse 97 97 Oximetry Medical Decision Making - Medical Decision Making Was pt. sent in by a medical professional or institution (, PA, COVERED BUTTON MAKER, urgent care, hospital, or fpc...) When possible be specific @ -[facility] from [facility] for psychiatric evaluation Did you speak to anyone other than the patient for history (EMS, parent, family, police, friend...)? What history was obtained from this source @ -Spoke with [employer] group leader who petitioned the patient. Did you review nursing and triage notes (agree or disagree)? Why? @ -I reviewed and agree with nursing and triage notes Were old charts reviewed (outside hosp., previous admission, EMS record, old EKG, old radiological studies, urgent care reports/EKG's, fpc records)? Report findings @ -Charts reviewed Differential Diagnosis (chest pain, altered mental status, abdominal pain women, abdominal pain men, vaginal bleeding, weakness, fever, dyspnea, syncope, headache, dizziness, GI bleed, back pain, seizure, CVA, palpatations, mental health, musculoskeletal)? @ -Differential Mental Health Depression, anxiety, bipolar, psychosis, schizophrenia, borderline personality, situational depression, adjustment disorder, behavioral disorder, brain tumor, malingering, substance abuse, encephalopathy, medication reaction, dementia, hypothyroidism, degenerative neurologic disorder, lupus.... This is not meant to be all-inclusive list EKG interpreted by me (3pts min.). @ -As above X-rays interpreted by me (1pt min.). @ -Chest x-ray reveals no obvious acute cardiopulmonary process. CT interpreted by me (1pt min.). @ -None done U/S interpreted by me (1pt. min.). @ -None done What testing was considered but not performed or refused? (CT, X-rays, U/S, labs)? Why? @ -None What meds were considered but not given or refused? Why? @ -None Did you discuss the management of the patient with other professionals (professionals i.e. , PA, COVERED BUTTON MAKER, lab, RT, psych nurse, health and social care teacher, crude tester, teacher, mortgage loan officer, heel caser)? Give summary @ -EPS notified of the consult. Was smoking cessation discussed for >3mins.? @ -No Was critical care preformed (if so, how long)? @ -No Were there social determinants of health that impacted care today? How? (Homelessness, low income, unemployed, alcoholism, drug addiction, transportation, low edu. Level, literacy, decrease access to med. care, assisted, rehab)? @ -No Was there de-escalation of care discussed even if they declined (Discuss DNR or withdrawal of care, Hospice)? DNR status @ -No What co-morbidities impacted this encounter? (DM, HTN, Smoking, COPD, CAD, Cancer, CVA, ARF, Chemo, Hep., AIDS, mental health diagnosis, sleep apnea, morbid obesity)? @ -History of bipolar disorder Was patient admitted / discharged? Hospital course, mention meds given and route, prescriptions, significant lab abnormalities, going to OR and other pertinent info. @ -Patient presents for psychiatric evaluation. Complaining of generalized back pain for multiple days. Has been noncompliant with medications at home. Denies any obvious acute complaints at this time. Patient was petitioned for psychiatric evaluation. Sitter ordered. We will obtain basic labs and screen EKG as well as chest x-ray. Patient was in agreement this plan. EKG shows no signs of acute ischemia. BAT is 0.Patient's laboratory studies are within acceptable limits. Home meds were ordered for the patient. Chest x-ray shows no signs of acute cardiopulmonary process. EKG unremarkable. At this time patient is medically cleared for evaluation by psychiatry. Disposition pending psychiatric evaluation. EPS notified of the consult. EPS Molly evaluate the patient. Determined that patient does not meet inpatient criteria. Patient is stable for discharge back to his facility. Discharged with a safety plan. Patient in agreement with this plan. Undiagnosed new problem with uncertain prognosis? @ -No Drug Therapy requiring intensive monitoring for toxicity (Heparin, Nitro, Insulin, Cardizem)? @ -No Were any procedures done? @ -No Diagnosis/symptom? @ -Encounter for psychiatric evaluation, medication noncompliance Acute, or Chronic, or Acute on Chronic? @ -Acute Uncomplicated (without systemic symptoms) or Complicated (systemic symptoms)? @ -Uncomplicated Side effects of treatment? @ -None Exacerbation, Progression, or Severe Exacerbation] @ -No Poses a threat to life or bodily function? @ -Unlikely - Lab Data Result diagrams: 08/10/23 21:45 08/10/23 21:45 Lab Results 08/10/23 08/10/23 08/10/23 Range/Units 21:45 21:45 21:55 WBC 6.2 (3.8-10.6) k/uL RBC 4.57 (4.30-5.90) m/uL Hgb 14.5 (13.0-17.5) gm/dL Hct 43.3 (39.0-53.0) % MCV 94.7 (80.0-100.0) fL MCH 31.7 (25.0-35.0) pg MCHC 33.5 (31.0-37.0) g/dL RDW 13.2 (11.5-15.5) % Plt Count 155 (150-450) k/uL MPV 9.5 Neutrophils % 59 % Lymphocytes % 29 % Monocytes % 8 % Eosinophils % 1 % Basophils % 0 % Neutrophils # 3.6 (1.3-7.7) k/uL Lymphocytes # 1.8 (1.0-4.8) k/uL Monocytes # 0.5 (0-1.0) k/uL Eosinophils # 0.1 (0-0.7) k/uL Basophils # 0.0 (0-0.2) k/uL Sodium 130 L (137-145) mmol/L Potassium 4.7 (3.5-5.1) mmol/L Chloride 99 (98-107) mmol/L Carbon Dioxide 21 L (22-30) mmol/L Anion Gap 10 mmol/L BUN 22 H (9-20) mg/dL Creatinine 0.70 (0.66-1.25) mg/dL Est GFR (CKD-EPI)AfAm >90 (>60 ml/min/1.73 sqM) Est GFR (CKD-EPI)NonAf >90 (>60 ml/min/1.73 sqM) Glucose 195 H (74-99) mg/dL POC Glucose (mg/dL) 187 H (70-110) mg/dL POC Glu Coil Binder ID Reggie Stout Calcium 9.2 (8.4-10.2) mg/dL - EKG Data -: EKG Interpreted by Me EKG Comments: 12-lead Electrocardiogram Interpretation Note EKG was reviewed and interpreted by myself. 12-lead ECG performed at 2151 is interpreted by me as revealing sinus bradycardia at a rate of 58 beats per mi nute. Left axis deviation. CA interval is 139 ms, QRS duration is 121 ms, QTc is 403 ms.. There were no ST or T wave abnormalities to suggest myocardial ischemia or injury. R wave progression across the precordium was satisfactory. By my interpretation this EKG is non-diagnostic for acute ischemia. Compared with EKG from May 2023 with no significant change. Disposition Clinical Impression: Encounter for psychiatric assessment, Noncompliance with medication regimen Disposition: HOME SELF-CARE Condition: Good Additional Instructions: follow safety plan Is patient prescribed a controlled substance at d/c from ED?: No Referrals: Noe Ragsdale MD [Primary Care Provider] - 1-2 days Time of Disposition: 05:26
[2023-08-10] MEDS ORDERED: FLUTICASONE 50MCG/SPRAY NASAL 16GM EA NOSTRIL PRN (23:41)
--- NOTE | 2023-08-10 23:43 | XR ---
EXAM: XR Chest, 2 Views CLINICAL HISTORY: ITS.REASON XR Reason: rib pain TECHNIQUE: Frontal and lateral views of the chest. COMPARISON: No relevant prior studies available. FINDINGS: Lungs: Unremarkable. No consolidation. Pleural space: Unremarkable. No pneumothorax. Heart: Cardiomegaly. Mediastinum: Unremarkable. Normal mediastinal contour. Bones/joints: Unremarkable. No acute fracture. IMPRESSION: No acute findings in the chest.
[2023-08-10] MEDS ORDERED: DEXTROSE 50% SYRINGE 50 ML IVP PRN ×2 (23:44)
[2023-08-11] MEDS: DIVALPROEX ER 500 MG TAB.ER.24H PO SCH (02:04)
[2023-08-11] MEDS: ATORVASTATIN 40 MG TAB PO SCH (02:04)
[2023-08-11] MEDS: risperiDONE 1 MG TAB PO SCH (02:05)
[2023-08-11 02:19] VITALS: RESP 18
[2023-08-11] MEDS: INSULIN DETEMIR (LEVEMIR) 100 UNIT/ML SYR SQ SCH (04:20)
[2023-08-11 06:27] VITALS: BP 163/98; PULSE 65
[2023-08-11] MEDS ORDERED: LEVOTHYROXINE 100 MCG TAB PO SCH (06:30)
[2023-08-11] MEDS ORDERED: INSULIN ASPART (NovoLOG) 100 UNIT/ML VIAL SQ SCH (07:30)
[2023-08-11] MEDS ORDERED: PANTOPRAZOLE 40 MG TABLET PO SCH (07:30)
[2023-08-11] MEDS ORDERED: cloNIDine HCL 0.1 MG TAB PO SCH (08:00)
[2023-08-11] MEDS ORDERED: PIOGLITAZONE 45 MG TAB PO SCH (09:00)
[2023-08-11] MEDS ORDERED: RISPERIDONE 4 MG PO SCH (09:00)
[2023-08-11] MEDS ORDERED: GLIMEPIRIDE 4 MG TAB PO SCH (09:00)
[2023-08-11] MEDS ORDERED: ASPIRIN 81 MG PO SCH (09:00)
[2023-08-11] MEDS ORDERED: SPIRONOLACTONE 25 MG TAB PO SCH (09:00)
[2023-08-11] MEDS ORDERED: VORTIOXETINE HYDROBROMIDE 20 MG TABLET PO SCH (09:00)
[2023-08-11] MEDS ORDERED: lisinopriL 20 MG TAB PO SCH (09:00)
[2023-08-11] MEDS ORDERED: MELATONIN 3 MG TABLET PO PRN (18:00)
[2023-08-13] MEDS ORDERED: NON FORMULARY DRUG (Dulaglutide [Trulicity] 3 MG/0.5 ML Each) SQ SCH (09:00)
== END 2023-08-11 06:03 | disposition home or self-care (01) ==
LOC: EC 21:10
DX: Z13.39 Encounter for screening examination for other mental health and behavioral disorders (principal); R00.1 Bradycardia, unspecified; F31.9 Bipolar disorder, unspecified; Z91.148 Patient's other noncompliance with medication regimen for other reason; Z88.1 Allergy status to other antibiotic agents; Z88.2 Allergy status to sulfonamides; Z88.8 Allergy status to other drugs, medicaments and biological substances; Z87.891 Personal history of nicotine dependence; Z79.899 Other long term (current) drug therapy
CPT/HCPCS: 36415; 71046; 80048; 82075; 83036; 85025; 93005; 99285

== ENCOUNTER → 2023-09-01 | Outpatient (CLI) | payer MEDICARE, OTHER ==
[2023-09-01 14:36] VITALS: BP 100/69; PULSE 92; RESP 16; TEMP 98.8
--- NOTE | 2023-09-01 14:39 | P.SLEEP ---
History of Present Illness DATE: 09/01/2023 CONSULTATION/NEW PATIENT EVALUATION HISTORY OF PRESENT ILLNESS/SLEEP-WAKE EVALUATION: 58-year-old person had been evaluated in the sleep center for possible obstructive sleep apnea hypopnea syndrome. 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 Patient was recommended treatment with CPAP, but for different reasons was not able to use CPAP therapy. SLEEP SCHEDULE: Usually sleep schedule from 11 PM to 7 AM 7 days a week. FALLING ASLEEP: Patient does have difficulties with falling asleep, has TV set in bedroom. DURING SLEEP: Patient sleeps in different positions with multiple awakenings from sleep more than 5 times with episodes of nocturia. No history of hypnogogical hallucinations, sleep paralysis, or cataplexy. DURING THE DAY/WAKE STATE: In the morning patient wake up tired, has difficulties to pay attention, falling asleep during the day. Brunson sleepiness scale is significantly increased to 13. Patient takes 3 naps during the day. PAST MEDICAL HISTORY: Hypertension, diabetes mellitus, hypothyroidism, acid reflux, depression, anxiety, coronary artery disease. PAST SURGICAL HISTORY: Cholecystectomy. MEDICATIONS: Please see below. SOCIAL HISTORY: Please see below. FAMILY HISTORY: Stroke, snoring, arthritis. REVIEW OF SYSTEMS: Multiple awakenings from sleep, sleepiness during the day. No fevers. No double vision. No recent chest pain. No shortness of breath. No abdominal pain. No bleeding episodes. No blood in urine. No seizure episodes. PHYSICAL EXAMINATION: GENERAL: A pleasant patient without any distress. VITAL SIGNS: Please see below, weight 233 pounds, BMI 38.7. HEENT: PERRLA, EOMI. Evaluation of oropharynx showed tongue protrudes midline, low position of soft palate Mallampati 4. NECK: Supple. No JVD. Thyroid is not palpable. 18-1/4 inches in circumference. LUNGS: Clear to percussion and to auscultation. Good air exchange. No wheezing or rhonchi. HEART: S1, S2 regular. No murmurs, gallops or rubs. ABDOMEN: Soft and nontender. Bowel sounds are present. No organomegaly appre ciated. EXTREMITIES: No clubbing or cyanosis. CAGE/VAULT SUPERVISOR: Awake, alert, and oriented x3. Cranial nerves 2 to 7 intact. There is no fasciculation or atrophy noted. No focal deficits observed. ASSESSMENT: 1. Multiple awakenings from sleep, extremely low position of soft palate Mallampati 4, wide neck 18-1/4 inches in circumference, significant sleepiness with Brunson Sleepiness Scale 13, history of obstructive sleep apnea in the past. Obstructive sleep apnea hypopnea syndrome. 2. Obesity, BMI 38.7. 3. History of depression. 4. History of anxiety. 5 coronary artery disease. 6 . Diabetes mellitus. 7. Hypothyroidism. 8. Hypertension. PLAN: 1. Polysomnography for evaluation of patient's breathing during sleep. 2. Following plan after reading sleep study 3. Preferable position during sleep on the side. 4. No driving if patient feels any sleepiness. Patient is aware of civil and criminal liability for unsafe driving. 5. Sleep hygiene with regular sleep time for at least 7.5-8 hours. 6. Watching and losing weight. Thank you very much for referring this patient for consultation. Sincerely, Kevin Cummins MD, PhD, FAASM. Diplomat of [place] [employer], Sleep Medicine Board by [place] [employer] [place] [employer] [facility] Past Medical History Past Medical History: Diabetes Mellitus, Hyperlipidemia, Hypertension, Seizure Disorder, Sleep Apnea/CPAP/BIPAP, Thyroid Disorder Additional Past Medical History / Comment(s): Hx bilateral retinal hemorrhage and retinopathy - currently stable. Hx epilepsy/grand/petite mal seizures with last seizure >12 yrs ago. Gender Dysphoria. Balance issues. No current CPAP use, was recalled and has no replacement yet. Sinus problems. Hypothyroid. Developmentally delayed. History of Any Multi-Drug Resistant Organisms: None Reported Past Surgical History: Cholecystectomy, Tonsillectomy Additional Past Surgical History / Comment(s): Throat surgery, laser eye surgery, colonocopy. Past Anesthesia/Blood Transfusion Reactions: No Reported Reaction Past Psychological History: Anxiety, Bipolar, Depression, Schizoaffective Disorder Additional Psychological History / Comment(s): Hx past suicide attempts. Smoking Status: Former smoker Past Alcohol Use History: None Reported Additional Past Alcohol Use History / Comment(s): Quit smoking 20-30 yrs ago. Past Drug Use History: None Reported - Past Family History Mother Family Medical History: Myocardial Infarction ([place]) Additional Family Medical History / Comment(s): Mother of a [place] at the age of 82 yrs. Father History Unknown: Yes Family Medical History: No Reported History Medications and Allergies Home Medications Medication Instructions Recorded Confirmed Type Aspirin EC [Ecotrin Low Dose] 81 mg PO DAILY 03/13/14 09/01/23 History Levothyroxine Sodium [Synthroid] 100 mcg PO QAM 03/13/14 09/01/23 History risperiDONE 4 mg PO QAM 05/01/18 09/01/23 History Divalproex ER [Depakote ER] 2,000 mg PO HS 05/22/18 04/09/23 History Empagliflozin [Jardiance] 25 mg PO DAILY 09/18/18 04/09/23 History cloNIDine HCL [Catapres] 0.1 mg PO BID@0800,1600 09/21/18 09/01/23 History risperiDONE 3 mg PO HS 04/24/19 09/01/23 History Cholecalciferol [Vitamin D3 (25 50 mcg PO DAILY 09/29/21 09/01/23 History Mcg = 1000 Iu)] Dulaglutide [Trulicity] 3 mg SQ Q7D 09/29/21 09/01/23 History Fluticasone Nasal [place] [Flonase 1 spray EA NOSTRIL DAILY PRN 09/29/21 04/09/23 History Nasal [place]amy] Glimepiride [Amaryl] 4 mg PO DAILY 09/29/21 09/01/23 History Pioglitazone [Actos] 45 mg PO DAILY 09/29/21 04/09/23 History Insulin Glargine [Lantus Vial] 15 unit SQ HS 04/09/23 09/01/23 History Insulin Lispro [humaLOG Kwikpen] See Protocol SQ ACHS 04/09/23 09/01/23 History Melatonin 3 mg PO DAILY@1800 PRN 04/09/23 09/01/23 History Omeprazole [PriLOSEC] 20 mg PO DAILY 04/09/23 09/01/23 History Vortioxetine Hydrobromide 20 mg PO DAILY 04/09/23 09/01/23 History [Trintellix] lisinopriL 40 mg PO DAILY 04/09/23 09/01/23 History Atorvastatin [Lipitor] 40 mg PO HS #30 tab 04/11/23 09/01/23 Rx Nitroglycerin Sl Tabs [Nitrostat] 0.4 mg SUBLINGUAL Q5M PRN #30 tab 04/11/23 09/01/23 Rx Spironolactone [Aldactone] 12.5 mg PO DAILY #30 tab 04/11/23 09/01/23 Rx Aspirin EC [Ecotrin Low Dose] 81 mg PO DAILY 09/01/23 09/01/23 History Allergies Allergy/AdvReac Type Severity Reaction Status Date / Time primidone Allergy Unknown Verified 08/10/23 21:32 Childhood sulfamethoxazole Allergy Itching Verified 08/10/23 21:32 [From Bactrim] trimethoprim [From Bactrim] Allergy Itching Verified 08/10/23 21:32 carbamazepine [From Tegretol] AdvReac Confusion Verified 08/10/23 21:32 phenytoin sodium AdvReac Confusion Verified 08/10/23 21:32 [From Dilantin] phenytoin sodium extended AdvReac Confusion Verified 08/10/23 21:32 [From Dilantin] Physical Exam Vitals: Vital Signs Temp Pulse Resp BP Pulse Ox 09/01/23 14:03 98.8 F 92 16 100/69 96 Intake and Output 08/31/23 09/01/23 09/01/23 22:59 06:59 14:59 Other: Weight 105.687 kg Sleep Note - Sleep Data ESS Total: 13 - Sleep Note Sleep Note: Temperature: 98.8 F Pulse Rate: 92 Respiratory Rate: 16 Blood Pressure: 100/69 SpO2: 96 Height: 5 ft 5 in Weight: 105.687 kg BMI: Neck Circumference: 18.2
== END ==
LOC: 3 N SLEEP 13:27
PROVIDERS: ATTEND Internal Medicine
DX: G47.33 Obstructive sleep apnea (adult) (pediatric) (principal); E66.9 Obesity, unspecified; E11.9 Type 2 diabetes mellitus without complications; E03.9 Hypothyroidism, unspecified; I10 Essential (primary) hypertension; I25.10 Atherosclerotic heart disease of native coronary artery without angina pectoris; F32.A Depression, unspecified; F41.9 Anxiety disorder, unspecified; Z68.38 Body mass index [BMI] 38.0-38.9, adult; Z88.2 Allergy status to sulfonamides; Z88.1 Allergy status to other antibiotic agents; Z88.8 Allergy status to other drugs, medicaments and biological substances; Z79.85 Long-term (current) use of injectable non-insulin antidiabetic drugs; Z79.4 Long term (current) use of insulin; Z79.84 Long term (current) use of oral hypoglycemic drugs; Z79.899 Other long term (current) drug therapy; Z79.890 Hormone replacement therapy; Z87.891 Personal history of nicotine dependence
CPT/HCPCS: 99211

== ENCOUNTER 2023-09-18 18:38 | Emergency (ER) | payer MEDICARE, OTHER ==
[2023-09-18 18:47] VITALS: TEMP 97.5
--- NOTE | 2023-09-18 19:20 | ED ---
General Adult HPI - General Chief complaint: Chest Pain Stated complaint: Weeakness Time Seen by Provider: 09/18/23 18:48 Source: patient, EMS Mode of arrival: EMS Limitations: no limitations - History of Present Illness Initial comments: 58-year-old male presents to the emergency department for evaluation of chest pain. Patient states that he was using the bathroom today when he started experiencing pain around his chest. He notes that it is bilateral. He states that it lasted around 10 minutes. He also reports that it was somewhat in his upper abdomen. He does report that he has recently been sick and was on steroids and antibiotics. He states that he is on antibiotics for around 2 weeks without improvement. Denies fever, chills, nausea, vomiting, diaphoresis. - Related Data Home Medications Medication Instructions Recorded Confirmed Levothyroxine Sodium [Synthroid] 100 mcg PO DAILY@0800 03/13/14 09/18/23 risperiDONE 4 mg PO DAILY@0800 05/01/18 09/18/23 Divalproex ER [Depakote ER] 2,000 mg PO HS 05/22/18 09/18/23 cloNIDine HCL [Catapres] 0.1 mg PO BID@0800,1600 09/21/18 09/18/23 risperiDONE 3 mg PO HS 04/24/19 09/18/23 Cholecalciferol [Vitamin D3 (25 50 mcg PO DAILY@1600 09/29/21 09/18/23 Mcg = 1000 Iu)] Glimepiride [Amaryl] 4 mg PO DAILY@0800 09/29/21 09/18/23 Insulin Lispro [humaLOG Kwikpen] See Protocol SQ ACHS 04/09/23 09/18/23 Melatonin 3 mg PO HS PRN 04/09/23 09/18/23 Omeprazole [PriLOSEC] 20 mg PO DAILY@0800 04/09/23 09/18/23 Vortioxetine Hydrobromide 20 mg PO DAILY@0800 04/09/23 09/18/23 [Trintellix] lisinopriL 40 mg PO DAILY@0800 04/09/23 09/18/23 Aspirin EC [Ecotrin Low Dose] 81 mg PO DAILY@0800 09/01/23 09/18/23 Albuterol Inhaler [Ventolin Hfa 2 puff INHALATION RT-Q6H PRN 09/18/23 09/18/23 Inhaler] Apixaban [Eliquis] 5 mg PO BID@0800,2100 09/18/23 09/18/23 Budesonide/Formoterol Fumarate 2 puff INHALATION RT-BID 09/18/23 09/18/23 [Symbicort 160-4.5 Mcg Inhaler] Dapagliflozin Propanediol [Farxiga] 10 mg PO DAILY@0800 09/18/23 09/18/23 Dextrose Chew [Glucose Chew Tab] 4 gm PO BID PRN 09/18/23 09/18/23 Dulaglutide [Trulicity] 4.5 mg SQ TH@0800 09/18/23 09/18/23 Glucerna Powder 1 scoop PO BID@1000,1400 09/18/23 09/18/23 Insulin Glargine,Hum.rec.anlog 20 units SQ HS 09/18/23 09/18/23 [Lantus Solostar Pen] Metoprolol Tartrate [Lopressor] 25 mg PO BID@0800,1700 09/18/23 09/18/23 Nitroglycerin Sl Tabs [Nitrostat] 0.4 mg SL Q5M PRN 09/18/23 09/18/23 Spironolactone [Aldactone] 12.5 mg PO DAILY@0800 09/18/23 09/18/23 predniSONE See Taper PO DAILY 09/18/23 09/18/23 Previous Rx's Medication Instructions Recorded Atorvastatin [Lipitor] 40 mg PO HS #30 tab 04/11/23 Allergies Allergy/AdvReac Type Severity Reaction Status Date / Time Barbiturates Allergy Unknown Verified 09/18/23 19:52 primidone Allergy Unknown Verified 09/18/23 19:52 Childhood propylene glycol Allergy Unknown Verified 09/18/23 19:52 sodium benzoate Allergy Unknown Verified 09/18/23 19:52 sulfamethoxazole Allergy Itching Verified 09/18/23 19:52 [From Bactrim] trimethoprim [From Bactrim] Allergy Itching Verified 09/18/23 19:52 yellow dye Allergy Unknown Verified 09/18/23 19:52 carbamazepine [From Tegretol] AdvReac Confusion Verified 09/18/23 19:52 phenytoin sodium AdvReac Confusion Verified 09/18/23 19:52 [From Dilantin] phenytoin sodium extended AdvReac Confusion Verified 09/18/23 19:52 [From Dilantin] Review of Systems ROS Statement: Those systems with pertinent positive or pertinent negative responses have been documented in the HPI. ROS Other: All systems not noted in ROS Statement are negative. Past Medical History Past Medical History: Diabetes Mellitus, Hyperlipidemia, Hypertension, Seizure Disorder, Sleep Apnea/CPAP/BIPAP, Thyroid Disorder Additional Past Medical History / Comment(s): Hx bilateral retinal hemorrhage and retinopathy - currently stable. Hx epilepsy/grand/petite mal seizures with last seizure >12 yrs ago. Gender Dysphoria. Balance issues. No current CPAP use, was recalled and has no replacement yet. Sinus problems. Hypothyroid. Dev elopmentally delayed. History of Any Multi-Drug Resistant Organisms: None Reported Past Surgical History: Cholecystectomy, Tonsillectomy Additional Past Surgical History / Comment(s): Throat surgery, laser eye surgery, colonocopy. Past Anesthesia/Blood Transfusion Reactions: No Reported Reaction Past Psychological History: Anxiety, Bipolar, Depression, Schizoaffective Diso rder Additional Psychological History / Comment(s): Hx past suicide attempts. Smoking Status: Former smoker Past Alcohol Use History: None Reported Additional Past Alcohol Use History / Comment(s): Quit smoking 20-30 yrs ago. Past Drug Use History: None Reported - Past Family History Mother Family Medical History: Myocardial Infarction (MA) Additional Family Medical History / Comment(s): Mother of a MA at the age of 82 yrs. Father History Unknown: Yes Family Medical History: No Reported History General Exam Limitations: no limitations General appearance: alert, in no apparent distress Head exam: Present: atraumatic, normocephalic, normal inspection Eye exam: Present: normal appearance, PERRL, EOMI. Absent: scleral icterus, conjunctival injection, periorbital swelling ENT exam: Present: normal exam, mucous membranes moist Respiratory exam: Present: normal lung sounds bilaterally. Absent: respiratory distress, wheezes, rales, rhonchi, stridor Cardiovascular Exam: Present: normal rhythm, bradycardia, normal heart sounds. Absent: systolic murmur, diastolic murmur, rubs, gallop, clicks GI/Abdominal exam: Present: soft, normal bowel sounds. Absent: distended, tenderness, guarding, rebound, rigid Extremities exam: Present: normal inspection, full ROM, normal capillary refill. Absent: tenderness, pedal edema, joint swelling, calf tenderness Back exam: Present: normal inspection Neurological exam: Present: alert, oriented X3 Psychiatric exam: Present: normal affect, normal mood Skin exam: Present: warm, dry, intact, normal color. Absent: rash Course Vital Signs 09/18/23 09/18/23 09/18/23 18:41 19:48 21:47 Temperature 97.5 F L Pulse Rate 58 L 64 59 L Respiratory 18 18 18 Rate Blood Pressure 120/50 127/68 132/90 O2 Sat by Pulse 96 98 96 Oximetry 09/18/23 23:56 Temperature Pulse Rate 60 Respiratory 20 Rate Blood Pressure 130/80 O2 Sat by Pulse 99 Oximetry Medical Decision Making - Medical Decision Making Was pt. sent in by a medical professional or institution (, PA, CHEMICAL PROCESS ENGINEER, urgent care, hospital, or snf...) When possible be specific @ -No Did you speak to anyone other than the patient for history (EMS, parent, family, police, friend...)? What history was obtained from this source @ -No Did you review nursing and triage notes (agree or disagree)? Why? @ -I reviewed and agree with nursing and triage notes Were old charts reviewed (outside hosp., previous admission, EMS record, old EKG, old radiological studies, urgent care reports/EKG's, snf records)? Report findings @ -Charts from [facility] [place] were reviewed which shows multiple visits over the past 2 weeks. Differential Diagnosis (chest pain, altered mental status, abdominal pain women, abdominal pain men, vaginal bleeding, weakness, fever, dyspnea, syncope, headache, dizziness, GI bleed, back pain, seizure, CVA, palpatations, mental health, musculoskeletal)? @ -Differential Chest Pain: Stable Angina, Unstable Angina, STEMI, NSTEMI Aortic Dissection, Pneumothorax, Musculoskeletal, Esophageal Spasm GERD, Cholecystitis, Pancreatitis, Zoster, this is not meant to be an all-inclusive list. EKG interpreted by me (3pts min.). @ -EKG 1918 shows sinus bradycardia rate 56, MO 140, QRS 102, QTQTc 397-389 X-rays interpreted by me (1pt min.). @ -Chest x-ray shows no acute process CT interpreted by me (1pt min.). @ -None done U/S interpreted by me (1pt. min.). @ -None done What testing was considered but not performed or refused? (CT, X-rays, U/S, labs)? Why? @ -None What meds were considered but not given or refused? Why? @ -None Did you discuss the management of the patient with other professionals (professionals i.e. , JONY, CHEMICAL PROCESS ENGINEER, lab, RT, psych nurse, social work manager, band tacker, teacher, seismology technical officer, bilingual case manager)? Give summary @ -No Was smoking cessation discussed for >3mins.? @ -No Was critical care preformed (if so, how long)? @ -No Were there social determinants of health that impacted care today? How? (Homelessness, low income, unemployed, alcoholism, drug addiction, transportation, low edu. Level, literacy, decrease access to med. care, [facility], rehab)? @ -No Was there de-escalation of care discussed even if they declined (Discuss DNR or withdrawal of care, Hospice)? DNR status @ -No What co-morbidities impacted this encounter? (DM, HTN, Smoking, COPD, CAD, Cancer, CVA, ARF, Chemo, Hep., AIDS, mental health diagnosis, sleep apnea, morbid obesity)? @ -None Was patient admitted / discharged? Hospital course, mention meds given and route, prescriptions, significant lab abnormalities, going to OR and other pertinent info. @ -Discharged. Patient presented to the emergency department for evaluation of chest pain lasting 10 minutes. He does report that he has been sick recently with upper respiratory symptoms. Laboratory studies were obtained today. CBC shows normal WBC at 8.5, hemoglobin 12.2; normal coagulation studies; CMP shows hyponatremia with sodium of 129 which appears to be chronic for the patient. Troponin 0.024. Repeated at 3 hours with no change. BMP 368. Chest x-ray was obtained which showed no acute process. Patient will be discharged home. Jony christiansen to follow-up with his primary care provider. He is understanding agreeable with this plan. Patient stable to be discharged. Case discussed with admitting. Undiagnosed new problem with uncertain prognosis? @ -No Drug Therapy requiring intensive monitoring for toxicity (Heparin, Nitro, Insul in, Cardizem)? @ -No Were any procedures done? @ -No Diagnosis/symptom? @ -Chest pain, uri Acute, or Chronic, or Acute on Chronic? @ -acute Uncomplicated (without systemic symptoms) or Complicated (systemic symptoms)? @ -uncomplicated Side effects of treatment? @ -No Exacerbation, Progression, or Severe Exacerbation? @ -No Poses a threat to life or bodily function? How? (Chest pain, USA, MA, pneumonia, PE, COPD, DKA, ARF, appy, cholecystitis, CVA, Diverticulitis, Homicidal, Suicidal, threat to staff... and all critical care pts) @ -No - Lab Data Result diagrams: 09/18/23 19:23 09/18/23 19:23 Lab Results 09/18/23 09/18/23 09/18/23 Range/Units 19:23 19:23 19:23 WBC 8.5 (3.8-10.6) k/uL RBC 3.89 L (4.30-5.90) m/uL Hgb 12.2 L (13.0-17.5) gm/dL Hct 37.2 L (39.0-53.0) % MCV 95.6 (80.0-100.0) fL MCH 31.3 (25.0-35.0) pg MCHC 32.8 (31.0-37.0) g/dL RDW 13.7 (11.5-15.5) % Plt Count 216 (150-450) k/uL MPV 9.2 Neutrophils % 56 % Lymphocytes % 33 % Monocytes % 8 % Eosinophils % 1 % Basophils % 0 % Neutrophils # 4.8 (1.3-7.7) k/uL Lymphocytes # 2.8 (1.0-4.8) k/uL Monocytes # 0.7 (0-1.0) k/uL Eosinophils # 0.1 (0-0.7) k/uL Basophils # 0.0 (0-0.2) k/uL PT 11.0 (10.0-12.5) sec INR 1.0 (<1.2) APTT 22.5 (22.0-30.0) sec Sodium 129 L (137-145) mmol/L Potassium 4.3 (3.5-5.1) mmol/L Chloride 101 (98-107) mmol/L Carbon Dioxide 25 (22-30) mmol/L Anion Gap 3 mmol/L BUN 21 H (9-20) mg/dL Creatinine 0.68 (0.66-1.25) mg/dL Est GFR (CKD-EPI)AfAm >90 (>60 ml/min/1.73 sqM) Est GFR (CKD-EPI)NonAf >90 (>60 ml/min/1.73 sqM) Glucose 139 H (74-99) mg/dL Calcium 8.8 (8.4-10.2) mg/dL Magnesium 1.8 (1.6-2.3) mg/dL Total Bilirubin 0.6 (0.2-1.3) mg/dL AST 21 (17-59) U/L ALT 20 (4-49) U/L Alkaline Phosphatase 42 (38-126) U/L Troponin I (0.000-0.034) ng/mL NT-Pro-B Natriuret Pep 368 pg/mL Total Protein 5.1 L (6.3-8.2) g/dL Albumin 3.0 L (3.5-5.0) g/dL 09/18/23 09/18/23 Range/Units 19:23 22:05 WBC (3.8-10.6) k/uL RBC (4.30-5.90) m/uL Hgb (13.0-17.5) gm/dL Hct (39.0-53.0) % MCV (80.0-100.0) fL MCH (25.0-35.0) pg MCHC (31.0-37.0) g/dL RDW (11.5-15.5) % Plt Count (150-450) k/uL MPV Neutrophils % % Lymphocytes % % Monocytes % % Eosinophils % % Basophils % % Neutrophils # (1.3-7.7) k/uL Lymphocytes # (1.0-4.8) k/uL Monocytes # (0-1.0) k/uL Eosinophils # (0-0.7) k/uL Basophils # (0-0.2) k/uL PT (10.0-12.5) sec INR (<1.2) APTT (22.0-30.0) sec Sodium (137-145) mmol/L Potassium (3.5-5.1) mmol/L Chloride (98-107) mmol/L Carbon Dioxide (22-30) mmol/L Anion Gap mmol/L BUN (9-20) mg/dL Creatinine (0.66-1.25) mg/dL Est GFR (CKD-EPI)AfAm (>60 ml/min/1.73 sqM) Est GFR (CKD-EPI)NonAf (>60 ml/min/1.73 sqM) Glucose (74-99) mg/dL Calcium (8.4-10.2) mg/dL Magnesium (1.6-2.3) mg/dL Total Bilirubin (0.2-1.3) mg/dL AST (17-59) U/L ALT (4-49) U/L Alkaline Phosphatase (38-126) U/L Troponin I 0.024 0.024 (0.000-0.034) ng/mL NT-Pro-B Natriuret Pep pg/mL Total Protein (6.3-8.2) g/dL Albumin (3.5-5.0) g/dL Disposition Clinical Impression: Chest pain, Cough Disposition: HOME SELF-CARE Condition: Stable Instructions (If sedation given, give patient instructions): Chest Pain (ED) Additional Instructions: Follow up with your primary care provider. Return to the emergency department for new or worsening symptoms. Is patient prescribed a controlled substance at d/c from ED?: No Referrals: Noe Ragsdale MD [Primary Care Provider] - 1-2 days
[2023-09-18 19:39] LABS: Basophils % (A) 0 %; Eosinophils # (A) 0.1 k/uL (0-0.7); Eosinophils % (A) 1 %; HCT 37.2 % (39.0-53.0); HGB 12.2 gm/dL (13.0-17.5); Lymphocytes # (A) 2.8 k/uL (1.0-4.8); Lymphocytes % (A) 33 %; MCH 31.3 pg (25.0-35.0); MCHC 32.8 g/dL (31.0-37.0); MCV 95.6 fL (80.0-100.0); Mean Platelet Volume 9.2; Monocytes # (A) 0.7 k/uL (0-1.0); Monocytes % (A) 8 %; Neutrophils # (A) 4.8 k/uL (1.3-7.7); Neutrophils % (A) 56 %; Platelet Count 216 k/uL (150-450); RBC 3.89 m/uL (4.30-5.90); RDW 13.7 % (11.5-15.5); WBC 8.5 k/uL (3.8-10.6)
[2023-09-18 19:50] LABS: ALT 20 U/L (4-49); AST 21 U/L (17-59); African American GFR (CKD) >90 (>60 ml/min/1.73 sqM); Alkaline Phosphatase 42 U/L (38-126); Anion Gap 3 mmol/L; Blood Urea Nitrogen 21 mg/dL (9-20); Calcium 8.8 mg/dL (8.4-10.2); Carbon Dioxide 25 mmol/L (22-30); Chloride 101 mmol/L (98-107); Glucose 139 mg/dL (74-99); Magnesium 1.8 mg/dL (1.6-2.3); Non-African American GFR(CKD) >90 (>60 ml/min/1.73 sqM); Potassium 4.3 mmol/L (3.5-5.1); Sodium 129 mmol/L (137-145); Total Bilirubin 0.6 mg/dL (0.2-1.3); Total Protein 5.1 g/dL (6.3-8.2)
[2023-09-18] MEDS: ASPIRIN 81 MG PO STA (19:51)
[2023-09-18 19:59] LABS: NT-Pro-B-Type Natriuretic Pept 368 pg/mL
[2023-09-18 20:02] LABS: Partial Thromboplastin Time 22.5 sec (22.0-30.0)
--- NOTE | 2023-09-18 21:54 | XR ---
EXAMINATION TYPE: XR chest 2V DATE OF EXAM: 09/18/2023 8:10 PM CLINICAL INDICATION:Male, 58 years old with history of Chest Pain; [facility] COMPARISON: August 10, 2023 TECHNIQUE: XR chest 2V. Frontal and lateral views of the chest.. FINDINGS: Lines/Tubes/Devices: EKG leads overlie the chest. No indwelling lines are seen. Heart/mediastinum: Heart size upper normal. Mediastinum appears stable. Pulmonary vascularity: Not increased, Lungs/Pleura: There is no evidence of pleural effusion, focal consolidation, or pneumothorax. Musculoskeletal: No acute osseous abnormality demonstrated in the limits of the exam. Chronic degene rative changes. Other findings: None. IMPRESSION: No acute findings, or significant interval change.
[2023-09-18 23:57] VITALS: BP 130/80; PULSE 60; RESP 20
== END 2023-09-19 00:47 | disposition home or self-care (01) ==
LOC: EC 18:38
DX: R07.9 Chest pain, unspecified (principal); J06.9 Acute upper respiratory infection, unspecified; R00.1 Bradycardia, unspecified; Z87.891 Personal history of nicotine dependence; Z88.1 Allergy status to other antibiotic agents; Z88.2 Allergy status to sulfonamides
CPT/HCPCS: 36415; 71046; 80053; 83735; 83880; 84484; 85025; 85610; 85730; 93005; 99285

== ENCOUNTER 2024-02-01 19:57 | Outpatient (CLI) | payer MEDICARE, OTHER ==
--- NOTE | 2024-02-02 12:25 | P.PCN ---
Description of Procedure: POLYSOMNOGRAPHY REPORT PROCEDURE(S)/DATE(S): Polysomnography 02/01/2024 CLINICAL: Patient has been seen in the sleep center for evaluation of obstructive sleep apnea-hypopnea syndrome. Please see my consultation. Sleep study has been done for evaluation of patient breathing during the sleep. PROCEDURE: The standard montage for clinical polysomnography included the electroencephalogram, the electrooculogram, the mentalis surface electromyography and Lead II cardiography. The respiratory battery consisted of measurements of nasal/buccal air flow, pressure transducer measurements from nose, thoracic and/or abdominal effort and intercostal surface electromyography. Video monitoring has been done to check for any parasomnia events. Nocturnal oxyhemoglobin saturations were obtained by finger oximetry. Step-jiménez titration with positive airway pressure was utilized to control the respiratory events, if necessary. RESULTS: During the diagnostic sleep study sleep efficiency was decreased to 80.4%. Latency to sleep onset was significantly prolonged to 53.0 min. Sleep architecture showed stage NI was short 1.0%, Delta sleep was absent 0%, REM sleep was normal 21.7%. Respiratory channel showed 19 obstructive apneas, 0 mixed apneas, 219 central apneas, 100 hypopneas with lowest oxygen level 77%. Total apnea hypopnea index was 52.8. Heart rate was in the range between 65 and 73, average 70. EMG showed 0 periodic limb movements per hour with 0 micro-arousals per hour. IMPRESSIONS: 1. Severe central and obstructive sleep apnea hypopnea syndrome. 2. No significant periodic limb movements have been documented. Please see other impressions from consultation PLAN: 1. The patient will have PAP titration for correction of respiratory abnormalities during the sleep, if necessary with BiPAP ST mode equipment. 2. Losing weight program. 3. Sleep hygiene with regular time in bed for at least 7-1/2 hours. 4. No driving if feeling sleepiness. Thank you very much for allowing me to participate in the management of your patient. Sincerely, Kevin Cummins MD, PhD, FAASM. Diplomat of [place] [employer], Sleep Medicine Board by [place] [employer] Topographical Engineer of [facility] [place] cc: Noe Ragsdale MD
== END 2024-02-02 06:00 | disposition home or self-care (01) ==
LOC: 3 N SLEEP 19:57
PROVIDERS: ATTEND Internal Medicine
DX: G47.33 Obstructive sleep apnea (adult) (pediatric) (principal); G47.31 Primary central sleep apnea; Z88.2 Allergy status to sulfonamides; Z88.8 Allergy status to other drugs, medicaments and biological substances; Z88.1 Allergy status to other antibiotic agents; Z91.041 Radiographic dye allergy status
CPT/HCPCS: 95810

== ENCOUNTER 2024-03-15 09:54 | Day surgery (SDC) | payer MEDICARE, OTHER ==
[2024-03-13 11:01] VITALS: BMI 35.3
[~2024-03-15 09:54] MED LIST changes: -LACTATED RINGERS 1,000 ML IV SCH
[2024-03-15 10:49] VITALS: TEMP 97
[2024-03-15] MEDS: IV FLUID CONTINUATION 1,000 ML IV ONE (10:49)
[2024-03-15] MEDS: LACTATED RINGERS 1,000 ML IV SCH (10:50)
[2024-03-15 11:15] LABS: Glucose,Whole Blood 95 mg/dL (70-110)
[2024-03-15] MEDS ORDERED: LIDOCAINE 1% INJ 10MG/ML (20 ML MDV) ONE (11:27)
[2024-03-15] MEDS ORDERED: PROPOFOL 10 MG/ML 20 ML VIAL IV ONE (11:27)
--- NOTE | 2024-03-15 11:38 | P.PCN ---
Date of Procedure: 03/15/24 Procedure(s) Performed: BRIEF HISTORY: Patient is a 58-year-old, pleasant, white male scheduled for an upper endoscopy as a part of evaluation of atypical chest pain for the last 1 month duration. He was recently started omeprazole 20 mg daily and symptoms have significantly improved.. PROCEDURE PERFORMED: Esophagogastroduodenoscopy with biopsy. PREOPERATIVE DIAGNOSIS: Atypical chest pain. IV sedation per anesthesia. PROCEDURE: After informed consent was obtained, the patient was brought into [facility] endoscopy unit. IV sedation was administered by Anesthesia under continuous monitoring. Initially the Olympus GIF-140 video endoscope was inserted into the mouth. Esophagus intubated without any difficulty. It was gradually advanced into the stomach and duodenum and carefully examined. The bulb and the second part of the duodenum appeared normal. The scope at this time was withdrawn to the stomach, adequately insufflated with air, and upon careful examination, mucosa of the antrum mild gastritis and biopsies were done from this area., body, cardia and the fundus appeared normal. The scope was then withdrawn into the esophagus. Small hiatal hernia noted. The GE junction was located at 39 cm from the incisors. The esophagus appeared normal. There were no erosions or ulcerations seen, biopsies were done from the distal esophagus and the patient tolerated the procedure well. IMPRESSION: 1. Mild antral gastritis. 2. Small hiatal hernia. RECOMMENDATIONS: The findings of this examination were discussed with the patient as well as his family. He was advised to follow-up with the biopsy results. Continue omeprazole 20 mg daily and follow antireflux measures..
[2024-03-15 11:45] VITALS: PULSE 76; RESP 16
[2024-03-15 12:21] LABS: Glucose,Whole Blood 90 mg/dL (70-110)
[2024-03-15 12:29] VITALS: BP 133/83
== END 2024-03-15 12:29 | disposition home or self-care (01) ==
LOC: ORWHC2ENDO 09:54
PROVIDERS: ATTEND Internal Medicine Gastroenterology
DX: K29.50 Unspecified chronic gastritis without bleeding (principal); K20.90 Esophagitis, unspecified without bleeding; K44.9 Diaphragmatic hernia without obstruction or gangrene; I10 Essential (primary) hypertension; E78.5 Hyperlipidemia, unspecified; G47.33 Obstructive sleep apnea (adult) (pediatric); E03.9 Hypothyroidism, unspecified; E11.9 Type 2 diabetes mellitus without complications; F31.9 Bipolar disorder, unspecified; G40.909 Epilepsy, unspecified, not intractable, without status epilepticus; Z79.4 Long term (current) use of insulin; Z87.891 Personal history of nicotine dependence; Z79.890 Hormone replacement therapy; Z79.899 Other long term (current) drug therapy; Z99.89 Dependence on other enabling machines and devices; Z88.8 Allergy status to other drugs, medicaments and biological substances; Z91.041 Radiographic dye allergy status; Z88.2 Allergy status to sulfonamides; Z88.1 Allergy status to other antibiotic agents
CPT/HCPCS: 88305; 43239; J2003; J2704

== ENCOUNTER 2024-04-26 19:32 | Outpatient (CLI) | payer MEDICARE, OTHER ==
--- NOTE | 2024-05-03 12:24 | P.PCN ---
Description of Procedure: CLINICAL: Titration with positive air pressure has been done for correction of respiratory abnormalities during sleep. DESCRIPTION OF PROCEDURE: The standard montage for clinical polysomnography included the electroencephalogram, the electrocardiogram, the mentalis surface electromyography and Lead II cardiography. The respiratory battery consisted of measurements of nasal /buccal air flow, pressure transducer measurements from the nose, thoracic and /or abdominal effort and intercostal surface electromyography. Video monitoring has been done to check for any parasomnia events. Nocturnal oxyhemoglobin saturations were obtained by finger oximetry. Step-jiménez titration with positive airway pressure was utilized to control respiratory events. Raw data of sleep recording has been reviewed and is adequate. RESULTS: Sleep efficiency was borderline 87.7%. Latency to sleep onset was normal 19.0 minutes.]. Sleep architecture showed stage N1 was extremely short 0.4%, Delta sleep was normal 6.3%, REM sleep was significantly increased at 32.2%. Heart rate was minimum 68 BPM, maximum 87 BPM, average 79 BPM. EMG showed 0 periodic limb movements per hour. PAP titration have been done with CPAP up to the pressure 9 cm H2O. The best results were at the pressure 6 cm H2O. Apnea hypopnea index reduced to 0.8, but at that pressure patient was only in non-REM sleep. At 7 cm of water patient also was in non-REM sleep and in rem sleep apnea hypopnea index was 1.6. IMPRESSION: 1. Obstructive sleep apnea hypopnea syndrome on controle with PAP treatment. 2. No significant periodic limb movements have been documented. Please see other impressions from consultation. PLAN: 1. The patient will have treatment with positive air pressure equipment with the level of pressure AutoPap 5-9 cm H2O and should use it every night for the whole night. 2. Watching and losing weight. 3. Sleep hygiene with regular time in bed for at least 8 hours. 4. No driving if feeling any sleepiness. 5. I will see the patient for follow up visit to explain the results of the test, recommendations, check compliance with treatment and make any necessary adjustment related to mask fitting, pressure and humidification. Thank you very much for allowing me to participate in the management of your patient. Sincerely, Kevin Cummins MD, PhD, FAASM Diplomat of [place] [employer] Sleep Medicine Board of [place] [employer] Environmental Health Officer of [facility] [place] cc: Noe Ragsdale MD
== END 2024-04-27 05:45 | disposition home or self-care (01) ==
LOC: 3 N SLEEP 19:32
PROVIDERS: ATTEND Internal Medicine
DX: G47.33 Obstructive sleep apnea (adult) (pediatric) (principal); Z88.8 Allergy status to other drugs, medicaments and biological substances; Z88.2 Allergy status to sulfonamides; Z91.041 Radiographic dye allergy status
CPT/HCPCS: 95811